=== PATIENT | male | born 1980 | race Caucasian/White ===

== ENCOUNTER → 2021-04-05 06:17 | Outpatient (CLI) | payer OTHER, SELFPAY ==
[2021-04-05 07:43] LABS: Absolute Lymphocyte Count 1.77 X10^3/uL (0.83-4.51); Absolute Neutrophil Count 4.2 X10^3/uL (2.0-7.7); Basophil# 0.03 X10^3/uL; Basophil% 0.4 % (0-1); Eosinophil# 0.13 X10^3/uL; Eosinophils% 1.9 % (0-5); Hemoglobin 14.7 g/dL (13.0-16.5); Lymphocyte # 1.77 X10^3/ul (0.83-4.51); Lymphocyte % 25.8 % (19-41); Mean Corp Hgb Conc 33.4 g/dL (32-36); Mean Corpuscular Hgb 29.6 pg (27.0-32.0); Mean Corpuscular Volume 88.5 fL (80-94); Mean Platelet Vol. 8.8 fl (6.2-12.0); Monocyte# 0.68 X10^3/uL; Monocyte% 9.9 % (0-10); NRBC Flagged by Analyzer 0 % (0-5); Neutrophil # 4.23 X10^3/uL (2.7-7.7); Neutrophil % 61.7 % (47-70); Platelet Count 181 K/mm3 (150-450); RBC Distribution Width CV 12.4 % (11.6-14.6); RBC Distribution Width SD 40.4 fl (35.1-43.9); Red Blood Count 4.97 M/mm3 (4.6-6.2); White Blood Count 6.9 K/mm3 (4.4-11.0)
[2021-04-05 08:20] LABS: Anion Gap 6 (5-15); BUN 15 mg/dL (7-18); BUN/Creat Ratio 14.9 RATIO (10-20); Chloride 102 mmol/L (98-107); Cholesterol 157 mg/dL (200); Creatinine, Serum 1.01 mg/dL (0.70-1.30); EST Glomerular Filtration Rate 86 mL/min (>60); Est Glom Filt Rate - Afr Amer 104 mL/min (>60); Glucose 84 mg/dL (74-106); High Density Lipoprotein 41 mg/dL; Potassium 4.1 mmol/L (3.5-5.1); Sodium Level 139 mmol/L (136-145); Triglycerides 62 mg/dL; Very Low Density Lipoprotein 12 mg/dL (5-40)
== END ==
PROVIDERS: PCP Family Medicine; Referring Provider Family Medicine; Visit Provider Family Medicine
DX: Z00.00 Encounter for general adult medical examination without abnormal findings (principal); L40.9 Psoriasis, unspecified
CPT/HCPCS: 36415; 80048; 80061; 84403; 84443; 85025

== ENCOUNTER → 2022-04-19 | Outpatient (CLI) | payer OTHER, SELFPAY ==
[2022-04-19 08:02] LABS: Anion Gap 4 (5-15); BUN 24 mg/dL (7-18); BUN/Creat Ratio 24.8 RATIO (10-20); Calcium,Total 8.8 mg/dL (8.5-10.1); Chloride 107 mmol/L (98-107); Cholesterol 167 mg/dL (200); Creatinine, Serum 0.97 mg/dL (0.70-1.30); EST Glomerular Filtration Rate 90 mL/min (>60); Est Glom Filt Rate - Afr Amer 109 mL/min (>60); Glucose 82 mg/dL (74-106); High Density Lipoprotein 46 mg/dL; Potassium 4.5 mmol/L (3.5-5.1); Sodium Level 140 mmol/L (136-145); Triglycerides 63 mg/dL; Very Low Density Lipoprotein 13 mg/dL (5-40)
== END | disposition home or self-care (01) ==
PROVIDERS: PCP Family Medicine; Referring Provider Family Medicine; Visit Provider Family Medicine
DX: Z00.00 Encounter for general adult medical examination without abnormal findings (principal)
CPT/HCPCS: 36415; 80048; 80061

== ENCOUNTER → 2022-12-19 | Outpatient (CLI) | payer OTHER, SELFPAY ==
[2022-12-19 17:26] LABS: Absolute Lymphocyte Count 2.27 X10^3/uL (0.83-4.51); Absolute Neutrophil Count 5.4 X10^3/uL (2.0-7.7); Basophil# 0.07 X10^3/uL; Basophil% 0.8 % (0-1); Eosinophil# 0.23 X10^3/uL; Eosinophils% 2.6 % (0-5); Hematocrit 43.9 % (40-54); Hemoglobin 15.1 g/dL (13.0-16.5); Lymphocyte # 2.27 X10^3/ul (0.83-4.51); Lymphocyte % 25.5 % (19-41); Mean Corp Hgb Conc 34.4 g/dL (32-36); Mean Corpuscular Volume 87.1 fL (80-94); Mean Platelet Vol. 8.6 fl (6.2-12.0); Monocyte# 0.87 X10^3/uL; Monocyte% 9.8 % (0-10); NRBC Flagged by Analyzer 0 % (0-5); Neutrophil # 5.41 X10^3/uL (2.7-7.7); Neutrophil % 60.7 % (47-70); Platelet Count 178 K/mm3 (150-450); RBC Distribution Width CV 12.1 % (11.6-14.6); RBC Distribution Width SD 38.5 fl (35.1-43.9); Red Blood Count 5.04 M/mm3 (4.6-6.2); White Blood Count 8.9 K/mm3 (4.4-11.0)
[2022-12-19 17:42] LABS: AST(SGOT) 24 U/L (15-37); Alanine Aminotransfer ALT/SGPT 34 U/L (16-61); Albumin, Serum 4.2 g/dL (3.2-5.0); Alkaline Phosphatase 56 U/L (45-117); Anion Gap 5 (5-15); BUN 25 mg/dL (7-18); BUN/Creat Ratio 27.6 RATIO (10-20); Bilirubin, Direct 0.11 mg/dL (0.00-0.30); Calcium,Total 8.8 mg/dL (8.5-10.1); Chloride 108 mmol/L (98-107); Creatinine, Serum 0.91 mg/dL (0.70-1.30); EST Glomerular Filtration Rate 97 mL/min (>60); Est Glom Filt Rate - Afr Amer 117 mL/min (>60); Globulin 3.5 g/dL (2.2-4.2); Glucose 79 mg/dL (74-106); Potassium 3.9 mmol/L (3.5-5.1); Protein, Total 7.7 g/dL (6.4-8.2); Sodium Level 140 mmol/L (136-145)
[2022-12-19 18:46] LABS: Hepatitis B Surface Antibody Non-Reactive; Hepatitis B Surface Antigen Non-Reactive (Nonreactive); Hepatitis C Antibody Non-Reactive (Nonreactive)
[2022-12-21 15:08] LABS: Hepatitis B Core Ab Total Negative (Negative); QNTFERON TB Mitogen Value > 10.00 IU/mL (.); QNTFERON TB Nil Value 0 IU/mL (.); QNTFERON TB1+ Ag Value 0 IU/mL (.); QNTFERON TB2+ Ag Value 0 IU/mL (.); QNTIFERON TB Positive Criteria Negative (Negative)
== END | disposition home or self-care (01) ==
LOC: MTLAB 16:41
PROVIDERS: PCP Family Medicine; Referring Provider Dermatology; Visit Provider Dermatology
DX: L40.0 Psoriasis vulgaris (principal)
CPT/HCPCS: 36415; 80048; 80076; 85025; 86480; 86704; 86706; 86803; 87340

== ENCOUNTER 2023-01-05 15:56 | Outpatient (RCR) | payer OTHER, SELFPAY ==
--- NOTE | 2023-01-08 12:18 | HP.PTEVAL_ITS ---
Patient's Visit Information Visit Information Visit Information: RAY BOSWELL is a 42 year old M referred to Physical Therapy by Dr. Leti Julian DC with a diagnosis of Lumbopelvic dysfunctional, need for hip and HS mobility. Date of Evaluation: 01/05/23 Physical Therapist: Kendrick Coles DPT Visit Plan Frequency: 1x/Week Duration: 4 Weeks Plan: Pt. to work on the HEP I gave him today for both lumbar, hip mobility as well as hip flexor, HS, hip ER stretching. Pt. is to complete for 4-5 weeks then come back to PT if not progressing. If I do not hear from him in this time frame I will DC back to physician. Subjective Subjective: Pt. is here today for his initial evaluation with diagnosis of Lumbopelvic dysfunction. Pt. reports not having much pain, but is more concerned about his hip and HS mobility. Pt. reports having difficulty with squatting and with lifting movements. He does have some low back stiffness, but not marked pain. Pt. did see his chiropractor and had some success with his mobilizations, but is hopeful to get some more exercises to work on his mobility. Pt. reports no pain currently. Pt. reports having some pain with squatting in his hips and lumbar spine, but mostly his mobility is limiting the full movement. He reports stretching before and working on his mobility, but not seeing progression. He is interested in getting some information on stretching to allow for more self progression at home with his lifting. Objective Objective: POSTURE: Pt. has decent posture in stance. No glaring defects. PALPATION: Pt. has no marked tenderness in BLEs, lumbar spine or hips. NEURO: Normal throughout BLEs. ROM: Pt. has tight B calves, tight HS, tight B hip flexors, and moderate tightness throughout lumbar spine. MMT: 5/5 throughout without issues. GAIT: normal no issues noted. Special Tests L/S Slump test left side: Negative L/S Slump test right side: Negative Lumbar Standing: Flexion - Mechanical Response: No effect Lumbar Standing: Flexion - Symptoms During Testing: No effect Lumbar Standing: Flexion - Symptoms After Testing: No effect Lumbar Standing: Extension - Mechanical Response: No effect Lumbar Standing: Extension - Symptoms During Testing: No effect Lumbar Standing: Extension - Symptoms After Testing: No effect Lumbar Standing: Right Side Glides - Mechanical Response: No effect Lumbar Standing: Right Side [place] - Symptoms During Testing: No effect Lumbar Standing: Right Side [place] - Symptoms After Testing: No effect Lumbar Standing: Left Side [place] - Mechanical Response: No effect Lumbar Standing: Left Side [place] - Symptoms During Testing: No effect Lumbar Standing: Left Side [place] - Symptoms After Testing: No effect R Hip Scour: Negative R Hip Quadrant - Intraarticular Pathology: Negative R Hip LILIAN - Intraarticular Pathology: Negative R Hip FADDIR - Labrum: Negative L Hip Scour: Negative L Hip Quadrant - Intraarticular Pathology: Negative L Hip LILIAN - Intraarticular Pathology: Negative L Hip FADDIR - Labrum: Negative Balance/Special Test Scores Lower Extremity Functional Score: 70 Goals Goal 1:: LTG: Pt. to be I with HEP for LE stretching and lumbar/hip mobility. Goal Time Frame: 4-6 Weeks Goal 2:: LTG: Pt. to be able to squat with proper depth without tightness in lumbar spine or hip limiting his ability to lift. Goal Time Frame: 4-6 Weeks Rehabilitation Potential Physical Therapy Diagnosis: Pt. has signs and symptoms consistent with B hip and HS hypomobility. Pt. would benefit from exercises to promote B hip and lumbar flexibility in order to complete all proper movements with lifting and recreational activities. Rehabilitation Potential: Excellent Anticipated Interventions Patient/Client Instruction: Educate patient on: Condition, Plan of Care, Risk Factors and Benefits of Fitness Program For the Purpose of:: To facilitate caregiver knowledge, To improve self management, To prevent re-injury, To improve ability to perform tasks related to life management and To improve tolerance to ADL's Therapeutic Exercise to Include: Postural training, Flexibilty training, Passive ROM and Active ROM For the Purpose of:: To increase ROM, To improve nutrient delivery to tissue, To increase oxygenation perfusion, To improve health of tissue, To decrease soft tissue restriction and To increase flexibility/ROM Text: Thank you for the opportunity to evaluate your patient. For Medicare and Medicare HMO plans, please review the plan of care and approve it. It will need to be FAXED BACK to us at [phone] for Medicare purposes. For Medicare only, by signing this I certify the plan of care. Please let me know if there are questions or concerns regarding this plan of care. Physician Signature: Date:
== END 2023-01-05 19:00 | disposition home or self-care (01) ==
LOC: PT 15:56
PROVIDERS: PCP Family Medicine; Referring Provider Chiropractor; Visit Provider Chiropractor
DX: M99.03 Segmental and somatic dysfunction of lumbar region (principal); M99.05 Segmental and somatic dysfunction of pelvic region; M54.9 Dorsalgia, unspecified
CPT/HCPCS: 97110; 97161

== ENCOUNTER → 2023-04-13 | Outpatient (CLI) | payer OTHER, SELFPAY ==
--- NOTE | 2023-04-13 17:03 | RAD_ITS ---
INDICATION: left thumb puncture r/o fb EXAMINATION/TECHNIQUE: X-RAY - LEFT HAND XR Fingers 3 VIEWS COMPARISON: FINDINGS: SOFT TISSUES: No soft tissue swelling or gas. No radiopaque foreign body. BONES/JOINTS: No acute fracture or subluxation.. Normal alignment. Preservation of the joint space.. No sclerotic or destructive changes observed. RAD/Finger(s) Min 2 Views IMPRESSION: Negative. Electronically Signed: Frank Johnson DO at 17:31 EDT ,
== END | disposition home or self-care (01) ==
LOC: MTRAD 17:03
PROVIDERS: PCP Family Medicine; Referring Provider Physician Assistant Surgical; Visit Provider Physician Assistant Surgical
DX: S61.032A Puncture wound without foreign body of left thumb without damage to nail, initial encounter (principal)
CPT/HCPCS: 73140

== ENCOUNTER → 2023-05-01 | Outpatient (CLI) | payer OTHER, SELFPAY ==
[2023-05-01 07:22] LABS: Anion Gap 2 (5-15); BUN 21 mg/dL (7-18); BUN/Creat Ratio 20.6 RATIO (10-20); Chloride 103 mmol/L (98-107); Cholesterol 197 mg/dL (200); Creatinine, Serum 1.02 mg/dL (0.70-1.30); EST Glomerular Filtration Rate 84 mL/min (>60); Est Glom Filt Rate - Afr Amer 102 mL/min (>60); Glucose 81 mg/dL (74-106); High Density Lipoprotein 50 mg/dL; Sodium Level 133 mmol/L (136-145); Triglycerides 78 mg/dL; Very Low Density Lipoprotein 16 mg/dL (5-40)
== END | disposition home or self-care (01) ==
PROVIDERS: PCP Family Medicine; Referring Provider Family Medicine; Visit Provider Family Medicine
DX: Z00.00 Encounter for general adult medical examination without abnormal findings (principal)
CPT/HCPCS: 36415; 80048; 80061

== ENCOUNTER 2024-11-29 10:50 | Emergency (ER) | payer OTHER, SELFPAY ==
[2024-11-29 10:51] VITALS: BP 188/107; PULSE 76; RESP 18; TEMP 36.8; O2SAT 100; BMI 37.0
--- NOTE | 2024-11-29 11:14 | CT_ITS ---
PROCEDURE: ABDOMEN/PELVIS W IV CONT ONLY 11/29/2024 REASON FOR EXAM: ABDOMINAL PAIN TECHNIQUE: Abdomen and pelvis CT with intravenous contrast. Coronal and Sagittal reconstruction series were provided. CONTRAST: 100 mL of Isovue 370 One or more dose reduction techniques were used (e.g., Automated exposure control, adjustment of the mA and/or kV according to patient size, use of iterative reconstruction technique. RADIATION DOSE SUMMARY: DLP: 1487 mGycm COMPARISON: None FINDINGS: Limited sections of the lung bases demonstrate no focal pulmonary mass. The liver, spleen, pancreas, both kidneys, and both adrenal glands demonstrate no acute findings. 2.1 cm exophytic cyst within the right kidney. Smaller scattered subcentimeter hypodensities within bilateral kidneys too small to accurately characterize. No hydronephrosis. No obstructive uropathy. Subcentimeter hypodensities throughout the liver too small to accurately characterize. Scattered calcifications throughout the spleen likely sequelae of prior granulomatous disease. The gallbladder is unremarkable. The stomach is unremarkable. The aorta and IVC demonstrate no acute findings. There is no free air, free fluid or intestinal obstruction. The small bowel loops are not dilated. The appendix is normal. No bowel obstruction. Colonic diverticulosis without acute diverticulitis. The pelvic structures are intact. There is no solid pelvic mass. The urinary bladder is distended Visualized osseous structures demonstrate no acute abnormality. CT/Abdomen/Pelvis W IV Cont ONLY IMPRESSION: No acute intra-abdominal process. Normal appendix. No bowel obstruction. Col onic diverticulosis without acute diverticulitis. Reading Location: [id number]
--- NOTE | 2024-11-29 11:16 | EX.ED.DYSGE1 ---
HPI <CHEN Munoz - Last Filed: 11/29/24 12:51> History of Present Illness Chief Complaint: Abd Pain Narrative Narrative: 44 old male with past medical history of psoriasis presents with abdominal pain and rectal bleeding. He has had 4 months of intermittent pain that radiates from the umbilicus to the groin. He noticed there was a healing depression to the right of his umbilicus, but he has no hernia. He also would have occasional rectal bleeding with bowel movements. The abdominal pain and rectal bleeding were very minor so he did not address it. The abdominal pain seems worse over the last 4 days and today when he was on the toilet and passed gas it filled the toilet bowl with bright red blood. No clots. No rectal pain. No fever, chills, nausea or vomiting. No blood thinners. No history of colonoscopy. PFSH <CHEN Munoz - Last Filed: 11/29/24 12:51> ON LICENSE OF [facility] Home Medications ?Medication ?Instructions ?Recorded ?Last Taken ?Type Saccharomyces boulardii 250 mg 250 mg PO DAILY 12/25/22 Unknown History capsule (Digest Probiotic (S.boulardii)) cholecalciferol (vitamin D3) 125 125 mcg PO DAILY 12/25/22 Unknown History mcg (5,000 unit) capsule loratadine 10 mg tablet (Allergy 10 mg PO DAILY 12/25/22 Unknown History Relief (loratadine)) multivitamin 1 tab PO DAILY 12/25/22 Unknown History Adacel(Tdap Adolesn/Adult)(PF) 0.5 ml IM ONCE #0.5 mL 04/13/23 Unknown Clinic 2Lf-(2.5-5-3-5mcg)-5 Lf/0.5 mL IM susp (diph,pertuss(acel),tet vac(PF)) roflumilast 500 mcg tablet 500 mcg PO QDAY 06/09/24 Unknown History Allergy/AdvReac Type Severity Reaction Status Date / Time amoxicillin trihydrate (From Allergy Diarrhea Verified 06/09/24 11:04 Augmentin) potassium clavulanate (From Allergy Diarrhea Verified 06/09/24 11:04 Augmentin) Family History Other Diabetes Heart disease Surgical History History of hand surgery Social History Smoking Status: Never smoker alcohol intake: never ROS <CHEN Munoz - Last Filed: 11/29/24 12:51> ROS ED ROS Narrative Constitutional: Negative for fever, chills, malaise. CVS: Negative for chest pain. Respiratory: Negative for shortness of breath. GI: Positive for abdominal pain. Negative for nausea, vomiting, diarrhea, constipation, melena. : Negative for dysuria. EXAM <CHEN uMnoz - Last Filed: 11/29/24 12:51> Physical Exam Narrative Exam Narrative: CONST: Patient sitting in no acute distress. EYES: Normal inspection. NECK: Normal inspection. RESP: No respiratory distress, CTAB. CVS: Regular rate and rhythm, no murmur, no gallop. ABD: Soft and nontender, no guarding or rebound, nondistended, no palpable hernia. MARY: Small amount of dried bright red blood around the rectum with no visible external hemorrhoids. SKIN: Color normal, no rash, warm, dry, intact. EXTREMITIES: Normal appearance, no pedal edema. NEURO: Alert and answering questions appropriately. PSYCH: Normal affect. Const Vital Signs: 11/29/24 10:51 11/29/24 12:52 Temperature 98.3 F 98.6 F Temperature Source Oral Pulse Rate 76 72 Respiratory Rate 18 16 Blood Pressure 188/107 H 154/94 H Blood Pressure Mean 134 114 Pulse Ox 100 97 Oxygen Delivery Method Room Air <Dr. Jorge Hill DO - Last Filed: 11/29/24 13:06> Physical Exam Const Vital Signs: 11/29/24 10:51 11/29/24 12:52 Temperature 98.3 F 98.6 F Temperature Source Oral Pulse Rate 76 72 Respiratory Rate 18 16 Blood Pressure 188/107 H 154/94 H Blood Pressure Mean 134 114 Pulse Ox 100 97 Oxygen Delivery Method Room Air MDM <CHEN Munoz - Last Filed: 11/29/24 12:51> MDM MDM Narrative Medical decision making narrative: Patient presents with 4 months of intermittent lower abdominal pain and bright red rectal bleeding that worsened over the last few days. He appears well and nontoxic. Vital stable. He has a soft, nontender abdomen. I do not appreciate any hernias. There is dried bright red blood on the external rectum but no visible hemorrhoids. Differential includes diverticulosis, diverticulitis, internal/external hemorrhoids among others. CBC and CMP are normal. Urinalysis negative. CT scan shows diverticulosis without diverticulitis. I discussed with the patient this is likely the source of his bleeding but he needs to follow-up with primary care to have a colonoscopy. Since his abdominal pain increased over the last few days I discussed the possibility of a smoldering diverticulitis infection and offered Augmentin but he would like to hold off and will discuss with his primary care if symptoms require it. He was discharged in stable condition History & Record Review Discussion w/independent historian: Patient Lab Data Attestation: I reviewed the patient's lab results. Labs: Laboratory Results - last 24 hr 11/29/24 11/29/24 11:20 12:18 WBC 9.0 RBC 5.07 Hgb 15.3 Hct 43.6 MCV 86.0 MCH 30.2 MCHC 35.1 RDW Std Deviation 37.4 RDW Coeff of Trupti 12.1 Plt Count 150 MPV 8.1 Immature Gran % (Auto) 0.800 Neut % (Auto) 68.4 Lymph % (Auto) 20.8 [place] % (Auto) 8.2 Eos % (Auto) 1.2 Baso % (Auto) 0.6 Absolute Neuts (auto) 6.1 Absolute Lymphs (auto) 1.87 Nucleated RBC % 0 Sodium 138 Potassium 3.8 Chloride 102 Carbon Dioxide 24.4 Anion Gap 12 BUN 13 Creatinine 0.92 Estim Creat Clear Calc 124.82 Est GFR (MDRD) Non-Af 103 BUN/Creatinine Ratio 13.7 Glucose 82 Calcium 9.5 Total Bilirubin 0.63 AST 31 ALT 42 Alkaline Phosphatase 68 Total Protein 7.6 Albumin 4.8 Globulin 2.8 Albumin/Globulin Ratio 1.7 Urine Color Yellow Urine Clarity Clear Urine pH 7.0 Ur Specific [place] 1.010 Urine Protein Negative Urine Glucose (UA) Normal Urine Ketones Negative Urine Occult Blood Negative Urine Nitrite Negative Urine Bilirubin Negative Urine Urobilinogen Normal Ur Leukocyte Esterase Negative Urine RBC 0 SEEN Urine WBC 0 SEEN Ur Squamous Epith Cells 0 SEEN Urine Bacteria 0 SEEN Urine Mucus 0 SEEN Radiography Diagnostic Testing: Clinical Impression(s) from Imaging Studies Abdomen/Pelvis CT 11/29/24 11:14 IMPRESSION: No acute intra-abdominal process. Normal appendix. No bowel obstruction. Colonic diverticulosis without acute diverticulitis. Reading Location: [id number] <Dr. Jorge Hill DO - Last Filed: 11/29/24 13:06> [facility] Narrative Medical decision making narrative: Patient presents with 4 months of intermittent lower abdominal pain and bright red rectal bleeding that worsened over the last few days. He appears well and nontoxic. Vital stable. He has a soft, nontender abdomen. I do not appreciate any hernias. There is dried bright red blood on the external rectum but no visible hemorrhoids. Differential includes diverticulosis, diverticulitis, internal/external hemorrhoids among others. CBC and CMP are normal. Urinalysis negative. CT scan shows diverticulosis without diverticulitis. I discussed with the patient this is likely the source of his bleeding but he needs to follow-up with primary care to have a colonoscopy. Since his abdominal pain increased over the last few days I discussed the possibility of a smoldering diverticulitis infection and offered Augmentin but he would like to hold off and will discuss with his primary care if symptoms require it. He was discharged in stable condition I have personally performed a face to face assessment of the patient and have reviewed the KOJO Note. I performed a substantive portion of the visit including all aspects of the following. My gutierrez findings include: History is 44-year-old male presenting to the emergency room with abdominal pain from his umbilicus to his suprapubic area. Waxing and waning for about 2 weeks. No mucousy stools no significant constipation or diarrhea. This morning he was on the commode and had bright red blood in the toilet. This is the first that has occurred. He states that sometimes he will see blood on the tissue. He denies any rectal pain. No fevers. No known hernias. No prior colonoscopy though he has discussed this with his doctor. He is due for his yearly evaluation. Exam is mild tenderness to palpation in the suprapubic region and just to the right of midline between his umbilicus and pubic symphysis. There is no palpable hernia at rest or with partial sit up. Normal bowel sounds. Medical Decison Making basic blood work shows a white count at 9 normal differential. Urinalysis is negative. CT of the pelvis demonstrates diverticular disease but no diverticulitis. I do think it would be reasonable with the patient obtain outpatient colonoscopy. We talked about in a trial of antibiotics for possible early diverticulitis. Patient to follow-up with primary care Lab Data Labs: Laboratory Results - last 24 hr 11/29/24 11/29/24 11:20 12:18 WBC 9.0 RBC 5.07 Hgb 15.3 Hct 43.6 MCV 86.0 MCH 30.2 MCHC 35.1 RDW Std Deviation 37.4 RDW Coeff of Trupti 12.1 Plt Count 150 MPV 8.1 Immature Gran % (Auto) 0.800 Neut % (Auto) 68.4 Lymph % (Auto) 20.8 [place] % (Auto) 8.2 Eos % (Auto) 1.2 Baso % (Auto) 0.6 Absolute Neuts (auto) 6.1 Absolute Lymphs (auto) 1.87 Nucleated RBC % 0 Sodium 138 Potassium 3.8 Chloride 102 Carbon Dioxide 24.4 Anion Gap 12 BUN 13 Creatinine 0.92 Estim Creat Clear Calc 124.82 Est GFR (MDRD) Non-Af 103 BUN/Creatinine Ratio 13.7 Glucose 82 Calcium 9.5 Total Bilirubin 0.63 AST 31 ALT 42 Alkaline Phosphatase 68 Total Protein 7.6 Albumin 4.8 Globulin 2.8 Albumin/Globulin Ratio 1.7 Urine Color Yellow Urine Clarity Clear Urine pH 7.0 Ur Specific [place] 1.010 Urine Protein Negative Urine Glucose (UA) Normal Urine Ketones Negative Urine Occult Blood Negative Urine Nitrite Negative Urine Bilirubin Negative Urine Urobilinogen Normal Ur Leukocyte Esterase Negative Urine RBC 0 SEEN Urine WBC 0 SEEN Ur Squamous Epith Cells 0 SEEN Urine Bacteria 0 SEEN Urine Mucus 0 SEEN Radiography Diagnostic Testing: Clinical Impression(s) from Imaging Studies Abdomen/Pelvis CT 11/29/24 11:14 IMPRESSION: No acute intra-abdominal process. Normal appendix. No bowel obstruction. Colonic diverticulosis without acute diverticulitis. Reading Location: [facility] Discharge Plan Triage Chief Complaint: Abd Pain ED Midlevel Provider: Katarzyna Roberts ED Provider: Jorge Hill Dx/Rx/DC Orders Clinical Impression: Diverticulosis, Rectal bleeding, Abdominal pain Instructions: Abdominal Pain, ED Diverticulosis Prescriptions: No Action loratadine [Allergy Relief (loratadine)] 10 mg tablet 10 mg PO DAILY multivitamin Tablet 1 tab PO DAILY cholecalciferol (vitamin D3) 125 mcg (5,000 unit) capsule 125 mcg PO DAILY Saccharomyces boulardii [Digest Probiotic (S.boulardii)] 250 mg capsule 250 mg PO DAILY diph,pertuss(acel),tet vac(PF) [Adacel(Tdap Adolesn/Adult)(PF)] 2 Lf-(2.5-5-3-5 mcg)-5Lf/0.5 mL suspension 0.5 ml IM ONCE Qty: 0.5 0RF roflumilast 500 mcg tablet 500 mcg PO QDAY Primary Care Provider: Angelo Velázquez Referrals: Angelo Velázquez MD [Primary Care Provider] - Activity Restrictions/Additional Instructions: Your blood work is normal. Your CAT scan showed diverticulosis which could be a source of the bright red bleeding. It is important you follow-up with your primary care doctor to schedule a colonoscopy. Since your abdominal pain has been a little worse this could be early stages of diverticulitis. I offered Augmentin but you would like to hold off and follow-up with her primary care doctor which is very reasonable. If symptoms worsen significantly please come back to the ER. Print Language: Hungarian Disposition Disposition: Home, Self Care Discharge Date/Time: 11/29/24 12:58
[2024-11-29 11:29] LABS: Absolute Lymphocyte Count 1.87 X10^3/uL (0.83-4.51); Absolute Neutrophil Count 6.1 X10^3/uL (2.0-7.7); Basophil# 0.05 X10^3/uL; Basophil% 0.6 % (0-1); Eosinophil# 0.11 X10^3/uL; Eosinophils% 1.2 % (0-5); Hematocrit 43.6 % (40-54); Hemoglobin 15.3 g/dL (13.0-16.5); Lymphocyte # 1.87 X10^3/ul (0.83-4.51); Lymphocyte % 20.8 % (19-41); Mean Corp Hgb Conc 35.1 g/dL (32-36); Mean Corpuscular Hgb 30.2 pg (27.0-32.0); Mean Platelet Vol. 8.1 fl (6.2-12.0); Monocyte# 0.74 X10^3/uL; Monocyte% 8.2 % (0-10); NRBC Flagged by Analyzer 0 % (0-5); Neutrophil # 6.14 X10^3/uL (2.7-7.7); Neutrophil % 68.4 % (47-70); Platelet Count 150 K/mm3 (150-450); RBC Distribution Width CV 12.1 % (11.6-14.6); RBC Distribution Width SD 37.4 fl (35.1-43.9); Red Blood Count 5.07 M/mm3 (4.6-6.2)
[2024-11-29 11:57] LABS: ALB/GLOB Ratio 1.7 RATIO (0.9-2.4); AST(SGOT) 31 U/L (<=37); Alanine Aminotransfer ALT/SGPT 42 U/L (<=46); Albumin, Serum 4.8 g/dL (3.5-5.0); Alkaline Phosphatase 68 U/L (40-129); Anion Gap 12 (5-15); BUN 13 mg/dL (4-19); BUN/Creat Ratio 13.7 RATIO (10-20); Calcium,Total 9.5 mg/dL (7.6-11.0); Carbon Dioxide 24.4 mmol/L (21.0-32.0); Chloride 102 mmol/L (98-108); Creatinine, Serum 0.92 mg/dL (0.70-1.20); EST Glomerular Filtration Rate 103 (>60); Estimated Creatinine Clearance 124.82 ml/min (50-250); Globulin 2.8 g/dL (2.2-4.2); Glucose 82 mg/dL (70-99); Potassium 3.8 mmol/L (3.3-5.1); Protein, Total 7.6 g/dL (5.9-8.4); Sodium Level 138 mmol/L (133-145); Total Bilirubin 0.63 mg/dL (0.00-1.30)
[2024-11-29 12:27] LABS: Bacteria 0 SEEN /hpf (None Seen); Mucous, Urine 0 SEEN /hpf (<or=2+); Red Blood Cells-Urine 0 SEEN /hpf (0-5); Squamous Epithelial Cells - UA 0 SEEN /hpf (0-5); White Blood Cells 0 SEEN /hpf (0-5)
[2024-11-29 12:37] LABS: Color, Urine Yellow (Yellow); Glucose, Dipstick Normal (Normal); Ketone-Dipstick Negative (Negative); Leukocyte Esterase-Dipstick Negative /ul (Negative); Nitrite-Dipstick Negative (Negative); Occult Blood-Urine Negative /ul (Negative); Protein-Dipstick Negative (Negative); Urine Bilirubin Dipstick Negative (Negative); Urine Clarity Clear (Clear); Urine Urobilinogen Normal (Normal)
[2024-11-29 12:52] VITALS: BP 154/94; PULSE 72; RESP 16; TEMP 37; O2SAT 97
== END 2024-11-29 12:58 | disposition home or self-care (01) ==
PROVIDERS: Physician Assistant; Emergency Provider Emergency Medicine; PCP Family Medicine; Visit Provider Emergency Medicine
DX: K57.30 Diverticulosis of large intestine without perforation or abscess without bleeding (principal); K62.5 Hemorrhage of anus and rectum
CPT/HCPCS: 74177; 80053; 81001; 85025; 99283; Q9967; A4216

== ENCOUNTER → 2025-01-01 | Outpatient (CLI) | payer OTHER, SELFPAY ==
--- NOTE | 2025-01-01 07:31 | US_ITS ---
PROCEDURE: ABDOMEN LIMITED 01/01/2025 REASON FOR EXAM: RUQ PAIN TECHNIQUE: Right upper quadrant abdominal ultrasound COMPARISON: CT examination of 11/29/2024.. FINDINGS: Liver: The liver measures of the upper range of normal. No focal hepatic abnormality is seen, and normal hepatic echogenicity is noted. Hepatopetal flow of the main portal vein is noted. No intrahepatic biliary ductal dilation is noted. Gallbladder: Measured at 8.6 cm in length. Gallbladder sludge is noted. No stone, wall thickening, or pericholecystic fluid collection is seen. No sonographic Neely's sign was elicited. Common bile duct: Normal measuring 2.6 mm diameter. Pancreas: Limited visualization due to overlying bowel gas, without focal abnormality seen. No pancreatic duct dilation is noted. Right kidney: An exophytic hypoechoic structure at the superior pole of the right kidney is measured at 17 x 16 x 16 mm. Color Doppler evaluation does not demonstrate internal blood flow. The right kidney measures 10.7 x 5.2 x 4.8 cm. No evidence of hydronephrosis. The cortex is measured at 11 mm. Peritoneal Findings: No ascites identified. US/Abdomen Limited IMPRESSION: 1. Hypovascular hypoechoic exophytic structure of the superior pole of the righ t kidney, without internal blood flow noted upon color Doppler evaluation. This most likely represents a hemorrhagic cyst or ot her complicated cyst. 2. Gallbladder sludge. No findings of acute gallbladder disease or biliary obs truction, and no sonographic Neely's sign was elicited. Reading Location: [place] [id number]
--- OUTSIDE RECORDS SUMMARY | 2025-01-01 07:47 | XMS RPT_ITS | CCD ---
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 Angelo Velázquez Primary Care Provider Dr. Angelo Velázquez Referring Provider Eliel, Dr. Landeros Attending Provider CHEN Sanders Attending Provider Eber HER, Dr. Stephens Primary Care Provider Eber HER, Dr. Stephens Referring Provider Abdelrahman Anderson Attending Provider Dr. Jorge Hill DO Emergency Provider Dr. Jorge Hill DO Attending Provider Gissel HER, Dr. Anaya Attending Provider Jorge Hill Attending Unavailable Velázquez, Angelo Primary Care Unavailable Velázquez, Angelo Primary Care Unavailable Héctor Chauhan Attending Unavailable Eber, Angelo Referring Unavailable Velázquez, Angelo Primary Care Unavailable Héctor Chauhan Attending Unavailable Eber, Angelo Primary Care Unavailable Velázquez, Angelo Referring Unavailable Burt Turcios Attending Unavailable Velázquez, Angelo Primary Care Unavailable Velázquez, Angelo Referring Unavailable Abdelrahman Thorne Attending Unavailable Velázquez, Angelo Referring Unavailable Velázquez, Angelo Primary Care Unavailable Héctor Chauhan Attending Unavailable Allergies Allergy Classification Reported Allergen(s) Allergy Type Date of Onset Reaction(s) Facility (7 sources) Amoxicillin; Translations: [amoxicillin trihydrate] Drug Allergy 07-29-2015 Diarrhea [facility] (7 sources) potassium clavulanate; Translations: [potassium clavulanate] Allergy to substance 07-29-2015 [facility] Medications Current Medications Medication Drug Class(es) Dates Sig (Normalized) Sig (Original) cholecalciferol 0.125 mg oral capsule (4 sources) Vitamin D Start: 12-25-2022 take 1 capsule by mouth once daily Cholecalciferol (Vitamin D3) 125 mcg (5,000 unit) capsule Active 125 ug PO DAILY December 25, 2022 12:00am dicyclomine hydrochloride 20 mg oral tablet (1 source) Anticholinergic Start: 12-22-2024 take 1 tablet by mouth twice daily Dicyclomine 20 mg tablet Active 20 mg PO TWICE A DAY December 22, 2024 12:00am loratadine 10 mg oral tablet (4 sources) Start: 12-25-2022 take 1 tablet by mouth once daily Loratadine (Allergy Relief (Loratadine)) 10 mg tablet Active 10 mg PO DAILY December 25, 2022 12:00am Multivitamin preparation (2 sources) Start: 12-25-2022 take 1 tablet by mouth once daily Multivitamin Active 1 TABLET PO DAILY December 24, 2022 11:00pm Start: 12-25-2022 take 1 tablet by morgan once daily Multivitamin Active 1 TABLET PO DAILY December 25, 2022 12:00am Multivitamin tablet (2 sources) Start: 12-25-2022 Multivitamin tablet Active 1 {tbl} PO DAILY December 25, 2022 12:00am Roflumilast (2 sources) Phosphodiesterase 4 Inhibitor Start: 06-09-2024 take 1 tablet by mouth once daily Roflumilast 500 mcg tablet Active 500 ug PO daily June 09, 2024 1:00am saccharomyces boulardii 250 mg oral capsule (4 sources) Start: 12-25-2022 take 1 capsule by mouth once daily Saccharomyces Boulardii (Digest Probiotic (S.Boulardii)) 250 mg capsule Active 250 mg PO DAILY December 25, 2022 12:00am Completed/Discontinued Medications Medication Drug Class(es) Dates Sig (Normalized) Sig (Original) azithromycin 250 mg oral tablet (2 sources) Macrolide Antimicrobial Start: 06-09-2024 End: 09-13-2024 Azithromycin 250 mg tablet Discontinued 250 mg PO .COMPLEX June 09, 2024 1:00am September 13, 2024 11:03am 2 tablets (500 mg) on day 1, then 1 tablet daily on days 2 through 11 cephalexin 500 mg oral capsule (4 sources) Cephalosporin Antibacterial Start: 04-13-2023 End: 04-23-2023 take 1 capsule by mouth every eight hours Cephalexin 500 mg capsule Discontinued 500 mg PO Q8H 30 10 April 13, 2023 12:00am April 22, 2023 12:00am April 23, 2023 12:04am Risankizumab-Rzaa (4 sources) Start: 04-13-2023 End: 06-09-2024 Risankizumab-Rzaa (Skyrizi) 150 mg/mL pen injector Discontinued mg SC April 13, 2023 12:00am June 09, 2024 12:04pm Start: 04-13-2023 Risankizumab-R zaa (Skyrizi) 150 mg/mL pen injector Active MG SC April 12, 2023 11:00pm Start: 04-13-2023 Risankizumab-R zaa (Skyrizi) 150 mg/mL pen injector Active MG SC April 13, 2023 12:00am Problems Problem Classification Problem Date Documented Da te Episodic/Chronic Abdominal pain (7 sources) Abdominal pain; Translations: [Unspecified abdominal pain] Onset: 12-04-2024 11-29-2024 Episodic Diverticulosis and diverticulitis (2 sources) Diverticular disease; Translations: [Diverticulosis of intestine, part unspecified, without perforation or abscess without bleeding] 11-29-2024 Chronic Gastrointestinal hemorrhage (5 sources) Rectal hemorrhage; Translations: [Hemorrhage of anus and rectum] Onset: 12-22-2024 11-29-2024 Episodic Hemorrhoids (1 source) Hemorrhoids; Translations: [Unspecified hemorrhoids] 12-22-2024 Episodic Open wounds of extremities (7 sources) Puncture wound of thumb of left hand; Translations: [Puncture wound without foreign body of left thumb without damage to nail, initial encounter] 04-13-2023 Episodic Other bone disease and musculoskeletal deformities (8 sources) Segmental and somatic dysfunction; Translations: [Segmental and somatic dysfunction of lumbar region] 12-25-2022 Episodic Other bone disease and musculoskeletal deformities (11 sources) Segmental and somatic dysfunction of lumbar region; Translations: [Nonallopathic lesions, lumbar region] 12-25-2022 Episodic Other bone disease and musculoskeletal deformities (11 sources) Segmental and somatic dysfunction of pelvic region; Translations: [Nonallopathic lesions, pelvic region] 12-25-2022 Episodic Other gastrointestinal disorders (1 source) Constipation; Translations: [Constipation, unspecified] 12-22-2024 Episodic Other inflammatory condition of skin (4 sources) Psoriasis; Translations: [Psoriasis, unspecified] 04-13-2023 Chronic Other upper respiratory disease (4 sources) Allergic rhinitis; Translations: [Allergic rhinitis, unspecified] 09-13-2024 Chronic Spondylosis; intervertebral disc disorders; other back problems (15 sources) Backache; Translations: [Dorsalgia, unspecified] 12-28-2022 Episodic Results Test Name Value Interpretation Reference Range Facility Surgery Visit Reporton 12-22 Surgery Visit Report [facility] [place] [address] OFFICE VISIT Date of Service: 12/22/24 MR#: [id number] Acct: [id number] Name: RAY ALARCON Rep #: [id number] : 1980 Provider: Dr. Héctor llamas MD Age/Sex: 44/M Location: [facility] Status: Signed Intake Vital Signs 11/29/24 10:51 12/22/24 15:08 Height 5 ft 9 in 5 ft 9 in Weight: 254 lb 4 oz BMI 37.5 BP 134/90 H Blood Pressure Location Rt brachial Position Sitting Respiration 18 Pulse 73 Pulse Source Monitor Temp 97.2 F L Temp Source Temporal Pulse Oximetry (%) 99 Oxygen Delivery Method room air Intake Visit Reasons: ABD PAIN/ RECTAL BLEED Chief Complaint: abd pain/ rectal bleed Accompanied by: Is patient in pain?: No Allergies amoxicillin trihydrate (From Augmentin) Allergy (Verified 12/22/24 15:09) Diarrhea potassium clavulanate (From Augmentin) Allergy (Verified 12/22/24 15:09) Diarrhea Medications ???Medication ???Instructions ???Recorded ???Confirmed ???Type Saccharomyces boulardii 250 mg 250 mg PO DAILY 12/25/22 12/22/24 History capsule (Digest Probiotic (S.boulardii)) cholecalciferol (vitamin D3) 125 125 mcg PO DAILY 12/25/22 12/22/24 History mcg (5,000 unit) capsule loratadine 10 mg tablet (Allergy 10 mg PO DAILY 12/25/22 12/22/24 H istory Relief (loratadine)) multivitamin 1 tab PO DAILY 12/25/22 12/22/24 H istory roflumilast 500 mcg tablet 500 mcg PO QDAY 06/09/24 12/22/24 History dicyclomine 20 mg tablet 20 mg PO BID 12/22/24 12/22/24 His tory [facility] Medical History (Updated 12/22/24 @ 15:[address] Héctor Chauhan MD) Hemorrhoids Constipation Surgical History History of hand surgery Family History Other Diabetes Heart disease Social History Smoking Status: Never smoker alcohol intake: never HPI HPI HPI: Patient is a 44-year-old male who has 2 issues. He has fullness especially in the right upper quadrant which radiates to the back. He is also having blood in the stool that just darted about a week ago. He says the blood is bright red. There is no pain with defecation. He says the greasy and fatty foods cause the pain that he is having. ROS General General: No weight change, appetite, fatigue, colon cancer, breast cancer or weakness HEENT HEENT: No difficulty swallowing, eye injury, eye surgery, swollen glands or hoarseness Endo Endocrine: No thyroid disease, diabetes mellitus, thyroid cancer, Hair loss, heat intolerance or cold intolerance Skin Skin: No rash or changing moles Musc Musculoskeletal: No back problems, arthritis, rheumatoid arthritis, gout or joint pain Cardio Cardiovascular: No murmur, pacemaker, heart disease, atrial fibrillation, high blood pressure, heart attack, heart stent, palpitations, shortness of breath with exertion or chest pain Psych Psychiatric: No depression, anxiety or hearing voices Resp Respiratory: No shortness of breath, No sleep apnea, No cough, No COPD, No asthma, No emphysema and No wheezing Gastro Gastrointestinal: Yes abdominal pain, No nausea or vomiting, No diarrhea, Yes constipation, Yes blood in stool, No acid reflux, Yes hemorrhoids, No ulcers, No gallbladder problem and No black,tarry stools Kel Hematologic: No blood thinners, No blood disorders, No bleeding, No anemia and No blood clots Neuro Neurologic: No numbness, No tingling and No weakness Exam Const General: cooperative Orientation: alert and oriented x3 HENMT Head: normal to inspection Neck Neck: normal visual inspection and full ROM Chest Chest palpation inspection: normal inspection of the chest Resp Effort Inspection: normal respiratory effort Auscultation: clear to auscultation bilaterally Cardio Rate: regular rate Rhythm: regular rhythm GI Inspection: non-distended Palpation: soft and nontender Skin General: no rashes or lesions noted Neuro General: patient alert and patient oriented x3 Extrem General: full ROM Psych Appearance: grossly normal Mental Status: mental status grossly normal Assessment and Plan Assessment and Plan (1) Right upper quadrant pain: Status: Acute (2) Blood in the stool: Status: Acute Orders: Orders Colonoscopy Today Plan The patient is having right upper quadrant discomfort which radiates to the back. I am ordering an ultrasound of the gallbladder to evaluate for stones. The patient also had bright red blood in the stool so I recommended colonoscopy as he has never had one. I explained endoscopy in detail to the patient. I explained the (more content not included)... Normal [facility] Abdomen/Pelvis W IV Cont ONL Yon 11-29-2024 Abdomen/Pelvis W IV Cont ONLY [facility] [address] [place] [address] Abdomen/Pelvis W IV Cont ONLY MR#: [id number] Acct: [id number] Name: RAY ALARCON Rep #: [id number] : 1980 M 44 From: [facility] PCP: Dr. Angelo Velázquez MD Status: REG ER Study: Abdomen/Pelvis W IV Cont ONLY Date of Exam: Exam# [id number] Ordering Dr: Katarzyna Roberts PROCEDURE: ABDOMEN/PELVIS W IV CONT ONLY 11/29/2024 REASON FOR EXAM: ABDOMINAL PAIN TECHNIQUE: Abdomen and pelvis CT with intravenous contrast. Coronal and Sagittal reconstruction series were provided. CONTRAST: 100 mL of Isovue 370 One or more dose reduction techniques were used (e.g., Automated exposure control, adjustment of the mA and/or kV according to patient size, use of iterative reconstruction technique. RADIATION DOSE SUMMARY: DLP: 1487 mGycm COMPARISON: None FINDINGS: Limited sections of the lung bases demonstrate no focal pulmonary mass. The liver, spleen, pancreas, both kidneys, and both adrenal glands demonstrate no acute findings. 2.1 cm exophytic cyst within the right kidney. Smaller scattered subcentimeter hypodensities within bilateral kidneys too small to accurately characterize. No hydronephrosis. No obstructive uropathy. Subcentimeter hypodensities throughout the liver too small to accurately characterize. Scattered calcifications throughout the spleen likely sequelae of prior granulomatous disease. The gallbladder is unremarkable. The stomach is unremarkable. The aorta and IVC demonstrate no acute findings. There is no free air, free fluid or intestinal obstruction. The small bowel loops are not dilated. The appendix is normal. No bowel obstruction. Colonic diverticulosis without acute diverticulitis. The pelvic structures are intact. There is no solid pelvic mass. The urinary bladder is distended Visualized osseous structures demonstrate no acute abnormality. CT/Abdomen/Pelvis W IV Cont ONLY IMPRESSION: No acute intra-abdominal process. Normal appendix. No bowel obstruction. Colonic diverticulosis without acute diverticulitis. Reading Location: [facility] CC: Dr. Angelo Velázquez MD; CHEN Munoz Information Systems Security Developer: Signed Normal [facility] Absolute lymphocyte countOrd ered By: Katarzyna Roberts on 11-29-2024 Lymphocytes Auto (Unsp spec) [#/Vol] 1.87 10*3/uL 0.83-4.51 [facility] Absolute neutrophil countOrd ered By: Katarzyna Roberts on 11-29-2024 Neutrophils (Bld) [#/Vol] 6.1 10*3/uL 2.0-7.7 [facility] Anion gap in Serum or Plasma Ordered By: Katarzyna Roberts on 11-29-2024 Anion gap [Moles/Vol] 12 mmol/L 5-15 [facility] Automated lymphocyte count a s percentage of total leukocytesOrdered By: Katarzyna Roberts on 11-29-2024 Lymphocytes/100 WBC Auto (Unsp spec) 20.8 % - [facility] BUN/creatinine ratioOrdered By: Katarzyna Roberts on 11-29-2024 Urea nitrogen/Creatinine [Mass ratio] 13.7 mg/mg 10-20 [facility] Basophil percentageOrdered B y: Katarzyna Roberts on 11-29-2024 Basophils/100 WBC (Bld) 0.6 % 0-1 [facility] Bilirubin Test strip Ql (U)O rdered By: Katarzyna Roberts on 11-29-2024 Bilirubin Ql (U) Negative Negative [facility] Bilirubin, totalOrdered By: Katarzyna Roberts on 11-29-2024 Bilirubin [Mass/Vol] 0.63 mg/dL 0.00-1.30 [facility] CBC W/Diff, Automatedon 11-01 Absolute Lymph 1.87 X10 3/uL Normal 0.83-4.51 [facility] Comment on above: Performed By: #### L 100.0100, L500.4050 #### [facility] [address] [place], [address] Absolute Neut 6.1 X10 3/uL Normal 2.0-7.7 [facility] Comment on above: Performed By: #### L 100.0100, L500.4050 #### [facility] [address] [place], [address] Basophils/100 WBC (Bld) 0.6 % Normal 0-1 [facility] Comment on above: Performed By: #### L 100.0100, L500.4050 #### [facility] [address] [place], [address] Eosinophils/100 WBC (Bld) 1.2 % Normal 0-5 [facility] Comment on above: Performed By: #### L 100.0100, L500.4050 #### [facility] [address] [place], [address] Erythrocyte distribution width (RBC) [Ratio] 12.1 % Normal 11.6-14.6 [facility] Comment on above: Performed By: #### L 100.0100, L500.4050 #### [facility] [address] [place], [address] Hematocrit (Bld) [Volume fraction] 43.6 % Normal 40-54 [facility] Comment on above: Performed By: #### L 100.0100, L500.4050 #### [facility] [address] [place], [address] Hemoglobin (Bld) [Mass/Vol] 15.3 g/dL Normal 13.0-16.5 [facility] Comment on above: Performed By: #### L 100.0100, L500.4050 #### [facility] [address] [place], [address] IG% 0.800 Normal 0.0-0.9 [facility] Comment on above: Result Comment: IG% - Immature Granulocytes (promyelocytes, myelocytes and metamyelocytes) > 1% indicates that a LEFT SHIFT is Present. Performed By: #### L 100.0100, L500.4050 #### [facility] [address] [place], [address] Lymphocytes/100 WBC (Bld) 20.8 % Normal 19-41 [facility] Comment on above: Performed By: #### L 100.0100, L500.4050 #### [facility] [address] [place], [address] MCH (RBC) [Entitic mass] 30.2 pg Normal 27.0-32.0 [facility] Comment on above: Performed By: #### L 100.0100, L500.4050 #### [facility] [address] [place], [address] MCHC (RBC) [Mass/Vol] 35.1 g/dL Normal 32-36 [facility] Comment on above: Performed By: #### L 100.0100, L500.4050 #### [facility] [address] [place], [address] MCV (RBC) [Entitic vol] 86.0 fL Normal 80-94 [facility] Comment on above: Performed By: #### L 100.0100, L500.4050 #### [facility] [address] [place], [address] Monocytes/100 WBC (Bld) 8.2 % Normal 0-10 [facility] Comment on above: Performed By: #### L 100.0100, L500.4050 #### [facility] [address] [place], [address] Neutrophils/100 WBC (Bld) 68.4 % Normal 47-70 [facility] Comment on above: Performed By: #### L 100.0100, L500.4050 #### [facility] [address] [place], [address] Nucleated RBC (Bld) [#/Vol] 0 10*3/uL Normal 0-5 [facility] Comment on above: Performed By: #### L 100.0100, L500.4050 #### [facility] [address] [place], [address] Platelet mean volume (Bld) [Entitic vol] 8.1 fL Normal 6.2-12.0 [facility] Comment on above: Performed By: #### L 100.0100, L500.4050 #### [facility] [address] [place], [address] Platelets (Bld) [#/Vol] 150 10*3/uL Normal 150-450 [facility] Comment on above: Performed By: #### L 100.0100, L500.4050 #### [facility] [address] [place], [address] RBC (Bld) [#/Vol] 5.07 10*6/uL Normal 4.6-6.2 [facility] Comment on above: Performed By: #### L 100.0100, L500.4050 #### [facility] [address] [place], [address] RDW SD 37.4 fl Normal 35.1-43.9 [facility] Comment on above: Performed By: #### L 100.0100, L500.4050 #### [facility] [address] [place], [address] WBC (Bld) [#/Vol] 9.0 10*3/uL Normal 4.4-11.0 [facility] Comment on above: Performed By: #### L 100.0100, L500.4050 #### [facility] [address] [place], [address] Carbon dioxide, total [Moles /volume] in Central venous bloodOrdered By: Katarzyna Roberts on 11-29-2024 CO2 [Moles/Vol] 24.4 mmol/L 21.0-32.0 [facility] Chloride assayOrdered By: Kayleen Roberts on 11-29-2024 Chloride [Moles/Vol] 102 mmol/L 98-108 [facility] Comprehensive Metabolic Prof ilon 11-29-2024 Albumin [Mass/Vol] 4.8 g/dL Normal 3.5-5.0 [facility] Comment on above: Performed By: #### L 100.0100, L500.4050 #### [facility] [address] [place], [address] Albumin/Globulin [Mass ratio] 1.7 {ratio} Normal 0.9-2.4 [facility] Comment on above: Performed By: #### L 100.0100, L500.4050 #### [facility] [address] [place], [address] ALK PHOS 68 U/L Normal 40-129 [facility] Comment on above: Performed By: #### L 100.0100, L500.4050 #### [facility] [address] [place], [address] ALT [Catalytic activity/Vol] 42 U/L Normal <=46 [facility] Comment on above: Performed By: #### L 100.0100, L500.4050 #### [facility] [address] [place], [address] AST [Catalytic activity/Vol] 31 U/L Normal <=37 [facility] Comment on above: Performed By: #### L 100.0100, L500.4050 #### [facility] [address] [place], [address] Bilirubin [Mass/Vol] 0.63 mg/dL Normal 0.00-1.30 [facility] Comment on above: Performed By: #### L 100.0100, L500.4050 #### [facility] [address] [place], [address] BUN/CRE 13.7 RATIO Normal 10-20 [facility] Comment on above: Performed By: #### L 100.0100, L500.4050 #### [facility] [address] [place], [address] Calcium [Mass/Vol] 9.5 mg/dL Normal 7.6-11.0 [facility] Comment on above: Performed By: #### L 100.0100, L500.4050 #### [facility] [address] [place], [address] Chloride [Moles/Vol] 102 mmol/L Normal 98-108 [facility] Comment on above: Performed By: #### L 100.0100, L500.4050 #### [facility] [address] [place], [address] CO2 [Moles/Vol] 24.4 mmol/L Normal 21.0-32.0 [facility] Comment on above: Performed By: #### L 100.0100, L500.4050 #### [facility] [address] [place], [address] Creatinine [Mass/Vol] 0.92 mg/dL Normal 0.70-1.20 [facility] Comment on above: Performed By: #### L 100.0100, L500.4050 #### [facility] [address] [place], [address] ECRCL 124.82 ml/min Normal 50-250 [facility] Comment on above: Performed By: #### L 100.0100, L500.4050 #### [facility] [address] [place], [address] GAP 12 Normal 5-15 [facility] Comment on above: Performed By: #### L 100.0100, L500.4050 #### [facility] [address] [place], [address] GFR/1.73 sq M.predicted among non-blacks MDRD (S/P/Bld) [Vol rate/Area] 103 mL/min/{1.73_m2} Normal >60 [facility] Comment on above: Result Comment: mL/m in/1.73m2 CKD-EPI Creatinine Equation (2020) Performed By: #### L 100.0100, L500.4050 #### [facility] [address] [place], [address] Globulin (S) [Mass/Vol] 2.8 g/dL Normal 2.2-4.2 [facility] Comment on above: Performed By: #### L 100.0100, L500.4050 #### [facility] [address] [place], [address] Glucose [Mass/Vol] 82 mg/dL Normal 70-99 [facility] Comment on above: Performed By: #### L 100.0100, L500.4050 #### [facility] [address] [place], [address] Potassium [Moles/Vol] 3.8 mmol/L Normal 3.3-5.1 [facility] Comment on above: Performed By: #### L 100.0100, L500.4050 #### [facility] [address] [place], [address] Sodium [Moles/Vol] 138 mmol/L Normal 133-145 [facility] Comment on above: Performed By: #### L 100.0100, L500.4050 #### [facility] [address] [place], [address] T PROT 7.6 g/dL Normal 5.9-8.4 [facility] Comment on above: Performed By: #### L 100.0100, L500.4050 #### [facility] [address] [place], [address] Urea nitrogen [Mass/Vol] 13 mg/dL Normal 4-19 [facility] Comment on above: Performed By: #### L 100.0100, L500.4050 #### [facility] [address] [place], [address] Emergency Department Summary on 11-29-2024 Emergency Department Summary [facility] Medical Records Department [address] [place] [address] Emergency Department Summary 11/29/24 MR#: [id number] Acct: [id number] Name: RAY ALARCON Rep #: [id number] : 1980 44 From: Jorge Hill DO PCP: Dr. Angelo Velázquez MD Status:DEP ER Location: ED HPI History of Present Illness Chief Complaint: Abd Pain Narrative Narrative: 44 old male with past medical history of psoriasis presents with abdominal pain and rectal bleeding. He has had 4 months of intermittent pain that radiates from the umbilicus to the groin. He noticed there was a healing depression to the right of his umbilicus, but he has no hernia. He also would have occasional rectal bleeding with bowel movements. The abdominal pain and rectal bleeding were very minor so he did not address it. The abdominal pain seems worse over the last 4 days and today when he was on the toilet and passed gas it filled the toilet bowl with bright red blood. No clots. No rectal pain. No fever, chills, nausea or vomiting. No blood thinners. No history of colonoscopy. PFSH PFSH Home Medications ???Medication ???Instructions ???Recorded ???Last Taken ???Type Saccharomyces boulardii 250 mg 250 mg PO DAILY 12/25/22 Unknown H istory capsule (Digest Probiotic (S.boulardii)) cholecalciferol (vitamin D3) 125 125 mcg PO DAILY 12/25/22 Unknown History mcg (5,000 unit) capsule loratadine 10 mg tablet (Allergy 10 mg PO DAILY 12/25/22 Unknown Hi story Relief (loratadine)) multivitamin 1 tab PO DAILY 12/25/22 Unknown Hi story Adacel(Tdap Adolesn/Adult)(PF) 0.5 ml IM ONCE #0.5 mL 04/13/23 Un known Clinic 2Lf-(2.5-5-3-5mcg)-5 Lf/0.5 mL IM susp (diph,pertuss(acel),tet vac(PF)) roflumilast 500 mcg tablet 500 mcg PO QDAY 06/09/24 Unknown H istory Allergy/AdvReac Type Severity Reaction Status Date / Time amoxicillin trihydrate (From Allergy Diarrhea Verified 06/09/24 11:04 Augmentin) potassium clavulanate (From Allergy Diarrhea Verified 06/09/24 11:04 Augmentin) Family History Other Diabetes Heart disease Surgical History History of hand surgery Social History Smoking Status: Never smoker alcohol intake: never ROS ROS ED ROS Narrative Constitutional: Negative for fever, chills, malaise. CVS: Negative for chest pain. Respiratory: Negative for shortness of breath. GI: Positive for abdominal pain. Negative for nausea, vomiting, diarrhea, constipation, melena. : Negative for dysuria. EXAM Physical Exam Narrative Exam Narrative: CONST: Patient sitting in no acute distress. EYES: Normal inspection. NECK: Normal inspection. RESP: No respiratory distress, CTAB. CVS: Regular rate and rhythm, no murmur, no gallop. ABD: Soft and nontender, no guarding or rebound, nondistended, no palpable hernia. MARY: Small amount of dried bright red blood around the rectum with no visible external hemorrhoids. SKIN: Color normal, no rash, warm, dry, intact. EXTREMITIES: Normal appearance, no pedal edema. NEURO: Alert and answering questions appropriately. PSYCH: Normal affect. Const Vital Signs: 11/29/24 10:51 11/29/24 12:52 Temperature 98.3 F 98.6 F Temperature Source Oral Pulse Rate 76 72 Respiratory Rate 18 16 Blood Pressure 188/107 H 154/94 H Blood Pressure Mean 134 114 Pulse Ox 100 97 Oxygen Delivery Method Room Air Physical Exam Const Vital Signs: 11/29/24 10:51 11/29/24 12:52 Temperature 98.3 F 98.6 F Temperature Source Oral Pulse Rate 76 72 Respiratory Rate 18 16 Blood Pressure 188/107 H 154/94 H Blood Pressure Mean 134 114 Pulse Ox 100 97 Oxygen Delivery Method Room Air MDM MDM MDM Narrative Medical decision making narrative: Patient presents with 4 months of intermittent lower abdominal pain and bright red rectal bleeding that worsened over the last few days. He appears well and nontoxic. Vital stable. He has a soft, nontender abdomen. I do not appreciate any hernias. There is dried bright red blood on the external rectum but no visible hemorrhoids. Differential includes diverticulosis, diverticulitis, internal/external hemorrhoids among others. CBC and CMP are normal. Urinalysis negative. CT scan shows diverticulosis without diverticulitis. I discussed with the patient this is likely the source of his bleeding but he needs to follow-up with primary care to have a colonoscopy. Since his abdominal pain increased over the last few days I discussed the possibility of a smoldering diverticulitis infection and offered Augmentin but he would like to hold off and will discuss with his primary care i (more content not included)... Normal [facility] Eosinophil percentageOrdered By: Katarzyna Roberts on 11-29-2024 Eosinophils/100 WBC (Bld) 1.2 % 0-5 [facility] Erythrocyte distribution wid th ratioOrdered By: Katarzyna Roberts on 11-29-2024 Erythrocyte distribution width (RBC) [Ratio] 12.1 % 11.6-14.6 [facility] Erythrocyte distribution wid th standard deviationOrdered By: Katarzyna Roberts on 11-29-2024 Erythrocyte distribution width (RBC) [Ratio] 37.4 fl 35.1-43.9 [facility] Glomerular filtration rate ( GFR) estimation/1.73 sq m using serum, plasma, or whole bOrdered By: Katarzyna Roberts on 11-29-2024 GFR/1.73 sq M.predicted among non-blacks MDRD (S/P/Bld) [Vol rate/Area] 103 mL/min/{1.73_m2} >60 [facility] Comment on above: mL/min/1.73m2 CKD-EP I Creatinine Equation (2020) Hematocrit Auto (Bld) [Volum e fraction]Ordered By: Katarzyna Roberts on 11-29-2024 Hematocrit (Bld) [Volume fraction] 43.6 % 40-54 [facility] Hemoglobin measurementOrdere d By: Katarzyna Roberts on 11-29-2024 Hemoglobin (Bld) [Mass/Vol] 15.3 g/dL 13.0-16.5 [facility] Immature granulocytes/100 WB C Auto (Bld)Ordered By: Katarzyna Roberts on 11-29-2024 Immature granulocytes/100 WBC (Bld) 0.800 % 0.0-0.9 [facility] Comment on above: IG% - Immature Granu locytes (promyelocytes, myelocytes and metamyelocytes) > 1% indicates that a LEFT SHIFT is Present. Ketones Test strip Ql (U)Ord ered By: Katarzyna Roberts on 11-29-2024 Ketones Ql (U) Negative Negative [facility] - Chemistry and C hemistry - challengeOrdered By: Katarzyna Roberts on 11-29-2024 AST [Catalytic activity/Vol] 31 U/L <38 [facility] MCV (mean corpuscular volume ) determinationOrdered By: Katarzyna Roberts on 11-29-2024 MCV (RBC) [Entitic vol] 86.0 fL 80-94 [facility] Mean corpuscular hemoglobin (MCH) determinationOrdered By: Katarzyna Roberts on 11-29-2024 MCH (RBC) [Entitic mass] 30.2 pg 27.0-32.0 [facility] Mean corpuscular hemoglobin concentration (MCHC) determinationOrdered By: Katarzyna Roberts on 11-29-2024 MCHC (RBC) [Mass/Vol] 35.1 g/dL 32-36 [facility] Mean platelet volume determi nationOrdered By: Katarzyna Roberts on 11-29-2024 Platelet mean volume (Bld) [Entitic vol] 8.1 fL 6.2-12.0 [facility] Microscopic analysis of urin e for red blood cells (RBC)Ordered By: Katarzyna Roberts on 11-29-2024 Microscopic analysis of urine for red blood cells (RBC) 0 SEEN /hpf 0-5 [facility] Monocyte percentageOrdered B y: Katarzyna Roberts on 11-29-2024 Monocytes/100 WBC (Bld) 8.2 % 0-10 [facility] Mucus LM Ql (Urine sed)Order ed By: Katarzyna Roberts on 11-29-2024 Mucus Ql (Urine sed) 0 SEEN /hpf [facility] Neutrophil percentageOrdered By: Katarzyna Roberts on 11-29-2024 Neutrophils/100 WBC (Bld) 68.4 % 47-70 [facility] Nitrite Test strip Ql (U)Ord ered By: Katarzyna Roberts on 11-29-2024 Nitrite Ql (U) Negative Negative [facility] Nucleated red blood cell per centageOrdered By: Katarzyna Roberts on 11-29-2024 Nucleated RBC/100 WBC (Bld) [Ratio] 0 % 0-5 [facility] Platelet countOrdered By: Kayleen Roberts on 11-29-2024 Platelets (Bld) [#/Vol] 150 10*3/uL 150-450 [facility] Potassium measurement (mass/ volume)Ordered By: Katarzyna Roberts on 11-29-2024 Potassium (Unsp spec) [Mass/Vol] 3.8 mmol/L 3.3-5.1 [facility] Protein Test strip Ql (U)Ord ered By: Katarzyna Roberts on 11-29-2024 Protein Ql (U) Negative Negative [facility] RBC Auto (Bld) [#/Vol]Ordere d By: Katarzyna Rboerts on 11-29-2024 RBC (Bld) [#/Vol] 5.07 10*6/uL 4.6-6.2 [facility] Serum creatinine measurement (mass/volume)Ordered By: Katarzyna Roberts on 11-29-2024 Creatinine [Mass/Vol] 0.92 mg/dL 0.70-1.20 [facility] Serum globulin measurementOr dered By: Katarzyna Roberts on 11-29-2024 Globulin (S) [Mass/Vol] 2.8 g/dL 2.2-4.2 [facility] Serum glucose measurement (m ass/volume)Ordered By: Katarzyna Roberts on 11-29-2024 Glucose [Mass/Vol] 82 mg/dL 70-99 [facility] Serum or plasma alanine rudolph otransferase (ALT) measurementOrdered By: Katarzyna Roberts on 11-29-2024 ALT [Catalytic activity/Vol] 42 U/L <47 [facility] Serum or plasma albumin issa urement (mass/volume)Ordered By: Katarzyna Roberts on 11-29-2024 Albumin [Mass/Vol] 4.8 g/dL 3.5-5.0 [facility] Serum or plasma albumin/glob ulin mass ratioOrdered By: Katarzyna Roberts on 11-29-2024 Albumin/Globulin [Mass ratio] 1.7 {ratio} 0.9-2.4 [facility] Serum or plasma alkaline loni sphatase measurementOrdered By: Katarzyna Roberts on 11-29-2024 ALP [Catalytic activity/Vol] 68 U/L 40-129 [facility] Serum or plasma calcium issa urement (mass/volume)Ordered By: Katarzyna Roberts on 11-29-2024 Calcium [Mass/Vol] 9.5 mg/dL 7.6-11.0 [facility] Serum or plasma urea nitroge n measurement (mass/volume)Ordered By: Katarzyna Roberts on 11-29-2024 Urea nitrogen [Mass/Vol] 13 mg/dL 4-19 [facility] Sodium levelOrdered By: Katarzyna Roberts on 11-29-2024 Sodium [Moles/Vol] 138 mmol/L 133-145 [facility] Squamous epithelial cells de tection in urine sediment by light microscopyOrdered By: Katarzyna Roberts on 11-29-2024 Epithelial cells.squamous LM Ql (Urine sed) 0 SEEN /hpf 0-5 [facility] Total proteinOrdered By: Estelita Roberts on 11-29-2024 Protein [Mass/Vol] 7.6 g/dL 5.9-8.4 [facility] Urinalysis, Completeon 11-29 BACTERIA 0 SEEN Normal None Seen [facility] Comment on above: Order Comment: ELVIRA CTOR TO SPECIFY Performed By: #### L 400.0001 #### [facility] [address] [place], [address] EPI,SQUAMOUS 0 SEEN Normal 0-5 [facility] Comment on above: Order Comment: ELVIRA CTOR TO SPECIFY Performed By: #### L 400.0001 #### [facility] [address] [place], [address] Mucus Ql (Urine sed) 0 SEEN Normal [facility] Comment on above: Order Comment: ELVIRA CTOR TO SPECIFY Performed By: #### L 400.0001 #### [facility] [address] [place], [address] RBC 0 SEEN Normal 0-5 [facility] Comment on above: Order Comment: ELVIRA CTOR TO SPECIFY Performed By: #### L [id number] #### [facility] [address] [place], [address] WBC 0 SEEN Normal 0-5 [facility] Comment on above: Order Comment: COLLE CTOR TO SPECIFY Performed By: #### L [id number] #### [facility] [address] [facility] [place], [address] Urine clarityOrdered By: Estelita Roberts on 11-29-2024 Clarity (U) Clear Clear [facility] Urine color determinationOrd ered By: Katarzyna Roberts on 11-29-2024 Color (U) Yellow Yellow [facility] Urine glucose detectionOrder ed By: Katarzyna Roberts on 11-29-2024 Glucose Ql (U) Normal mg/dl Normal [facility] Urine leukocyte esterase det ection by dipstickOrdered By: Katarzyna Roberts on 11-29-2024 Leukocyte esterase Test strip Ql (U) Negative Negative [facility] Urine pHOrdered By: Katarzyna lira on 11-29-2024 pH (U) 7.0 [pH] 5.0 - 8.0 [facility] Urine sediment bacteria coun t by microscopy (number/high power field)Ordered By: Katarzyna Roberts on 11-29-2024 Bacteria LM.HPF (Urine sed) [#/Area] 0 /[HPF] None Seen [facility] Urine specific gravity measu rementOrdered By: Katarzyna Roberts on 11-29-2024 Specific gravity (U) [Rel density] 1.010 1.002-1.030 [facility] Urine urobilinogen measureme ntOrdered By: Katarzyna Roberts on 11-29-2024 Urobilinogen Ql (U) Normal mg/dl Normal [facility] White blood cell (WBC) count Ordered By: Katarzyna Roberts on 11-29-2024 WBC (Bld) [#/Vol] 9.0 10*3/uL 4.4-11.0 [facility] White blood cell countOrdere d By: Katarzyna Roberts on 11-29-2024 White blood cell count 0 SEEN /hpf 0-5 [facility] Urgent Care Visit Reporton 0 09-13-2024 Urgent Care Visit Report [facility] [address] , [address] [place], [place] [address] OFFICE VISIT Date of Service: 09/13/24 MR#: [id number] Acct: [id number] Name: RAY ALARCON Rep #: [id number] : 1980 Provider: CHEN Garcia Age/Sex: 43/M Location: [facility] Status: Signed Intake Vital Signs 06/09/24 10:17 09/13/24 11:03 Height 5 ft 9 in BP 122/80 H Position Sitting Pulse 85 Temp 97.6 F L Temp Source Oral Pulse Oximetry (%) 97 Oxygen Delivery Method room air Intake Visit Reasons: SINUS COMPLAINT Chief Complaint: sinus congestion Accompanied by: Self Allergies amoxicillin trihydrate (From Augmentin) Allergy (Verified 06/09/24 11:04) Diarrhea potassium clavulanate (From Augmentin) Allergy (Verified 06/09/24 11:04) Diarrhea Medications ???Medication ???Instructions ???Recorded ???Confirmed ???Type Saccharomyces boulardii 250 mg 250 mg PO DAILY 12/25/22 09/13/24 History capsule (Digest Probiotic (S.boulardii)) cholecalciferol (vitamin D3) 125 125 mcg PO DAILY 12/25/22 09/13/24 History mcg (5,000 unit) capsule loratadine 10 mg tablet (Allergy 10 mg PO DAILY 12/25/22 09/13/24 H istory Relief (loratadine)) multivitamin 1 tab PO DAILY 12/25/22 09/13/24 H istory roflumilast 500 mcg tablet 500 mcg PO QDAY 06/09/24 09/13/24 History Nurse's Note: Patient has sinus drainage and pressure in the AM. Patient had the flu and is getting over it about 10-11 days ago. This symptom has been going on for 2-3 days. [facility] Surgical History History of hand surgery Family History Other Diabetes Heart disease Social History Smoking Status: Never smoker alcohol intake: never HPI HPI Chief Complaint: sinus congestion Details: RAY ALARCON, is a 43 M who presents to the office today for approximately 10 days of rhinitis. Patient states that about 2 weeks ago he had either the flu or a cold, since this has imp rovement he has continued to experience nasal discharge and PND causing a mild cough from throat irritation. Patient states these symptoms have not worsened since onset but continue to persist. He admits to use of Mucinex with little improvement of symptoms and regular daily use of Zyrtec. Patient denies contact with other individuals with similar symptoms. ROS Const Constitutional: No chills or fever(s) ENT ENT: Positive for nasal discharge and post nasal drip; No ear or mastoid pain, ear discharge, nasal congestion, sinus pressure, sinus pain or sore throat Resp Respiratory: Positive for cough; No chest congestion, excessive phlegm production, shortness of breath or wheezing Cardio Cardiology: No chest pain at rest, chest pain with exertion, dyspnea on exertion, irregular heart rhythm or palpitations Aller/Imm Allergy/Immunologic: No seasonal allergy symptoms or wheezing Exam Const General: cooperative and no acute distress HENMT Ears: external ears normal and TM's normal bilaterally Nose: nares normal, nasal mucous membranes and turbinates normal (slight erythema) and no nasal discharge Face and sinus: sinuses nontender Mouth: oral mucosae normal Throat: posterior oropharynx normal Eyes Conjunctivae: conjunctivae normal Sclera: sclerae normal Neck Lymphatic: no lymphadenopathy noted Resp Auscultation: Bilateral: Clear to Auscultation Cardio Rate: regular rate Rhythm: regular rhythm Heart Sounds: S1 normal and S2 normal Coding Level of Care Code Established Pt Off vis,est,level 2 Patient Type Established History Problem Focused Exam Problem Focused Medical Decision Making Low Complexity Diagnoses Allergic rhinitis, unspecified seasonality, unspecified trigger J30.9 Allergic rhinitis trigger: unspecified Allergic rhinitis seasonality: unspecified Assessment and Plan Assessment and Plan (1) Allergic rhinitis: Status: Acute Qualifiers: Allergic rhinitis trigger: unspecified Allergic rhinitis seasonality: unspecified Qualified Code(s): J30.9 - Allergic rhinitis, unspecified Plan: Well appearing on exam without signs of infectious etiology. Encouraged use of OTC antihistamine and intranasal corticosteroid for management at this time. Reviewed importance of adequate oral hydration along with use of vaporizer for symptom management. If minimal improvement over the next 5-7 days then f/u with PCP or back in the [facility] for reevaluation. Patient voiced understanding and agreement with plan. Plan Details Goals Barriers: Goals Improve ROM Decrease pain Decrease spasm 09/13/24 1123 Date Abdelrahman SIDDIQUI (more content not included)... Normal [facility] Urgent Care Visit Reporton 1 08-10-2023 Urgent Care Visit Report [facility] [address] , [address] [place] [address] OFFICE VISIT Date of Service: 06/09/24 MR#: [id number] Acct: [id number] Name: RAY ALARCON Rep #: [id number] : 1980 Provider: CHEN Spencer Age/Sex: 43/M Location: [facility] Status: Signed Intake Vital Signs 12/27/23 09:08 06/09/24 10:17 06/09/24 11:03 Height 5 ft 9 in 5 ft 9 in Weight: 249 lb BMI 36.7 BP 118/70 Blood Pressure Location Lt brachial Position Sitting Respiration 12 Pulse 76 Pulse Source NIBP Temp Source Oral Pulse Oximetry (%) 98 Oxygen Delivery Method room air Intake Visit Reasons: SINUS COMPLAINT/COUGH/FATIGUED Chief Complaint: sinus congestion, cough, 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 Is patient in pain?: No Allergies amoxicillin trihydrate (From Augmentin) Allergy (Verified 06/09/24 11:04) Diarrhea potassium clavulanate (From Augmentin) Allergy (Verified 06/09/24 11:04) Diarrhea Medications ???Medication ???Instructions ???Recorded ???Confirmed ???Type Saccharomyces boulardii 250 mg 250 mg PO DAILY 12/25/22 06/09/24 History capsule (Digest Probiotic (S.boulardii)) cholecalciferol (vitamin D3) 125 125 mcg PO DAILY 12/25/22 06/09/24 History mcg (5,000 unit) capsule loratadine 10 mg tablet (Allergy 10 mg PO DAILY 12/25/22 06/09/24 History Relief (loratadine)) multivitamin 1 tab PO DAILY 12/25/22 06/09/24 History azithromycin 250 mg tablet 250 mg PO .COMPLEX #12 tabs 06/09/24 06/09/24 Rx roflumilast 500 mcg tablet 500 mcg PO QDAY 06/09/24 06/09/24 History Have you fallen in the past year?: No Nurse's Note: patient here for sinus congestion, cough, fatigue x3 days. PFSH Surgical History History of hand surgery Family History Other Diabetes Heart disease Social History Smoking Status: Never smoker alcohol intake: never HPI HPI Chief Complaint: sinus congestion, cough, fatigued Details: RAY ALARCON, is a 43 M who presents to the office today for [facility] evaluation at [facility] for approximately 2-week history of progressively worsening facial pressure/congestion with purulent postnasal drip/cough and bilateral ear pressure. No complaints of fever, chills, myalgias, fatigue, runny nose, or nausea/vomiting/diarrhea. No complaints of chest pain/shortness of breath/dyspnea on exertion. No close contacts with similar complaints. No other associated symptoms and no other alleviating/aggravating factors. ROS Const Constitutional: No other (as above) Exam Const General: cooperative, healthy appearing and no acute distress Nutritional Appearance: average body habitus Orientation: alert, awake and oriented x3 HENMT Head: normal to inspection Ears: hearing grossly normal bilaterally, external ears normal, TM's normal bilaterally and EAC's normal Nose: external nose normal, nares normal, septum normal and no nasal discharge Face and sinus: normal facial exam, sinuses nontender (Though bilateral maxillary fullness to palpation) and face symmetric Mouth: oral mucosae normal, lip normal, tongue normal and oropharynx normal Throat: posterior oropharynx normal, tonsils normal, uvula midline and postnasal drainage (Purulent) Eyes General: appearance normal, both eyes and all related structures Neck Neck: normal visual inspection, full ROM, no meningeal signs, supple and lymphadenopathy (Bilateral anterior cervical lymph node swelling/tender to palpation) Neck mass: No Thyroid: thyroid normal Chest Chest palpation inspection: normal inspection of the chest Resp Effort Inspection: normal respiratory effort and able to speak in complete sentences Auscultation: Bilateral: Clear to Auscultation Cardio Palpation: normal PMI Rate: regular rate Rhythm: regular rhythm Heart Sounds: S1 normal, S2 normal, no gallops, no murmurs and no rubs Pulses: radial pulses present GI Inspection: normal to inspection Skin General: no rashes or lesions noted Neuro General: patient alert, patient awake and patient oriented x3 Cognition: normal cognition Speech: speech normal Psych Appearance: grossly normal Mental Status: mental status grossly normal Mood: congruent mood Affect: normal affect Speech and Movement: speech and movement normal Attitude: cooperative Diagnoses Acute maxillary sinusitis, unspecified J01.00 Assessment and Plan Assessment and Plan (1) Acute maxillary sinusitis, unspecified: Status: Acute Plan: Azithromycin as prescribed today. Supportive measures as instructed today. Follow-up with PCP in 3 to 5 days should symptoms not improve, sooner should symptoms worsen or any oth (more content not included)... Normal [facility] Basophil percentageOrdered B y: Angelo Velázquez on 05-01-2023 Chloride [Moles/Vol] 103 mmol/L 98-107 [facility] Cholesterol [Mass/Vol] 197 mg/dL <200 [facility] Comment on above: <200 mg/dL Desirable 200-240 mg/dL Borderline >240 mg/dL High Risk Glucose [Mass/Vol] 81 mg/dL 74-106 [facility] Potassium [Moles/Vol] 4.0 mmol/L 3.5-5.1 [facility] Sodium [Moles/Vol] 133 mmol/L 136-145 [facility] Triglyceride [Mass/Vol] 78 mg/dL <199 [facility] Comment on above: The drugs N-Acetylcy steine and Metamizole may falsely depress this assay.Serum Triglycerides Reference Interval Normal <150 mg/dL Borderline high 150 - 199 mg/dL High 200 - 499 mg/dL Very High > or = 500 mg/dL Laboratory - Chemistry and C hemistry - challengeOrdered By: Angelo Velázquez on 05-01-2023 CO2 [Moles/Vol] 28.0 mmol/L 21.0-32.0 [facility] Urea nitrogen/Creatinine [Mass ratio] 20.6 mg/mg 10- [facility] No Panel InformationOrdered By: Angelo Velázquez on 05-01-2023 Estimated GFR (MDRD) Amer 102 mL/min >60 [facility] Comment on above: GFR Calc Estimated GFR (MDRD) Non-Af Amer 84 mL/min >60 [facility] Comment on above: Non- GFR Calc Serum or plasma calcium issa urement (mass/volume)Ordered By: Angelo Velázquez on 05-01-2023 Calcium [Mass/Vol] 9.0 mg/dL 8.5-10.1 [facility] Serum or plasma cholesterol in HDL measurement (mass/volume)Ordered By: Angelo Velázquez on 05-01-2023 Cholesterol in HDL [Mass/Vol] 50 mg/dL >40 [facility] Comment on above: The drugs N-Acetylcy steine and Metamizole may falsely depress this assay. Reference Range HDL <40 mg/dL Low HDL Cholesterol HDL >or= 60 mg/dL High HDL Cholesterol Serum or plasma cholesterol in VLDL measurement (mass/volume)Ordered By: Angelo Velázquez on 05-01-2023 Cholesterol in VLDL [Mass/Vol] 16 mg/dL 5-40 [facility] Serum or plasma creatinine m easurement (mass/volume)Ordered By: Angelo Velázquez on 05-01-2023 Creatinine [Mass/Vol] 1.02 mg/dL 0.70-1.30 [facility] Comment on above: The validity of the calculated GFR & GFRAA in patients over 70 years has not been determined. Clinical correlation is essential. Serum or plasma low density lipoprotein (LDL) cholesterol measurement (mass/volume)Ordered By: Angelo Velázquez on 05-01-2023 Cholesterol in LDL [Mass/Vol] 131 mg/dL 0-130 [facility] Serum or plasma urea nitroge n measurement (mass/volume)Ordered By: Angelo Velázquez on 05-01-2023 Urea nitrogen [Mass/Vol] 21 mg/dL 7-18 [facility] Thin prep Papanicolaou smear with manual screeningOrdered By: Angelo Velázquez on 05-01-2023 Thin prep Papanicolaou smear with manual screening 2 5-15 [facility] Absolute lymphocyte countOrd ered By: Dr. Wang on 12-19-2022 Lymphocytes Auto (Unsp spec) [#/Vol] 2.27 10*3/uL 0.83-4.51 [facility] Basophil percentageOrdered B y: Dr. Wang on 12-19-2022 Basophils/100 WBC (Bld) 0.8 % 0-1 [facility] Bilirubin [Mass/Vol] 0.40 mg/dL 0.20-1.00 [facility] Comment on above: For patients on eltr ombopag therapy, use of Dimension [place] TBIL is not recommended. Chloride [Moles/Vol] 108 mmol/L 98-107 [facility] Eosinophils/100 WBC (Bld) 2.6 % 0-5 [facility] Glucose [Mass/Vol] 79 mg/dL 74-106 [facility] Neutrophils (Bld) [#/Vol] 5.4 10*3/uL 2.0-7.7 [facility] Neutrophils/100 WBC (Bld) 60.7 % 47-70 [facility] Potassium [Moles/Vol] 3.9 mmol/L 3.5-5.1 [facility] Protein [Mass/Vol] 7.7 g/dL 6.4-8.2 [facility] Sodium [Moles/Vol] 140 mmol/L 136-145 [facility] WBC (Bld) [#/Vol] 8.9 10*3/uL 4.4-11.0 [facility] Blood erythrocytes count (nu mber/volume)Ordered By: Dr. Wang on 12-19-2022 RBC (Bld) [#/Vol] 5.04 10*6/uL 4.6-6.2 [facility] Blood hemoglobin measurement (mass/volume)Ordered By: Dr. Wang on 12-19-2022 Hemoglobin (Bld) [Mass/Vol] 15.1 g/dL 13.0-16.5 [facility] Blood lymphocytes/100 leukoc ytesOrdered By: Dr. Wang on 12-19-2022 Lymphocytes/100 WBC (Bld) 25.5 % 19-41 [facility] Blood monocytes/100 leukocyt esOrdered By: Dr. Wang on 12-19-2022 Monocytes/100 WBC (Bld) 9.8 % 0-10 [facility] Blood platelet mean volumeOr dered By: Dr. Wang on 12-19-2022 Platelet mean volume (Bld) [Entitic vol] 8.6 fL 6.2-12.0 [facility] Determination of erythrocyte mean corpuscular volume (MCV)Ordered By: Dr. Wang on 12-19-2022 MCV (RBC) [Entitic vol] 87.1 fL 80-94 [facility] Direct bilirubinOrdered By: Dr. Wang on 12-19-2022 Bilirubin.direct [Mass/Vol] 0.11 mg/dL 0.00-0.30 [facility] Hematocrit Auto (Bld) [Volum e fraction]Ordered By: Dr. Wang on 12-19-2022 Hematocrit (Bld) [Volume fraction] 43.9 % 40-54 [facility] - Chemistry and C hemistry - challengeOrdered By: Dr. Wang on 12-19-2022 ALP [Catalytic activity/Vol] 56 U/L 45-117 [facility] ALT [Catalytic activity/Vol] 34 U/L 16-61 [facility] CO2 [Moles/Vol] 27.0 mmol/L 21.0-32.0 [facility] Globulin (S) [Mass/Vol] 3.5 g/dL 2.2-4.2 [facility] Urea nitrogen/Creatinine [Mass ratio] 27.6 mg/mg 10-20 [facility] - Hematology and Cell countsOrdered By: Dr. Wang on 12-19-2022 Erythrocyte distribution width (RBC) [Entitic vol] 38.5 fL 35.1-43.9 [facility] Erythrocyte distribution width (RBC) [Ratio] 12.1 % 11.6-14.6 [facility] Immature granulocytes/100 WBC (Bld) 0.600 % 0.0-0.9 [facility] Comment on above: IG% - Immature Granu locytes (promyelocytes, myelocytes and metamyelocytes) > 1% indicates that a LEFT SHIFT is Present. MCH (RBC) [Entitic mass] 30.0 pg 27.0-32.0 [facility] Nucleated RBC/100 WBC (Bld) [Ratio] 0 % 0-5 [facility] MCHC Auto (RBC) [Mass/Vol]Or dered By: Dr. Wang on 12-19-2022 MCHC (RBC) [Mass/Vol] 34.4 g/dL 32-36 [facility] No Panel InformationOrdered By: Dr. Wang on 06-20-2023 Estimated GFR (MDRD) Amer 117 mL/min >60 [facility] Comment on above: GFR Calc Estimated GFR (MDRD) Non-Af Amer 97 mL/min >60 [facility] Comment on above: Non- GFR Calc Hepatitis B Surface Antigen Non-Reactive Nonreactive [facility] Hepatitis C Antibody Non-Reactive Nonreactive [facility] Comment on above: Non Reactive: < 0.8 Equivocal: >/= 0.8 to < 1.0 Reactive: >/= 1.0The CDC recommends that a reactive/equivocal HCV antibody result be followed up by the HCV Nucleic Acid Amplificationtest (106353) Platelets bldOrdered By: Dr. Wang on 12-19-2022 Platelets (Bld) [#/Vol] 178 10*3/uL 150-450 [facility] Qualitative QuantiFERON-TB g old in tube testOrdered By: Dr. Wang on 12-19-2022 M. tuberculosis tuberculin stim IFN-g Ql (Bld) 0 IU/mL . [facility] Serum hepatitis B virus core antibody detectionOrdered By: Dr. Wang on 12-19-2022 HBV core Ab Ql (S) Negative Negative [facility] Comment on above: Performed at: [facility] [place] [id number] Director: Josef Reynolds PhD, Phone: [phone] Serum hepatitis B virus surf eric antibody IgG detectionOrdered By: Dr. Wang on 12-19-2022 HBV surface IgG Ql (S) Non-Reactive [facility] Comment on above: Non Reactive: Incons istent with immunity less than <10 mIU/mL Reactive: Consistent with immunity greater than or equal to 10 mIU/mL Serum or plasma albumin issa urement (mass/volume)Ordered By: Dr. Wang on 12-19-2022 Albumin [Mass/Vol] 4.2 g/dL 3.2-5.0 [facility] Serum or plasma calcium issa urement (mass/volume)Ordered By: Dr. Wang on 12-19-2022 Calcium [Mass/Vol] 8.8 mg/dL 8.5-10.1 [facility] Serum or plasma creatinine m easurement (mass/volume)Ordered By: Dr. Wang on 12-19-2022 Creatinine [Mass/Vol] 0.91 mg/dL 0.70-1.30 [facility] Comment on above: The validity of the calculated GFR & GFRAA in patients over 70 years has not been determined. Clinical correlation is essential. Serum or plasma urea nitroge n measurement (mass/volume)Ordered By: Dr. Wang on 12-19-2022 Urea nitrogen [Mass/Vol] 25 mg/dL 7-18 [facility] Thin prep Papanicolaou smear with manual screeningOrdered By: Dr. Wang on 12-19-2022 Thin prep Papanicolaou smear with manual screening 24 U/L 15-37 [facility] Thin prep Papanicolaou smear with manual screening 5 5-15 [facility] Thin prep Papanicolaou smear with manual screening Comment . [facility] Comment on above: QuantiFERON-TB Gold Plus is a qualitative indirect test forM tuberculosis infection (including disease) and isintended for use in conjunction with risk assessment,radiography, and other medical and diagnostic evaluations.The QuantiFERON-TB Gold Plus result is determined bysubtracting the Nil value from either TB antigen (Ag)value. The Mitogen tube serves as a control for the test. Thin prep Papanicolaou smear with manual screening 0 IU/mL . [facility] Thin prep Papanicolaou smear with manual screening > 10.00 IU/mL . [facility] Thin prep Papanicolaou smear with manual screening Negative Negative [facility] Comment on above: No response to M tub erculosis antigens detected.Infection with M tuberculosis is unlikely, but high riskindividuals should be considered for additional testing(ATS/IDSA/CDC Clinical Practice Guidelines, 2017). Thereference range is an Antigen minus Nil result of <0.35IU/mL.The specimen received for QuantiFERON testing was incubatedby the ordering institution. Specific procedures outlinedin our Directory of Services and in the package insert forthe QuantiFERON Gold (In Tube) test must be followed toenable for proper stimulation of cells for the productionof interferon gamma. Chemiluminescence immunoassaymethodology Basophil percentageon 2021 Chloride [Moles/Vol] 107 mmol/L 98-107 [facility] Work Phone: Cholesterol [Mass/Vol] 167 mg/dL <200 [facility] Work Phone: Comment on above: <200 mg/dL Desirable 200-240 mg/dL Borderline >240 mg/dL High Risk Glucose [Mass/Vol] 82 mg/dL 74-106 [facility] Work Phone: Potassium [Moles/Vol] 4.5 mmol/L 3.5-5.1 [facility] Work Phone: Sodium [Moles/Vol] 140 mmol/L 136-145 [facility] Work Phone: Triglyceride [Mass/Vol] 63 mg/dL <199 [facility] Work Phone: Comment on above: The drugs N-Acetylcy steine and Metamizole may falsely depress this assay.Serum Triglycerides Reference Interval Normal <150 mg/dL Borderline high 150 - 199 mg/dL High 200 - 499 mg/dL Very High > or = 500 mg/dL Laboratory - Chemistry and C hemistry - challengeon 04-19-2022 CO2 [Moles/Vol] 29.0 mmol/L 21.0-32.0 [facility] Work Phone: Urea nitrogen/Creatinine [Mass ratio] 24.8 mg/mg 10- [facility] Work Phone: No Panel Informationon 04-19 Estimated GFR (MDRD) Amer 109 mL/min >60 [facility] Work Phone: Comment on above: GFR Calc Estimated GFR (MDRD) Non-Af Amer 90 mL/min >60 [facility] Work Phone: Comment on above: Non- GFR Calc Serum or plasma calcium issa urement (mass/volume)on 04-19-2022 Calcium [Mass/Vol] 8.8 mg/dL 8.5-10.1 [facility] Work Phone: Serum or plasma cholesterol in HDL measurement (mass/volume)on 04-19-2022 Cholesterol in HDL [Mass/Vol] 46 mg/dL >40 [facility] Work Phone: Comment on above: The drugs N-Acetylcy steine and Metamizole may falsely depress this assay. Reference Range HDL <40 mg/dL Low HDL Cholesterol HDL >or= 60 mg/dL High HDL Cholesterol Serum or plasma cholesterol in VLDL measurement (mass/volume)on 04-19-2022 Cholesterol in VLDL [Mass/Vol] 13 mg/dL 5-40 [facility] Work Phone: Serum or plasma creatinine m easurement (mass/volume)on 04-19-2022 Creatinine [Mass/Vol] 0.97 mg/dL 0.70-1.30 [facility] Work Phone: Comment on above: The validity of the calculated GFR & GFRAA in patients over 70 years has not been determined. Clinical correlation is essential. Serum or plasma low density lipoprotein (LDL) cholesterol measurement (mass/volume)on 04-19-2022 Cholesterol in LDL [Mass/Vol] 108 mg/dL 0-130 [facility] Work Phone: Serum or plasma urea nitroge n measurement (mass/volume)on 04-19-2022 Urea nitrogen [Mass/Vol] 24 mg/dL 7-18 [facility] Work Phone: Thin prep Papanicolaou smear with manual screeningon 04-19-2022 Thin prep Papanicolaou smear with manual screening 4 5-15 [facility] Work Phone: SULEMANOVjesus 11-18-2017 CNOV Office Visit ([facility]) RAY ALARCON ([id number]) 1980 MDate Time Provider Department11/18/17 9:30 AM SOFI BELL (END USER SUPPORT SPECIALIST) [facility] During your visit today, we recorded the following information about you: Temperature Pulse Respiration Blood pressure 98.7 degrees 65/minute 16/minute 100/70 Weight 113.4 kgSofi BellELIANA.END USER SUPPORT SPECIALIST 11/18/2017 9:44 AM AddendumSubjectiveHPIHPI Ray Alarcon is a 37 year old male who presents today for CC of sinuspressure and congestion. This started 3 weeks ago, and is not going away. Heis also having post nasal drainage, and cough from drainage. Symptoms areworsened by lying down, and first thing in the morning. He has tried cold andcough medications over the counter. Risk factors family mmbers were ill. PMHsinusitis, seasonal allergies.BP 100/70 Pulse 65 Temp 37.1 ?C (98.7 ?F) (Left Tympanic) Resp 16 Wt 113.4 kg (250 lb) SpO2 99%ALLERGIESAllergen Reactions- Augmentin [Amoxicil* GI UpsetThere is no problem list on file for this patient.No family history on file.Social History Marital status: Single Spouse name: Years of education: Number of children:Social History Main Topics Smoking status: Never Smoker Smokeless tobacco: Never UsedReview of SystemsConstitutional: Negative. Negative for chills, fever and malaise/fatigue.HENT: Positive for congestion, sinus pain and sore throat (mild). Negative forear pain. Post nasal drainageRespiratory: Positive for cough. Negative for sputum production, shortness ofbreath and wheezing.Cardiovascular: Negative for chest pain.Musculoskeletal: Negative for myalgias.Skin: Negative for rash.Neurological: Positive for headaches (sinus).ObjectivePhysical ExamConstitutional: He is well-developed, well-nourished, and in no distress.HENT:Head: Normocephalic and atraumatic.Right Ear: Tympanic membrane, external ear and ear canal normal. Tympanicmembrane is not injected, not erythematous, not retracted and not bulging. Nomiddle ear effusion.Left Ear: Tympanic membrane, external ear and ear canal normal. Tympanicmembrane is not injected, not erythematous, not retracted and not bulging. Nomiddle ear effusion.Nose: Mucosal edema and rhinorrhea present. Right sinus exhibits maxillarysinus tenderness. Right sinus exhibits no frontal sinus tenderness. Left sinusexhibits maxillary sinus tenderness. Left sinus exhibits no frontal sinustenderness.Mouth/Thro at: Uvula is midline, oropharynx is clear and moist and mucousmembranes are normal. No oropharyngeal exudate, posterior oropharyngeal edema,posterior oropharyngeal erythema or tonsillar abscesses.Eyes: Conjunctivae and EOM are normal. Pupils are equal, round, and reactive tolight.Neck: Normal range of motion.Cardiovascular: Normal rate, regular rhythm and normal heart sounds.Pulmonary/Chest: Effort normal and breath sounds normal. No respiratorydistress. He has no decreased breath sounds. He has no wheezes. He has norhonchi. He has no rales.Lymphadenopathy: Head (right side): No submental, no submandibular, no tonsillar, nopreauricular and no posterior auricular adenopathy present. Head (left side): No submental, no submandibular, no tonsillar, nopreauricular and no posterior auricular adenopathy present. He has no cervical adenopathy. Right cervical: No posterior cervical adenopathy present. Left cervical: No posterior cervical adenopathy present. Right: No supraclavicular adenopathy present. Left: No supraclavicular adenopathy present.Skin: Skin is warm and dry.Psychiatric: Affect normal.Nursing note and vitals reviewed. ASSESSMENT/PLAN:1. Acute pansinusitis, recurrence not specified - ICD9: 461.8, ICD10: J01.40- Will begin treatment with Augmentin 875 mg PO BID for 10 days- The patient should also be given warm salt water gargles, throat lozengesand/or OTC throat spray as needed for the first 5-7 days of treatment.- Supportive care with plenty of fluids, rest, and analgesia prn.- Follow up in one week if symptoms persist or worsen.- -Increase fluid intake. Try to drink at least 8 glasses of non caffeinatedfluids daily.--Rest as much as possible.-Do the nasal saline irrigation at least 2 x day to relieve nasal mucous andcongestion: brands include Alban Med, Simply saline, [place] nasal spray, or eventhe generic store brand one is ok.Take the entire course of antibiotics as prescribed. DO NOT stop taking itearly, even if you are feeling better.-Practice good hygiene, wash hands frequently.-Monitor for signs of worsening infection: increased temperature, pain in face,ear pain or headaches or increase in nasal congestion/mucous that is notimproving.-Educated patient on side effects of medication.* Seek medical care immediately, call 911, go to ER if you have chest pain,difficulty breathing, shortness of breath, inability to swallow.Tylenol (generic acetaminophen) 500 mg-2 tabs every 8 hrs. as needed for feverand achesIbuprofen 600 mg (3-200mg tablets) every 6 hours-Sudafed (generic is fine), behind the counter, 2x30 mg tabs twice daily asneeded for congestionZyrtec 10 mg By mouth daily at bedtimeFlonase 1 spray each nostril two times a day.- DOXYCYCLINE MONOHYDRATE 100 MG CAPSULEDiagnosis and treatment plan were discussed and questions were answered to thepatient's satisfaction. Pt acknowledged understanding of concepts and follow upplan.Specific signs and symptoms that would indicate the need for higher level ofcare were discussed in detail warranting prompt ER evaluation.Sofi Bell APRN.Edson Bell APRN.ANANDA 11/18/2017 9:43 AM AddendumASSESSMENT/PLAN:1. Acute pansinusitis, recurrence not specified - ICD9: 461.8, ICD10: J01.40- Will begin treatment with Augmentin 875 mg PO BID for 10 days- The patient should also be given warm salt water gargles, throat lozengesand/or OTC throat spray as needed for the first 5-7 days of treatment.- Supportive care with plenty of fluids, rest, and analgesia prn.- Follow up in one week if symptoms persist or worsen.- -Increase fluid intake. Try to drink at least 8 glasses of non caffeinatedfluids daily.--Rest as much as possible.-Do the nasal saline irrigation at least 2 x day to relieve nasal mucous andcongestion: brands include Alban Med, Simply saline, [place] nasal spray, or eventhe generic store brand one is ok.Take the entire course of antibiotics as prescribed. DO NOT stop taking itearly, even if you are feeling better.-Practice good hygiene, wash hands frequently.-Monitor for signs of worsening infection: increased temperature, pain in face,ear pain or headaches or increase in nasal congestion/mucous that is notimproving.-Educated patient on side effects of medication.* Seek medical care immediately, call 911, go to ER if you have chest pain,difficulty breathing, shortness of breath, inability to swallow.Tylenol (generic acetaminophen) 500 mg-2 tabs every 8 hrs. as needed for feverand achesIbuprofen 600 mg (3-200mg tablets) every 6 hours-Sudafed (generic is fine), behind the counter, 2x30 mg tabs twice daily asneeded for congestionZyrtec 10 mg By mouth daily at bedtimeFlonase 1 spray each nostril two times a day.- DOXYCYCLINE MONOHYDRATE 100 MG CAPSULEReferring Provider: SELF [200]Allergies As of Date: 11/18/2017 Noted Allergy ReactionAUGMENTIN (AMOXICILLIN-POT CLAVUL*11/18/2017 8 - GI UpsetDate Reviewed: 11/18/2017Reviewed by: Sofi ([facility]) Ray - Fully AssessedReason for Visit: Cough [28]Primary Visit Diagnosis:Acute pansinusitis, recurrence not specified [J01.40]Order(s):doxycycli ne monohydrate (MONODOX) 100 mg capsuleTake 1 capsule by mouth twice daily for 10 days.Disp: 20 capsuleRfl: 0Prescriptions as of 11/18/2017 Sig: DOXYCYCLINE MONOHYDRATE 100 M* Take 1 capsule by mouth twice*Problem List As Of Date: 11/18/2017(None) Other instructions from your clinician: ASSESSMENT/PLAN: 1. Acute pansinusitis, recurrence not specified - ICD9: 461.8, ICD10: J01.40 - Will begin treatment with Augmentin 875 mg PO BID for 10 days - The patient should also be given warm salt water gargles, throat lozenges and/or OTC throat spray as needed for the first 5-7 days of treatment. - Supportive care with plenty of fluids, rest, and analgesia prn. - Follow up in one week if symptoms persist or worsen. - -Increase fluid intake. Try to drink at least 8 glasses of non caffeinated fluids daily. --Rest as much as possible. -Do the nasal saline irrigation at least 2 x day to relieve nasal mucous and congestion: brands include Alban Med, Simply saline, [place] nasal spray, or even the generic store brand one is ok. Take the entire course of antibiotics as prescribed. DO NOT stop taking it early, even if you are feeling better. -Practice good hygiene, wash hands frequently. -Monitor for signs of worsening infection: increased temperature, pain in face, ear pain or headaches or increase in nasal congestion/mucous that is not improving. -Educated patient on side effects of medication. * Seek medical care immediately, call 911, go to ER if you have chest pain, difficulty breathing, shortness of breath, inability to swallow. Tylenol (generic acetaminophen) 500 mg-2 tabs every 8 hrs. as needed for fever and aches Ibuprofen 600 mg (3-200mg tablets) every 6 hours -Sudafed (generic is fine), behind the counter, 2x30 mg tabs twice daily as needed for congestion Zyrtec 10 mg By mouth daily at bedtime Flonase 1 spray each nostril two times a day. - DOXYCYCLINE MONOHYDRATE 100 MG CAPSULEPrescriptions ordered this encounter Disp Refills Start End DOXYCYCLINE MONOHYDRATE 100 MG CAPSU* 20 c* 0 11/18/2017 11/28/2017 Route: ORAL Sig: Take 1 capsule by mouth twice daily for 10 days. Status:Closed by SOFI BELL CNP on 11/18/17 [facility] PROGRESSon 11-18-2017 PROGRESS HNO ID: [id number] thor: Sofi (Ananda) Melitonervice: (none)Author Type: Nurse PractitionerType: Progress NotesFiled: 11/18/2017 9:44 AMNote Text:SubjectiveHPIHPI Ray Alarcon is a 37 year old male who presents today for CC ofsinus pressure and congestion. This started 3 weeks ago, and is not goingaway. He is also having post nasal drainage, and cough from drainage.Symptoms are worsened by lying down, and first thing in the morning. Hehas tried cold and cough medications over the counter. Risk factorsfamily mmbers were ill. PMH sinusitis, seasonal allergies.BP 100/70 Pulse 65 Temp 37.1 ?C (98.7 ?F) (Left Tympanic) Resp 16 Wt 113.4 kg (250 lb) SpO2 99%ALLERGIESAllergen Reactions- Augmentin [Amoxicil* GI UpsetThere is no problem list on file for this patient.No family history on file.Social History Marital status: Single Spouse name: Years of education: Number of children:Social History Main Topics Smoking status: Never Smoker Smokeless tobacco: Never UsedReview of SystemsConstitutional: Negative. Negative for chills, fever and malaise/fatigue.HENT: Positive for congestion, sinus pain and sore throat (mild). Negativefor ear pain. Post nasal drainageRespiratory: Positive for cough. Negative for sputum production, shortnessof breath and wheezing.Cardiovascular: Negative for chest pain.Musculoskeletal: Negative for myalgias.Skin: Negative for rash.Neurological: Positive for headaches (sinus).ObjectivePhysical ExamConstitutional: He is well-developed, well-nourished, and in no distress.HENT:Head: Normocephalic and atraumatic.Right Ear: Tympanic membrane, external ear and ear canal normal. Tympanicmembrane is not injected, not erythematous, not retracted and not bulging.No middle ear effusion.Left Ear: Tympanic membrane, external ear and ear canal normal. Tympanicmembrane is not injected, not erythematous, not retracted and not bulging. No middle ear effusion.Nose: Mucosal edema and rhinorrhea present. Right sinus exhibits maxillarysinus tenderness. Right sinus exhibits no frontal sinus tenderness. Leftsinus exhibits maxillary sinus tenderness. Left sinus exhibits no frontalsinus tenderness.Mouth/Throat: Uvula is midline, oropharynx is clear and moist and mucousmembranes are normal. No oropharyngeal exudate, posterior oropharyngealedema, posterior oropharyngeal erythema or tonsillar abscesses.Eyes: Conjunctivae and EOM are normal. Pupils are equal, round, andreactive to light.Neck: Normal range of motion.Cardiovascular: Normal rate, regular rhythm and normal heart sounds.Pulmonary/Chest: Effort normal and breath sounds normal. No respiratorydistress. He has no decreased breath sounds. He has no wheezes. He has norhonchi. He has no rales.Lymphadenopathy: Head (right side): No submental, no submandibular, no tonsillar, nopreauricular and no posterior auricular adenopathy present. Head (left side): No submental, no submandibular, no tonsillar, nopreauricular and no posterior auricular adenopathy present. He has no cervical adenopathy. Right cervical: No posterior cervical adenopathy present. Left cervical: No posterior cervical adenopathy present. Right: No supraclavicular adenopathy present. Left: No supraclavicular adenopathy present.Skin: Skin is warm and dry.Psychiatric: Affect normal.Nursing note and vitals reviewed. ASSESSMENT/PLAN:1. Acute pansinusitis, recurrence not specified - ICD9: 461.8, ICD10:J01.40- Will begin treatment with Augmentin 875 mg PO BID for 10 days- The patient should also be given warm salt water gargles, throatlozenges and/or OTC throat spray as needed for the first 5-7 days oftreatment.- Supportive care with plenty of fluids, rest, and analgesia prn.- Follow up in one week if symptoms persist or worsen.- -Increase fluid intake. Try to drink at least 8 glasses of noncaffeinated fluids daily.--Rest as much as possible.-Do the nasal saline irrigation at least 2 x day to relieve nasal mucousand congestion: brands include Alban Med, Simply saline, [place] nasal spray,or even the generic store brand one is ok.Take the entire course of antibiotics as prescribed. DO NOT stop taking itearly, even if you are feeling better.-Practice good hygiene, wash hands frequently.-Monitor for signs of worsening infection: increased temperature, pain inface, ear pain or headaches or increase in nasal congestion/mucous that isnot improving.-Educated patient on side effects of medication.* Seek medical care immediately, call 911, go to ER if you have chestpain, difficulty breathing, shortness of breath, inability to swallow.Tylenol (generic acetaminophen) 500 mg-2 tabs every 8 hrs. as needed forfever and achesIbuprofen 600 mg (3-200mg tablets) every 6 hours-Sudafed (generic is fine), behind the counter, 2x30 mg tabs twice dailyas needed for congestionZyrtec 10 mg By mouth daily at bedtimeFlonase 1 spray each nostril two times a day.- DOXYCYCLINE MONOHYDRATE 100 MG CAPSULEDiagnosis and treatment plan were discussed and questions were answered tothe patient's satisfaction. Pt acknowledged understanding of concepts andfollow up plan.Specific signs and symptoms that would indicate the need for higher levelof care were discussed in detail warranting prompt ER evaluation.Sofi Bell APRN.END USER SUPPORT SPECIALIST Normal [facility] Vital Signs Date Time Vital Sign Value Performing Clinician Apoorva dias 12-22-2024 15:08-0400 Body height 175.[address] Angelo Velázquez MD Work Phone: [facility] 12-22-2024 15:08-0400 Body mass index (BMI) [Ratio] 37.5 kg/m2 Dr. Angelo Velázquez MD Work Phone: [facility] 12-22-2024 15:08-0400 Body temperature 97.2 [degF] Dr. Angelo Velázquez MD Work Phone: [facility] 12-22-2024 15:08-0400 Body weight 115.[address] Angelo Velázquez MD Work Phone: [facility] 12-22-2024 15:08-0400 Diastolic blood pressure 90 mm[Hg] Dr. Angelo Velázquez MD Work Phone: [facility] 12-22-2024 15:08-0400 Heart rate 73 /min Dr. Angelo Velázquez MD Work Phone: [facility] 12-22-2024 15:08-0400 Respiratory rate 18 /min Dr. Angelo Velázquez MD Work Phone: [facility] 12-22-2024 15:08-0400 SaO2% (BldA) [Mass fraction] 99 % Dr. Angelo Velázquez MD Work Phone: [facility] 12-22-2024 15:08-0400 Systolic blood pressure 134 mm[Hg] Dr. Angelo Velázquez MD Work Phone: [facility] 11-29-2024 12:52-0400 Body temperature 98.6 [degF] Dr. Angelo Velázquez MD Work Phone: [facility] 11-29-2024 12:52-0400 Diastolic blood pressure 94 mm[Hg] Dr. Angelo Velázquez MD Work Phone: [facility] 11-29-2024 12:52-0400 Heart rate 72 /min Dr. Angelo Velázquez MD Work Phone: [phone] [place] [place] [address] 11-29-2024 12:52-0400 Respiratory rate 16 /min Dr. Angelo Velázquez MD Work Phone: 5(842)545-516128 [place] [address] 11-29-2024 12:52-0400 SaO2% (BldA) [Mass fraction] 97 % Dr. Angelo Velázquez MD Work Phone: 6(945)988-114585 [place] [address] 11-29-2024 12:52-0400 Systolic blood pressure 154 mm[Hg] Dr. Angelo Velázquez MD Work Phone: 1(652)283-217385 [place] [address] 11-29-2024 10:51-0400 Body height 175.[address] Angelo Velázquez MD Work Phone: 4(270)609-918785 [place] [address] 11-29-2024 10:51-0400 Body mass index (BMI) [Ratio] 37 kg/m2 Dr. Angelo Velázquez MD Work Phone: 0(954)481-273885 [place] [address] 11-29-2024 10:51-0400 Body weight 113.[address] Angelo Velázquez MD Work Phone: 1(394)639-773985 [place] [address] 09-13-2024 11:03-0400 Body temperature 97.6 [degF] Dr. Angelo Velázquez MD Work Phone: 3(218)306-127485 [place] [address] 09-13-2024 11:03-0400 Diastolic blood pressure 80 mm[Hg] Dr. Angelo Velázquez MD Work Phone: 9(801)763-880785 [place] [address] 09-13-2024 11:03-0400 Heart rate 85 /min Dr. Angelo Velázquez MD Work Phone: 4(769)134-528985 [place] [address] 09-13-2024 11:03-0400 SaO2% (BldA) [Mass fraction] 97 % Dr. Angelo Velázquez MD Work Phone: 2(360)024-582185 [place] [address] 09-13-2024 11:03-0400 Systolic blood pressure 122 mm[Hg] Dr. Angelo Velázquez MD Work Phone: 2(332)471-923385 [place] [address] 04-20-2023 17:11-0400 Body height 175.[address] Angelo Velázquez Work Phone: 2(013)808-094885 [place] [address] 04-20-2023 17:11-0400 Body temperature 98.4 [degF] Dr. Angelo Velázquez Work Phone: [facility] 04-20-2023 17:11-0400 Diastolic blood pressure 86 mm[Hg] Dr. Angelo Velázquez Work Phone: 4(582)568-612928 [place] [address] 04-20-2023 17:11-0400 Heart rate 82 /min Dr. Angelo Velázquez Work Phone: 2(758)057-681985 [place] [address] 04-20-2023 17:11-0400 Respiratory rate 16 /min Dr. Angelo Velázquez Work Phone: 5(886)344-177185 [place] [address] 04-20-2023 17:11-0400 SaO2% (BldA) [Mass fraction] 98 % Dr. Angelo Velázquez Work Phone: 9(053)331-219485 [place] [address] 04-20-2023 17:11-0400 Systolic blood pressure 132 mm[Hg] Dr. Angelo Velázquez Work Phone: 2(639)349-128928 [place] [address] 04-13-2023 17:50-0400 Body height 175.[address] Angelo Velázquez Work Phone: 5(019)646-152885 [place] [address] 04-13-2023 17:50-0400 Body mass index (BMI) [Ratio] 34.9 kg/m2 Dr. Angelo Velázquez Work Phone: 8(412)942-174385 [place] [address] 04-13-2023 17:50-0400 Body temperature 98.3 [degF] Dr. Angelo Velázquez Work Phone: 3(883)322-945728 [place] [address] 04-13-2023 17:50-0400 Body weight 107.[address] Angelo Velázquez Work Phone: 1(687)251-730085 [place] [address] 04-13-2023 17:50-0400 Diastolic blood pressure 83 mm[Hg] Dr. Angelo Velázquez Work Phone: 7(672)156-138328 [place] [address] 04-13-2023 17:50-0400 Heart rate 74 /min Dr. Angelo Velázquez Work Phone: 4(574)051-896328 [place] [address] 04-13-2023 17:50-0400 Respiratory rate 17 /min Dr. Angelo Velázquez Work Phone: [facility] 04-13-2023 17:50-0400 SaO2% (BldA) [Mass fraction] 96 % Dr. Angelo Velázquez Work Phone: [facility] 04-13-2023 17:50-0400 Systolic blood pressure 150 mm[Hg] Dr. Angelo Velázquez Work Phone: [facility] Encounters Encounter Date Encounter Type Care Provider Facility Start: 01-09-2025 ambulatory Angelo Velázquez Facility:[facility] Start: 01-01-2025 ambulatory Angelo Velázquez Facility:[facility] Start: 12-22-2024 End: 12-22-[address] Héctor Chauhan MD -[facility] Work Phone: Start: 12-22-2024 End: 12-22-[address] Angelo Velázquez MD Work Phone: [facility] Work Phone: Start: 11-29-2024 End: 11-29-2024 Emergency department patient visit Dr. Angelo Velázquez MD Work Phone: -Emergency Department Work Phone: Start: 09-13-2024 End: 09-13-2024 Patient encounter procedure Abdelrahman Thorne [place] -[facility] Work Phone: Start: 09-13-2024 End: 09-13-2024 ambulatory Angelo Velázquez Facility:[facility] Start: 06-09-2024 End: 06-09-2024 ambulatory Angelo Velázquez Facility:[facility] Start: 05-01-2023 End: 05-01-[address] Angelo Velázquez Work Phone: [facility] Work Phone: Start: 05-01-2023 End: 05-01-[address] Angelo Velázquez Work Phone: [facility] Work Phone: Start: 04-20-2023 End: 04-20-[address] Angelo Velázquez Work Phone: [facility] Work Phone: Start: 04-13-2023 End: 04-13-[address] Angelo Velázquez Work Phone: [facility] Work Phone: Start: 04-13-2023 End: 04-13-[address] Angelo Velázquez Work Phone: [facility] Work Phone: Start: 02-12-2023 End: 02-12-[address] Angel[facility] Velázquez [facility] Work Phone: Start: 02-01-2023 End: 02-01-[address] [facility] Work Phone: Start: 01-23-2023 End: 01-23-[address] [facility] Veláz[facility] Work Phone: Start: 01-18-2023 End: 01-18-[address] Angelo Velázquez [facility] Work Phone: Start: 01-09-2023 End: 01-09-[address] Angelo Velázquez Work Phone: [facility] Work Phone: Start: 01-05-[address] Angelo Velázquez Work Phone: [facility] Work Phone: Start: 12-25-2022 End: 12-25-[address] Angelo Velázquez Work Phone: [facility] Work Phone: Start: 12-19-2022 End: 12-19-2022 ambulatory [facility] Work Phone: Start: 12-19-2022 End: 12-19-2022 Patient encounter procedure [facility] [place] Start: 04-19-2022 End: 04-19-2022 ambulatory [facility] Work Phone: Start: 04-19-2022 End: 04-19-2022 Patient encounter procedure [facility] Start: 11-18-2017 End: 11-20-[address] [facility] Procedures Date Procedure Procedure Detail Performing Clinician Start: 11-29-2024 Urnls dip stick/tabl et reagent auto microscopy Dr. Angelo Velázquez MD Work Phone: Start: 11-29-[address] Angelo Velázquez MD Work Phone: Start: 11-29-2024 Computed tomography of abdomen and pelvis with intravenous contrast Dr. Angelo Velázquez MD Work Phone: Start: 04-13-2023 Diagnostic radiograp hy of finger Dr. Angelo Velázquez Work Phone: Plan of Treatment Date Care Activity Detail Author Start: 11-29-2024 [facility] Start: 12-25-2022 Patient referral [facility] Work Phone: Colonoscopy [facility] Patient Education Abdominal Pain ED Diverticulosis [facility] Work Phone: Patient referral [facility] Work Phone: [place] Gallbladder [facility] Payers Date Payer Category Payer Private Health Insurance [id number] 2024 Self-pay [id number] 2024 Unknown [id number] Unknown DO NOT USE NG S [employer] [id number] Unknown [facility] O [id number] Unknown AMY [id number] Unknown [id number] Unknown [id number] Unknown [id number] Unknown [id number] Unknown [id number] Unknown [id number] Social History Date Type Detail Facility Start: 07-29-2015 End: 04-20-2023 Tobacco smoking status NHIS Unknown if ever smoked [facility] Start: 1980 Sex Assigned At Male [facility] Start: 11-29-2024 Tobacco smoking stat us NHIS Never smoked tobacco (finding) [facility] Goals Date Patient Goal Desired Activity /State Progress note 12-22-2024 Note Date & Type Note Facility 12-22-2024 Progress note [facility] Progress note 12-22-2024 Note Date & Type Note Facility 12-22-2024 Progress note Note Date/Time December 22, 2024 3:18pm [facility] [address] [place] [address] OFFICE VISIT Date of Service: 12/22/24 MR#: [id number] Acct: [id number] Name: RAY ALARCON Rep #: [id number] : 1980 Provider: Dr. Juan F Chauhan MD Age/Sex: 44/M Location: [facility] Status: Signed Intake Vital Signs 11/29/24 10:51 12/22/24 15:08 Height 5 ft 9 in 5 ft 9 in Weight: 254 lb 4 oz BMI 37.5 BP 134/90 H Blood Pressure Location Rt brachial Position Sitting Respiration 18 Pulse 73 Pulse Source Monitor Temp 97.2 F L Temp Source Temporal Pulse Oximetry (%) 99 Oxygen Delivery Method room air Intake Visit Reasons: ABD PAIN/ RECTAL BLEED Chief Complaint: abd pain/ rectal bleed Accompanied by: Is patient in pain?: No Allergies amoxicillin trihydrate (From Augmentin) Allergy (Verified 12/22/24 15:09) Diarrhea potassium clavulanate (From Augmentin) Allergy (Verified 12/22/24 15:09) Diarrhea Medications ?Medication ?Instructions ?Recorded ?Confirmed ?Type Saccharomyces boulardii 250 mg 250 mg PO DAILY 3 12/22/24 History capsule (Digest Probiotic (S.boulardii)) cholecalciferol (vitamin D3) 125 125 mcg PO DAILY 12/0112/22/24 History mcg (5,000 unit) capsule loratadine 10 mg tablet (Allergy 10 mg PO DAILY 12/22/24 History Relief (loratadine)) multivitamin 1 tab PO DAILY 12/25/2212/01 History roflumilast 500 mcg tablet 500 mcg PO QDAY 06/09/24 History dicyclomine 20 mg tablet 20 mg PO BID 12/22/24 History PFSH Medical History (Updated 12/22/24 @ 15:[address] Héctor Chauhan MD) Hemorrhoids Constipation Surgical History History of hand surgery Family History Other Diabetes Heart disease Social History Smoking Status: Never smoker alcohol intake: never HPI HPI HPI: Patient is a 44-year-old male who has 2 issues. He has fullness especially in the right upper quadrant which radiates to the back. He is also having blood inthe stool that just darted about a week ago. He says the blood is bright red. There is no pain with defecation. He says the greasy and fatty foods cause the pain that he is having. ROS General General: No weight change, appetite, fatigue, colon cancer, breast cancer or weakness HEENT HEENT: No difficulty swallowing, eye injury, eye surgery, swollen glands or hoarseness Endo Endocrine: No thyroid disease, diabetes mellitus, thyroid cancer, Hair loss, heat intolerance or cold intolerance Skin Skin: No rash or changing moles Musc Musculoskeletal: No back problems, arthritis, rheumatoid arthritis, gout or joint pain Cardio Cardiovascular: No murmur, pacemaker, heart disease, atrial fibrillation, high blood pressure, heart attack, heart stent, palpitations, shortness of breath with exertion or chest pain Psych Psychiatric: No depression, anxiety or hearing voices Resp Respiratory: No shortness of breath, No sleep apnea, No cough, No COPD, No asthma, No emphysema and No wheezing Gastro Gastrointestinal: Yes abdominal pain, No nausea or vomiting, No diarrhea, Yes constipation, Yes blood in stool, No acid reflux, Yes hemorrhoids, No ulcers, Nogallbladder problem and No black,tarry stools Kel Hematologic: No blood thinners, No blood disorders, No bleeding, No anemia and No blood clots Neuro Neurologic: No numbness, No tingling and No weakness Exam Const General: cooperative Orientation: alert and oriented x3 HENMN Head: normal to inspection Neck Neck: normal visual inspection and full ROM Chest Chest palpation & inspection: normal inspection of the chest Resp Effort & Inspection: normal respiratory effort Auscultation: clear to auscultation bilaterally Cardio Rate: regular rate Rhythm: regular rhythm GI Inspection: non-distended Palpation: soft and nontender Skin General: no rashes or lesions noted Neuro General: patient alert and patient oriented x3 Extrem General: full ROM Psych Appearance: grossly normal Mental Status: mental status grossly normal Assessment and Plan Assessment and Plan (1) Right upper quadrant pain: Status: Acute (2) Blood in the stool: Status: Acute Orders: Orders Colonoscopy Today Plan The patient is having right upper quadrant discomfort which radiates to the back. I am ordering an ultrasound of the gallbladder to evaluate for stones. The patient also had bright red blood in the stool so I recommended colonoscopy as he has never had one. I explained endoscopy in detail to the patient. I explained the risks includingbut not limited to stroke or heart attack with anesthesia, perforation of the GItract, bleeding, infection. I explained that any of these could necessitate further emergency surgery. The patient understands and all questions were answered sufficiently. The patient wishes to proceed with procedure. Héctor Chauhan MD Pager: [facility] [address] [place] [address], [address] [place] [address] Office: Plan Details Goals & Barriers: Goals Improve ROM Decrease pain Decrease spasm Coding Level of Care Code Off vis,new,level 3 Diagnoses Right upper quadrant pain R10.11 Blood in the stool K92.1 12/22/24 1517 <Electronically signed by Héctor ribeiro MD> Date _ Héctor Chauhan MD Cosigner Signature: Date (if applicable) CC: ~ [facility] Work Phone: Radiology Diagnostic study note 11-29-2024 Note Date & Type Note Facility 11-29-2024 Radiology Diagnostic study note [facility] [address] [place] [id number] Abdomen/Pelvis W IV Cont ONLY MR#: [id number] Acct: [id number] Name: RAY ALARCON Rep #: [id number] : 1980 M 44 From: Evonne Thomas MD PCP: Dr. Angelo Velázquez MD Status: REG E R Study:Abdomen/Pelvis W IV Cont ONLY Date of E xam: 11/29/24 Exam# [id number] Ordering Dr: Katarzyna Elias PROCEDURE: ABDOMEN/PELVIS W IV CONT ONLY 11/29/2024 REASON FOR EXAM: ABDOMINAL PAIN TECHNIQUE: Abdomen and pelvis CT with intravenous contrast. Coronal and Sagittal reconstruction series were provided. CONTRAST: 100 mL of Isovue 370 One or more dose reduction techniques were used (e.g., Automated exposure control, adjustment of the mA and/or kV according to patient size, use of iterative reconstruction technique. RADIATION DOSE SUMMARY: DLP: 1487 mGycm COMPARISON: None FINDINGS: Limited sections of the lung bases demonstrate no focal pulmonary mass. The liver, spleen, pancreas, both kidneys, and both adrenal glands demonstrate no acute findings. 2.1 cm exophytic cyst within the right kidney. Smaller scattered subcentimeter hypodensities within bilateral kidneys too small to accurately characterize. No hydronephrosis. No obstructive uropathy. Subcentimeter hypodensities throughout the liver too small to accurately characterize. Scattered calcifications throughout the spleen likely sequelae ofprior granulomatous disease. The gallbladder is unremarkable. The stomach is unremarkable. The aorta and IVC demonstrate no acute findings. There is no free air, free fluid or intestinal obstruction. The small bowel loops are not dilated. The appendix is normal. No bowel obstruction. Colonic diverticulosis without acute diverticulitis. The pelvic structures are intact. There is no solid pelvic mass. The urinary bladder is distended Visualized osseous structures demonstrate no acute abnormality. CT/Abdomen/Pelvis W IV Cont ONLY IMPRESSION: No acute intra-abdominal process. Normal appendix. No bowel obstruction. Colonic diverticulosis without acute diverticulitis. Reading Location: [id number] CC: Dr. Angelo Velázquez MD; CHEN Munoz ~ Information Systems Security Developer: Signed [facility] Evaluation note 09-13-2024 Note Date & Type Note Facility 09-13-2024 Evaluation note Diagnosis Onset Date Resolution Allergic rhinitis acute August 302024 11:01am [facility] Work Phone: Evaluation note 09-13-2024 Note Date & Type Note Facility 09-13-2024 Evaluation note Diagnosis Onset Date Resolution Allergic rhinitis acute August 302024 11:01am Blood in the stool acute December 012024 2:52pm Right upper quadrant pain acute December 22, 2024 2:52pm [facility] Work Phone: Evaluation note Note Date & Type Note Facility Evaluation note No assessment information availa [facility] Work Phone: Evaluation note Note Date & Type Note Facility Evaluation note Diagnosis Onset Date Back pain acute Segmental and somatic dysfun ction of lumbar region acute Segmental and somatic dysfun ction of pelvic region acute Back pain acute Segmental and somatic dysfun ction of lumbar region acute Segmental and somatic dysfun ction of pelvic region acute Back pain acute Segmental and somatic dysfun ction of lumbar region acute Segmental and somatic dysfun ction of pelvic region acute Back pain acute Segmental and somatic dysfun ction of lumbar region acute Segmental and somatic dysfun ction of pelvic region acute Back pain acute Segmental and somatic dysfun ction of lumbar region acute Segmental and somatic dysfun ction of pelvic region acute Back pain acute Segmental and somatic dysfun ction of lumbar region acute Segmental and somatic dysfun ction of pelvic region acute Puncture wound of left thumb [facility] Work Phone: Evaluation note Note Date & Type Note Facility Evaluation note Diagnosis Onset Date Back pain acute Segmental and somatic dysfun ction of lumbar region acute Segmental and somatic dysfun ction of pelvic region acute Back pain acute Segmental and somatic dysfun ction of lumbar region acute Segmental and somatic dysfun ction of pelvic region acute Back pain acute Segmental and somatic dysfun ction of lumbar region acute Segmental and somatic dysfun ction of pelvic region acute Back pain acute Segmental and somatic dysfun ction of lumbar region acute Segmental and somatic dysfun ction of pelvic region acute Back pain acute Segmental and somatic dysfun ction of lumbar region acute Segmental and somatic dysfun ction of pelvic region acute Puncture wound of left thumb acute Puncture wound of left thumb [facility] Work Phone: Hospital Discharge instructions Note Date & Type Note Facility Hospital Discharge instructions Additional Instructions Your blood work is normal. Your CAT scan showed diverticulosis which could be a source of the bright red bleeding. It is important you follow-up with your primary care doctor to schedule a colonoscopy. Since your abdominal pain has been a little worse this could be early stages of diverticulitis. I offered Augmentin but you would like to hold off and follow-up with her primary care doctor which is very reasonable. If symptoms worsen significantly please come back to the ER. [facility] Work Phone: Reason for referral (narrative) Note Date & Type Note Facility Reason for referral (narrative) No reason for referral information available [facility] Work Phone: Summary Purpose Family History No Family History Records Found Relationship Condition Age at Onset Recorded Date/T baldemar Not Specified Diabetes mellitus Unknown Cardiac disease Unknown Advance Directives No Advanced Directives Records Found Advance Directive Response Recorded Date/ Time Living Will No July 29 3:17pm Power of Ortho Tech No July 29, 2015 3:17pm Advance Directive Response Recorded Date/ Time Living Will No July 29 2:17pm Power of Ortho Tech No July 29, 2015 2:17pm Advance Directive Response Recorded Date/ Time Do you have a Healthcare Power of Ortho Tech? No November 29, 2024 11:27am Chief Complaint and Reason for Visit Chief Complaint SKIN Chief Complaint SKIN EST CARE BACK PAIN. RX HERE Back pain Back pain Back pain Back pain Back pain LEFT THUMB INJURY/ WG DAIRY left thumb puncture r/o fb Reason for Visit Back pain Segmental and somatic dysfunction of lumbar region Segmental and somatic dysfunction of pelvic region Back pain Segmental and somatic dysfunction of lumbar region Segmental and somatic dysfunction of pelvic region Back pain Segmental and somatic dysfunction of lumbar region Segmental and somatic dysfunction of pelvic region Back pain Segmental and somatic dysfunction of lumbar region Segmental and somatic dysfunction of pelvic region Back pain Segmental and somatic dysfunction of lumbar region Segmental and somatic dysfunction of pelvic region Back pain Segmental and somatic dysfunction of lumbar region Segmental and somatic dysfunction of pelvic region Puncture wound of left thumb Chief Complaint Back pain Back pain Back pain Back pain Back pain LEFT THUMB INJURY/ WG DAIRY left thumb puncture r/o fb FU BWC/ WG DAIRY Reason for Visit Back pain Segmental and somatic dysfunction of lumbar region Segmental and somatic dysfunction of pelvic region Back pain Segmental and somatic dysfunction of lumbar region Segmental and somatic dysfunction of pelvic region Back pain Segmental and somatic dysfunction of lumbar region Segmental and somatic dysfunction of pelvic region Back pain Segmental and somatic dysfunction of lumbar region Segmental and somatic dysfunction of pelvic region Back pain Segmental and somatic dysfunction of lumbar region Segmental and somatic dysfunction of pelvic region Puncture wound of left thumb Puncture wound of left thumb Chief Complaint Admit Date SINUS COMPLAINT September 13, 2024 11: 01am ABD PAIN November 29, 2024 10:50 am Reason for Visit Admit Date Allergic rhinitis September 13, 2024 11: 01am Chief Complaint Admit Date SINUS COMPLAINT September 13, 2024 11: 01am ABD PAIN November 29, 2024 10:50 am ABD PAIN/ RECTAL BLEED December 22, 2024 2 :52pm Reason for Visit Admit Date Allergic rhinitis September 13, 2024 11: 01am Blood in the stool December 22, 2024 2:52 pm Right upper quadrant pain December 22 2:52pm Additional Source Comments (unrecognized sect ion and content) No Status Records FoundNo Status Records Found INFORMATION SOURCE (unrecogn ized section and content) DATE CREATED AUTHOR 12/19/2017 [facility] DATE CREATED AUTHOR AUTHOR'S ORGANIZ ATION 12/31/2024 [facility] Goals (unrecognized section and content) Goals may be documented in a n alternate sectionGoals may be documented in an alternate section Care Teams (unrecognized sec tion and content) Team Status: Active Member Role Status Dates Dr. Angelo Velázquez MD Family Provider Active Dr. Angelo Velázquez MD Primary Care Provider Active Team Status: Inactive Member Role Status Dates Dr. Angelo Velázquez MD Primary Care Provider Active Dr. Klaus Wang MD Attending Provider, Referring P rovider Active Team Status: Inactive Member Role Status Dates Dr. Angelo Velázquez MD Primary Care Provider, Referring Provider Active Dr. Leti Julian DC Attending Provider Active Team Status: Inactive Member Role Status Dates Dr. Angelo Velázquez MD Primary Care Provider, Referring Provider Active CHEN Weldon Attending Provider Active Team Status: Active Member Role Status Dates Dr. Angelo Velázquez MD Primary Care Provider Active Dr. Leti Julian DC Attending Provider, Referring Pro vider Active Team Status: Inactive Member Role Status Dates Dr. Angelo Velázquez MD Primary Care Provider Active CHEN Weldon Attending Provider, Referring Provi yomaira Active Team Status: Inactive Member Role Status Dates Dr. Angelo Velázquez MD Primary Care Provi yomaira, Attending Provider, Referring Provider Active Team Status: Active Member Role Status Dates Dr. Angelo Velázquez MD Primary Care Provider Active Team Status: Inactive Member Role Status Dates Dr. Angelo Velázquez MD Primary Care Provider Active Start: September 13, 2024 End: September 13, 2024 Dr. Angeol Velázquez MD Referring Provider Active Start: September 13, 2024 End: September 13, 2024 CHEN Garcia Attending Provider Active Start: September 13, 2024 End: September 13, 2024 Team Status: Inactive Member Role Status Dates Dr. Angelo Velázquez MD Primary Care Provider Active Start: November 29, 2024 End: November 29, 2024 Dr. Jorge Hill DO Emergency Provider Active Start: November 29, 2024 End: November 29, 2024 Team Status: Inactive Member Role Status Dates Dr. Angelo Velázquez MD Primary Care Provider Active Start: November 29, 2024 End: November 29, 2024 Dr. Jorge Hill DO Attending Provider Active Start: November 29, 2024 End: November 29, 2024 Dr. Jorge Hill DO Emergency Provider Active Start: November 29, 2024 End: November 29, 2024 Team Status: Inactive Member Role Status Dates Dr. Angelo Velázquez MD Primary Care Provider Active Start: December 22, 2024 End: December 22, 2024 Dr. Angelo Velázquez MD Referring Provider Active Start: December 22, 2024 End: December 22, 2024 Dr. Héctor Chauhan MD Attending Provider Active Start: December 22, 2024 End: December 22, 2024 FOR RECORDS PERTAINING TO PATIENTS WHO ARE OR HAVE BEEN ENROLLED IN A CHEMICAL DEPENDENCY/SUBSTANCEABUSE PROGRAM, SOME INFORMATION MAY BE OMITTED. This clinical summary was aggregated from multiple sources. Caution should be exercised in using it in the provision of clinical care. This summary normalizes information from multiple sources, and as a consequence, information in this document may materially change the coding, format and clinical context of patient data. In addition, data may be omitted in some cases. CLINICAL DECISIONS SHOULD BE BASED ON THE PRIMARY CLINICAL RECORDS. [email or web address] provides no warranty or guarantee of the accuracy or completeness of information in this document.
--- OUTSIDE RECORDS SUMMARY | 2025-01-01 07:47 | XMS RPT_ITS | CCD ---
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 Angelo Velázquez Primary [...] Translations: [amoxicillin trihydrate] Drug Allergy 07-29-2015 Diarrhea [facility] (7 sources) potassium clavulanate; Translations: [potassium clavulanate] Allergy to substance 07-29-2015 [facility] Medications Current Medications Medication Drug Class(es) Dates [...] Surgery Visit Reporton 12-22 Surgery Visit Report [facility] [address] [place] [address] OFFICE VISIT Date of Service: 12/22/24 MR#: [id number] Acct: [id number] Name: RAY ALARCON Rep #: [id number] : 1980 Provider: Dr. Héctor llamas MD Age/Sex: 44/M Location: [facility] Status: Signed Intake Vital Signs 11/29/24 [...] mg PO BID 12/22/24 12/22/24 His tory [facility] Medical History (Updated 12/22/24 @ 15:17 by [...] explained the (more content not included)... Normal [facility] Abdomen/Pelvis W IV Cont ONL Yon 11-29-2024 Abdomen/Pelvis W IV Cont ONLY [facility] [address] [place] [address] Abdomen/Pelvis W IV Cont ONLY MR#: [id number] Acct: [id number] Name: RAY ALARCON Rep #: [id number] : 1980 M 44 From: [place] PCP: Dr. Angelo Velázquez MD Status: REG ER Study: Abdomen/Pelvis W IV Cont ONLY Date of Exam: Exam# [id number] Ordering Dr: Katarzyna Roberts PROCEDURE: ABDOMEN/PELVIS W [...] Colonic diverticulosis without acute diverticulitis. Reading Location: [facility] CC: Dr. Angelo Velázquez MD; CHEN Munoz Dry Wall Installations Mechanic: Signed Normal [facility] Absolute lymphocyte countOrd ered By: Katarzyna Roberts on 11-29-2024 Lymphocytes Auto (Unsp spec) [#/Vol] 1.87 10*3/uL 0.83-4.51 [facility] Absolute neutrophil countOrd ered By: Katarzyna Roberts on 11-29-2024 Neutrophils (Bld) [#/Vol] 6.1 10*3/uL 2.0-7.7 [facility] Anion gap in Serum or Plasma Ordered By: Katarzyna Roberts on 11-29-2024 Anion gap [Moles/Vol] 12 mmol/L 5-15 [facility] Automated lymphocyte count a s percentage of total leukocytesOrdered By: Katarzyna Roberts on 11-29-2024 Lymphocytes/100 WBC Auto (Unsp spec) 20.8 % - [facility] BUN/creatinine ratioOrdered By: Katarzyna Roberts on 11-29-2024 Urea nitrogen/Creatinine [Mass ratio] 13.7 mg/mg 10-20 [facility] Basophil percentageOrdered B y: Katarzyna Roberts on 11-29-2024 Basophils/100 WBC (Bld) 0.6 % 0-1 [facility] Bilirubin Test strip Ql (U)O rdered By: Katarzyna Roberts on 11-29-2024 Bilirubin Ql (U) Negative Negative [facility] Bilirubin, totalOrdered By: Katarzyna Roberts on 11-29-2024 Bilirubin [Mass/Vol] 0.63 mg/dL 0.00-1.30 [facility] CBC W/Diff, Automatedon 11-01 Absolute Lymph 1.87 X10 3/uL Normal 0.83-4.51 [facility] Comment on above: Performed By: #### L 100.0100, L500.4050 #### [facility] [address] [place], [address] Absolute Neut 6.1 X10 3/uL Normal 2.0-7.7 [facility] Comment on above: Performed By: #### L 100.0100, L500.4050 #### [facility] [address] [place], [address] Basophils/100 WBC (Bld) 0.6 % Normal 0-1 [facility] Comment on above: Performed By: #### L 100.0100, L500.4050 #### [facility] [address] [place], [address] Eosinophils/100 WBC (Bld) 1.2 % Normal 0-5 [facility] Comment on above: Performed By: #### L 100.0100, L500.4050 #### [facility] [address] [place], [address] Erythrocyte distribution width (RBC) [Ratio] 12.1 % Normal 11.6-14.6 [facility] Comment on above: Performed By: #### L 100.0100, L500.4050 #### [facility] [address] [place], [address] Hematocrit (Bld) [Volume fraction] 43.6 % Normal 40-54 [facility] Comment on above: Performed By: #### L 100.0100, L500.4050 #### [facility] [address] [place], [address] Hemoglobin (Bld) [Mass/Vol] 15.3 g/dL Normal 13.0-16.5 [facility] Comment on above: Performed By: #### L 100.0100, L500.4050 #### [facility] [address] [place], [address] IG% 0.800 Normal 0.0-0.9 [facility] Comment on above: Result Comment: IG% - Immature Granulocytes (promyelocytes, myelocytes and metamyelocytes) > 1% indicates that a LEFT SHIFT is Present. Performed By: #### L 100.0100, L500.4050 #### [facility] [address] [place] [place], [address] Lymphocytes/100 WBC (Bld) 20.8 % Normal 19-41 [facility] Comment on above: Performed By: #### L 100.0100, L500.4050 #### [facility] [address] [place], [address] MCH (RBC) [Entitic mass] 30.2 pg Normal 27.0-32.0 [facility] Comment on above: Performed By: #### L 100.0100, L500.4050 #### [facility] [address] [place], [address] MCHC (RBC) [Mass/Vol] 35.1 g/dL Normal 32-36 [facility] Comment on above: Performed By: #### L 100.0100, L500.4050 #### [facility] [address] [place], [address] MCV (RBC) [Entitic vol] 86.0 fL Normal 80-94 [facility] Comment on above: Performed By: #### L 100.0100, L500.4050 #### [facility] [address] [place], [address] Monocytes/100 WBC (Bld) 8.2 % Normal 0-10 [facility] Comment on above: Performed By: #### L 100.0100, L500.4050 #### [facility] [address] [place], [address] Neutrophils/100 WBC (Bld) 68.4 % Normal 47-70 [facility] Comment on above: Performed By: #### L 100.0100, L500.4050 #### [facility] [address] [place], [address] Nucleated RBC (Bld) [#/Vol] 0 10*3/uL Normal 0-5 [facility] Comment on above: Performed By: #### L 100.0100, L500.4050 #### [facility] [address] [place], [address] Platelet mean volume (Bld) [Entitic vol] 8.1 fL Normal 6.2-12.0 [facility] Comment on above: Performed By: #### L 100.0100, L500.4050 #### [facility] [address] [place], [address] Platelets (Bld) [#/Vol] 150 10*3/uL Normal 150-450 [facility] Comment on above: Performed By: #### L 100.0100, L500.4050 #### [facility] [address] [place], [address] RBC (Bld) [#/Vol] 5.07 10*6/uL Normal 4.6-6.2 [facility] Comment on above: Performed By: #### L 100.0100, L500.4050 #### [facility] [address] [place], [address] RDW SD 37.4 fl Normal 35.1-43.9 [facility] Comment on above: Performed By: #### L 100.0100, L500.4050 #### [facility] [address] [place], [address] WBC (Bld) [#/Vol] 9.0 10*3/uL Normal 4.4-11.0 [facility] Comment on above: Performed By: #### L 100.0100, L500.4050 #### [facility] [address] [place], [address] Carbon dioxide, total [Moles /volume] in Central venous bloodOrdered By: Katarzyna Roberts on 11-29-2024 CO2 [Moles/Vol] 24.4 mmol/L 21.0-32.0 [facility] Chloride assayOrdered By: Kayleen Roberts on 11-29-2024 Chloride [Moles/Vol] 102 mmol/L 98-108 [facility] Comprehensive Metabolic Prof ilon 11-29-2024 Albumin [Mass/Vol] 4.8 g/dL Normal 3.5-5.0 [facility] Comment on above: Performed By: #### L 100.0100, L500.4050 #### [facility] [address] [place], [address] Albumin/Globulin [Mass ratio] 1.7 {ratio} Normal 0.9-2.4 [facility] Comment on above: Performed By: #### L 100.0100, L500.4050 #### [facility] [address] [place], [address] ALK PHOS 68 U/L Normal 40-129 [facility] Comment on above: Performed By: #### L 100.0100, L500.4050 #### [facility] [address] [place], [address] ALT [Catalytic activity/Vol] 42 U/L Normal <=46 [facility] Comment on above: Performed By: #### L 100.0100, L500.4050 #### [facility] [address] [place], [address] AST [Catalytic activity/Vol] 31 U/L Normal <=37 [facility] Comment on above: Performed By: #### L 100.0100, L500.4050 #### [facility] [address] [place], [address] Bilirubin [Mass/Vol] 0.63 mg/dL Normal 0.00-1.30 [facility] Comment on above: Performed By: #### L 100.0100, L500.4050 #### [facility] [address] [place], [address] BUN/CRE 13.7 RATIO Normal 10-20 [facility] Comment on above: Performed By: #### L 100.0100, L500.4050 #### [facility] [address] [place], [address] Calcium [Mass/Vol] 9.5 mg/dL Normal 7.6-11.0 [facility] Comment on above: Performed By: #### L 100.0100, L500.4050 #### [facility] [address] [place], [address] Chloride [Moles/Vol] 102 mmol/L Normal 98-108 [facility] Comment on above: Performed By: #### L 100.0100, L500.4050 #### [facility] [address] [place], [address] CO2 [Moles/Vol] 24.4 mmol/L Normal 21.0-32.0 [facility] Comment on above: Performed By: #### L 100.0100, L500.4050 #### [facility] [address] [place], [address] Creatinine [Mass/Vol] 0.92 mg/dL Normal 0.70-1.20 [facility] Comment on above: Performed By: #### L 100.0100, L500.4050 #### [facility] [address] [place], [address] ECRCL 124.82 ml/min Normal 50-250 [facility] Comment on above: Performed By: #### L 100.0100, L500.4050 #### [facility] [address] [place], [address] GAP 12 Normal 5-15 [facility] Comment on above: Performed By: #### L 100.0100, L500.4050 #### [facility] [address] [place], [address] GFR/1.73 sq M.predicted among non-blacks MDRD (S/P/Bld) [Vol rate/Area] 103 mL/min/{1.73_m2} Normal >60 [facility] Comment on above: Result Comment: mL/m in/1.73m2 CKD-EPI Creatinine Equation (2020) Performed By: #### L 100.0100, L500.4050 #### [facility] [address] [place], [address] Globulin (S) [Mass/Vol] 2.8 g/dL Normal 2.2-4.2 [facility] Comment on above: Performed By: #### L 100.0100, L500.4050 #### [facility] [address] [place], [address] Glucose [Mass/Vol] 82 mg/dL Normal 70-99 [facility] Comment on above: Performed By: #### L 100.0100, L500.4050 #### [facility] [address] [place], [address] Potassium [Moles/Vol] 3.8 mmol/L Normal 3.3-5.1 [facility] Comment on above: Performed By: #### L 100.0100, L500.4050 #### [facility] [address] [place], [address] Sodium [Moles/Vol] 138 mmol/L Normal 133-145 [facility] Comment on above: Performed By: #### L 100.0100, L500.4050 #### [facility] [address] [place], [address] T PROT 7.6 g/dL Normal 5.9-8.4 [facility] Comment on above: Performed By: #### L 100.0100, L500.4050 #### [facility] [address] [place], [address] Urea nitrogen [Mass/Vol] 13 mg/dL Normal 4-19 [facility] Comment on above: Performed By: #### L 100.0100, L500.4050 #### [facility] [address] [place], [address] Emergency Department Summary on 11-29-2024 Emergency Department Summary [facility] Medical Records Department [address] [place] [address] Emergency Department Summary 11/29/24 MR#: [id number] Acct: [id number] Name: RAY ALARCON Rep #: [id number] : 1980 44 From: Jorge Hill DO [...] care i (more content not included)... Normal [facility] Eosinophil percentageOrdered By: Katarzyna Roberts on 11-29-2024 Eosinophils/100 WBC (Bld) 1.2 % 0-5 [facility] Erythrocyte distribution wid th ratioOrdered By: Katarzyna Roberts on 11-29-2024 Erythrocyte distribution width (RBC) [Ratio] 12.1 % 11.6-14.6 [facility] Erythrocyte distribution wid th standard deviationOrdered By: Katarzyna Roberts on 11-29-2024 Erythrocyte distribution width (RBC) [Ratio] 37.4 fl 35.1-43.9 [facility] Glomerular filtration rate ( GFR) estimation/1.73 sq m using serum, plasma, or whole bOrdered By: Katarzyna Roberts on 11-29-2024 GFR/1.73 sq M.predicted among non-blacks MDRD (S/P/Bld) [Vol rate/Area] 103 mL/min/{1.73_m2} >60 [facility] Comment on above: mL/min/1.73m2 CKD-EP I Creatinine Equation (2020) Hematocrit Auto (Bld) [Volum e fraction]Ordered By: Katarzyna Roberts on 11-29-2024 Hematocrit (Bld) [Volume fraction] 43.6 % 40-54 [facility] Hemoglobin measurementOrdere d By: Katarzyna Roberts on 11-29-2024 Hemoglobin (Bld) [Mass/Vol] 15.3 g/dL 13.0-16.5 [facility] Immature granulocytes/100 WB C Auto (Bld)Ordered By: Katarzyna Roberts on 11-29-2024 Immature granulocytes/100 WBC (Bld) 0.800 % 0.0-0.9 [facility] Comment on above: IG% - Immature Granu locytes (promyelocytes, myelocytes and metamyelocytes) > 1% indicates that a LEFT SHIFT is Present. Ketones Test strip Ql (U)Ord ered By: Katarzyna Roberts on 11-29-2024 Ketones Ql (U) Negative Negative [facility] Laboratory - Chemistry and C hemistry - challengeOrdered By: Katarzyna Roberts on 11-29-2024 AST [Catalytic activity/Vol] 31 U/L <38 [facility] MCV (mean corpuscular volume ) determinationOrdered By: Katarzyna Roberts on 11-29-2024 MCV (RBC) [Entitic vol] 86.0 fL 80-94 [facility] Mean corpuscular hemoglobin (MCH) determinationOrdered By: Katarzyna Roberts on 11-29-2024 MCH (RBC) [Entitic mass] 30.2 pg 27.0-32.0 [facility] Mean corpuscular hemoglobin concentration (MCHC) determinationOrdered By: Katarzyna Roberts on 11-29-2024 MCHC (RBC) [Mass/Vol] 35.1 g/dL 32-36 [facility] Mean platelet volume determi nationOrdered By: Katarzyna Roberts on 11-29-2024 Platelet mean volume (Bld) [Entitic vol] 8.1 fL 6.2-12.0 [facility] Microscopic analysis of urin e for red blood cells (RBC)Ordered By: Katarzyna Roberts on 11-29-2024 Microscopic analysis of urine for red blood cells (RBC) 0 SEEN /hpf 0-5 [facility] Monocyte percentageOrdered B y: Katarzyna Roberts on 11-29-2024 Monocytes/100 WBC (Bld) 8.2 % 0-10 [facility] Mucus LM Ql (Urine sed)Order ed By: Katarzyna Roberts on 11-29-2024 Mucus Ql (Urine sed) 0 SEEN /hpf [facility] Neutrophil percentageOrdered By: Katarzyna Roberts on 11-29-2024 Neutrophils/100 WBC (Bld) 68.4 % 47-70 [facility] Nitrite Test strip Ql (U)Ord ered By: Katarzyna Roberts on 11-29-2024 Nitrite Ql (U) Negative Negative [facility] Nucleated red blood cell per centageOrdered By: Katarzyna Roberts on 11-29-2024 Nucleated RBC/100 WBC (Bld) [Ratio] 0 % 0-5 [facility] Platelet countOrdered By: Kayleen Roberts on 11-29-2024 Platelets (Bld) [#/Vol] 150 10*3/uL 150-450 [facility] Potassium measurement (mass/ volume)Ordered By: Katarzyna Roberts on 11-29-2024 Potassium (Unsp spec) [Mass/Vol] 3.8 mmol/L 3.3-5.1 [facility] Protein Test strip Ql (U)Ord ered By: Katarzyna Roberts on 11-29-2024 Protein Ql (U) Negative Negative [facility] RBC Auto (Bld) [#/Vol]Ordere d By: Katarzyna Roberts on 11-29-2024 RBC (Bld) [#/Vol] 5.07 10*6/uL 4.6-6.2 [facility] Serum creatinine measurement (mass/volume)Ordered By: Katarzyna Roberts on 11-29-2024 Creatinine [Mass/Vol] 0.92 mg/dL 0.70-1.20 [facility] Serum globulin measurementOr dered By: Katarzyna Roberts on 11-29-2024 Globulin (S) [Mass/Vol] 2.8 g/dL 2.2-4.2 [facility] Serum glucose measurement (m ass/volume)Ordered By: Katarzyna Roberts on 11-29-2024 Glucose [Mass/Vol] 82 mg/dL 70-99 [facility] Serum or plasma alanine rudolph otransferase (ALT) measurementOrdered By: Katarzyna Roberts on 11-29-2024 ALT [Catalytic activity/Vol] 42 U/L <47 [facility] Serum or plasma albumin issa urement (mass/volume)Ordered By: Katarzyna Roberts on 11-29-2024 Albumin [Mass/Vol] 4.8 g/dL 3.5-5.0 [facility] Serum or plasma albumin/glob ulin mass ratioOrdered By: Katarzyna Roberts on 11-29-2024 Albumin/Globulin [Mass ratio] 1.7 {ratio} 0.9-2.4 [facility] Serum or plasma alkaline loni sphatase measurementOrdered By: Katarzyna Roberts on 11-29-2024 ALP [Catalytic activity/Vol] 68 U/L 40-129 [facility] Serum or plasma calcium issa urement (mass/volume)Ordered By: Katarzyna oRberts on 11-29-2024 Calcium [Mass/Vol] 9.5 mg/dL 7.6-11.0 [facility] Serum or plasma urea nitroge n measurement (mass/volume)Ordered By: Katarzyna Roberts on 11-29-2024 Urea nitrogen [Mass/Vol] 13 mg/dL 4-19 [facility] Sodium levelOrdered By: Katarzyna Roberts on 11-29-2024 Sodium [Moles/Vol] 138 mmol/L 133-145 [facility] Squamous epithelial cells de tection in urine sediment by light microscopyOrdered By: Katarzyna Roberts on 11-29-2024 Epithelial cells.squamous LM Ql (Urine sed) 0 SEEN /hpf 0-5 [facility] Total proteinOrdered By: Estelita Roberts on 11-29-2024 Protein [Mass/Vol] 7.6 g/dL 5.9-8.4 [facility] Urinalysis, Completeon 11-29 BACTERIA 0 SEEN Normal None Seen [facility] Comment on above: Order Comment: ELVIRA CTOR TO SPECIFY Performed By: #### L 400.0001 #### [facility] [address] [place], [address] EPI,SQUAMOUS 0 SEEN Normal 0-5 [facility] Comment on above: Order Comment: ELVIRA CTOR TO SPECIFY Performed By: #### L 400.0001 #### [facility] [address] [place], [address] Mucus Ql (Urine sed) 0 SEEN Normal [facility] Comment on above: Order Comment: ELVIRA CTOR TO SPECIFY Performed By: #### L 400.0001 #### [facility] [address] [place], [address] RBC 0 SEEN Normal 0-5 [facility] Comment on above: Order Comment: ELVIRA CTOR TO SPECIFY Performed By: #### L 400.0001 #### [facility] [address] [place], [address] WBC 0 SEEN Normal 0-5 [facility] Comment on above: Order Comment: COLLE CTOR TO SPECIFY Performed By: #### L 400.0001 #### [facility] [address] [facility] [place], [address] Urine clarityOrdered By: Estelita Roberts on 11-29-2024 Clarity (U) Clear Clear [facility] Urine color determinationOrd ered By: Katarzyna Roberts on 11-29-2024 Color (U) Yellow Yellow [facility] Urine glucose detectionOrder ed By: Katarzyna Roberts on 11-29-2024 Glucose Ql (U) Normal mg/dl Normal [facility] Urine leukocyte esterase det ection by dipstickOrdered By: Katarzyna Roberts on 11-29-2024 Leukocyte esterase Test strip Ql (U) Negative Negative [facility] Urine pHOrdered By: Katarzyna lira on 11-29-2024 pH (U) 7.0 [pH] 5.0 - 8.0 [facility] Urine sediment bacteria coun t by microscopy (number/high power field)Ordered By: Katarzyna Roberts on 11-29-2024 Bacteria LM.HPF (Urine sed) [#/Area] 0 /[HPF] None Seen [facility] Urine specific gravity measu rementOrdered By: Katarzyna Roberts on 11-29-2024 Specific gravity (U) [Rel density] 1.010 1.002-1.030 [facility] Urine urobilinogen measureme ntOrdered By: Katarzyna Roberts on 11-29-2024 Urobilinogen Ql (U) Normal mg/dl Normal [facility] White blood cell (WBC) count Ordered By: Katarzyna Roberts on 11-29-2024 WBC (Bld) [#/Vol] 9.0 10*3/uL 4.4-11.0 [facility] White blood cell countOrdere d By: Katarzyna Roberts on 11-29-2024 White blood cell count 0 SEEN /hpf 0-5 [facility] Urgent Care Visit Reporton 0 09-13-2024 Urgent Care Visit Report [facility] [address] , [address] [place], [place] [address] OFFICE VISIT Date of Service: 09/13/24 MR#: [id number] Acct: [id number] Name: RAY ALARCON Rep #: [id number] : 1980 Provider: CHEN Garcia Age/Sex: 43/M Location[place] [facility] Status: Signed Intake Vital Signs 06/09/24 10:17 [...] has been going on for 2-3 days. [facility] Surgical History History of hand surgery Family [...] Abdelrahman SIDDIQUI (more content not included)... Normal [facility] Urgent Care Visit Reporton 1 08-10-2023 Urgent Care Visit Report [facility] [address] , [address] [place] [address] OFFICE VISIT Date of Service: 06/09/24 MR#: [id number] Acct: [id number] Name: RAY ALARCON Rep #: [id number] : 1980 Provider: CHEN Spencer Age/Sex: 43/M Location[place] [facility] Status: Signed Intake Vital Signs 12/27/23 09:08 [...] COMPLAINT/COUGH/FATIGUED Chief Complaint: sinus congestion, cough, fatigued Compounding Scaler Required: No Is patient in pain?: No [...] any oth (more content not included)... Normal [facility] Basophil percentageOrdered B y: Angelo Velázquez on 05-01-2023 Chloride [Moles/Vol] 103 mmol/L 98-107 [facility] Cholesterol [Mass/Vol] 197 mg/dL <200 [facility] Comment on above: <200 mg/dL Desirable 200-240 mg/dL Borderline >240 mg/dL High Risk Glucose [Mass/Vol] 81 mg/dL 74-106 [facility] Potassium [Moles/Vol] 4.0 mmol/L 3.5-5.1 [facility] Sodium [Moles/Vol] 133 mmol/L 136-145 [facility] Triglyceride [Mass/Vol] 78 mg/dL <199 [facility] Comment on above: The drugs N-Acetylcy steine and Metamizole may falsely depress this assay.Serum Triglycerides Reference Interval Normal <150 mg/dL Borderline high 150 - 199 mg/dL High 200 - 499 mg/dL Very High > or = 500 mg/dL Laboratory - Chemistry and C hemistry - challengeOrdered By: Angelo Velázquez on 05-01-2023 CO2 [Moles/Vol] 28.0 mmol/L 21.0-32.0 [facility] Urea nitrogen/Creatinine [Mass ratio] 20.6 mg/mg 10- [facility] No Panel InformationOrdered By: Angelo Velázquez on 05-01-2023 Estimated GFR (MDRD) Amer 102 mL/min >60 [facility] Comment on above: GFR Calc Estimated GFR (MDRD) Non-Af Amer 84 mL/min >60 [facility] Comment on above: Non- GFR Calc Serum or plasma calcium issa urement (mass/volume)Ordered By: Angelo Velázquez on 05-01-2023 Calcium [Mass/Vol] 9.0 mg/dL 8.5-10.1 [facility] Serum or plasma cholesterol in HDL measurement (mass/volume)Ordered By: Angelo Velázquez on 05-01-2023 Cholesterol in HDL [Mass/Vol] 50 mg/dL >40 [facility] Comment on above: The drugs N-Acetylcy steine and Metamizole may falsely depress this assay. Reference Range HDL <40 mg/dL Low HDL Cholesterol HDL >or= 60 mg/dL High HDL Cholesterol Serum or plasma cholesterol in VLDL measurement (mass/volume)Ordered By: Angelo Velázquez on 05-01-2023 Cholesterol in VLDL [Mass/Vol] 16 mg/dL 5-40 [facility] Serum or plasma creatinine m easurement (mass/volume)Ordered By: Angelo Velázquez on 05-01-2023 Creatinine [Mass/Vol] 1.02 mg/dL 0.70-1.30 [facility] Comment on above: The validity of the calculated GFR & GFRAA in patients over 70 years has not been determined. Clinical correlation is essential. Serum or plasma low density lipoprotein (LDL) cholesterol measurement (mass/volume)Ordered By: Angelo Velázquez on 05-01-2023 Cholesterol in LDL [Mass/Vol] 131 mg/dL 0-130 [facility] Serum or plasma urea nitroge n measurement (mass/volume)Ordered By: Angelo Velázquez on 05-01-2023 Urea nitrogen [Mass/Vol] 21 mg/dL 7-18 [facility] Thin prep Papanicolaou smear with manual screeningOrdered By: Angelo Velázquez on 05-01-2023 Thin prep Papanicolaou smear with manual screening 2 5-15 [facility] Absolute lymphocyte countOrd ered By: Dr. Wang on 12-19-2022 Lymphocytes Auto (Unsp spec) [#/Vol] 2.27 10*3/uL 0.83-4.51 [facility] Basophil percentageOrdered B y: Dr. Wang on 12-19-2022 Basophils/100 WBC (Bld) 0.8 % 0-1 [facility] Bilirubin [Mass/Vol] 0.40 mg/dL 0.20-1.00 [facility] Comment on above: For patients on eltr ombopag therapy, use of Dimension Whipple TBIL is not recommended. Chloride [Moles/Vol] 108 mmol/L 98-107 [facility] Eosinophils/100 WBC (Bld) 2.6 % 0-5 [facility] Glucose [Mass/Vol] 79 mg/dL 74-106 [facility] Neutrophils (Bld) [#/Vol] 5.4 10*3/uL 2.0-7.7 [facility] Neutrophils/100 WBC (Bld) 60.7 % 47-70 [facility] Potassium [Moles/Vol] 3.9 mmol/L 3.5-5.1 [facility] Protein [Mass/Vol] 7.7 g/dL 6.4-8.2 [facility] Sodium [Moles/Vol] 140 mmol/L 136-145 [facility] WBC (Bld) [#/Vol] 8.9 10*3/uL 4.4-11.0 [facility] Blood erythrocytes count (nu mber/volume)Ordered By: Dr. Wang on 12-19-2022 RBC (Bld) [#/Vol] 5.04 10*6/uL 4.6-6.2 [facility] Blood hemoglobin measurement (mass/volume)Ordered By: Dr. Wang on 12-19-2022 Hemoglobin (Bld) [Mass/Vol] 15.1 g/dL 13.0-16.5 [facility] Blood lymphocytes/100 leukoc ytesOrdered By: Dr. Wang on 12-19-2022 Lymphocytes/100 WBC (Bld) 25.5 % 19-41 [facility] Blood monocytes/100 leukocyt esOrdered By: Dr. Wang on 12-19-2022 Monocytes/100 WBC (Bld) 9.8 % 0-10 [facility] Blood platelet mean volumeOr dered By: Dr. Wang on 12-19-2022 Platelet mean volume (Bld) [Entitic vol] 8.6 fL 6.2-12.0 [facility] Determination of erythrocyte mean corpuscular volume (MCV)Ordered By: Dr. Wang on 12-19-2022 MCV (RBC) [Entitic vol] 87.1 fL 80-94 [facility] Direct bilirubinOrdered By: Dr. Wang on 12-19-2022 Bilirubin.direct [Mass/Vol] 0.11 mg/dL 0.00-0.30 [facility] Hematocrit Auto (Bld) [Volum e fraction]Ordered By: Dr. Wang on 12-19-2022 Hematocrit (Bld) [Volume fraction] 43.9 % 40-54 [facility] Laboratory - Chemistry and C hemistry - challengeOrdered By: Dr. Wang on 12-19-2022 ALP [Catalytic activity/Vol] 56 U/L 45-117 [facility] ALT [Catalytic activity/Vol] 34 U/L 16-61 [facility] CO2 [Moles/Vol] 27.0 mmol/L 21.0-32.0 [facility] Globulin (S) [Mass/Vol] 3.5 g/dL 2.2-4.2 [facility] Urea nitrogen/Creatinine [Mass ratio] 27.6 mg/mg 10-20 [facility] Laboratory - Hematology and Cell countsOrdered By: Dr. Wang on 12-19-2022 Erythrocyte distribution width (RBC) [Entitic vol] 38.5 fL 35.1-43.9 [facility] Erythrocyte distribution width (RBC) [Ratio] 12.1 % 11.6-14.6 [facility] Immature granulocytes/100 WBC (Bld) 0.600 % 0.0-0.9 [facility] Comment on above: IG% - Immature Granu locytes (promyelocytes, myelocytes and metamyelocytes) > 1% indicates that a LEFT SHIFT is Present. MCH (RBC) [Entitic mass] 30.0 pg 27.0-32.0 [facility] Nucleated RBC/100 WBC (Bld) [Ratio] 0 % 0-5 [facility] MCHC Auto (RBC) [Mass/Vol]Or dered By: Dr. Wang on 12-19-2022 MCHC (RBC) [Mass/Vol] 34.4 g/dL 32-36 [facility] No Panel InformationOrdered By: Dr. Wang on 06-20-2023 Estimated GFR (MDRD) Amer 117 mL/min >60 [facility] Comment on above: GFR Calc Estimated GFR (MDRD) Non-Af Amer 97 mL/min >60 [facility] Comment on above: Non- GFR Calc Hepatitis B Surface Antigen Non-Reactive Nonreactive [facility] Hepatitis C Antibody Non-Reactive Nonreactive [facility] Comment on above: Non Reactive: < 0.8 Equivocal: >/= 0.8 to < 1.0 Reactive: >/= 1.0The CDC recommends that a reactive/equivocal HCV antibody result be followed up by the HCV Nucleic Acid Amplificationtest (515891) Platelets bldOrdered By: Dr. Wang on 12-19-2022 Platelets (Bld) [#/Vol] 178 10*3/uL 150-450 [facility] Qualitative QuantiFERON-TB g old in tube testOrdered By: Dr. Wang on 12-19-2022 M. tuberculosis tuberculin stim IFN-g Ql (Bld) 0 IU/mL . [facility] Serum hepatitis B virus core antibody detectionOrdered By: Dr. Wang on 12-19-2022 HBV core Ab Ql (S) Negative Negative [facility] Comment on above: Performed at: [facility] [employer] [place] [id number] Director: Josef Reynolds PhD, Phone: [phone] Serum hepatitis B virus surf eric antibody IgG detectionOrdered By: Dr. Wang on 12-19-2022 HBV surface IgG Ql (S) Non-Reactive [facility] Comment on above: Non Reactive: Incons istent with immunity less than <10 mIU/mL Reactive: Consistent with immunity greater than or equal to 10 mIU/mL Serum or plasma albumin issa urement (mass/volume)Ordered By: Dr. Wang on 12-19-2022 Albumin [Mass/Vol] 4.2 g/dL 3.2-5.0 [facility] Serum or plasma calcium issa urement (mass/volume)Ordered By: Dr. Wang on 12-19-2022 Calcium [Mass/Vol] 8.8 mg/dL 8.5-10.1 [facility] Serum or plasma creatinine m easurement (mass/volume)Ordered By: Dr. Wang on 12-19-2022 Creatinine [Mass/Vol] 0.91 mg/dL 0.70-1.30 [facility] Comment on above: The validity of the calculated GFR & GFRAA in patients over 70 years has not been determined. Clinical correlation is essential. Serum or plasma urea nitroge n measurement (mass/volume)Ordered By: Dr. Wang on 12-19-2022 Urea nitrogen [Mass/Vol] 25 mg/dL 7-18 [facility] Thin prep Papanicolaou smear with manual screeningOrdered By: Dr. Wang on 12-19-2022 Thin prep Papanicolaou smear with manual screening 24 U/L 15-37 [facility] Thin prep Papanicolaou smear with manual screening 5 5-15 [facility] Thin prep Papanicolaou smear with manual screening Comment . [facility] Comment on above: QuantiFERON-TB Gold Plus [...] smear with manual screening 0 IU/mL . [facility] Thin prep Papanicolaou smear with manual screening > 10.00 IU/mL . [facility] Thin prep Papanicolaou smear with manual screening Negative Negative [facility] Comment on above: No response to [...] percentageon 2021 Chloride [Moles/Vol] 107 mmol/L 98-107 [facility] Work Phone: Cholesterol [Mass/Vol] 167 mg/dL <200 [facility] Work Phone: Comment on above: <200 mg/dL Desirable 200-240 mg/dL Borderline >240 mg/dL High Risk Glucose [Mass/Vol] 82 mg/dL 74-106 [facility] Work Phone: Potassium [Moles/Vol] 4.5 mmol/L 3.5-5.1 [facility] Work Phone: Sodium [Moles/Vol] 140 mmol/L 136-145 [facility] Work Phone: Triglyceride [Mass/Vol] 63 mg/dL <199 [facility] Work Phone: Comment on above: The drugs N-Acetylcy steine and Metamizole may falsely depress this assay.Serum Triglycerides Reference Interval Normal <150 mg/dL Borderline high 150 - 199 mg/dL High 200 - 499 mg/dL Very High > or = 500 mg/dL Laboratory - Chemistry and C hemistry - challengeon 04-19-2022 CO2 [Moles/Vol] 29.0 mmol/L 21.0-32.0 [facility] Work Phone: Urea nitrogen/Creatinine [Mass ratio] 24.8 mg/mg 10- [facility] Work Phone: No Panel Informationon 04-19 Estimated GFR (MDRD) Amer 109 mL/min >60 [facility] Work Phone: Comment on above: GFR Calc Estimated GFR (MDRD) Non-Af Amer 90 mL/min >60 [facility] Work Phone: Comment on above: Non- GFR Calc Serum or plasma calcium issa urement (mass/volume)on 04-19-2022 Calcium [Mass/Vol] 8.8 mg/dL 8.5-10.1 [facility] Work Phone: Serum or plasma cholesterol in HDL measurement (mass/volume)on 04-19-2022 Cholesterol in HDL [Mass/Vol] 46 mg/dL >40 [facility] Work Phone: Comment on above: The drugs N-Acetylcy steine and Metamizole may falsely depress this assay. Reference Range HDL <40 mg/dL Low HDL Cholesterol HDL >or= 60 mg/dL High HDL Cholesterol Serum or plasma cholesterol in VLDL measurement (mass/volume)on 04-19-2022 Cholesterol in VLDL [Mass/Vol] 13 mg/dL 5-40 [facility] Work Phone: Serum or plasma creatinine m easurement (mass/volume)on 04-19-2022 Creatinine [Mass/Vol] 0.97 mg/dL 0.70-1.30 [facility] Work Phone: Comment on above: The validity of the calculated GFR & GFRAA in patients over 70 years has not been determined. Clinical correlation is essential. Serum or plasma low density lipoprotein (LDL) cholesterol measurement (mass/volume)on 04-19-2022 Cholesterol in LDL [Mass/Vol] 108 mg/dL 0-130 [facility] Work Phone: Serum or plasma urea nitroge n measurement (mass/volume)on 04-19-2022 Urea nitrogen [Mass/Vol] 24 mg/dL 7-18 [facility] Work Phone: Thin prep Papanicolaou smear with manual screeningon 04-19-2022 Thin prep Papanicolaou smear with manual screening 4 5-15 [facility] Work Phone: SULEMANOVjesus 11-18-2017 CNOV Office Visit ([facility]) RAY ALARCON ([id number]) 1980 MDate Time Provider Department11/18/17 9:30 AM SOFI BELL (OPERATIONS ACCOUNTANT) [facility] During your visit today, we recorded the following information about you: Temperature Pulse Respiration Blood pressure 98.7 degrees 65/minute 16/minute 100/70 Weight 113.4 kgSofi BellELIANA.OPERATIONS ACCOUNTANT 11/18/2017 9:44 AM AddendumSubjectiveHPIHPI Ray Alarcon is [...] andcongestion: brands include Alban Med, Simply saline, Camuy nasal spray, or eventhe generic store brand [...] andcongestion: brands include Alban Med, Simply saline, [place]uy nasal spray, or eventhe generic store brand [...] - GI UpsetDate Reviewed: 11/18/2017Reviewed by: Sofi ([facility]) Ray - Fully AssessedReason for Visit: [...] congestion: brands include Alban Med, Simply saline, Camuy nasal spray, or even the generic store [...] Status:Closed by SOFI BELL CNP on 11/18/17 [facility] PROGRESSon 11-18-2017 PROGRESS HNO ID: [id number] thor: Sofi (Ananda) Melitonervice: (none)Author Type: Nurse [...] congestion: brands include Alban Med, Simply saline, Camuy nasal spray,or even the generic store brand [...] in detail warranting prompt ER evaluation.Sofi Bell APRN.OPERATIONS ACCOUNTANT Normal [facility] Vital Signs Date Time Vital Sign Value Performing Clinician Apoorva dias 12-22-2024 15:08-0400 Body height 175.[address] Angelo Velázquez MD Work Phone: [facility] 12-22-2024 15:08-0400 Body mass index (BMI) [Ratio] 37.5 kg/m2 Dr. Angelo Velázquez MD Work Phone: [facility] 12-22-2024 15:08-0400 Body temperature 97.2 [degF] Dr. Angelo Velázquez MD Work Phone: [facility] 12-22-2024 15:08-0400 Body weight 115.[address] Angelo Velázquez MD Work Phone: [facility] 12-22-2024 15:08-0400 Diastolic blood pressure 90 mm[Hg] Dr. Angelo Velázquez MD Work Phone: [facility] 12-22-2024 15:08-0400 Heart rate 73 /min Dr. Angelo Velázquez MD Work Phone: [facility] 12-22-2024 15:08-0400 Respiratory rate 18 /min Dr. Angelo Velázquez MD Work Phone: [facility] 12-22-2024 15:08-0400 SaO2% (BldA) [Mass fraction] 99 % Dr. Angelo Velázquez MD Work Phone: [facility] 12-22-2024 15:08-0400 Systolic blood pressure 134 mm[Hg] Dr. Angelo Velázquez MD Work Phone: [facility] 11-29-2024 12:52-0400 Body temperature 98.6 [degF] Dr. Angelo Velázquez MD Work Phone: [facility] 11-29-2024 12:52-0400 Diastolic blood pressure 94 mm[Hg] Dr. Angelo Velázquez MD Work Phone: [facility] 11-29-2024 12:52-0400 Heart rate 72 /min Dr. Angelo Velázquez MD Work Phone: 0(951)000-551540 [place] [address] 11-29-2024 12:52-0400 Respiratory rate 16 /min Dr. Angelo Velázquez MD Work Phone: 9(681)842-622840 [place] [address] 11-29-2024 12:52-0400 SaO2% (BldA) [Mass fraction] 97 % Dr. Angelo Velázquez MD Work Phone: 7(394)387-754325 [place] [address] 11-29-2024 12:52-0400 Systolic blood pressure 154 mm[Hg] Dr. Angelo Velázquez MD Work Phone: 2(135)501-596625 [place] [address] 11-29-2024 10:51-0400 Body height 175.[address] Angelo Velázquez MD Work Phone: 9(748)451-597125 [place] [address] 11-29-2024 10:51-0400 Body mass index (BMI) [Ratio] 37 kg/m2 Dr. Angelo Velázquez MD Work Phone: 3(402)153-824425 [place] [address] 11-29-2024 10:51-0400 Body weight 113.[address] Angelo Velázquez MD Work Phone: 0(678)919-127725 [place] [address] 09-13-2024 11:03-0400 Body temperature 97.6 [degF] Dr. Angelo Velázquez MD Work Phone: 5(212)957-981125 [place] [address] 09-13-2024 11:03-0400 Diastolic blood pressure 80 mm[Hg] Dr. Angelo Velázquez MD Work Phone: 6(594)314-326925 [place] [address] 09-13-2024 11:03-0400 Heart rate 85 /min Dr. Angelo Velázquze MD Work Phone: 3(001)296-463725 [place] [address] 09-13-2024 11:03-0400 SaO2% (BldA) [Mass fraction] 97 % Dr. Angelo Velázquez MD Work Phone: 0(748)602-940325 [place] [address] 09-13-2024 11:03-0400 Systolic blood pressure 122 mm[Hg] Dr. Angelo Velázquez MD Work Phone: 2(250)261-796125 [place] [address] 04-20-2023 17:11-0400 Body height 175.[address] Angelo Velázquez Work Phone: 2(536)797-349825 [place] [address] 04-20-2023 17:11-0400 Body temperature 98.4 [degF] Dr. Angelo Velázquez Work Phone: [facility] 04-20-2023 17:11-0400 Diastolic blood pressure 86 mm[Hg] Dr. Angelo Velázquez Work Phone: 6(845)943-828740 [place] [address] 04-20-2023 17:11-0400 Heart rate 82 /min Dr. Angelo Velázquez Work Phone: 8(988)747-230125 [place] [address] 04-20-2023 17:11-0400 Respiratory rate 16 /min Dr. Angelo Velázquez Work Phone: 4(188)960-653625 [place] [address] 04-20-2023 17:11-0400 SaO2% (BldA) [Mass fraction] 98 % Dr. Angelo Velázquez Work Phone: 6(043)183-143625 [place] [address] 04-20-2023 17:11-0400 Systolic blood pressure 132 mm[Hg] Dr. Angelo Velázquez Work Phone: 0(077)012-144540 [place] [address] 04-13-2023 17:50-0400 Body height 175.[address] Angelo Velázquez Work Phone: 1(952)778-924825 [place] [address] 04-13-2023 17:50-0400 Body mass index (BMI) [Ratio] 34.9 kg/m2 Dr. Angelo Velázquez Work Phone: 0(135)659-803525 [place] [address] 04-13-2023 17:50-0400 Body temperature 98.3 [degF] Dr. Angelo Velázquez Work Phone: 5(690)190-200940 [place] [address] 04-13-2023 17:50-0400 Body weight 107.[address] Angelo Velázquez Work Phone: 3(652)461-815425 [place] [address] 04-13-2023 17:50-0400 Diastolic blood pressure 83 mm[Hg] Dr. Angelo Velázquez Work Phone: 8(967)013-976140 [place] [address] 04-13-2023 17:50-0400 Heart rate 74 /min Dr. Angelo Velázquez Work Phone: 2(378)628-066940 [place] [address] 04-13-2023 17:50-0400 Respiratory rate 17 /min Dr. Angelo Velázquez Work Phone: [facility] 04-13-2023 17:50-0400 SaO2% (BldA) [Mass fraction] 96 % Dr. Angelo Velázquez Work Phone: [facility] 04-13-2023 17:50-0400 Systolic blood pressure 150 mm[Hg] Dr. Angelo Velázquez Work Phone: [facility] Encounters Encounter Date Encounter Type Care Provider Facility Start: 01-09-2025 ambulatory Angelo Velázquez Facility:[facility] Start: 01-01-2025 ambulatory Angelo Velázquez Facility:[facility] Start: 12-22-2024 End: 12-22-[address] Héctor Chauhan MD -[facility] Work Phone: Start: 12-22-2024 End: 12-22-[address] Angelo Velázquez MD Work Phone: [facility] Work Phone: Start: 11-29-2024 End: 11-29-2024 Emergency department patient visit Dr. Angelo Velázquez MD Work Phone: -Emergency Department Work Phone: Start: 09-13-2024 End: 09-13-2024 Patient encounter procedure Abdelrahman Thorne [place] [facility] Work Phone: Start: 09-13-2024 End: 09-13-2024 ambulatory Angelo Velázquez Facility:[facility] Start: 06-09-2024 End: 06-09-2024 ambulatory Angelo Velázquez Facility:[facility] Start: 05-01-2023 End: 05-01-[address] Angelo Velázquez Work Phone: [facility] Work Phone: Start: 05-01-2023 End: 05-01-[address] Angelo Velázquez Work Phone: [facility] Work Phone: Start: 04-20-2023 End: 04-20-[address] Angelo Velázquez Work Phone: [facility] Work Phone: Start: 04-13-2023 End: 04-13-[address] Angelo Velázquez Work Phone: [facility] Work Phone: Start: 04-13-2023 End: 04-13-[address] Angelo Velázquez Work Phone: [facility] Work Phone: Start: 02-12-2023 End: 02-12-[address] Angel[facility] Velázquez [facility] Work Phone: Start: 02-01-2023 End: 02-01-[address] [facility]áz[facility] Work Phone: Start: 01-23-2023 End: 01-23-[address] [facility]ázquez [facility] Work Phone: Start: 01-18-2023 End: 01-18-[address] Angel[facility] Velázquez [facility] Work Phone: Start: 01-09-2023 End: 01-09-[address] Angelo Velázquez Work Phone: [facility] Work Phone: Start: 01-05-[address] Angelo Velázquez Work Phone: [facility] Work Phone: Start: 12-25-2022 End: 12-25-[address] Angelo Velázquez Work Phone: [facility] Work Phone: Start: 12-19-2022 End: 12-19-2022 ambulatory [facility] Work Phone: Start: 12-19-2022 End: 12-19-2022 Patient encounter procedure [facility] [place] Start: 04-19-2022 End: 04-19-2022 ambulatory [facility] Work Phone: Start: 04-19-2022 End: 04-19-2022 Patient encounter procedure [facility] Start: 11-18-2017 End: 11-20-2017 Ambulatory [facility] Procedures Date Procedure Procedure Detail Performing [...] Date Care Activity Detail Author Start: 11-29-2024 [facility] Start: 12-25-2022 Patient referral [facility] Work Phone: Colonoscopy [facility] Patient Education Abdominal Pain ED Diverticulosis [facility] Work Phone: Patient referral [facility] Work Phone: [place] Gallbladder [facility] Payers Date Payer Category Payer Private Health Insurance [id number] 2024 Self-pay [id number] 2024 Unknown [id number] Unknown DO NOT USE NG S [employer] [id number] Unknown [facility] O [id number] Unknown AMY [id number] Unknown [id number] Unknown [id number] Unknown [id number] Unknown [id number] Unknown [id number] Unknown [id number] Social History Date Type Detail Facility Start: 07-29-2015 End: 04-20-2023 Tobacco smoking status NHIS Unknown if ever smoked [facility] Start: 1980 Sex Assigned At Male [facility] Start: 11-29-2024 Tobacco smoking stat us NHIS Never smoked tobacco (finding) [facility] Goals Date Patient Goal Desired Activity /State Progress note 12-22-2024 Note Date & Type Note Facility 12-22-2024 Progress note [facility] Progress note 12-22-2024 Note Date & Type Note Facility 12-22-2024 Progress note Note Date/Time December 22, 2024 3:18pm [facility] [address] [place] [address] OFFICE VISIT Date of Service: 12/22/24 MR#: [id number] Acct: [id number] Name: RAY ALARCON Rep #: [id number] : 1980 Provider: Dr. Juan F Chauhan MD Age/Sex: 44/M Location: [facility] Status: Signed Intake Vital Signs 11/29/24 [...] General: cooperative Orientation: alert and oriented x3 HENOH Head: normal to inspection Neck Neck: normal [...] proceed with procedure. Héctor Chauhan MD Pager: [facility] [address] [place] [address], [address] [place] [address] Office: Plan Details Goals & Barriers: Goals Improve ROM Decrease pain Decrease spasm Coding Level of Care Code Off vis,new,level 3 Diagnoses Right upper quadrant pain R10.11 Blood in the stool K92.1 12/22/24 1515 <Electronically signed by Héctor ribeiro MD> Date _ Héctor Chauhan MD Cosigner Signature: Date (if applicable) CC: ~ [email or web address] Work Phone: Radiology Diagnostic study note 11-29-2024 Note Date & Type Note Facility 11-29-2024 Radiology Diagnostic study note [facility] [address] [place] [id number] Abdomen/Pelvis W IV Cont ONLY MR#: [id number] Acct: [id number] Name: RAY ALARCON Rep #: [id number] : 1980 M 44 From: Evonne Thomas MD PCP: Dr. Angelo Velázquez MD Status: REG E R Study:Abdomen/Pelvis W IV Cont ONLY Date of E xam: 11/29/24 Exam# [id number] Ordering Dr: Katarzyna Elias PROCEDURE: ABDOMEN/PELVIS W [...] Colonic diverticulosis without acute diverticulitis. Reading Location: [id number] CC: Dr. Angelo Velázquez MD; CHEN Munoz ~ [employer]ic: Signed [facility] Evaluation note 09-13-2024 Note Date & Type Note Facility 09-13-2024 Evaluation note Diagnosis Onset Date Resolution Allergic rhinitis acute August 302024 11:01am [facility] Work Phone: Evaluation note 09-13-2024 Note Date & Type Note Facility 09-13-2024 Evaluation note Diagnosis Onset Date Resolution Allergic rhinitis acute August 302024 11:01am Blood in the stool acute December 012024 2:52pm Right upper quadrant pain acute December 22, 2024 2:52pm [facility] Work Phone: Evaluation note Note Date & Type Note Facility Evaluation note No assessment information availa [facility] Work Phone: Evaluation note Note Date & [...] region acute Puncture wound of left thumb [facility] Work Phone: Evaluation note Note Date & [...] thumb acute Puncture wound of left thumb [facility] Work Phone: Hospital Discharge instructions Note Date [...] significantly please come back to the ER. [facility] Work Phone: Reason for referral (narrative) Note Date & Type Note Facility Reason for referral (narrative) No reason for referral information available [facility] Work Phone: Summary Purpose Family History No Family History Records Found Relationship Condition Age at Onset Recorded Date/T baldemar Not Specified Diabetes mellitus Unknown Cardiac disease Unknown Advance Directives No Advanced Directives Records Found Advance Directive Response Recorded Date/ Time Living Will No July 29 3:17pm Power of Head Pumper No July 29, 2015 3:17pm Advance Directive Response Recorded Date/ Time Living Will No July 29 2:17pm Power of Head Pumper No July 29, 2015 2:17pm Advance Directive Response Recorded Date/ Time Do you have a Healthcare Power of Head Pumper? No November 29, 2024 11:27am Chief Complaint [...] section and content) DATE CREATED AUTHOR 12/19/2017 [facility] DATE CREATED AUTHOR AUTHOR'S ORGANIZ ATION 12/31/2024 [facility] (unrecognized section and content) Goals may [...] 13, 2024 End: September 13, 2024 Dr. Angelo Velázquez MD Referring Provider Active Start: September [...] Status: Inactive Member Role Status Dates Dr. Agnelo Velázquez MD Primary Care Provider Active Start: [...] BE BASED ON THE PRIMARY CLINICAL RECORDS. [employer] provides no warranty or guarantee of the accuracy or completeness of information in this document.
== END | disposition home or self-care (01) ==
PROVIDERS: PCP Family Medicine; Referring Provider Family Medicine; Visit Provider Surgery
DX: R10.11 Right upper quadrant pain (principal)
CPT/HCPCS: 76705

== ENCOUNTER 2025-01-09 07:49 | Day surgery (SDC) | payer OTHER, SELFPAY ==
[2025-01-09] VITALS (10 sets, daily range): BP systolic 110–139; BP diastolic 71–91; PULSE 63–78; RESP 16; TEMP 36.2–36.7; O2SAT 97–100; BMI 35.4
--- OUTSIDE RECORDS SUMMARY | 2025-01-09 08:12 | XMS RPT_ITS | CCD ---
Author Organization [facility] Care Team Providers Care Soil Fertility Extension Specialist Name Role Phone Dr. Angelo Velázquez Primary Care Provider Dr. Angelo Velázquez Referring Provider Dr. Leti Julian Attending Provider CHEN Sanders Attending Provider Dr. Angelo Velázquez MD Primary Care Provider [phone] Eber HER, Dr. Stephens Referring Provider Abdelrahman Anderson Attending Provider Dr. Jorge Hill DO Emergency Provider Dr. Jogre Hill DO Attending Provider Gissel HER, Dr. Anaya Attending Provider Jorge Hill Attending Unavailable Angelo Velázquez Primary Care Unavailable Eber, Angelo Primary Care Unavailable Héctor Chauhan Attending Unavailable Angelo Velázquez Referring Unavailable Angelo Velázquez Primary Care Unavailable Héctor Chauhan Attending Unavailable Eber, Angelo Primary Care Unavailable Angelo Velázquez Referring Unavailable Burt Turcios Attending Unavailable Angelo Velázquez Primary Care Unavailable VelázquezAngelo thakur Referring Unavailable Abdelrahman Thorne Attending Unavailable Eber, Angelo Referring Unavailable Eber, Angelo Primary Care Unavailable Héctor Chauhan Attending Unavailable Allergies Allergy Classification Reported Allergen(s) Allergy Type Date of Onset Reaction(s) Facility (8 sources) Amoxicillin; Translations: [amoxicillin trihydrate] Drug Allergy 07-29-2015 Diarrhea [facility] (8 sources) potassium clavulanate; Translations: [potassium clavulanate] Allergy to substance 01-28-2016 [facility] Medications Current Medications Medication Drug Class(es) Dates Sig (Normalized) Sig (Original) cholecalciferol 0.125 mg oral capsule (5 sources) Vitamin D Start: 12-25-2022 take 1 capsule by mouth once daily Cholecalciferol (Vitamin D3) 125 mcg (5,000 unit) capsule Active 125 ug PO DAILY December 25, 2022 12:00am dicyclomine hydrochloride 20 mg oral tablet (2 sources) Anticholinergic Start: 12-22-2024 take 1 tablet by mouth twice daily Dicyclomine 20 mg tablet Active 20 mg PO TWICE A DAY December 22, 2024 12:00am loratadine 10 mg oral tablet (5 sources) Start: 12-25-2022 take 1 tablet by mouth once daily Loratadine (Allergy Relief (Loratadine)) 10 mg tablet Active 10 mg PO DAILY December 25, 2022 12:00am Multivitamin preparation (2 sources) Start: 12-25-2022 take 1 tablet by mouth once daily Multivitamin Active 1 TABLET PO DAILY December 24, 2022 11:00pm Start: 12-25-2022 take 1 tablet by morgan th once daily Multivitamin Active 1 TABLET PO DAILY December 25, 2022 12:00am Multivitamin tablet (3 sources) Start: 12-25-2022 Multivitamin tablet Active 1 {tbl} PO DAILY December 25, 2022 12:00am Roflumilast (3 sources) Phosphodiesterase 4 Inhibitor Start: 06-09-2024 take 1 tablet by mouth once daily Roflumilast 500 mcg tablet Active 500 ug PO daily June 09, 2024 1:00am saccharomyces boulardii 250 mg oral capsule (5 sources) Start: 12-25-2022 take 1 capsule by mouth once daily Saccharomyces Boulardii (Digest Probiotic (S.Boulardii)) 250 mg capsule Active 250 mg PO DAILY December 25, 2022 12:00am Completed/Discontinued Medications Medication Drug Class(es) Dates Sig (Normalized) Sig (Original) azithromycin 250 mg oral tablet (3 sources) Macrolide Antimicrobial Start: 06-09-2024 End: 09-13-2024 Azithromycin 250 mg tablet Discontinued 250 mg PO .COMPLEX 12 0 June 09, 2024 1:00am September 13, 2024 11:03am 2 tablets (500 mg) on day 1, then 1 tablet daily on days 2 through 11 cephalexin 500 mg oral capsule (5 sources) Cephalosporin Antibacterial Start: 04-13-2023 End: 04-23-2023 take 1 capsule by mouth every eight hours Cephalexin 500 mg capsule Discontinued 500 mg PO Q8H 30 10 0 April 13, 2023 12:00am April 22, 2023 12:00am April 23, 2023 12:04am Risankizumab-Rzaa (5 sources) Start: 04-13-2023 End: 06-09-2024 Risankizumab-Rzaa (Skyrizi) [...] Date Documented Da te Episodic/Chronic Abdominal pain (10 sources) Abdominal pain; Translations: [Unspecified abdominal pain] Onset: 12-04-2024 11-29-2024 Episodic Diverticulosis and diverticulitis (3 sources) Diverticular disease; Translations: [Diverticulosis of intestine, part unspecified, without perforation or abscess without bleeding] 11-29-2024 Chronic Gastrointestinal hemorrhage (8 sources) Rectal hemorrhage; Translations: [Hemorrhage of anus and rectum] Onset: 12-22-2024 11-29-2024 Episodic Hemorrhoids (2 sources) Hemorrhoids; Translations: [Unspecified hemorrhoids] 12-22-2024 Episodic Open wounds of extremities (8 sources) Puncture wound of thumb of left hand; Translations: [Puncture wound without foreign body of left thumb without damage to nail, initial encounter] 04-13-2023 Episodic Other bone disease and musculoskeletal deformities (10 sources) Segmental and somatic dysfunction; Translations: [Segmental and somatic dysfunction of lumbar region] 12-25-2022 Episodic Other bone disease and musculoskeletal deformities (11 sources) Segmental and somatic dysfunction of lumbar region; Translations: [Nonallopathic lesions, lumbar region] 12-25-2022 Episodic Other bone disease and musculoskeletal deformities (11 sources) Segmental and somatic dysfunction of pelvic region; Translations: [Nonallopathic lesions, pelvic region] 12-25-2022 Episodic Other gastrointestinal disorders (2 sources) Constipation; Translations: [Constipation, unspecified] 12-22-2024 Episodic Other inflammatory condition of skin (5 sources) Psoriasis; Translations: [Psoriasis, unspecified] 04-13-2023 Chronic Other upper respiratory disease (6 sources) Allergic rhinitis; Translations: [Allergic rhinitis, unspecified] 09-13-2024 Chronic Spondylosis; intervertebral disc disorders; other back problems (16 sources) Backache; Translations: [Dorsalgia, unspecified] 12-28-2022 Episodic Results Test Name Value Interpretation Reference Range Facility Abdomen Limitedon 01-01-2025 Abdomen Limited [facility] [address] [place] [address] Abdomen Limited MR#: [id number] Acct: [id number] Name: RAY ALARCON Rep #: [id number] : 1980 M 44 From: Min Lock PCP: Dr. Angelo Velázquez MD Status: REG CLI Study: Abdomen Limited Date of Exam: 01/01/25 Exam# [id number] Ordering Dr: Héctor Chauhan PROCEDURE: ABDOMEN LIMITED 01/01/2025 REASON FOR EXAM: RUQ PAIN TECHNIQUE: Right upper quadrant abdominal ultrasound COMPARISON: CT examination of 11/29/2024.. FINDINGS: Liver: The liver measures of the upper range of normal. No focal hepatic abnormality is seen, and normal hepatic echogenicity is noted. Hepatopetal flow of the main portal vein is noted. No intrahepatic biliary ductal dilation is noted. Gallbladder: Measured at 8.6 cm in length. Gallbladder sludge is noted. No stone, wall thickening, or pericholecystic fluid collection is seen. No sonographic Neely's sign was elicited. Common bile duct: Normal measuring 2.6 mm diameter. Pancreas: Limited visualization due to overlying bowel gas, without focal abnormality seen. No pancreatic duct dilation is noted. Right kidney: An exophytic hypoechoic structure at the superior pole of the right kidney is measured at 17 x 16 x 16 mm. Color Doppler evaluation does not demonstrate internal blood flow. The right kidney measures 10.7 x 5.2 x 4.8 cm. No evidence of hydronephrosis. The cortex is measured at 11 mm. Peritoneal Findings: No ascites identified. US/Abdomen Limited IMPRESSION: 1. Hypovascular hypoechoic exophytic structure of the superior pole of the right kidney, without internal blood flow noted upon color Doppler evaluation. This most likely represents a hemorrhagic cyst or other complicated cyst. 2. Gallbladder sludge. No findings of acute gallbladder disease or biliary obstruction, and no sonographic Neely's sign was elicited. Reading Location: [place] [address] CC: Dr. Héctor Chauhan MD; Dr. Angelo Velázquez MD Microfilmer: Signed Normal [facility] Surgery Visit Reporton 12-22 Surgery Visit Report [facility] [address] [place] [address]. [address] [place] [address] OFFICE VISIT Date of Service: 12/22/24 MR#: [id number] Acct: [id number] Name: RAY ALARCON Rep #: [id number] : 1980 Provider: Dr. Héctor llamas MD Age/Sex: 44/M Location: [facility] Status: Signed Intake Vital Signs 11/29/24 [...] mg PO BID 12/22/24 12/22/24 His tory [facility] Medical History (Updated 12/22/24 @ 15:17 by [...] General: cooperative Orientation: alert and oriented x3 HENCA Head: normal to inspection Neck Neck: normal [...] explained the (more content not included)... Normal [facility] Abdomen/Pelvis W IV Cont ONL Yon 11-29-2024 Abdomen/Pelvis W IV Cont ONLY [facility] Imaging Services [address] [place] [address] Abdomen/Pelvis W IV Cont ONLY MR#: [id number] Acct: [id number] Name: RAY ALARCON Rep #: [id number] : 1980 M 44 From: [place]am [place] PCP: Dr. Angelo Velázquez MD Status: [facility] ER Study: Abdomen/Pelvis W IV Cont ONLY Date of Exam: Exam# [id number] Ordering Dr: Katarzyna Roberts PROCEDURE: ABDOMEN/PELVIS W [...] Colonic diverticulosis without acute diverticulitis. Reading Location: [facility] CC: Dr. Angelo Velázquez MD; CHEN Munoz Microfilmer: Signed Normal [facility] Absolute lymphocyte countOrd ered By: Katarzyna Roberts on 11-29-2024 Lymphocytes Auto (Unsp spec) [#/Vol] 1.87 10*3/uL 0.83-4.51 [facility] Absolute neutrophil countOrd ered By: Katarzyna Roberts on 11-29-2024 Neutrophils (Bld) [#/Vol] 6.1 10*3/uL 2.0-7.7 [facility] Anion gap in Serum or Plasma Ordered By: Katarzyna Roberts on 11-29-2024 Anion gap [Moles/Vol] 12 mmol/L 5-15 [facility] Automated lymphocyte count a s percentage of total leukocytesOrdered By: Katarzyna Kleinifeomayesi on 11-29-2024 Lymphocytes/100 WBC Auto (Unsp spec) 20.8 % 19- [facility] BUN/creatinine ratioOrdered By: Katarzyna Roberts on 11-29-2024 Urea nitrogen/Creatinine [Mass ratio] 13.7 mg/mg 10-20 [facility] Basophil percentageOrdered B y: Katarzyna Roberts on 11-29-2024 Basophils/100 WBC (Bld) 0.6 % 0-1 [facility] Bilirubin Test strip Ql (U)O rdered By: Katarzyna Kleinifeomayesi on 11-29-2024 Bilirubin Ql (U) Negative Negative [facility] Bilirubin, totalOrdered By: Katarzyna Kleinsoraya on 11-29-2024 Bilirubin [Mass/Vol] 0.63 mg/dL 0.00-1.30 [facility] CBC W/Diff, Automatedon - Absolute Lymph 1.87 X10 3/uL Normal 0.83-4.51 [facility] Comment on above: Performed By: #### L 100.0100, L500.4050 #### [facility] [address] [place], [address] Absolute Neut 6.1 X10 3/uL Normal 2.0-7.7 [facility] Comment on above: Performed By: #### L 100.0100, L500.4050 #### [facility] [address] [place], [address] Basophils/100 WBC (Bld) 0.6 % Normal 0-1 [facility] Comment on above: Performed By: #### L 100.0100, L500.4050 #### [facility] [address] [place], [address] Eosinophils/100 WBC (Bld) 1.2 % Normal 0-5 [facility] Comment on above: Performed By: #### L 100.0100, L500.4050 #### [facility] [address] [place], [address] Erythrocyte distribution width (RBC) [Ratio] 12.1 % Normal 11.6-14.6 [facility] Comment on above: Performed By: #### L 100.0100, L500.4050 #### [facility] [address] [place], [address] Hematocrit (Bld) [Volume fraction] 43.6 % Normal 40-54 [facility] Comment on above: Performed By: #### L 100.0100, L500.4050 #### [facility] [address] [place], [address] Hemoglobin (Bld) [Mass/Vol] 15.3 g/dL Normal 13.0-16.5 [facility] Comment on above: Performed By: #### L 100.0100, L500.4050 #### [facility] [address] [place], [address] IG% 0.800 Normal 0.0-0.9 [facility] Comment on above: Result Comment: IG% - Immature Granulocytes (promyelocytes, myelocytes and metamyelocytes) > 1% indicates that a LEFT SHIFT is Present. Performed By: #### L 100.0100, L500.4050 #### [facility] [address] [place], [address] Lymphocytes/100 WBC (Bld) 20.8 % Normal 19-41 [facility] Comment on above: Performed By: #### L 100.0100, L500.4050 #### [facility] [address] [place], [address] MCH (RBC) [Entitic mass] 30.2 pg Normal 27.0-32.0 [facility] Comment on above: Performed By: #### L 100.0100, L500.4050 #### [facility] [address] [place], [address] MCHC (RBC) [Mass/Vol] 35.1 g/dL Normal 32-36 [facility] Comment on above: Performed By: #### L 100.0100, L500.4050 #### [facility] [address] [place], [address] MCV (RBC) [Entitic vol] 86.0 fL Normal 80-94 [facility] Comment on above: Performed By: #### L 100.0100, L500.4050 #### [facility] [address] [place], [address] Monocytes/100 WBC (Bld) 8.2 % Normal 0-10 [facility] Comment on above: Performed By: #### L 100.0100, L500.4050 #### [facility] [address] [place], [address] Neutrophils/100 WBC (Bld) 68.4 % Normal 47-70 [facility] Comment on above: Performed By: #### L 100.0100, L500.4050 #### [facility] [address] [place], [address] Nucleated RBC (Bld) [#/Vol] 0 10*3/uL Normal 0-5 [facility] Comment on above: Performed By: #### L 100.0100, L500.4050 #### [facility] [address] [place], [address] Platelet mean volume (Bld) [Entitic vol] 8.1 fL Normal 6.2-12.0 [facility] Comment on above: Performed By: #### L 100.0100, L500.4050 #### [facility] [address] [place], [address] Platelets (Bld) [#/Vol] 150 10*3/uL Normal 150-450 [facility] Comment on above: Performed By: #### L 100.0100, L500.4050 #### [facility] [address] [place], [address] RBC (Bld) [#/Vol] 5.07 10*6/uL Normal 4.6-6.2 [facility] Comment on above: Performed By: #### L 100.0100, L500.4050 #### [facility] [address] [place], [address] RDW SD 37.4 fl Normal 35.1-43.9 [facility] Comment on above: Performed By: #### L 100.0100, L500.4050 #### [facility] [address] [place], [address] WBC (Bld) [#/Vol] 9.0 10*3/uL Normal 4.4-11.0 [facility] Comment on above: Performed By: #### L 100.0100, L500.4050 #### [facility] [address] [place], [address] Carbon dioxide, total [Moles /volume] in Central venous bloodOrdered By: Katarzyna Roberts on 11-29-2024 CO2 [Moles/Vol] 24.4 mmol/L 21.0-32.0 [facility] Chloride assayOrdered By: Kayleen Roberts on 11-29-2024 Chloride [Moles/Vol] 102 mmol/L 98-108 [facility] Comprehensive Metabolic Prof ilon 11-29-2024 Albumin [Mass/Vol] 4.8 g/dL Normal 3.5-5.0 [facility] Comment on above: Performed By: #### L 100.0100, L500.4050 #### [facility] [address] [place], [address] Albumin/Globulin [Mass ratio] 1.7 {ratio} Normal 0.9-2.4 [facility] Comment on above: Performed By: #### L 100.0100, L500.4050 #### [facility] [address] [place], [address] ALK PHOS 68 U/L Normal 40-129 [facility] Comment on above: Performed By: #### L 100.0100, L500.4050 #### [facility] [address] [place], [address] ALT [Catalytic activity/Vol] 42 U/L Normal <=46 [facility] Comment on above: Performed By: #### L 100.0100, L500.4050 #### [facility] [address] [place], [address] AST [Catalytic activity/Vol] 31 U/L Normal <=37 [facility] Comment on above: Performed By: #### L 100.0100, L500.4050 #### [facility] [address] [place], [address] Bilirubin [Mass/Vol] 0.63 mg/dL Normal 0.00-1.30 [facility] Comment on above: Performed By: #### L 100.0100, L500.4050 #### [facility] [address] [place], [address] BUN/CRE 13.7 RATIO Normal 10-20 [facility] Comment on above: Performed By: #### L 100.0100, L500.4050 #### [facility] [address] [place], [address] Calcium [Mass/Vol] 9.5 mg/dL Normal 7.6-11.0 [facility] Comment on above: Performed By: #### L 100.0100, L500.4050 #### [facility] [address] [place], [address] Chloride [Moles/Vol] 102 mmol/L Normal 98-108 [facility] Comment on above: Performed By: #### L 100.0100, L500.4050 #### [facility] [address] [place], [address] CO2 [Moles/Vol] 24.4 mmol/L Normal 21.0-32.0 [facility] Comment on above: Performed By: #### L 100.0100, L500.4050 #### [facility] [address] [place], [address] Creatinine [Mass/Vol] 0.92 mg/dL Normal 0.70-1.20 [facility] Comment on above: Performed By: #### L 100.0100, L500.4050 #### [facility] [address] [place], [address] ECRCL 124.82 ml/min Normal 50-250 [facility] Comment on above: Performed By: #### L 100.0100, L500.4050 #### [facility] [address] [place], [address] GAP 12 Normal 5-15 [facility] Comment on above: Performed By: #### L 100.0100, L500.4050 #### [facility] [address] [place], [address] GFR/1.73 sq M.predicted among non-blacks MDRD (S/P/Bld) [Vol rate/Area] 103 mL/min/{1.73_m2} Normal >60 [facility] Comment on above: Result Comment: mL/m in/1.73m2 CKD-EPI Creatinine Equation (2020) Performed By: #### L 100.0100, L500.4050 #### [facility] [address] [place], [address] Globulin (S) [Mass/Vol] 2.8 g/dL Normal 2.2-4.2 [facility] Comment on above: Performed By: #### L 100.0100, L500.4050 #### [facility] [address] [place], [address] Glucose [Mass/Vol] 82 mg/dL Normal 70-99 [facility] Comment on above: Performed By: #### L 100.0100, L500.4050 #### [facility] [address] [place], [address] Potassium [Moles/Vol] 3.8 mmol/L Normal 3.3-5.1 [facility] Comment on above: Performed By: #### L 100.0100, L500.4050 #### [facility] [address] [place], [address] Sodium [Moles/Vol] 138 mmol/L Normal 133-145 [facility] Comment on above: Performed By: #### L 100.0100, L500.4050 #### [facility] [address] [place], [address] T PROT 7.6 g/dL Normal 5.9-8.4 [facility] Comment on above: Performed By: #### L 100.0100, L500.4050 #### [facility] [address] [place], [address] Urea nitrogen [Mass/Vol] 13 mg/dL Normal 4-19 [facility] Comment on above: Performed By: #### L 100.0100, L500.4050 #### [facility] [address] [place], [address] Emergency Department Summary on 11-29-2024 Emergency Department Summary [facility] Medical Records Department [address] [place] [address] Emergency Department Summary 11/29/24 MR#: [id number] Acct: [id number] Name: RAY ALARCON Rep #: [id number] : 1980 44 From: Jorge Hill DO [...] care i (more content not included)... Normal [facility] Eosinophil percentageOrdered By: Katarzyna Roberts on 11-29-2024 Eosinophils/100 WBC (Bld) 1.2 % 0-5 [facility] Erythrocyte distribution wid th ratioOrdered By: Katarzyna Roberts on 11-29-2024 Erythrocyte distribution width (RBC) [Ratio] 12.1 % 11.6-14.6 [facility] Erythrocyte distribution wid th standard deviationOrdered By: Katarzyna Roberts on 11-29-2024 Erythrocyte distribution width (RBC) [Ratio] 37.4 fl 35.1-43.9 [facility] Glomerular filtration rate ( GFR) estimation/1.73 sq m using serum, plasma, or whole bOrdered By: Katarzyna Roberts on 11-29-2024 GFR/1.73 sq M.predicted among non-blacks MDRD (S/P/Bld) [Vol rate/Area] 103 mL/min/{1.73_m2} >60 [facility] Comment on above: mL/min/1.73m2 CKD-EP I Creatinine Equation (2020) Hematocrit Auto (Bld) [Volum e fraction]Ordered By: Katarzyna Roberts on 11-29-2024 Hematocrit (Bld) [Volume fraction] 43.6 % 40-54 [facility] Hemoglobin measurementOrdere d By: Katarzyna Roberts on 11-29-2024 Hemoglobin (Bld) [Mass/Vol] 15.3 g/dL 13.0-16.5 [facility] Immature granulocytes/100 WB C Auto (Bld)Ordered By: Katarzyna Roberts on 11-29-2024 Immature granulocytes/100 WBC (Bld) 0.800 % 0.0-0.9 [facility] Comment on above: IG% - Immature Granu locytes (promyelocytes, myelocytes and metamyelocytes) > 1% indicates that a LEFT SHIFT is Present. Ketones Test strip Ql (U)Ord ered By: Katarzyna Roberts on 11-29-2024 Ketones Ql (U) Negative Negative [facility] Laboratory - Chemistry and C hemistry - challengeOrdered By: Katarzyna Roberts on 11-29-2024 AST [Catalytic activity/Vol] 31 U/L <38 [facility] MCV (mean corpuscular volume ) determinationOrdered By: Katarzyna Roberts on 11-29-2024 MCV (RBC) [Entitic vol] 86.0 fL 80-94 [facility] Mean corpuscular hemoglobin (MCH) determinationOrdered By: Katarzyna Roberts on 11-29-2024 MCH (RBC) [Entitic mass] 30.2 pg 27.0-32.0 [facility] Mean corpuscular hemoglobin concentration (MCHC) determinationOrdered By: Katarzyna Roberts on 11-29-2024 MCHC (RBC) [Mass/Vol] 35.1 g/dL 32-36 [facility] Mean platelet volume determi nationOrdered By: Katarzyna Roberts on 11-29-2024 Platelet mean volume (Bld) [Entitic vol] 8.1 fL 6.2-12.0 [facility] Microscopic analysis of urin e for red blood cells (RBC)Ordered By: Katarzyna Roberts on 11-29-2024 Microscopic analysis of urine for red blood cells (RBC) 0 SEEN /hpf 0-5 [facility] Monocyte percentageOrdered B y: Katarzyna Roberts on 11-29-2024 Monocytes/100 WBC (Bld) 8.2 % 0-10 [facility] Mucus LM Ql (Urine sed)Order ed By: Katarzyna Roberts on 11-29-2024 Mucus Ql (Urine sed) 0 SEEN /hpf [facility] Neutrophil percentageOrdered By: Katarzyna Roberts on 11-29-2024 Neutrophils/100 WBC (Bld) 68.4 % 47-70 [facility] Nitrite Test strip Ql (U)Ord ered By: Katarzyna Roberts on 11-29-2024 Nitrite Ql (U) Negative Negative [facility] Nucleated red blood cell per centageOrdered By: Katarzyna Roberts on 11-29-2024 Nucleated RBC/100 WBC (Bld) [Ratio] 0 % 0-5 [facility] Platelet countOrdered By: Kayleen Roberts on 05-31-2025 Platelets (Bld) [#/Vol] 150 10*3/uL 150-450 [facility] Potassium measurement (mass/ volume)Ordered By: Katarzyna Roberts on 11-29-2024 Potassium (Unsp spec) [Mass/Vol] 3.8 mmol/L 3.3-5.1 [facility] Protein Test strip Ql (U)Ord ered By: Katarzyna Roberts on 11-29-2024 Protein Ql (U) Negative Negative [facility] RBC Auto (Bld) [#/Vol]Ordere d By: Katarzyna Roberts on 11-29-2024 RBC (Bld) [#/Vol] 5.07 10*6/uL 4.6-6.2 [facility] Serum creatinine measurement (mass/volume)Ordered By: Katarzyna Roberts on 11-29-2024 Creatinine [Mass/Vol] 0.92 mg/dL 0.70-1.20 [facility] Serum globulin measurementOr dered By: Katarzyna Roberts on 11-29-2024 Globulin (S) [Mass/Vol] 2.8 g/dL 2.2-4.2 [facility] Serum glucose measurement (m ass/volume)Ordered By: Katarzyna Roberts on 11-29-2024 Glucose [Mass/Vol] 82 mg/dL 70-99 [facility] Serum or plasma alanine rudolph otransferase (ALT) measurementOrdered By: Katarzyna Roberts on 11-29-2024 ALT [Catalytic activity/Vol] 42 U/L <47 [facility] Serum or plasma albumin issa urement (mass/volume)Ordered By: Katarzyna Roberts on 11-29-2024 Albumin [Mass/Vol] 4.8 g/dL 3.5-5.0 [facility] Serum or plasma albumin/glob ulin mass ratioOrdered By: Katarzyna Roberts on 11-29-2024 Albumin/Globulin [Mass ratio] 1.7 {ratio} 0.9-2.4 [facility] Serum or plasma alkaline loni sphatase measurementOrdered By: Katarzyna Roberts on 11-29-2024 ALP [Catalytic activity/Vol] 68 U/L 40-129 [facility] Serum or plasma calcium issa urement (mass/volume)Ordered By: Katarzyna Roberts on 11-29-2024 Calcium [Mass/Vol] 9.5 mg/dL 7.6-11.0 [facility] Serum or plasma urea nitroge n measurement (mass/volume)Ordered By: Katarzyna Roberts on 11-29-2024 Urea nitrogen [Mass/Vol] 13 mg/dL 4-19 [facility] Sodium levelOrdered By: Katarzyna Roberts on 11-29-2024 Sodium [Moles/Vol] 138 mmol/L 133-145 [facility] Squamous epithelial cells de tection in urine sediment by light microscopyOrdered By: Katarzyna Roberts on 11-29-2024 Epithelial cells.squamous LM Ql (Urine sed) 0 SEEN /hpf 0-5 [facility] Total proteinOrdered By: Estelita Roberts on 11-29-2024 Protein [Mass/Vol] 7.6 g/dL 5.9-8.4 [facility] Urinalysis, Completeon 11-29 BACTERIA 0 SEEN Normal None Seen [facility] Comment on above: Order Comment: ELVIRA CTOR TO SPECIFY Performed By: #### L 400.0001 #### [facility] [address] [place], [place], [address] EPI,SQUAMOUS 0 SEEN Normal [address] [place] [address] Comment on above: Order Comment: ELVIRA CTOR TO SPECIFY Performed By: #### L 400.0001 #### [facility] [address] [place], [address] Mucus Ql (Urine sed) 0 SEEN Normal [facility] Comment on above: Order Comment: ELVIRA CTOR TO SPECIFY Performed By: #### L [id number] #### [facility] [address] [place], [address] RBC 0 SEEN Normal [address] [place] [address] Comment on above: Order Comment: ELVIRA CTOR TO SPECIFY Performed By: #### L [id number] #### [facility] [address] [place], [address] WBC 0 SEEN Normal [address] [place] [address] Comment on above: Order Comment: COLLE CTOR TO SPECIFY Performed By: #### L 400.0001 #### [facility] [address] [place], [place], [id number] Urine clarityOrdered By: Estelita Roberts on 11-29-2024 Clarity (U) Clear Clear [facility] Urine color determinationOrd ered By: Katarzyna Roberts on 11-29-2024 Color (U) Yellow Yellow [facility] Urine glucose detectionOrder ed By: Katarzyna Roberts on 11-29-2024 Glucose Ql (U) Normal mg/dl Normal [facility] Urine leukocyte esterase det ection by dipstickOrdered By: Katarzyna Roberts on 11-29-2024 Leukocyte esterase Test strip Ql (U) Negative Negative [facility] Urine pHOrdered By: Katarzyna lira on 11-29-2024 pH (U) 7.0 [pH] 5.0 - 8.0 [facility] Urine sediment bacteria coun t by microscopy (number/high power field)Ordered By: Katarzyna Roberts on 11-29-2024 Bacteria LM.HPF (Urine sed) [#/Area] 0 /[HPF] None Seen [facility] Urine specific gravity measu rementOrdered By: Katarzyna Roberts on 11-29-2024 Specific gravity (U) [Rel density] 1.010 1.002-1.030 [facility] Urine urobilinogen measureme ntOrdered By: Katarzyna Rboerts on 11-29-2024 Urobilinogen Ql (U) Normal mg/dl Normal [facility] White blood cell (WBC) count Ordered By: Katarzyna Roberts on 11-29-2024 WBC (Bld) [#/Vol] 9.0 10*3/uL 4.4-11.0 [facility] White blood cell countOrdere d By: Katarzyna Roberts on 11-29-2024 White blood cell count 0 SEEN /hpf 0-[address] [facility] Urgent Care Visit Reporton 0 09-13-2024 Urgent Care Visit Report [facility] [address], [address] [place], [place] [id number] OFFICE VISIT Date of Service: 09/13/24 MR#: [id number] Acct: [id number] Name: RAY ALARCON Rep #: [id number] : 1980 Provider: CHEN Garcia Age/Sex: 43/M Location: [facility] Status: Signed Intake Vital Signs 06/09/24 10:17 [...] has been going on for 2-3 days. PFSH Surgical History History of hand [...] Abdelrahman SIDDIQUI (more content not included)... Normal [facility] Urgent Care Visit Reporton 1 08-10-2023 Urgent Care Visit Report [facility] [address], [address] [place] [address] OFFICE VISIT Date of Service: 06/09/24 MR#: [id number] Acct: [id number] Name: RAY ALARCON Rep #: [id number] : 1980 Provider: CHEN Spencer Age/Sex: 43/M Location: [facility] Status: Signed Intake Vital Signs 12/27/23 09:08 [...] COMPLAINT/COUGH/FATIGUED Chief Complaint: sinus congestion, cough, fatigued Pediatric Dentist Required: No Is patient in pain?: No [...] any oth (more content not included)... Normal [facility] Basophil percentageOrdered B y: Angelo Velázquez on 05-01-2023 Chloride [Moles/Vol] 103 mmol/L 98-107 [facility] Cholesterol [Mass/Vol] 197 mg/dL <200 [facility] Comment on above: <200 mg/dL Desirable 200-240 mg/dL Borderline >240 mg/dL High Risk Glucose [Mass/Vol] 81 mg/dL 74-106 [facility] Potassium [Moles/Vol] 4.0 mmol/L 3.5-5.1 [facility] Sodium [Moles/Vol] 133 mmol/L 136-145 [facility] Triglyceride [Mass/Vol] 78 mg/dL <199 [facility] Comment on above: The drugs N-Acetylcy steine and Metamizole may falsely depress this assay.Serum Triglycerides Reference Interval Normal <150 mg/dL Borderline high 150 - 199 mg/dL High 200 - 499 mg/dL Very High > or = 500 mg/dL Laboratory - Chemistry and C hemistry - challengeOrdered By: Angelo Velázquez on 05-01-2023 CO2 [Moles/Vol] 28.0 mmol/L 21.0-32.0 [facility] Urea nitrogen/Creatinine [Mass ratio] 20.6 mg/mg 10- [facility] No Panel InformationOrdered By: Angelo Velázquez on 05-01-2023 Estimated GFR (MDRD) Amer 102 mL/min >60 [facility] Comment on above: GFR Calc Estimated GFR (MDRD) Non-Af Amer 84 mL/min >60 [facility] Comment on above: Non- GFR Calc Serum or plasma calcium issa urement (mass/volume)Ordered By: Angelo Velázquez on 05-01-2023 Calcium [Mass/Vol] 9.0 mg/dL 8.5-10.1 [facility] Serum or plasma cholesterol in HDL measurement (mass/volume)Ordered By: Angelo Velázquez on 05-01-2023 Cholesterol in HDL [Mass/Vol] 50 mg/dL >40 [facility] Comment on above: The drugs N-Acetylcy steine and Metamizole may falsely depress this assay. Reference Range HDL <40 mg/dL Low HDL Cholesterol HDL >or= 60 mg/dL High HDL Cholesterol Serum or plasma cholesterol in VLDL measurement (mass/volume)Ordered By: Angelo Velázquez on 05-01-2023 Cholesterol in VLDL [Mass/Vol] 16 mg/dL 5-40 [facility] Serum or plasma creatinine m easurement (mass/volume)Ordered By: Angelo Velázquez on 05-01-2023 Creatinine [Mass/Vol] 1.02 mg/dL 0.70-1.30 [facility] Comment on above: The validity of the calculated GFR & GFRAA in patients over 70 years has not been determined. Clinical correlation is essential. Serum or plasma low density lipoprotein (LDL) cholesterol measurement (mass/volume)Ordered By: Angelo Velázquez on 05-01-2023 Cholesterol in LDL [Mass/Vol] 131 mg/dL 0-130 [facility] Serum or plasma urea nitroge n measurement (mass/volume)Ordered By: Angelo Velázquez on 05-01-2023 Urea nitrogen [Mass/Vol] 21 mg/dL 7-18 [facility] Thin prep Papanicolaou smear with manual screeningOrdered By: Angelo Velázquez on 05-01-2023 Thin prep Papanicolaou smear with manual screening 2 5-15 [facility] Absolute lymphocyte countOrd ered By: Dr. Wang on 12-19-2022 Lymphocytes Auto (Unsp spec) [#/Vol] 2.27 10*3/uL 0.83-4.51 [facility] Basophil percentageOrdered B y: Dr. Wang on 12-19-2022 Basophils/100 WBC (Bld) 0.8 % 0-1 [facility] Bilirubin [Mass/Vol] 0.40 mg/dL 0.20-1.00 [facility] Comment on above: For patients on eltr ombopag therapy, use of Dimension [place] TBIL is not recommended. Chloride [Moles/Vol] 108 mmol/L 98-107 [facility] Eosinophils/100 WBC (Bld) 2.6 % 0-5 [facility] Glucose [Mass/Vol] 79 mg/dL 74-106 [facility] Neutrophils (Bld) [#/Vol] 5.4 10*3/uL 2.0-7.7 [facility] Neutrophils/100 WBC (Bld) 60.7 % 47-70 [facility] Potassium [Moles/Vol] 3.9 mmol/L 3.5-5.1 [facility] Protein [Mass/Vol] 7.7 g/dL 6.4-8.2 [facility] Sodium [Moles/Vol] 140 mmol/L 136-145 [facility] WBC (Bld) [#/Vol] 8.9 10*3/uL 4.4-11.0 [facility] Blood erythrocytes count (nu mber/volume)Ordered By: Dr. Wang on 12-19-2022 RBC (Bld) [#/Vol] 5.04 10*6/uL 4.6-6.2 [facility] Blood hemoglobin measurement (mass/volume)Ordered By: Dr. Wang on 12-19-2022 Hemoglobin (Bld) [Mass/Vol] 15.1 g/dL 13.0-16.5 [facility] Blood lymphocytes/100 leukoc ytesOrdered By: Dr. Wang on 12-19-2022 Lymphocytes/100 WBC (Bld) 25.5 % 19-41 [facility] Blood monocytes/100 leukocyt esOrdered By: Dr. Wang on 12-19-2022 Monocytes/100 WBC (Bld) 9.8 % 0-10 [facility] Blood platelet mean volumeOr dered By: Dr. Wang on 12-19-2022 Platelet mean volume (Bld) [Entitic vol] 8.6 fL 6.2-12.0 [facility] Determination of erythrocyte mean corpuscular volume (MCV)Ordered By: Dr. Wang on 12-19-2022 MCV (RBC) [Entitic vol] 87.1 fL 80-94 [facility] Direct bilirubinOrdered By: Dr. Wang on 12-19-2022 Bilirubin.direct [Mass/Vol] 0.11 mg/dL 0.00-0.30 [facility] Hematocrit Auto (Bld) [Volum e fraction]Ordered By: Dr. Wang on 12-19-2022 Hematocrit (Bld) [Volume fraction] 43.9 % 40-54 [facility] Laboratory - Chemistry and C hemistry - challengeOrdered By: Dr. Wang on 12-19-2022 ALP [Catalytic activity/Vol] 56 U/L 45-117 [facility] ALT [Catalytic activity/Vol] 34 U/L 16-61 [facility] CO2 [Moles/Vol] 27.0 mmol/L 21.0-32.0 [facility] Globulin (S) [Mass/Vol] 3.5 g/dL 2.2-4.2 [facility] Urea nitrogen/Creatinine [Mass ratio] 27.6 mg/mg 10-20 [facility] Laboratory - Hematology and Cell countsOrdered By: Dr. Wang on 12-19-2022 Erythrocyte distribution width (RBC) [Entitic vol] 38.5 fL 35.1-43.9 [facility] Erythrocyte distribution width (RBC) [Ratio] 12.1 % 11.6-14.6 [facility] Immature granulocytes/100 WBC (Bld) 0.600 % 0.0-0.9 [facility] Comment on above: IG% - Immature Granu locytes (promyelocytes, myelocytes and metamyelocytes) > 1% indicates that a LEFT SHIFT is Present. MCH (RBC) [Entitic mass] 30.0 pg 27.0-32.0 [facility] Nucleated RBC/100 WBC (Bld) [Ratio] 0 % 0-5 [facility] MCHC Auto (RBC) [Mass/Vol]Or dered By: Dr. Wang on 12-19-2022 MCHC (RBC) [Mass/Vol] 34.4 g/dL 32-36 [facility] No Panel InformationOrdered By: Dr. Wang on 12-19-2022 Estimated GFR (MDRD) Amer 117 mL/min >60 [facility] Comment on above: GFR Calc Estimated GFR (MDRD) Non-Af Amer 97 mL/min >60 [facility] Comment on above: Non- GFR Calc Hepatitis B Surface Antigen Non-Reactive Nonreactive [facility] Hepatitis C Antibody Non-Reactive Nonreactive [facility] Comment on above: Non Reactive: < 0.8 Equivocal: >/= 0.8 to < 1.0 Reactive: >/= 1.0The CDC recommends that a reactive/equivocal HCV antibody result be followed up by the HCV Nucleic Acid Amplificationtest (177638) Platelets bldOrdered By: Dr. Wang on 12-19-2022 Platelets (Bld) [#/Vol] 178 10*3/uL 150-450 [facility] Qualitative QuantiFERON-TB g old in tube testOrdered By: Dr. Wang on 12-19-2022 M. tuberculosis tuberculin stim IFN-g Ql (Bld) 0 IU/mL . [facility] Serum hepatitis B virus core antibody detectionOrdered By: Dr. Wang on 12-19-2022 HBV core Ab Ql (S) Negative Negative [facility] Comment on above: Performed at: [place] [id number] Director: Josef Reynolds PhD, Phone: [phone] Serum hepatitis B virus surf eric antibody IgG detectionOrdered By: Dr. Wang on 12-19-2022 HBV surface IgG Ql (S) Non-Reactive [facility] Comment on above: Non Reactive: Incons istent with immunity less than <10 mIU/mL Reactive: Consistent with immunity greater than or equal to 10 mIU/mL Serum or plasma albumin issa urement (mass/volume)Ordered By: Dr. Wang on 12-19-2022 Albumin [Mass/Vol] 4.2 g/dL 3.2-5.0 [facility] Serum or plasma calcium issa urement (mass/volume)Ordered By: Dr. Wang on 12-19-2022 Calcium [Mass/Vol] 8.8 mg/dL 8.5-10.1 [facility] Serum or plasma creatinine m easurement (mass/volume)Ordered By: Dr. Wang on 12-19-2022 Creatinine [Mass/Vol] 0.91 mg/dL 0.70-1.30 [facility] Comment on above: The validity of the calculated GFR & GFRAA in patients over 70 years has not been determined. Clinical correlation is essential. Serum or plasma urea nitroge n measurement (mass/volume)Ordered By: Dr. Wang on 12-19-2022 Urea nitrogen [Mass/Vol] 25 mg/dL 7-18 [facility] Thin prep Papanicolaou smear with manual screeningOrdered By: Dr. Wang on 12-19-2022 Thin prep Papanicolaou smear with manual screening 24 U/L 15-37 [facility] Thin prep Papanicolaou smear with manual screening 5 5-15 [facility] Thin prep Papanicolaou smear with manual screening Comment . [facility] Comment on above: QuantiFERON-TB Gold Plus [...] smear with manual screening 0 IU/mL . [facility] Thin prep Papanicolaou smear with manual screening > 10.00 IU/mL . [facility] Thin prep Papanicolaou smear with manual screening Negative Negative [facility] Comment on above: No response to [...] percentageon 2021 Chloride [Moles/Vol] 107 mmol/L 98-[address] [facility] Work Phone: Cholesterol [Mass/Vol] 167 mg/dL <200 anastasiia [facility] Work Phone: Comment on above: <200 mg/dL Desirable 200-240 mg/dL Borderline >240 mg/dL High Risk Glucose [Mass/Vol] 82 mg/dL 74-106 [facility] Work Phone: Potassium [Moles/Vol] 4.5 mmol/L 3.5-5.1 [address] [facility] Work Phone: Sodium [Moles/Vol] 140 mmol/L 136-145 [facility] Work Phone: Triglyceride [Mass/Vol] 63 mg/dL <199 [facility] Work Phone: Comment on above: The drugs N-Acetylcy steine and Metamizole may falsely depress this assay.Serum Triglycerides Reference Interval Normal <150 mg/dL Borderline high 150 - 199 mg/dL High 200 - 499 mg/dL Very High > or = 500 mg/dL Laboratory - Chemistry and C hemistry - challengeon 04-19-2022 CO2 [Moles/Vol] 29.0 mmol/L 21.0-32.0 [facility] Work Phone: Urea nitrogen/Creatinine [Mass ratio] 24.8 mg/mg 04-20 [facility] Work Phone: No Panel Informationon 04-19 Estimated GFR (MDRD) Amer 109 mL/min >60 [facility] Work Phone: Comment on above: GFR Calc Estimated GFR (MDRD) Non-Af Amer 90 mL/min >60 [facility] Work Phone: Comment on above: Non- GFR Calc Serum or plasma calcium issa urement (mass/volume)on 04-19-2022 Calcium [Mass/Vol] 8.8 mg/dL 8.5-10.1 [facility] Work Phone: Serum or plasma cholesterol in HDL measurement (mass/volume)on 04-19-2022 Cholesterol in HDL [Mass/Vol] 46 mg/dL >40 [facility] Work Phone: Comment on above: The drugs N-Acetylcy steine and Metamizole may falsely depress this assay. Reference Range HDL <40 mg/dL Low HDL Cholesterol HDL >or= 60 mg/dL High HDL Cholesterol Serum or plasma cholesterol in VLDL measurement (mass/volume)on 04-19-2022 Cholesterol in VLDL [Mass/Vol] 13 mg/dL 5-40 [facility] Work Phone: Serum or plasma creatinine m easurement (mass/volume)on 04-19-2022 Creatinine [Mass/Vol] 0.97 mg/dL 0.70-1.30 [facility] Work Phone: Comment on above: The validity of the calculated GFR & GFRAA in patients over 70 years has not been determined. Clinical correlation is essential. Serum or plasma low density lipoprotein (LDL) cholesterol measurement (mass/volume)on 04-19-2022 Cholesterol in LDL [Mass/Vol] 108 mg/dL 0-130 [facility] Work Phone: Serum or plasma urea nitroge n measurement (mass/volume)on 04-19-2022 Urea nitrogen [Mass/Vol] 24 mg/dL 7-18 [facility] Work Phone: Thin prep Papanicolaou smear with manual screeningon 04-19-2022 Thin prep Papanicolaou smear with manual screening 4 5-15 [facility] Work Phone: Arina 11-18-2017 CNOV Office Visit ([facility]) RAY ALARCON ([id number]) 1980 MDate Time Provider Department11/18/17 9:30 [facility] During your visit today, we recorded the following information about you: Temperature Pulse Respiration Blood pressure 98.7 degrees 65/minute 16/minute 100/70 Weight 113.4 kgSofi Bell APRN.CNP 11/18/2017 9:44 AM AddendumSubjectiveHPIHPI Ray Alarcon is [...] andcongestion: brands include Alban Med, Simply saline, Scott nasal spray, or eventBFKW store brand one is ok.Take the entire [...] andcongestion: brands include Alban Med, Simply saline, Scott nasal spray, or eventhe generic store brand [...] - GI UpsetDate Reviewed: 11/18/2017Reviewed by: Sofi [facility]) Ray - Fully AssessedReason for Visit: [...] congestion: brands include Alban Med, Simply saline, Scott nasal spray, or even the generic store [...] Status:Closed by SOFI BELL CNP on 11/18/17 [facility] PROGRESSon 11-18-2017 PROGRESS HNO ID: [id number] thor: Sofi (Ananda) FabiolakService: (none)Author Type: Nurse PractitionerType: Progress NotesFiled: 11/18/2017 [...] congestion: brands include Alban Med, Simply saline, Scott nasal spray,or even the generic store brand [...] in detail warranting prompt ER evaluation.Sofi Bell APRN.PRACTICE SUPPORT SPECIALIST Normal [facility] Vital Signs Date Time Vital Sign Value Performing Clinician Apoorva dias 12-22-2024 15:08-0400 Body height 175.[address] Angelo Velázquez MD Work Phone: [facility] 12-22-2024 15:08-0400 Body mass index (BMI) [Ratio] 37.5 kg/m2 Dr. Angelo Velázquez MD Work Phone: [facility] 12-22-2024 15:08-0400 Body temperature 97.2 [degF] Dr. Angelo Velázquez MD Work Phone: 7(715)321-296468 [address] 12-22-2024 15:08-0400 Body weight 115.[address] Angleo Velázquez MD Work Phone: 3(310)114-755700 [place] [address] 12-22-2024 15:08-0400 Diastolic blood pressure 90 mm[Hg] Dr. Angelo Velázquez MD Work Phone: [facility] 12-22-2024 15:08-0400 Heart rate 73 /min Dr. Angelo Velázquez MD Work Phone: [facility] 12-22-2024 15:08-0400 Respiratory rate 18 /min Dr. Angelo Velázquez MD Work Phone: [facility] 12-22-2024 15:08-0400 SaO2% (BldA) [Mass fraction] 99 % Dr. Angelo Velázquez MD Work Phone: [facility] 12-22-2024 15:08-0400 Systolic blood pressure 134 mm[Hg] Dr. Angelo Velázquez MD Work Phone: [facility] 11-29-2024 12:52-0400 Body temperature 98.6 [degF] Dr. Angelo Velázquez MD Work Phone: [facility] 11-29-2024 12:52-0400 Diastolic blood pressure 94 mm[Hg] Dr. Angelo Velázquez MD Work Phone: 2(656)755-862931 [place] [address] 11-29-2024 12:52-0400 Heart rate 72 /min Dr. Angelo Velázquez MD Work Phone: 4(678)692-862931 [place] [address] 11-29-2024 12:52-0400 Respiratory rate 16 /min Dr. Angelo Velázquez MD Work Phone: 1(453)798-662631 [place] [address] 11-29-2024 12:52-0400 SaO2% (BldA) [Mass fraction] 97 % Dr. Angelo Velázquez MD Work Phone: 2(108)664-853631 [place] [address] 11-29-2024 12:52-0400 Systolic blood pressure 154 mm[Hg] Dr. Angelo Velázquez MD Work Phone: 9(482)842-279931 [place] [address] 11-29-2024 10:51-0400 Body height 175.[address] Angelo Velázquez MD Work Phone: 6(844)461-360131 [place] [address] 11-29-2024 10:51-0400 Body mass index (BMI) [Ratio] 37 kg/m2 Dr. Angelo Velázquez MD Work Phone: 8(838)856-623631 [place] [address] 11-29-2024 10:51-0400 Body weight 113.[address] Angelo Velázquez MD Work Phone: 4(842)027-679231 [place] [address] 09-13-2024 11:03-0400 Body temperature 97.6 [degF] Dr. Angelo Velázquez MD Work Phone: 0(367)462-562131 [place] [address] 09-13-2024 11:03-0400 Diastolic blood pressure 80 mm[Hg] Dr. Angelo Velázquez MD Work Phone: 9(031)990-881131 [place] [address] 09-13-2024 11:03-0400 Heart rate 85 /min Dr. Angelo Velázquez MD Work Phone: 8(248)435-850931 [place] [address] 09-13-2024 11:03-0400 SaO2% (BldA) [Mass fraction] 97 % Dr. Angelo Velázquez MD Work Phone: 8(106)579-533231 [place] [address] 09-13-2024 11:03-0400 Systolic blood pressure 122 mm[Hg] Dr. Angelo Velázquez MD Work Phone: 3(020)163-191131 [place] [address] 04-20-2023 17:11-0400 Body height 175.[address] Angelo Velázquez Work Phone: [facility] 04-20-2023 17:11-0400 Body temperature 98.4 [degF] Dr. Angelo Velázquez Work Phone: [facility] 04-20-2023 17:11-0400 Diastolic blood pressure 86 mm[Hg] Dr. Angelo Velázquez Work Phone: [facility] 04-20-2023 17:11-0400 Heart rate 82 /min Dr. Angelo Velázqeuz Work Phone: [facility] 04-20-2023 17:11-0400 Respiratory rate 16 /min Dr. Angelo Velázquez Work Phone: [facility] 04-20-2023 17:11-0400 SaO2% (BldA) [Mass fraction] 98 % Dr. Angelo Velázquez Work Phone: [facility] 04-20-2023 17:11-0400 Systolic blood pressure 132 mm[Hg] Dr. Angelo Velázquez Work Phone: [facility] 04-13-2023 17:50-0400 Body height 175.[address] Angelo Velázquez Work Phone: [facility] 04-13-2023 17:50-0400 Body mass index (BMI) [Ratio] 34.9 kg/m2 Dr. Angelo Velázquez Work Phone: [facility] 04-13-2023 17:50-0400 Body temperature 98.3 [degF] Dr. Angelo Velázquez Work Phone: [facility] 04-13-2023 17:50-0400 Body weight 107.[address] Angelo Velázquez Work Phone: [facility] 04-13-2023 17:50-0400 Diastolic blood pressure 83 mm[Hg] Dr. Angelo Velázquez Work Phone: [facility] 04-13-2023 17:50-0400 Heart rate 74 /min Dr. Angelo Velázquez Work Phone: [facility] 04-13-2023 17:50-0400 Respiratory rate 17 /min Dr. Angelo Velázquez Work Phone: [facility] 04-13-2023 17:50-0400 SaO2% (BldA) [Mass fraction] 96 % Dr. Angelo Velázquez Work Phone: [facility] 04-13-2023 17:50-0400 Systolic blood pressure 150 mm[Hg] Dr. Angelo Velázquez Work Phone: [facility] Encounters Encounter Date Encounter Type Care Provider Facility Start: 01-09-2025 ambulatory Angelo Velázquez Facility:[facility] Start: 01-01-2025 End: 01-01-[address] Héctor Chauhan MD -Ultrasound [facility] Work Phone: Start: 01-01-2025 End: 01-01-2025 ambulatory Angelo Velázquez Facility:[facility] Start: 12-22-2024 End: 12-22-[address] Héctor Chauhan MD -[facility] Work Phone: Start: 12-22-2024 End: 12-22-[address] Angelo Velázquez MD Work Phone: [facility] Work Phone: Start: 11-29-2024 End: 11-29-2024 Emergency department patient visit Dr. Angelo Velázquez MD Work Phone: -Emergency Department Work Phone: Start: 09-13-2024 End: 09-13-2024 Patient encounter procedure [place]delrahman [place] -[facility] Work Phone: Start: 09-13-2024 End: 09-13-2024 ambulatory Angelo Velázquez Facility:[facility] Start: 06-09-2024 End: 06-09-2024 ambulatory Angelo Velázquez Facility:[facility] Start: 05-01-2023 End: 05-01-[address] Angelo Velázquez Work Phone: [facility] Work Phone: Start: 05-01-2023 End: 05-01-[address] Angelo Velázquez Work Phone: [facility] Work Phone: Start: 04-20-2023 End: 04-20-[address] Angelo Velázquez Work Phone: [facility] Work Phone: Start: 04-13-2023 End: 04-13-[address] Angelo Velázquez Work Phone: [facility] Work Phone: Start: 04-13-2023 End: 04-13-[address] Angelo Velázquez Work Phone: [facility] Work Phone: Start: 02-12-2023 End: 02-12-[address] [facility] Vel[facility] Work Phone: Start: 02-01-2023 End: 02-01-[address] Angelo Velázquez [facility]: [facility] Work Phone: Start: 01-23-2023 End: 01-23-[address] Angelo Velázquez Work Phone: [facility] Work Phone: Start: 01-18-2023 End: 01-18-[address] Angelo Velázquez Work [facility]: [facility] Work Phone: Start: 01-09-2023 End: 01-09-[address] Angelo Velázquez Work Phone: [facility] Work Phone: Start: 01-05-[address] Angelo Velázquez Work Phone: [facility] Work Phone: Start: 12-25-2022 End: 12-25-[address] Angelo Velázquez Work Phone: [facility] Work Phone: Start: 12-19-2022 End: 12-19-2022 ambulatory [facility] Work Phone: Start: 12-19-2022 End: 12-19-2022 Patient encounter procedure [facility], [place] Start: 04-19-2022 End: 04-19-2022 ambulatory [facility] Work Phone: Start: 04-19-2022 End: 04-19-2022 Patient encounter procedure [facility] Start: 11-18-2017 End: 11-20-2017 Ambulatory Kelly Procedures Date Procedure Procedure Detail Performing Clinician Start: 01-01-[address] Angelo Velázquez MD Work Phone: Start: 11-29-2024 Urnls dip stick/tabl et reagent [...] Date Care Activity Detail Author Start: 11-29-2024 [facility] Start: 12-25-2022 Patient referral [facility] Work Phone: Colonoscopy [facility] Patient Education Abdominal Pain ED Diverticulosis [facility] Work Phone: Patient referral [facility] Work Phone: US Gallbladder [facility] Payers Date Payer Category Payer Private Health Insurance [id number] 2024 Self-pay [id number] 2024 Unknown [id number] Unknown DO NOT USE NG S [employer] [id number] Unknown [facility] [id number] Unknown [id number] Unknown [id number] Unknown [id number] Unknown [id number] Unknown [id number] Unknown [id number] Unknown [id number] Social History Date Type Detail Facility Start: 07-29-2015 End: 04-20-2023 Tobacco smoking status NHIS Unknown if ever smoked [facility] Start: 1980 Sex Assigned At Male [facility] Start: 11-29-2024 Tobacco smoking stat us NHIS Never smoked tobacco (finding) [facility] Goals Date Patient Goal Desired Activity /State Clinical Notes 09-13-2024 to 01-01-2025 Note Date & Type Note Facility 07-03-2025 Radiology Diagnostic study note [facility] [address] [place], [place] [id number] Abdomen Limited MR#: [id number] Acct: [id number] Name: RAY ALARCON Rep #: [id number] : 1980 M 44 From: Vishal Aranda MD PCP: Dr. Angelo Velázquez MD Status: REG C LI Study:Abdomen Limited Date of Exam: 09/23 Exam# [id number] Ordering Dr: Héctor Brewer MD PROCEDURE: ABDOMEN LIMITED 01/01/2025 REASON FOR EXAM: RUQ PAIN TECHNIQUE: Right upper quadrant abdominal ultrasound COMPARISON: CT examination of 11/29/2024.. FINDINGS: Liver: The liver measures of the upper range of normal. No focal hepatic abnormality is seen, and normal hepatic echogenicity is noted. Hepatopetal flow of the main portal vein is noted. No intrahepatic biliary ductal dilation is noted. Gallbladder: Measured at 8.6 cm in length. Gallbladder sludge is noted. No stone, wall thickening, or pericholecystic fluid collection is seen. No sonographic Neely's sign was elicited. Common bile duct: Normal measuring 2.6 mm diameter. Pancreas: Limited visualization due to overlying bowel gas, without focal abnormality seen. No pancreatic duct dilation is noted. Right kidney: An exophytic hypoechoic structure at the superior pole of the right kidney is measured at 17 x 16 x 16 mm. Color Doppler evaluation does not demonstrate internal blood flow. The right kidney measures 10.7 x 5.2 x 4.8 cm. No evidence of hydronephrosis. The cortex is measured at 11 mm. Peritoneal Findings: No ascites identified. US/Abdomen Limited IMPRESSION: 1. Hypovascular hypoechoic exophytic structure of the superior pole of the rightkidney, without internal blood flow noted upon color Doppler evaluation. This most likely represents a hemorrhagic cyst or other complicated cyst. 2. Gallbladder sludge. No findings of acute gallbladder disease or biliary obstruction, and no sonographic Neely's sign was elicited. Reading Location: [place] [address] CC: Dr. Héctor Chauhan MD; Dr. Angelo Velázquez MD ~ Microfilmer: Signed [facility] 12-22-2024 Progress note [facility] 12-22-2024 Progress note Note Date/Time December 22, 2024 3:18pm [facility] H ealt System [facility] [address] [place] [address] OFFICE VISIT Date of Service: 12/22/24 MR#: [id number] Acct: [id number] Name: RAY ALARCON Rep #: [id number] : 1980 Provider: Dr. Juan F Chauhan MD Age/Sex: 44/M Location: [facility] Status: Signed Intake Vital Signs 11/29/24 [...] boulardii 250 mg 250 mg PO DAILY 12/22/24 History capsule (Digest Probiotic (S.boulardii)) cholecalciferol [...] proceed with procedure. Héctor Chauhan MD Pager: [facility] [address] [place] [address] [address] [place] [address] Office: Plan Details Goals & Barriers: Goals Improve ROM Decrease pain Decrease spasm Coding Level of Care Code Off vis,new,level 3 Diagnoses Right upper quadrant pain R10.11 Blood in the stool K92.1 12/22/24 1518 <Electronically signed by Héctor ribeiro MD> Date _ Héctor Chauhan MD Cosigner Signature: Date (if applicable) CC: ~ [facility] Work Phone: 1(350) 868-574605-31-2025 Radiology Diagnostic study note [facility] Services [address] [place] [address] Abdomen/Pelvis W IV Cont ONLY MR#: [id number] Acct: [id number] Name: RAY ALARCON Rep #: [id number] : 1980 M 44 From: Evonne Thomas MD PCP: Dr. Angelo Velázquez MD Status: REG E R Study:Abdomen/Pelvis W IV Cont ONLY Date of E xam: 11/29/24 Exam# [id number] Ordering Dr: Katarzyna Elias PROCEDURE: ABDOMEN/PELVIS W [...] Colonic diverticulosis without acute diverticulitis. Reading Location: [facility] CC: Dr. Angelo Velázquez MD; CHEN Munoz ~ Microfilmer: Signed [facility]03-15-2025 Evaluation note* Diagnosis Onset Date Resolution Status Admit Date Allergic rhinitis acute August 302024 11:01am [facility] Work Phone: 1(622) 239-731103-15-2025 Evaluation note* Diagnosis Onset Date Resolution Status Admit Date Allergic rhinitis acute August 302024 11:01am Blood in the stool acute December 012024 2:52pm Right upper quadrant pain acute December 22, 2024 2:52pm [facility] Work Phone: Evaluation noteNo assessment information available [facility] Work Phone: Evaluation note* Diagnosis Onset Date Resolution Status Back pain acute Segmental and somatic dysfunction of lumbar region acute Segmental and somatic dysfunction of pelvic region acute Back pain acute Segmental and somatic dysfunction of lumbar region acute Segmental and somatic dysfunction of pelvic region acute Back pain acute Segmental and somatic dysfunction of lumbar region acute Segmental and somatic dysfunction of pelvic region acute Back pain acute Segmental and somatic dysfunction of lumbar region acute Segmental and somatic dysfunction of pelvic region acute Back pain acute Segmental and somatic dysfunction of lumbar region acute Segmental and somatic dysfunction of pelvic region acute Back pain acute Segmental and somatic dysfunction of lumbar region acute Segmental and somatic dysfunction of pelvic region acute Puncture wound of left thumb acute [facility] Work Phone: Evaluation note* Diagnosis Onset Date Resolution Status Back pain acute Segmental and somatic dysfunction of lumbar region acute Segmental and somatic dysfunction of pelvic region acute Back pain acute Segmental and somatic dysfunction of lumbar region acute Segmental and somatic dysfunction of pelvic region acute Back pain acute Segmental and somatic dysfunction of lumbar region acute Segmental and somatic dysfunction of pelvic region acute Back pain acute Segmental and somatic dysfunction of lumbar region acute Segmental and somatic dysfunction of pelvic region acute Back pain acute Segmental and somatic dysfunction of lumbar region acute Segmental and somatic dysfunction of pelvic region acute Puncture wound of left thumb acute Puncture wound of left thumb acute [facility] Work Phone: Hospital Discharge instructions Additional Instructions Your blood [...] significantly please come back to the ER. [facility] Work Phone: Reason for referral (narrative)[facility] Work Phone: Summary Purpose Family History Relationship Condition Age at Onset Recorded Date/T baldemar Not Specified Diabetes mellitus Unknown Cardiac disease Unknown Advance Directives Advance Directive Response Recorded Date/ Time Living Will No July 29 3:17pm Power of Paver Installer No July 29, 2015 3:17pm Advance Directive Response Recorded Date/ Time Living Will No July 29 2:17pm Power of Paver Installer No July 29, 2015 2:17pm Advance Directive Response Recorded Date/ Time Do you have a Healthcare Power of Paver Installer? No November 29, 2024 11:27am Chief Complaint [...] Right upper quadrant pain December 22 2:52pm Chief Complaint Admit Date SINUS COMPLAINT September 13, 2024 11: 01am ABD PAIN November 29, 2024 10:50 am ABD PAIN/ RECTAL BLEED December 22, 2024 2 :52pm RUQ PAIN January 01, 2025 7:26a m Additional Source Comments (unrecognized sect ion and content) No Status Records FoundNo Status Records Found INFORMATION SOURCE (unrecogn ized section and content) DATE CREATED AUTHOR 12/19/2017 [facility] DATE CREATED AUTHOR AUTHOR'S ORGANIZ ATION 01/03/2025 [facility] Goals (unrecognized section and content) Goals may [...] Angelo Velázquez MD Primary Care Provider Active Aquilino SIDDIQUI PA Attending Provider, Referring Provi [email or web address] Active Team [...] December 22, 2024 End: December 22, 2024 Team Status: Active Member Role/Relationship Status Dates Dr. Angelo Velázquez MD Primary Care Provider Active Team Status: Inactive Member Role/Relationship Status Dates Dr. nAgelo Velázquez MD Primary Care Provider Active Start: September 13, 2024 End: September 13, 2024 Dr. Angelo Velázquez MD Referring Provider Active Start: September 13, 2024 End: September 13, 2024 CHEN Garcia Attending Provider Active Start: September 13, 2024 End: September 13, 2024 Team Status: Inactive Member Role/Relationship Status Dates Dr. Angelo Velázquez MD Primary Care Provider Active Start: November 29, 2024 End: November 29, 2024 Dr. Jorge Hill DO Attending Provider Active Start: November 29, 2024 End: November 29, 2024 Dr. Jorge Hill DO Emergency Provider Active Start: November 29, 2024 End: November 29, 2024 Team Status: Inactive Member Role/Relationship Status Dates Dr. Angelo Velázquez MD Primary Care Provider Active Start: December 22, 2024 End: December 22, 2024 Dr. Angelo Velázquez MD Referring Provider Active Start: December 22, 2024 End: December 22, 2024 Dr. Héctor Chauhan MD Attending Provider Active Start: December 22, 2024 End: December 22, 2024 Team Status: Inactive Member Role/Relationship Status Dates Dr. Angelo Velázquez MD Primary Care Provider Active Start: January 01, 2025 End: January 01, 2025 Dr. Angelo Velázquez MD Referring Provider Active Start: January 01, 2025 End: January 01, 2025 Dr. Héctor Chauhan MD Attending Provider Active Start: January 01, 2025 End: January 01, 2025 FOR RECORDS PERTAINING TO PATIENTS WHO ARE [...] BE BASED ON THE PRIMARY CLINICAL RECORDS. [facility]. provides no warranty or guarantee of the accuracy or completeness of information in this document.
[2025-01-09] MEDS: Lactated Ringers 1,000 ML 15 ML IV (08:15)
--- NOTE | 2025-01-09 08:30 | PRE.ANES_ITS ---
ASA Classification* ASA Classification ASA Classification: 2 Assessment & Plan Anesthesia* Anesthesia Assessment Anesthesia Assessment: Discussed sedation and/or anesthesia options, risks, benefits, and alternatives with patient/parents/legal guardian/POA. Questions invited. The patient/parents/legal guardian/POA seems to understand and agrees to proceed with anesthesia plan. Reviewed the physical assessment, medical history, allergy history and patient home medications list prior to surgery/procedure/anesthetic and documented any changes. Performed airway and anesthesia risk assessments. Anesthesia Type Anesthesia Type: MAC Anesthesia Focused Assessment* Temperature: 98.1 F Pulse Rate: 78 Blood Pressure: 139/91 Respiratory Rate: 16 Pulse Ox: 100 Airway Assessment Mouth opens: >3 cm Mallampati Score: II Labs Anesthesia Preop lab: CBC WBC 9.0 K/mm3 (4.4-11.0) 11/29/24 11:20 11/29/24 RBC 5.07 M/mm3 (4.6-6.2) 11/29/24 11:20 11/29/24 Hgb 15.3 g/dL (13.0-16.5) 11/29/24 11:20 11/29/24 Hct 43.6 % (40-54) 11/29/24 11:20 11/29/24 Plt Count 150 K/mm3 (150-450) 11/29/24 11:20 11/29/24 CHEMISTRY Potassium 3.8 mmol/L (3.3-5.1) 11/29/24 11:20 11/29/24 Sodium 138 mmol/L (133-145) 11/29/24 11:20 11/29/24 BUN 13 mg/dL (4-19) 11/29/24 11:20 11/29/24 Creatinine 0.92 mg/dL (0.70-1.20) 11/29/24 11:20 11/29/24 Glucose 82 mg/dL (70-99) 11/29/24 11:20 11/29/24 TSH 2.50 uIU/mL (0.358-3.74) 04/05/21 06:23 COAG Pre-Assessment Diagnosis/Proposed Procedure Planned Operative Procedure(s): COLONOSCOPY Anesthesia History Anesthesia History - cemetery counselor: Anesthesia History - cemetery counselor Hx Hospitalization No 01/07/25 16:14 Any Problems With Anesthesia No 01/07/25 16:14 Cholinesterase deficiency No 01/07/25 16:14 You/Your Family Experience No 01/07/25 16:14 fever (hyperthermia) with Relationship Recent Exposure to Contagious No 01/09/25 08:10 Disease Does patient have nerve No 01/07/25 16:14 stimulator Patient instructed to have device shut off --Does patient have Pacemaker No 01/09/25 08:10 or ICD? When Was Last Pacemaker Check QUESTION #4 FULL TEXT: You/Your Family Experience fever (hyperthermia) with Anesthesia Last Oral Intake Last Oral intake: Last Oral Intake NPO since 04:00 01/09/25 08:10 Meds taken in AM with sips of No 01/09/25 08:10 water? Meds patient instructed to take am of surgery PONV PONV - cemetery counselor: PONV - cemetery counselor Female No 01/07/25 16:14 HX of Motion Sickness No 01/07/25 16:14 HX of N/V After Surgery No 01/07/25 16:14 Non-Smoker Yes 01/07/25 16:14 Duration of Surgery greater No 01/07/25 16:14 than 60 minutes Number of Risk Factors 1 01/07/25 16:14 PONV Score Low Risk 01/07/25 16:14 Height & Weight Height & Weight: Anesthesia: Height & Weight Height 5 ft 10 in 01/09/25 08:10 Weight: 112.037 kg 01/09/25 08:10 Body Mass Index (BMI) 35.4 01/09/25 08:10 Respiratory Assessment Respiratory Assessment - cemetery counselor: Respiratory Tract Infection Hx - cemetery counselor Hx Respiratory Tract Infection No 01/07/25 16:14 STOP Sleep Apnea STOP Sleep Apnea - cemetery counselor: STOP Sleep Apnea - cemetery counselor Hx Hypertension No 01/07/25 16:14 Hx Sleep Apnea No 01/07/25 16:14 CPAP BIPAP Do you snore loudly (louder No 01/07/25 16:14 than talking or can be heard Do you often feel tired/ No 01/07/25 16:14 fatigued/ sleepy during daytime? Has anyone observed you stop No 01/07/25 16:14 breathing during sleep? STOP Results Negative 01/07/25 16:14 QUESTION #5 FULL TEXT : Do you snore loudly (louder than talking or can be heard through closed doors)? Tobacco Use History Tobacco Use History - cemetery counselor: Tobacco Use History - cemetery counselor Tobacco Use Smoking Status Former smoker 01/07/25 16:14 Hx Tobacco Use No 01/07/25 16:14 Years Smoking Packs Smoked per Day Smoking Cessation Date was No - quit smoking greater 01/07/25 16:14 within the last 15 years than 15 years ago Hx Smoking Cessation Date Hx Smoking Cessation Counseling Hematologic Medial History Hematologic Hx - cemetery counselor: Hematologic Medical Hx - tour bus driver/guide Hx of Blood Transfusion No 01/07/25 16:14 Hx of Transfusion in last 3 No 01/07/25 16:14 Months Date of Last Transfusion (if within last 3 months) Ever experience any problems No 01/07/25 16:14 with transfusion(s)? Specify any problems Hx of Preganancy in last 3 N/A 01/07/25 16:14 Months Nurse Filling Out Transfusion MGRIFFITH 01/07/25 16:14 & Questions: Date: 01/07/25 01/07/25 16:14 Time: 16:16 01/07/25 16:14 Patient unable to answer at this time (ie. confused, unrespo /Reproduction History /Reproductive History - cemetery counselor: /Reproductive Hx- cemetery counselor Hx Now Gestational Age (in weeks): EDC: Hx Hx Para Hx Section SAB Active Medications Active Medications: Current Medications Generic Name Dose Route Start Last Admin Trade Name Freq PRN Reason Stop Dose Admin Lactated Ringer's 1,000 mls @ 15 mls/hr 01/09/25 08:00 01/09/25 08:15 IV 15 mls/hr .Q48H JOSÉ Administration PFSH Medical History Wears contact lenses History of GI bleed History of diverticulosis Former smoker Hemorrhoids Constipation Home Medications ?Medication ?Instructions ?Recorded ?Last Taken ?Type cholecalciferol (vitamin D3) 125 125 mcg PO DAILY 12/01 12/22 Unknown History mcg (5,000 unit) capsule loratadine 10 mg tablet (Allergy 10 mg PO DAILY Unknown History Relief (loratadine)) multivitamin 1 tab PO DAILY 12/25/22 Unkn own History roflumilast 500 mcg tablet 500 mcg PO QDAY 06/09/24 Un known History dicyclomine 20 mg tablet 20 mg PO 4X/DAY 12/22/24 Unk nown History Allergy/AdvReac Type Severity Reaction Status Date / Time amoxicillin trihydrate (From Allergy Diarrhea Verified 01/09/25 08:06 Augmentin) potassium clavulanate (From Allergy Diarrhea Verified 01/09/25 08:06 Augmentin) Family History Other Diabetes Heart disease Surgical History History of hand surgery Social History Smoking Status: Never smoker alcohol intake: never Review of Systems (Anesthesia) ROS Narrative System reviewed and no additional complaints, except as documented.
--- NOTE | 2025-01-09 08:47 | PCM.HP.BLA ---
History and Physical Date of Admission: 01/09/25 Intake Vital Signs 11/29/2509:51 12/22/2514:08 Height 5 ft 9 in 5 ft 9 in Weight: 254 lb 4 oz BMI 37.5 BP 134/90 H Blood Pressure Location Rt brachial Position Sitting Respiration 18 Pulse 73 Pulse Source Monitor Temp 97.2 F L Temp Source Temporal Pulse Oximetry (%) 99 Oxygen Delivery Method room air Intake Visit Reasons: ABD PAIN/ RECTAL BLEED Chief Complaint: abd pain/ rectal bleed Accompanied by: Is patient in pain?: No Allergies amoxicillin trihydrate (From Augmentin) Allergy (Verified 12/22/24 15:09) Diarrheapotassium clavulanate (From Augmentin) Allergy (Verified 12/22/24 15:09) Diarrhea Medications ?Medication ?Instructions ?Recorded ?Confirmed ?Type Saccharomyces boulardii 250 mg 250 mg PO DAILY 12/25/22 12/22/24 History capsule (Digest Probiotic (S.boulardii)) cholecalciferol (vitamin D3) 125 125 mcg PO DAILY 12/25/22 12/22/24 History mcg (5,000 unit) capsule loratadine 10 mg tablet (Allergy 10 mg PO DAILY 12/25/22 12/22/24 History Relief (loratadine)) multivitamin 1 tab PO DAILY 12/25/22 12/22/24 History roflumilast 500 mcg tablet 500 mcg PO QDAY 06/09/24 12/22/24 History dicyclomine 20 mg tablet 20 mg PO BID 12/22/24 12/22/24 History PFSH Medical History (Updated 12/22/24 @ 15:[address] Héctor Chauhan MD) Hemorrhoids Constipation Surgical History History of hand surgery Family History Other Diabetes Heart disease Social History Smoking Status: Never smoker alcohol intake: never HPI HPI HPI: Patient is a 44-year-old male who has 2 issues. He has fullness especially in the right upper quadrant which radiates to the back. He is also having blood in the stool that just darted about a week ago. He says the blood is bright red. There is no pain with defecation. He says the greasy and fatty foods cause the pain that he is having. ROS General General: No weight change, appetite, fatigue, colon cancer, breast cancer or weakness HEENT HEENT: No difficulty swallowing, eye injury, eye surgery, swollen glands or hoarseness Endo Endocrine: No thyroid disease, diabetes mellitus, thyroid cancer, Hair loss, heat intolerance or cold intolerance Skin Skin: No rash or changing moles Musc Musculoskeletal: No back problems, arthritis, rheumatoid arthritis, gout or joint pain Cardio Cardiovascular: No murmur, pacemaker, heart disease, atrial fibrillation, high blood pressure, heart attack, heart stent, palpitations, shortness of breath with exertion or chest pain Psych Psychiatric: No depression, anxiety or hearing voices Resp Respiratory: No shortness of breath, No sleep apnea, No cough, No COPD, No asthma, No emphysema and No wheezing Gastro Gastrointestinal: Yes abdominal pain, No nausea or vomiting, No diarrhea, Yes constipation, Yes blood in stool, No acid reflux, Yes hemorrhoids, No ulcers, No gallbladder problem and No black,tarry stools Kel Hematologic: No blood thinners, No blood disorders, No bleeding, No anemia and No blood clots Neuro Neurologic: No numbness, No tingling and No weakness Exam Const General: cooperative Orientation: alert and oriented x3 [facility] Head: normal to inspection Neck Neck: normal visual inspection and full ROM Chest Chest palpation & inspection: normal inspection of the chest Resp Effort & Inspection: normal respiratory effort Auscultation: clear to auscultation bilaterally Cardio Rate: regular rate Rhythm: regular rhythm GI Inspection: non-distended Palpation: soft and nontender Skin General: no rashes or lesions noted Neuro General: patient alert and patient oriented x3 Extrem General: full ROM Psych Appearance: grossly normal Mental Status: mental status grossly normal Assessment and Plan Assessment and Plan (1) Right upper quadrant pain: Status: Acute (2) Blood in the stool: Status: Acute Orders: Orders Colonoscopy Today Plan The patient is having right upper quadrant discomfort which radiates to the back. I am ordering an ultrasound of the gallbladder to evaluate for stones. The patient also had bright red blood in the stool so I recommended colonoscopy as he has never had one. I explained endoscopy in detail to the patient. I explained the risks including but not limited to stroke or heart attack with anesthesia, perforation of the GI tract, bleeding, infection. I explained that any of these could necessitate further emergency surgery. The patient understands and all questions were answered sufficiently. The patient wishes to proceed with procedure. Héctor Chauhan MD Pager: [facility] [address] [place] [address], [address] [place] [address] Office: I have examined the patient and the H&P has been reviewed. There are no clinical changes since date of exam.
--- NOTE | 2025-01-09 09:17 | OP.CCLET_ITS ---
01/09/2025 Angelo Velázquez MD [address] [phone] Re : Colonoscopy procedure for Emile Alarcon Dear Dr. Velázquez This procedure was performed on Thursday, January 09, 2025. My impressions and recommendations are as follows: Impressions : - The entire examined colon is normal on direct and retroflexion views. - No specimens collected. Recommendations : - Discharge patient to home. - Resume previous diet. - Continue present medications. - Repeat colonoscopy in 10 years for screening purposes. My findings are described in the full procedure note, which is enclosed. If I can be of further assistance, please feel free to contact me at Doctor phone number(s): , Work: . Sincerely, Héctor Chauhan MD 01/09/2025 9:16:44 AM This report has been signed electronically.
--- NOTE | 2025-01-09 09:17 | OP.COLON_ITS ---
Patient Name: Emile Alarcon Procedure Date: 01/09/2025 8:51 AM Date of : 1980 Age: 44 Procedure: Colonoscopy Indications: Rectal bleeding Providers: Héctor Chauhan MD Referring MD: Angelo Velázquez MD Medicines: Propofol per Anesthesia Patient Profile: This is a 44 year old male. Refer to note in patient chart for documentation of history and physical. Last Colonoscopy: none. The patient's first colonoscopy is today. Complications: No immediate complications. Procedure: Pre-Anesthesia Assessment: - Prior to the procedure, a History and Physical was performed, and patient medications and allergies were reviewed. The patient's tolerance of previous anesthesia was also reviewed. The risks and benefits of the procedure and the sedation options and risks were discussed with the patient. All questions were answered, and informed consent was obtained. Prior Anticoagulants: The patient has taken no anticoagulant or antiplatelet agents. After reviewing the risks and benefits, the patient was deemed in satisfactory condition to undergo the procedure. After I obtained informed consent, the scope was passed under direct vision. Throughout the procedure, the patient's blood pressure, pulse, and oxygen saturations were monitored continuously. The Colonoscope was introduced through the anus and advanced to the cecum, identified by appendiceal orifice and ileocecal valve. The colonoscopy was performed without difficulty. The patient tolerated the procedure well. The quality of the bowel preparation was good. The ileocecal valve, appendiceal orifice, and rectum were photographed. Scope In: 9:03:08 AM Scope Withdrawal Time 0 hours 6 minutes 24 seconds Scope Out: 9:13:58 AM Total Procedure Duration Time 0 hours 10 minutes 50 seconds Findings: The entire examined colon appeared normal on direct and retroflexion views. Impression: - The entire examined colon is normal on direct and retroflexion views. - No specimens collected. Recommendation: - Discharge patient to home. - Resume previous diet. - Continue present medications. - Repeat colonoscopy in 10 years for screening purposes. Procedure Code(s): --- Professional --- 03547, Colonoscopy, flexible; diagnostic, including collection of specimen(s) by brushing or washing, when performed (separate procedure) Diagnosis Code(s): --- Professional --- K62.5, Hemorrhage of anus and rectum CPT copyright 2021 [employer]. All rights reserved. The codes documented in this report are preliminary and upon picker tender helper review may be revised to meet current compliance requirements. Héctor Chauhan MD 01/09/2025 9:16:44 AM This report has been signed electronically. Number of Addenda: 0 Note Initiated On: 01/09/2025 8:51 AM
--- NOTE | 2025-01-09 09:25 | PCM.POST.ANE ---
Anesthesia: Postop Eval I Current Vital Signs Temperature: 97.4 F Pulse Rate: 75 Blood Pressure: 121/80 Respiratory Rate: 16 Pulse Ox: 97 Oxygen Delivery Method: Room Air Assessment Airway patent: Yes Spontaneous unlabored respirations: Yes Mental status: Asleep nausea: No Vomiting: No Anesthesia Complication: No Fluid Hydration Crystalloid volume administer (ml): 500 Total IV fluid infused: 500 Progress Note Anesthesia document: Postop Eval 1 completed: Yes
--- NOTE | 2025-01-09 11:45 | PCM.POSTANE2 ---
Anesthesia Postop Eval I Sum Postop Eval Completion status Anesthesia document: Postop Eval 1 completed: Yes Anesthesia Postop Eval I Summary Anesthesia Postop Eval I Summary: Anesthesia Postop Eval I: Assessment Summary Airway patent Yes 01/09/25 09:26 [email or web address] Spontaneous unlabored Yes 01/09/25 09:26 [email or web address] respirations Mental status Asleep 01/09/25 09:26 [email or web address] nausea No 01/09/25 09:26 [email or web address] Vomiting No 01/09/25 09:26 [email or web address] Anesthesia Postop Eval I: Fluid Summary Crystalloid volume administer 500 01/09/25 09:26 [email or web address] (ml) Colloids volume administered ( ml) Blood Product volume administered (ml) Total IV fluid infused 500 01/09/25 09:26 [email or web address] Anesthesia Postop Eval I: Summary Notes Anesthesia Complication No 01/09/25 09:26 [email or web address] Anesthesia Complication Comment: Post-operative progress note Anesthesia: Postop Eval II Evaluation Mental status: Awake Pain Level: 0 nausea: No Vomiting: No
== END 2025-01-09 10:17 | disposition home or self-care (01) ==
LOC: EN 07:56 → AC 07:57
PROVIDERS: PCP Family Medicine; Referring Provider Family Medicine; Visit Provider Surgery
PROC: 0DJD8ZZ Inspection of Lower Intestinal Tract, Via Natural or Artificial Opening Endoscopic (ICD-10-PCS; CPT 45378; principal; 2025-01-09 08:55)
DX: K62.5 Hemorrhage of anus and rectum (principal); R10.11 Right upper quadrant pain
CPT/HCPCS: 45378; J2405

== ENCOUNTER 2025-04-27 07:49 | Day surgery (SDC) | payer OTHER, SELFPAY ==
[2025-04-27] VITALS (14 sets, daily range): BP systolic 118–180; BP diastolic 64–110; PULSE 68–104; RESP 16–18; TEMP 36.1–36.9; O2SAT 93–100; BMI 37.7
--- NOTE | 2025-04-27 07:59 | EKG12_ITS ---
Test Reason : PREOP
[2025-04-27] MEDS: Lactated Ringers 1,000 ML 15 ML IV (08:27)
[2025-04-27] MEDS: INDOCYANINE GREEN 3.75 MG in Syringe 1.5 ML 999 MG IV (08:27)
--- NOTE | 2025-04-27 09:03 | HP.PCM_ITS ---
History and Physical
--- NOTE | 2025-04-27 09:03 | PCM.HP.BLA ---
History and Physical Date of Admission: 04/27/25 Intake Vital Signs 01/10/2508:10 01/30/2513:17 Height 5 ft 10 in 5 ft 10 in BP 124/84 H Blood Pressure Location Rt brachial Position Sitting Respiration 17 Pulse 70 Pulse Source Monitor Pulse Oximetry (%) 97 Oxygen Delivery Method room air Intake Visit Reasons: DISCUSS LAP BRENDA Chief Complaint: discuss lap brenda Is patient in pain?: Yes (achiness right side) Allergies amoxicillin trihydrate (From Augmentin) Allergy (Verified 01/30/25 13:18) Diarrhea potassium clavulanate (From Augmentin) Allergy (Verified 01/30/25 13:18) Diarrhea Medications ?Medication ?Instructions ?Recorded ?Confirmed ?Type cholecalciferol (vitamin D3) 125 125 mcg PO DAILY 12/25/22 01/30/25 History mcg (5,000 unit) capsule loratadine 10 mg tablet (Allergy 10 mg PO DAILY 12/25/22 01/30/25 History Relief (loratadine)) multivitamin 1 tab PO DAILY 12/25/22 01/30/25 History roflumilast 500 mcg tablet 500 mcg PO QDAY 06/09/24 01/30/25 History PFSH Medical History Wears contact lenses History of GI bleed History of diverticulosis Former smoker Hemorrhoids Constipation Surgical History History of hand surgery Family History Other Diabetes Heart disease Social History Smoking Status: Never smoker alcohol intake: never HPI HPI HPI: Patient is a 44-year-old male here with right upper quadrant pain. He was seen by me last month and we performed a colonoscopy for the blood in his stool which was normal. He reports that he is not having any more blood in his stool. He reports he is still having right upper quadrant pain after greasy or fatty meals. He says that sometimes he feels cramping and fullness in that area. ROS General General: No weight change, appetite, fatigue, colon cancer, breast cancer or weakness HEENT HEENT: No difficulty swallowing, eye injury, eye surgery, swollen glands or hoarseness Endo Endocrine: No thyroid disease, diabetes mellitus, thyroid cancer, Hair loss, heat intolerance or cold intolerance Skin Skin: No rash or changing moles Musc Musculoskeletal: No back problems, arthritis, rheumatoid arthritis, gout or joint pain Cardio Cardiovascular: No murmur, pacemaker, heart disease, atrial fibrillation, high blood pressure, heart attack, heart stent, palpitations, shortness of breath with exertion or chest pain Psych Psychiatric: No depression, anxiety or hearing voices Resp Respiratory: No shortness of breath, No sleep apnea, No cough, No COPD, No asthma, No emphysema and No wheezing Gastro Gastrointestinal: Yes abdominal pain, No nausea or vomiting, No diarrhea, No constipation, No blood in stool, No acid reflux, Yes hemorrhoids, No ulcers, No gallbladder problem and No black,tarry stools Kel Hematologic: No blood thinners, No blood disorders, No bleeding, No anemia and No blood clots Neuro Neurologic: No numbness, No tingling and No weakness Exam Const General: cooperative Orientation: alert and oriented x3 HENMT Head: normal to inspection Neck Neck: normal visual inspection and full ROM Chest Chest palpation & inspection: normal inspection of the chest Resp Effort & Inspection: normal respiratory effort Auscultation: clear to auscultation bilaterally Cardio Rate: regular rate Rhythm: regular rhythm GI Inspection: non-distended Palpation: soft and nontender Skin General: no rashes or lesions noted Neuro General: patient alert and patient oriented x3 Extrem General: full ROM Psych Appearance: grossly normal Mental Status: mental status grossly normal Assessment and Plan Assessment and Plan (1) Right upper quadrant pain: Status: Acute Plan: The patient has been having right upper quadrant pain. I ordered an ultrasound when I last saw him and the ultrasound revealed sludge in the gallbladder. The patient appears symptomatic from this and reports pain after eating fatty meals. I discussed laparoscopic cholecystectomy. I specifically discussed robotic assisted laparoscopic cholecystectomy. I discussed the procedure in detail with the patient. I discussed the risks, benefits, and alternatives of the procedure. I discussed the risks including but not limited to bleeding, infection, injury to surrounding organs such as the liver, bile duct, bowels. I did discuss the possibility of having to convert to an open procedure as well as the possibility that if any injuries occurred this may necessitate further surgery at a tertiary care center. Héctor Chauhan MD Pager: [facility] [address] [place] [address], [address] [place] [address] Office: I have examined the patient and the H&P has been reviewed. There are no clinical changes since date of exam.
--- NOTE | 2025-04-27 09:15 | GALL_PTH ---
PATIENT: RAY BOSWELL LOC: [facility] U#:[id number] AGE/SX: 44/M ROOM: RE04/27/[address]: Dr. Héctor Chauhan MD : 1980 BED: DIS: 04/27/2025 SPEC #: [id number] RECD: 04/27/25 13:55 STATUS: CASTRO RECj #: [id number] RASHID: 04/27/25 09:[address]: Héctor Chauhan DEPT: SURGICAL PATHOLOGY RECD BY: Miguel Ángel Ortiz ENTERED: 04/27/25 15:02 SP TYPE: GISELE GILL DR: Dr. Angelo Velázquez MD Tissues: A - Gallbladder, NOS Procedures: Surgery Specimen Level III HEADER OPERATION: Robotic cholecystectomy PRE-OP DIAGNOSIS: Right upper quadrant pain TISSUE SUBMITTED: A- Gallbladder MICROSCOPIC DIAGNOSIS A. Gallbladder, robotic cholecystectomy: - Chronic cholecystitis, cholesterolosis. MICROSCOPIC DESCRIPTION Slides are reviewed. GROSS DESCRIPTION A. Received in formalin labeled with the patient's name and date of . Designated as gallbladder is a 6.3 x 2.3 x 0.8 cm focally disrupted, mobley-pink bile-stained gallbladder with attached cystic duct (inked black, shaved). A lymph node is not present. Opening reveals yellow tenacious bile devoid of choleliths. The mucosa is yellow-green to red and granular with a maximum wall thickness of 0.3 cm. There is a 0.2 cm detached, apparent cholesterol polyp. Cholesterolosis is present. Tractor Trailer Technician sections are submitted in 2 cassettes as follows: A1: Margin, cross-section with detached apparent cholesterol polyp (may not survive processing)A2: Cross-sections ID 04/27/2025PT:[id number]
--- NOTE | 2025-04-27 09:19 | PCM.PRE.AN2 ---
ASA Classification* ASA Classification ASA Classification: 2 Assessment & Plan Anesthesia* Anesthesia Assessment Anesthesia Assessment: Discussed sedation and/or anesthesia options, risks, benefits, and alternatives with patient/parents/legal guardian/POA. Questions invited. The patient/parents/legal guardian/POA seems to understand and agrees to proceed with anesthesia plan. Reviewed the physical assessment, medical history, allergy history and patient home medications list prior to surgery/procedure/anesthetic and documented any changes. Performed airway and anesthesia risk assessments. Anesthesia Type Anesthesia Type: General History Source History Obtained from:: Patient and Chart Anesthesia Focused Assessment* Temperature: 98.4 F Pulse Rate: 76 Blood Pressure: 137/95 Respiratory Rate: 16 Pulse Ox: 100 Oxygen Delivery Method: Room Air Airway Assessment Mouth opens: >3 cm Mallampati Score: III Teeth Condition: Intact Neck Range of motion (ROM): Limited ROM (Somewhat Decreased) Labs Anesthesia Preop lab: CBC WBC, (4.4-11.0) 9.0 K/mm3 11/29/24, 11:20 RBC, (4.6-6.2) 5.07 M/mm3 11/29/24, 11:20 Hgb, (13.0-16.5) 15.3 g/dL 11/29/24, 11:20 Hct, (40-54) 43.6 % 11/29/24, 11:20 Plt Count, (150-450) 150 K/mm3 11/29/24, 11:20 CHEMISTRY Potassium, (3.3-5.1) 3.8 mmol/L 11/29/24, 11:20 Sodium, (133-145) 138 mmol/L 11/29/24, 11:20 BUN, (4-19) 13 mg/dL 11/29/24, 11:20 Creatinine, (0.70-1.20) 0.92 mg/dL 11/29/24, 11:20 Glucose, (70-99) 82 mg/dL 11/29/24, 11:20 TSH, (0.358-3.74) 2.50 uIU/mL 04/05/21, 06:23 COAG Pre-Assessment Diagnosis/Proposed Procedure Planned Operative Procedure(s): Robotic Cholecystectomy Anesthesia History Anesthesia History - roll coverer: Anesthesia History - roll coverer Hx Hospitalization No 04/13/25 09:12 Any Problems With Anesthesia No 04/13/25 09:12 Cholinesterase deficiency No 04/13/25 09:12 You/Your Family Experience No 04/13/25 09:12 fever (hyperthermia) with Relationship Recent Exposure to Contagious No 04/27/25 08:19 Disease Does patient have nerve No 04/13/25 09:12 stimulator Patient instructed to have device shut off --Does patient have Pacemaker No 04/27/25 08:19 or ICD? When Was Last Pacemaker Check QUESTION #4 FULL TEXT: You/Your Family Experience fever (hyperthermia) with Anesthesia Last Oral Intake Last Oral intake: Last Oral Intake NPO since 23:00 04/27/25 08:19 Meds taken in AM with sips of No 04/27/25 08:19 water? Meds patient instructed to take am of surgery PONV PONV - roll coverer: PONV - roll coverer Female No 04/13/25 09:12 HX of Motion Sickness No 04/13/25 09:12 HX of N/V After Surgery No 04/13/25 09:12 Non-Smoker Yes 04/13/25 09:12 Duration of Surgery greater Yes 04/13/25 09:12 than 60 minutes Number of Risk Factors 2 04/13/25 09:12 PONV Score Moderate Risk 04/13/25 09:12 Height & Weight Height & Weight: Anesthesia: Height & Weight Height 5 ft 9 in 04/27/25 08:19 Weight: 115.8 kg 04/27/25 08:19 Body Mass Index (BMI) 37.7 04/27/25 08:19 Respiratory Assessment Respiratory Assessment - roll coverer: Respiratory Tract Infection Hx - roll coverer Hx Respiratory Tract Infection No 04/13/25 09:12 STOP Sleep Apnea STOP Sleep Apnea - roll coverer: STOP Sleep Apnea - roll coverer Hx Hypertension No 04/13/25 09:12 Hx Sleep Apnea No 04/13/25 09:12 CPAP BIPAP Do you snore loudly (louder No 04/13/25 09:12 than talking or can be heard Do you often feel tired/ No 04/13/25 09:12 fatigued/ sleepy during daytime? Has anyone observed you stop No 04/13/25 09:12 breathing during sleep? STOP Results Negative 04/13/25 09:12 QUESTION #5 FULL TEXT : Do you snore loudly (louder than talking or can be heard through closed doors)? Tobacco Use History Tobacco Use History - roll coverer: Tobacco Use History - roll coverer Tobacco Use Smoking Status Former smoker 04/13/25 09:12 Hx Tobacco Use No 04/13/25 09:12 Years Smoking Packs Smoked per Day Smoking Cessation Date was No - quit smoking greater 04/13/25 09:12 within the last 15 years than 15 years ago Hx Smoking Cessation Date Hx Smoking Cessation Counseling Hematologic Medial History Hematologic Hx - roll coverer: Hematologic Medical Hx - willow worker Hx of Blood Transfusion No 04/13/25 09:12 Hx of Transfusion in last 3 No 04/13/25 09:12 Months Date of Last Transfusion (if within last 3 months) Ever experience any problems No 04/13/25 09:12 with transfusion(s)? Specify any problems Hx of Preganancy in last 3 N/A 04/13/25 09:12 Months Nurse Filling Out Transfusion MGRIFFITH 04/13/25 09:12 & Questions: Date: 04/13/25 04/13/25 09:12 Time: 09:14 04/13/25 09:12 Patient unable to answer at this time (ie. confused, unrespo /Reproduction History /Reproductive History - roll coverer: /Reproductive Hx- roll coverer Hx Now Gestational Age (in weeks): EDC: Hx Hx Para Hx Section SAB Active Medications Active Medications: Current Medications Generic Name Dose Route Start Last Admin Trade Name Freq PRN Reason Stop Dose Admin Clindamycin Phosphate 900 mg in 50 mls @ 75 mls/hr 04/27/25 09:15 Cleocin IV 04/27/25 09:54 INTRAOP ONE Lactated Ringer's 1,000 mls @ 15 mls/hr 04/27/25 08:00 04/27/25 08:27 IV 15 mls/hr .Q48H JOSÉ Administration PFSH Medical History Wears contact lenses History of GI bleed History of diverticulosis Former smoker Hemorrhoids Constipation Home Medications ?Medication ?Instructions ?Recorded ?Last Taken ?Type cholecalciferol (vitamin D3) 125 125 mcg PO DAILY 12/25/22 04/26/25 History mcg (5,000 unit) capsule loratadine 10 mg tablet (Allergy 10 mg PO DAILY 12/25/22 04/26/25 History Relief (loratadine)) multivitamin 1 tab PO DAILY 12/25/22 04/26/25 History roflumilast 500 mcg tablet 500 mcg PO QDAY 06/09/24 04/26/25 History Allergy/AdvReac Type Severity Reaction Status Date / Time amoxicillin trihydrate (From Allergy Diarrhea Verified 04/16/25 14:38 Augmentin) potassium clavulanate (From Allergy Diarrhea Verified 04/16/25 14:38 Augmentin) Family History Other Diabetes Heart disease Surgical History History of colonoscopy History of hand surgery Social History Smoking Status: Former smoker alcohol intake: never Review of Systems (Anesthesia) ROS Narrative System reviewed and no additional complaints, except as documented.
[2025-04-27] MEDS: Midazolam 2 MG/2 ML Syringe IV (09:56)
[2025-04-27] MEDS: Lidocaine 1% (5 ml sdv) 5 ML Vial IV (09:59)
[2025-04-27] MEDS: fentaNYL 100 MCG/2 ML Ampul 200 MCG IV (10:48)
--- NOTE | 2025-04-27 11:18 | OP.PCM_ITS ---
Operative Report (Standard)
--- NOTE | 2025-04-27 11:18 | PCM.OPRPT ---
Operative Report (Standard) Operative Information Date of Procedure: 04/27/25 Pre-Operative Diagnosis: Biliary colic and gallbladder sludge Post-Operative Diagnosis: Same Surgery/Procedure Performed: Robotic assisted laparoscopic cholecystectomy efficiency analyst: Yes Building Dismantler: Saud Zheng Tasks completed by social and human services assistant: Opening & closing and Retracting Type of Anesthesia: General/Regional RN Documented Start/Stop Times: Operation Date: 04/27/25 09:15 Case Time Into Pre-Op 04/27/25 07:53 Anesthesia Start 04/27/25 09:51 Into Room 04/27/25 09:51 Out of Pre-Op 04/27/25 09:51 Procedure Start 04/27/25 10:16 Procedure End 04/27/25 11:08 Anesthesia End 04/27/25 11:18 Out of Room 04/27/25 11:18 Procedure Start Time: 10:16 Procedure Stop Time: 11:08 Select all DRAINS/GRAFTS/IMPLANTS that apply: None Estimated Blood Loss: 10 Specimen collected: Yes Description of specimen(s) removed: Gallbladder Description of surgery: Patient was brought back to the operating room and general anesthesia was induced. The abdomen was prepped and draped in usual sterile fashion. An midline incision was made superior to the umbilicus and the fascia was grasped and elevated. A Veress needle was placed into the abdomen and drop test was performed. The abdomen is insufflated 15 mmHg and the Veress needle was removed. Port was placed into the abdomen and a camera was placed into the abdomen to inspect for injuries and there were none. Patient was placed in reverse Trendelenburg position and under direct visualization and a right upper quadrant port was placed as well as 2 left upper quadrant ports. The robot was then docked. The gallbladder was grasped and retracted cephalad. There were fatty adhesions to the gallbladder that were taken down with electrocautery. The infundibulum was located and retracted laterally. Dissection was carried out in the area of the cystic duct and it was identified using ICG. The cystic artery was identified as well. The cystic artery was clipped in triplicate and divided and then the cystic duct was clipped in triplicate and divided. Next the gallbladder was taken off of the gallbladder fossa using electrocautery hook. There was some bile spillage during the dissection off of the gallbladder fossa. This was suctioned. The gallbladder was then placed into a bag and removed. The gallbladder fossa was then irrigated and suctioned dry once more. There was good hemostasis with no bleeding. Next the instruments were removed and the robot was undocked. Using a Con Gomez needle the midline fascia was closed with a 0 Vicryl suture. Next the skin incisions were injected with local anesthetic and closed using interrupted 4-0 Monocryl sutures. Steri-Strips and bandages were applied. Patient was awoken and taken to PACU in stable condition tolerated the procedure well. Surgical Findings: None Complications Complications: No Admit VTE Documentation VTE Mechan Device Prophylaxis: SCD's
--- NOTE | 2025-04-27 11:27 | DCINST_ITS ---
Discharge Instructions
--- NOTE | 2025-04-27 11:27 | EX.PCM.DISCH ---
Discharge Instructions Procedure Gallbladder Diet Discharge Diet: Light diet - advance as tolerated Activity Discharge Activity: May Not Drive (for 2-3 days or while taking narcotic pain medications.) and - (Do not drive, work heavy equipment or sign legal documents for 24 hours.) May shower in (days): 1 Lifting Restrictions: 20 lbs for 2 weeks Additional Activity Instructions:: Pain medication may cause nausea. You should typically eat light foods as you take your pain medications. Pain medication may also cause constipation. If this is a problem for you, please discuss with your doctor. Alternate ibuprofen and Tylenol for pain control, oxycodone for breakthrough pain Dressing / Incision Call your doctor if your incision/area has: Continuous Slow Oozing, Sudden Increased Bleeding, Increased Pain/ Swelling, Increased Redness and Foul Smelling Discharge Call your doctor if you observe: Fever of 101 or Higher Suture Line Care: Avoid Pulling/Pushing and Avoid Pinching/Bending Remove Dressing in: 2 days Additional Dressing/Incision Instructions:: Leave operative bandaids on for 2 days. When you remove dressing, leave Steri-Strips on until your follow-up appointment, or until the Steri-Strips fall off on their own. Follow Up Care Please Follow Up With: Héctor Chauhan MD When: Please call to schedule 2 week follow up appointment. [phone] Test Results: Test results from this visit will be discussed in further detail at your follow-up appointment, if applicable. Discharge Plan Admission Attending Provider: Héctor Chauhan Primary Care Provider: Angelo Velázquez Instructions Print Language: Italian Discharge Orders/Prescriptions Prescriptions: New oxycodone 5 mg Tablet 5 - 10 mg PO Q4H PRN PRN (Reason: Pain Score 4-10) 5 Days Qty: 14 0RF No Action loratadine [Allergy Relief (loratadine)] 10 mg tablet 10 mg PO DAILY multivitamin Tablet 1 tab PO DAILY cholecalciferol (vitamin D3) 125 mcg (5,000 unit) capsule 125 mcg PO DAILY roflumilast 500 mcg tablet 500 mcg PO QDAY Referrals / Follow Up: Angelo Velázquez MD [Primary Care Provider, Family Practice] Disposition Disposition (needs filled in before D/C Order can be placed): Home, Self Care
--- NOTE | 2025-04-27 11:29 | POSTOP.ANE_ITS ---
Anesthesia: Postop Eval I
--- NOTE | 2025-04-27 11:29 | PCM.POST.ANE ---
Anesthesia: Postop Eval I Current Vital Signs Temperature: 97.4 F Pulse Rate: 71 Blood Pressure: 152/110 Respiratory Rate: 16 Pulse Ox: 97 Oxygen Delivery Method: Room Air Assessment Airway patent: Yes Spontaneous unlabored respirations: Yes Mental status: Awake nausea: No Vomiting: No Anesthesia Complication: No Fluid Hydration Crystalloid volume administer (ml): 1,600 Total IV fluid infused: 1,600 Progress Note Anesthesia document: Postop Eval 1 completed: Yes
--- NOTE | 2025-04-27 17:51 | POSTOPAN2_ITS ---
Anesthesia Postop Eval I Sum
--- NOTE | 2025-04-27 17:51 | PCM.POSTANE2 ---
Anesthesia Postop Eval I Sum Postop Eval Completion status Anesthesia document: Postop Eval 1 completed: Yes Anesthesia Postop Eval I Summary Anesthesia Postop Eval I Summary: Anesthesia Postop Eval I: Assessment Summary Airway patent Yes 04/27/25 11:30 MEDICAL OFFICE TECHNOLOGY INSTRUCTOR.JDEF Spontaneous unlabored Yes 04/27/25 11:30 MEDICAL OFFICE TECHNOLOGY INSTRUCTOR.JDEF respirations Mental status Awake 04/27/25 11:30 MEDICAL OFFICE TECHNOLOGY INSTRUCTOR.JDEF nausea No 04/27/25 11:30 MEDICAL OFFICE TECHNOLOGY INSTRUCTOR.JDEF Vomiting No 04/27/25 11:30 MEDICAL OFFICE TECHNOLOGY INSTRUCTOR.JDEF Anesthesia Postop Eval I: Fluid Summary Crystalloid volume administer 1,600 04/27/25 11:30 MEDICAL OFFICE TECHNOLOGY INSTRUCTOR.JDEF (ml) Colloids volume administered ( ml) Blood Product volume administered (ml) Total IV fluid infused 1,600 04/27/25 11:30 MEDICAL OFFICE TECHNOLOGY INSTRUCTOR.JDEF Anesthesia Postop Eval I: Summary Notes Anesthesia Complication No 04/27/25 11:30 MEDICAL OFFICE TECHNOLOGY INSTRUCTOR.JDEF Anesthesia Complication Comment: Post-operative progress note Anesthesia: Postop Eval II Evaluation Mental status: Awake and Calm Pain Level: 3 nausea: No Vomiting: No Progress Note Post-operative progress note: Patient had significant abdominal pain upon first awakening in PACU. Patient achieved event pain control with a combination of Dilaudid, Ativan and Toradol. Complications Anesthesia Complication: No
== END 2025-04-27 16:40 | disposition home or self-care (01) ==
LOC: SDC 07:50 → AC 07:50
PROVIDERS: PCP Family Medicine; Referring Provider Surgery; Visit Provider Surgery
PROC: 0FT44ZZ Resection of Gallbladder, Percutaneous Endoscopic Approach (ICD-10-PCS; CPT 47562; principal; 2025-04-27 08:55)
DX: K81.1 Chronic cholecystitis (principal); K83.8 Other specified diseases of biliary tract; Z87.891 Personal history of nicotine dependence
CPT/HCPCS: 47562; S2900; 00790; 88304; 93005; J2405

== ENCOUNTER → 2025-05-19 | Outpatient (CLI) | payer OTHER, SELFPAY ==
--- OUTSIDE RECORDS SUMMARY | 2025-05-19 06:13 | XMS RPT_ITS | CCD ---
Author Organization [facility] Care Team Providers Care Magnetic Observer Name Role Phone Dr. Angelo Velázquez Primary Care Provider Dr. Angelo Velázquez Referring Provider Dr. Leti Julian Attending Provider CHEN Sanders Attending Provider Eber HER, Dr. Stephens Primary Care Provider Eber HER, Dr. Stephens Referring Provider Abdelrahman Anderson Attending Provider Dr. Jorge Hill DO Emergency Provider Dr. Jorge Hill DO Attending Provider Gissel HER, Dr. Anaya Attending Provider [phone] Gissel HER, Dr. Anaya Other Provider Eber HER, Dr. Stephens Primary Care Provider Eber HER, Dr. Stephens Referring Provider Eber HER, Dr. Stephens Primary Care Physician Dr. Héctor Chauhan MD Attending Physician Dr. Héctor Chauhan MD Nurse Practitioner Dr. Leti Julian DC Attending Physician Eber HER, Dr. Stephens Primary Care Physician Dr. Angelo Velázquez MD Referring Provider Gissel HER, Dr. Anaya Attending Physician Gissel HER, Dr. Anaya Referring Provider Gissel, Héctor Attending Unavailable Velázquez, Angelo Primary Care Unavailable Velázquez, Angelo Referring Unavailable Calabretta, Héctor Attending Unavailable Calabretta, Héctor Referring Unavailable Velázquez, Angelo Primary Care Unavailable Velázquez, Angelo Referring Unavailable Calabretta, Héctor Attending Unavailable Velázquez, Angelo Primary Care Unavailable Jorge Hill Attending Unavailable Velázquez, Angelo Primary Care Unavailable Velázquez, Angelo Referring Unavailable Calabretta, Héctro Consulting Unavailable Calabretta, Héctor Attending Unavailable Velázquez, Angelo Primary Care Unavailable Dossi, Leti Attending Unavailable Velázquez, Angelo Primary Care Unavailable Velázquez, Angelo Referring Unavailable Gaetano Thibodeaux Attending Unavailable Velázquez, Angelo Referring Unavailable Velázquez, Angelo Primary Care Unavailable Burt Turcios Attending Unavailable Velázquez, Angelo Primary Care Unavailable Velázquez, Angelo Referring Unavailable Abdelrahman Thorne Attending Unavailable Velázquez, Angelo Primary Care Unavailable Velázquez, Angelo Referring Unavailable Calabretta, Héctor Attending Unavailable Velázquez, Angelo Primary Care Unavailable Velázquez, Angelo Referring Unavailable Velázquez, Angelo Referring Unavailable Calabretta, Héctor Attending Unavailable Velázquez, Angelo Primary Care Unavailable Dossi, Leti Attending Unavailable Velázquez, nAgelo Primary Care Unavailable Velázquez, Angelo Referring Unavailable Dossi, Leti Attending Unavailable Velázquez, Angelo Primary Care Unavailable Velázquez, Angelo Referring Unavailable Dossi, Leti Attending Unavailable Velázquez, Angelo Primary Care Unavailable Velázquez, Angelo Referring Unavailable Calabretta, Héctor Attending Unavailable Calabretta, Héctor Consulting Unavailable Calabretta, Héctor Referring Unavailable Velázquez, Angelo Primary Care Unavailable Allergies Allergy Classification Reported Allergen(s) Allergy Type Date of Onset Reaction(s) Facility (13 sources) Amoxicillin; Translations: [amoxicillin trihydrate] Drug Allergy 07-29-2015 [facility] (13 sources) potassium clavulanate; Translations: [potassium clavulanate] Allergy to substance 07-29-2015 [facility] Medications Current Medications Medication Drug Class(es) Dates Sig (Normalized) Sig (Original) cholecalciferol 0.125 mg oral capsule (10 sources) Vitamin D Start: 12-25-2022 take 1 capsule by mouth once daily loratadine 10 mg oral tablet (10 sources) Start: 12-25-2022 take 1 tablet by mouth once daily Multivitamin preparation (2 sources) Start: 12-25-2022 take 1 tablet by mouth once daily Multivitamin Active 1 TABLET PO DAILY December 24, 2022 11:00pm Start: 12-25-2022 take 1 tablet by morgan th once daily Multivitamin Active 1 TABLET PO DAILY December 25, 2022 12:00am Multivitamin tablet (8 sources) Start: 12-25-2022 Start: 12-25-2022 Multivitamin t ablet Active 1 {tbl} PO DAILY December 25, 2022 12:00am Complies with drug therapy Start: 12-25-2022 Multivitamin t ablet Active 1 {tbl} PO DAILY December 25, 2022 12:00am oxyCODONE hydrochloride 5 mg oral tablet (1 source) Opioid Agonist Start: 04-27-2025 take 5-10 mg by mout h every four hours as needed for pain Start: 04-27-2025 take 5-10 mg by mouth every fo ur hours as needed for pain roflumilast 0.5 mg oral tablet (8 sources) Phosphodiesterase 4 Inhibitor Start: 06-09-2024 take 1 tablet by mouth once daily Start: 06-09-2024 take 1 tablet by morgan th once daily Roflumilast 500 mcg tablet Active [...] Sig (Original) azithromycin 250 mg oral tablet (8 sources) Macrolide Antimicrobial Start: 06-09-2024 End: 09-13-2024 Azithromycin 250 mg tablet Discontinued 250 mg PO .COMPLEX 12 June 09, 2024 1:00am September 13, 2024 11:03am 2 tablets (500 mg) on day 1, then 1 tablet daily on days 2 through 11 cephalexin 500 mg oral capsule (10 sources) Cephalosporin Antibacterial Start: 04-13-2023 End: 04-23-2023 take 1 capsule by mouth every eight hours Cephalexin 500 mg capsule Discontinued 500 mg PO Q8H 30 10 April 13, 2023 12:00am April 22, 2023 12:00am April 23, 2023 12:04am dicyclomine hydrochloride 20 mg oral tablet (7 sources) Anticholinergic Start: 12-22-2024 End: 01-30-2025 take 1 tablet by mouth four times daily Dicyclomine 20 mg tablet Discontinued 20 mg PO 4 TIMES DAILY December 22, 2024 12:00am January 30, 2025 1:18pm Start: 12-22-2024 take 1 tablet by morgan th twice daily Dicyclomine 20 mg tablet Active 20 mg PO TWICE A DAY December 22, 2024 12:00am Risankizumab-Rzaa (10 sources) Start: 04-13-2023 End: 06-09-2024 Risankizumab-Rzaa (Skyrizi) 150 mg/mL pen injector Discontinued mg SC April 13, 2023 12:00am June 09, 2024 12:04pm Start: 04-13-2023 Risankizumab-R zaa (Skyrizi) 150 mg/mL pen injector Active MG SC April 12, 2023 11:00pm Start: 04-13-2023 Risankizumab-R zaa (Skyrizi) 150 mg/mL pen injector Active MG SC April 13, 2023 12:00am Problems Active Problems Problem Classification Problem Date Documented Da te Episodic/Chronic Abdominal pain (20 sources) Abdominal pain; Translations: [Unspecified abdominal pain] Onset: 12-04-2024 11-29-2024 Episodic Biliary tract disease (1 source) Biliary sludge; Translations: [Other specified diseases of gallbladder] 04-27-2025 Episodic Diverticulosis and diverticulitis (8 sources) Diverticular disease; Translations: [Diverticulosis of intestine, part unspecified, without perforation or abscess without bleeding] 11-29-2024 Chronic Headache; including migraine (11 sources) Cervicogenic headache; Translations: [Cervicogenic headache] Onset: 05-11-2025 03-24-2025 Episodic Hemorrhoids (7 sources) Hemorrhoids; Translations: [Unspecified hemorrhoids] 12-22-2024 Episodic Open wounds of extremities (13 sources) Puncture wound of thumb of left hand; Translations: [Puncture wound without foreign body of left thumb without damage to nail, initial encounter] 04-13-2023 Episodic Other bone disease and musculoskeletal deformities (20 sources) Segmental and somatic dysfunction; Translations: [Segmental and somatic dysfunction of lumbar region] 12-25-2022 Episodic Other bone disease and musculoskeletal deformities (12 sources) Segmental and somatic dysfunction of lumbar region; Translations: [Nonallopathic lesions, lumbar region] Onset: 04-16-2025 12-25-2022 Episodic Other bone disease and musculoskeletal deformities (12 sources) Segmental and somatic dysfunction of pelvic region; Translations: [Nonallopathic lesions, pelvic region] Onset: 04-16-2025 12-25-2022 Episodic Other bone disease and musculoskeletal deformities (1 source) Segmental and somatic dysfunction of thoracic region; Translations: [Segmental and somatic dysfunction of thoracic region] Onset: 05-11-2025 Episodic Other bone disease and musculoskeletal deformities (1 source) Segmental and somatic dysfunction of cervical region; Translations: [Segmental and somatic dysfunction of cervical region] Onset: 05-11-2025 Episodic Other gastrointestinal disorders (7 sources) Constipation; Translations: [Constipation, unspecified] 12-22-2024 Episodic Other inflammatory condition of skin (10 sources) Psoriasis; Translations: [Psoriasis, unspecified] 04-13-2023 Chronic Other upper respiratory disease (12 sources) Allergic rhinitis; Translations: [Allergic rhinitis, unspecified] 09-13-2024 Chronic Residual codes; unclassified (1 source) Acquired absence of other specified parts of digestive tract; Translations: [Acquired absence of other specified parts of digestive tract] Onset: 05-11-2025 Episodic Spondylosis; intervertebral disc disorders; other back problems (20 sources) Backache; Translations: [Dorsalgia, unspecified] 12-28-2022 Episodic Past or Other Problems Problem Classification Problem Date Documented Da te Episodic/Chronic Gastrointestinal hemorrhage (20 sources) Rectal hemorrhage; Translations: [Hemorrhage of anus and rectum] Onset: 12-22-2024 11-29-2024 Episodic Results Test Name Value Interpretation Reference Range Facility Chiropractic Reporton 2024 Chiropractic Report [facility] [address] [place] [address] [id number] OFFICE VISIT Date of Service: 05/11/25 MR#: [id number] Acct: [id number] Name: RAY ALARCON Rep #: [id number] : 1980 Provider: PAULO Welch Age/Sex: 44/M Location[facility] Status: Signed Intake Vital Signs 03/23/25 14:44 04/27/25 08:19 Height 5 ft 10 in 5 ft 9 in Intake Visit Reasons: BACK PAIN Hog Operator Required: No Accompanied by: Self Is patient in pain?: No Allergies amoxicillin trihydrate (From Augmentin) Allergy (Verified 05/11/25 16:39) Diarrhea potassium clavulanate (From Augmentin) Allergy (Verified 05/11/25 16:39) Diarrhea Medications ???Medication ???Instructions ???Recorded ???Confirmed ???Type cholecalciferol (vitamin D3) 125 125 mcg PO DAILY 12/25/22 05/11/25 History mcg (5,000 unit) capsule loratadine 10 mg tablet (Allergy 10 mg PO DAILY 12/25/22 05/11/25 H istory Relief (loratadine)) multivitamin 1 tab PO DAILY 12/25/22 05/11/25 H istory roflumilast 500 mcg tablet 500 mcg PO QDAY 06/09/24 05/11/25 History PFSH Medical History Wears contact lenses History of GI bleed History of diverticulosis Former smoker Hemorrhoids Constipation Surgical History S/P laparoscopic cholecystectomy History of colonoscopy History of hand surgery Family History Other Diabetes Heart disease Social History Smoking Status: Former smoker alcohol intake: never HPI BACK PAIN Chief Complaint: neck and mid back pain Visit Number: 4 Details: Ray is a 44 y/o male here to follow up on neck pain and persistent HAs. He stated that he has not had a KRAMER for about a month. He gets occasional tightness and pain in the neck and upper back, but gets relief with adjustments. He denies injury, numbness, tingling or radiculopathy to his BUE. He treats pain with Excedrin migraine, hot showers, and stretching. Chiropractic treatments are helpful but pain eventually returns. Location: neck/upper back Duration: intermittent Aggravating or associated factors: ROM,morning Relieving factors: meds,hot shower,chiro Pain Quality: aching, dull and radiating Exam Musc General: Yes normal gait, joint tenderness and decreased range of motion; No normal posture or muscle weakness Cervical Spine: Yes loss of normal cervical lordosis, Yes cervical muscular tenderness (improving) bilateral lower , Yes cervical spasm bilateral diffuse trapezius and paracervical muscles and Yes misalignment misalignment: C2, C3, C6 and C7 Thoracic/Lumber: Yes thoracic and lumbar spine normal to inspection, Yes paraspinal tenderness (improving) bilaterally in the upper thoracic and in the mid thoracic, Yes thoraco-lumbar spasm bilaterally (trap, levator) in the upper thoracic and in the mid thoracic and Yes misalignment T2, T3 and T4 Office Procedures Procedures - Chiropractic Procedures Manipulation: Cervical C6 and Thoracic T3 Manipulation: 1-2 regions Electronic Stimulation: Yes Electrical Stimulation: Thoracic 15 mins (22) mA Therapy Performed by:: Dr. Leti Julian DC (Veronique Devries) Patient Response: positive Assessment and Plan Assessment and Plan (1) Segmental and somatic dysfunction of cervical region: Status: Acute (2) Segmental and somatic dysfunction of thoracic region: Status: Acute (3) Cervicogenic headache: Status: Acute Orders: Orders Chiropractic Treatments 05/11/25 G44.86 - Cervicogenic headache, M99.01 - Segmental and somatic dysfunction of cervical region, M99.02 - Segmental and somatic dysfunction of thoracic region Plan Patient is showing positive improvement and his HAs have improved. He has had much symptom stabilization and will be released from acute tx plan. Follow up on PRN basis. Plan Details Goals Barriers: Goals Improve ROM Decrease pain Decrease spasm Decrease HAs Follow Up: PRN Coding Level of Care Code No Charge Diagnoses Segmental and somatic dysfunction of cervical region M99.01 Segmental and somatic dysfunction of thoracic region M99.02 Cervicogenic headache G44.86 CPT Codes Procedures - Manipulation: 1-2 regions (47529) Procedures - Electronic Stimulation: Yes ([id number]) 05/12/25 0839 Date Leti Rowe Signature: Date (if applicable) CC: Normal [facility] Surgery Visit Reporton 05-11 Surgery Visit Report [facility] [address] [place] [address] OFFICE VISIT Date of Service: 05/11/25 MR#: [id number] Acct: [id number] Name: RAY ALARCON Rep #: [id number] : 1980 Provider: MAIKOL bey Age/Sex: 44/M Location: [facility] Status: Signed Intake Vital Signs 04/27/25 08:19 Height 5 ft 9 in Intake Visit Reasons: GALLBLADDER 04-27 Chief Complaint: gallbladder Hog Operator Required: No Is patient in pain?: No Allergies amoxicillin trihydrate (From Augmentin) Allergy (Verified 05/11/25 08:05) Diarrhea potassium clavulanate (From Augmentin) Allergy (Verified 05/11/25 08:05) Diarrhea Medications ???Medication ???Instructions ???Recorded ???Confirmed ???Type cholecalciferol (vitamin D3) 125 125 mcg PO DAILY 12/25/22 04/27/25 History mcg (5,000 unit) capsule loratadine 10 mg tablet (Allergy 10 mg PO DAILY 12/25/22 04/27/25 H istory Relief (loratadine)) multivitamin 1 tab PO DAILY 12/25/22 04/27/25 H istory roflumilast 500 mcg tablet 500 mcg PO QDAY 06/09/24 04/27/25 History Have you fallen in the past year?: No Subjective Details: Patient is a 44 y/o M I am following s/p robotic assisted laparoscopic cholecystectomy with Dr. Chauhan on 04/27/25. Patient tolerated the procedure well. Patient denies any nausea and fever. He notes single episode of vomiting after surgery on POD #1. He notes intermittent incisional discomfort. He notes appetite has returned to normal. He notes bowel habits have returned to normal. Pathology reviewed with patient and demonstrated MICROSCOPIC DIAGNOSIS A. Gallbladder, robotic cholecystectomy: - Chronic cholecystitis, cholesterolosis Objective Details: Abdomen- soft, nontender. Incisions c/d/i. No erythema or infection noted. All steri-strips were removed. Coding Level of Care Code Global Post Op Diagnoses S/P cholecystectomy Z90.49 [facility] Medical History (Updated 04/27/25 @ 11:[address] Héctor Chauhan MD) Wears contact lenses History of GI bleed History of diverticulosis Former smoker Hemorrhoids Constipation Surgical History (Updated 05/11/25 @ 15:29 by Gaetano SIDDIQUI PA-C) S/P laparoscopic cholecystectomy History of colonoscopy History of hand surgery Family History Other Diabetes Heart disease Social History Smoking Status: Former smoker alcohol intake: never Assessment and Plan (No Qualifiers) Assessment and Plan (1) S/P cholecystectomy: Status: Acute Plan: Recommend easing back into lifting at work over the next 2 weeks Discussed signs of infection and when to contact our office No RTW letter needed Follow-up as needed Plan Details Goals Barriers: Goals Improve ROM Decrease pain Decrease spasm Decrease HAs 05/11/25 1530 Date Gaetano SIDDIQUI PA-C Cosigner Signature: Date (if applicable) CC: Dr. Angelo Velázquez MD [facility] 12 Lead EKGoneto 04-27-2025 12 Lead EKG [facility] Cardiovascular Services [address] [place] [address] 12 Lead EKG 04/27/25 0800 MR#: [id number] Acct: [id number] Name: RAY ALARCON Rep #: [id number] : 1980 44 From: Ángel Min MD Attending Dr: Dr. Héctor Chauhan MD Status: [facility] Ordering Dr: Evangelista Davenport MD Date: 04/27/25 [place] [facility] [place] Sex: M C Admitted: Test Reason : PREOP Blood Pressure : */* mmHG Vent. Rate : 74 BPM Atrial Rate : 74 BPM P-R Int : 166 ms QRS Dur : 84 ms QT Int : 350 ms P-R-T Axes : 39 15 28 degrees QTcB Int : 388 ms Normal sinus rhythm Normal ECG Confirmed by Ángel Min ([id number]), associate editor GAETANO SCHMITT ([id number]) on 05/05/2025 7:54:30 AM Referred By: Héctor Chauhan Confirmed By: Ángel Min 05/05/25 0754 Date Ágnel Min MD CC: Dr. Evangelista Davenport MD; Dr. Héctor Chauhan MD; Dr. Angelo Velázquez MD Signed Normal [facility] Discharge Instructionon 04-02 Discharge Instruction [facility] Medical Records Department [address] [place] [address] Instructions for Home/Discharge Instructions 04/27/25 1127 MR#: [id number] Acct: [id number] Name: RAY ALARCON Rep #: [id number] : 1980 44 From: Héctor Chauhan MD PCP: Dr. Angelo Velázquez MD Status:REG [facility] Discharge Instructions Procedure Gallbladder Diet Discharge Diet: Light diet - advance as tolerated Activity Discharge Activity: May Not Drive (for 2-3 days or while taking narcotic pain medications.) and - (Do not drive, work heavy equipment or sign legal documents for 24 hours.) May shower in (days): 1 Lifting Restrictions: 20 lbs for 2 weeks Additional Activity Instructions:: Pain medication may cause nausea. You should typically eat light foods as you take your pain medications. Pain medication may also cause constipation. If this is a problem for you, please discuss with your doctor. Alternate ibuprofen and Tylenol for pain control, oxycodone for breakthrough pain Dressing / Incision Call your doctor if your incision/area has: Continuous Slow Oozing, Sudden Increased Bleeding, Increased Pain/ Swelling, Increased Redness and Foul Smelling Discharge Call your doctor if you observe: Fever of 101 or Higher Suture Line Care: Avoid Pulling/Pushing and Avoid Pinching/Bending Remove Dressing in: 2 days Additional Dressing/Incision Instructions:: Leave operative bandaids on for 2 days. When you remove dressing, leave Steri-Strips on until your follow-up appointment, or until the Steri-Strips fall off on their own. Follow Up Care Please Follow Up With: Héctor Chauhan MD When: Please call to schedule 2 week follow up appointment. [phone] Test Results: Test results from this visit will be discussed in further detail at your follow-up appointment, if applicable. Discharge Plan Admission Attending Provider: Héctor Chauhan Primary Care Provider: Angelo Velázquez Instructions Print Language: Yakut Discharge Orders/Prescriptions Prescriptions: New oxycodone 5 mg Tablet 5 - 10 mg PO Q4H PRN PRN (Reason: Pain Score 4-10) 5 Days Qty: 14 0RF No Action loratadine [Allergy Relief (loratadine)] 10 mg tablet 10 mg PO DAILY multivitamin Tablet 1 tab PO DAILY cholecalciferol (vitamin D3) 125 mcg (5,000 unit) capsule 125 mcg PO DAILY roflumilast 500 mcg tablet 500 mcg PO QDAY Referrals / Follow Up: Angelo Velázquez MD [Primary Care Provider, Family Practice] Disposition Disposition (needs filled in before D/C Order can be placed): Home, Self Care 04/27/25 1128 Héctor Chauhan MD CC: Dr. Angelo Velázquez MD Signed [facility] Medical Records Department [address] [place] [address] Anesthesia Postop Eval I 04/27/25 1129 MR#: [id number] Acct: [id number] Name: RAY ALARCON Rep #: [id number] : 1980 44 From: Ligia Nayak [employer] PCP: Dr. Angelo Velázquez MD Status:REG [facility] Y Race: C Location: [place] [address] Anesthesia: Postop Eval I Current Vital Signs Temperature: 97.4 F Pulse Rate: 71 Blood Pressure: 152/110 Respiratory Rate: 16 Pulse Ox: 97 Oxygen Delivery Method: Room Air Assessment Airway patent: Yes Spontaneous unlabored respirations: Yes Mental status: Awake nausea: No Vomiting: No Anesthesia Complication: No Fluid Hydration Crystalloid volume administer (ml): 1,600 Total IV fluid infused: 1,600 Progress Note Anesthesia document: Postop Eval 1 completed: Yes 04/27/25 1130 Date Ligia Nayak [employer] Cosigner Signature: Date CC: Signed Normal [facility] MR/[id number] 04-27-2025 [facility] Medical Records Department [address] [place] [address] Anesthesia Postop Eval II 04/27/25 1751 MR#: [id number] Acct: [id number] Name: RAY ALARCON Rep #: [id number] : 1980 44 From: Evangelista Davenport MD PCP: Dr. Angelo Velázquez MD Status:DEP [facility] Y Race: C Location: [facility] Anesthesia Postop Eval I Sum Postop Eval Completion status Anesthesia document: Postop Eval 1 completed: Yes Anesthesia Postop Eval I Summary Anesthesia Postop Eval I Summary: Anesthesia Postop Eval I: Assessment Summary Airway patent Yes 04/27/25 11:30 [email or web address].JDEF Spontaneous unlabored Yes 04/27/25 11:30 [employer].JDEF respirations Mental status Awake 04/27/25 11:30 [employer].JDEF nausea No 04/27/25 11:30 [employer].JDEF Vomiting No 04/27/25 11:30 [employer]JDEF Anesthesia Postop Eval I: Fluid Summary Crystalloid volume administer 1,600 04/27/25 11:30 [employer].JDEF (ml) Colloids volume administered ( ml) Blood Product volume administered (ml) Total IV fluid infused 1,600 04/27/25 11:30 [employer].JDEF Anesthesia Postop Eval I: Summary Notes Anesthesia Complication No 04/27/25 11:30 [employer]JDEF Anesthesia Complication Comment: Post-operative progress note Anesthesia: Postop Eval II Evaluation Mental status: Awake and Calm Pain Level: 3 nausea: No Vomiting: No Progress Note Post-operative progress note: Patient had significant abdominal pain upon first awakening in PACU. Patient achieved event pain control with a combination of Dilaudid, Ativan and Toradol. Complications Anesthesia Complication: No 04/27/25 1753 Date Evangelista Davenport MD Cosigner Signature: Date CC: Signed Normal [facility] Operative Reporton 5 Operative Report [facility] Medical Records Department [address] [place] [address] Operative Report 04/27/25 1118 MR#: [id number] Acct: [id number] Name: RAY ALARCON Rep #: [id number] : 1980 44 From: Héctor Chauhan MD PCP: Dr. Angelo Velázquez MD Status:[facility] Location: [place] [address] Operative Report (Standard) Operative Information Date of Procedure: 04/27/25 Pre-Operative Diagnosis: Biliary colic and gallbladder sludge Post-Operative Diagnosis: Same Surgery/Procedure Performed: Robotic assisted laparoscopic cholecystectomy associate store director: Yes Mdm Sr: Saud Zheng Tasks completed by miller first: Opening closing and Retracting Type of Anesthesia: General/Regional RN Documented Start/Stop Times: Operation Date: 04/27/25 09:15 Case Time Into Pre-Op 04/27/25 07:53 Anesthesia Start 04/27/25 09:51 Into Room 04/27/25 09:51 Out of Pre-Op 04/27/25 09:51 Procedure Start 04/27/25 10:16 Procedure End 04/27/25 11:08 Anesthesia End 04/27/25 11:18 Out of Room 04/27/25 11:18 Procedure Start Time: 10:16 Procedure Stop Time: 11:08 Select all DRAINS/GRAFTS/IMPLANTS that apply: None Estimated Blood Loss: 10 Specimen collected: Yes Description of specimen(s) removed: Gallbladder Description of surgery: Patient was brought back to the operating room and general anesthesia was induced. The abdomen was prepped and draped in usual sterile fashion. An midline incision was made superior to the umbilicus and the fascia was grasped and elevated. A Veress needle was placed into the abdomen and drop test was performed. The abdomen is insufflated 15 mmHg and the Veress needle was removed. Port was placed into the abdomen and a camera was placed into the abdomen to inspect for injuries and there were none. Patient was placed in reverse Trendelenburg position and under direct visualization and a right upper quadrant port was placed as well as 2 left upper quadrant ports. The robot was then docked. The gallbladder was grasped and retracted cephalad. There were fatty adhesions to the gallbladder that were taken down with electrocautery. The infundibulum was located and retracted laterally. Dissection was carried out in the area of the cystic duct and it was identified using ICG. The cystic artery was identified as well. The cystic artery was clipped in triplicate and divided and then the cystic duct was clipped in triplicate and divided. Next the gallbladder was taken off of the gallbladder fossa using electrocautery hook. There was some bile spillage during the dissection off of the gallbladder fossa. This was suctioned. The gallbladder was then placed into a bag and removed. The gallbladder fossa was then irrigated and suctioned dry once more. There was good hemostasis with no bleeding. Next the instruments were removed and the robot was undocked. Using a Con Gomez needle the midline fascia was closed with a 0 Vicryl suture. Next the skin incisions were injected with local anesthetic and closed using interrupted 4-0 Monocryl sutures. Steri-Strips and bandages were applied. Patient was awoken and taken to PACU in stable condition tolerated the procedure well. Surgical Findings: None Complications Complications: No Admit VTE Documentation VTE Mechan Device Prophylaxis: SCD's 04/27/25 1126 Cosigner Signature (if applicable): CC: Dr. Héctor Chauhan MD; Dr. Angelo Velázquez MD Signed [facility] Surgery Specimen Level IIIon 04-27-2025 Surgery Specimen Level III Patient Age/Sex Location Account Attending Physician RAY ALARCON 44/M [facility] [id number] Dr. Héctor Chauhan MD Specimen: [id number] Received: 04/27/258488 Status: CASTRO Delbert Num: [id number] Spec Type: GISELE Mann Dr: Dr. Héctor Chauhan MD HEADER OPERATION: Robotic cholecystectomy PRE-OP DIAGNOSIS: Right upper quadrant pain TISSUE SUBMITTED: A- Gallbladder MICROSCOPIC DIAGNOSIS A. Gallbladder, robotic cholecystectomy: - Chronic cholecystitis, cholesterolosis. MICROSCOPIC DESCRIPTION Slides are reviewed. GROSS DESCRIPTION A. Received in formalin labeled with the patient's name and date of . Designated as gallbladder is a 6.3 x 2.3 x 0.8 cm focally disrupted, mobley-pink bile-stained gallbladder with attached cystic duct (inked black, shaved). A lymph node is not present. Opening reveals yellow tenacious bile devoid of choleliths. The mucosa is yellow-green to red and granular with a maximum wall thickness of 0.3 cm. There is a 0.2 cm detached, apparent cholesterol polyp. Cholesterolosis is present. Patented Hogshead Assembler sections are submitted in 2 cassettes as follows: A1: Margin, cross-section with detached apparent cholesterol polyp (may not survive processing)A2: Cross-sections [place] [id number] Patient Age/Sex Location Account Attending Physician RAY ALARCON 44/M [facility] [id number] Dr. Héctor Chauhan MD Signed (signature on file) Dr. Marilyn Osorio MD 05/08/25 1520 [facility] Comment on above: Performed By: #### P SUIII ####[facility] [id number] [place], [place], [id number] Chiropractic Reporton 2024 Chiropractic Report [facility] Chiropractic [address] [place] [id number] OFFICE VISIT Date of Service: 04/16/25 MR#: [id number] Acct: [id number] Name: RAY ALARCON Rep #: [id number] : 1980 Provider: PAULO Welch Age/Sex: 44/M [place] [facility]: Signed Intake Vital Signs 03/23/25 14:44 Height 5 ft 10 in Weight: 256 lb BMI 36.7 BP 136/82 H Intake Visit Reasons: BACK PAIN Chief Complaint: neck, upper and mid back Allergies amoxicillin trihydrate (From Augmentin) Allergy (Verified 04/16/25 14:38) Diarrhea potassium clavulanate (From Augmentin) Allergy (Verified 04/16/25 14:38) Diarrhea Medications ???Medication ???Instructions ???Recorded ???Confirmed ???Type cholecalciferol (vitamin D3) 125 125 mcg PO DAILY 12/25/22 04/16/25 History mcg (5,000 unit) capsule loratadine 10 mg tablet (Allergy 10 mg PO DAILY 12/25/22 04/16/25 H istory Relief (loratadine)) multivitamin 1 tab PO DAILY 12/25/22 04/16/25 H istory roflumilast 500 mcg tablet 500 mcg PO QDAY 06/09/24 04/16/25 History PFSH Medical History Wears contact lenses History of GI bleed History of diverticulosis Former smoker Hemorrhoids Constipation Surgical History History of colonoscopy History of hand surgery Family History Other Diabetes Heart disease Social History Smoking Status: Former smoker alcohol intake: never HPI BACK PAIN Chief Complaint: neck and mid back pain Visit Number: 3 Details: Ray is a 44 y/o male here to follow up on neck pain and persistent HAs. Pt. denies recent KRAMER's. He continues to experience neck stiffness and upper back stiffness that extends across his shoulder blades and traps. He states he has not had any HAs since his last visit. He denies injury, numbness, tingling or radiculopathy to his BUE. He treats pain with Excedrin migraine, hot showers, and stretching. Location: neck/upper back Duration: intermittent Aggravating or associated factors: ROM,morning Relieving factors: meds,hot shower,chiro Pain Quality: aching, dull and radiating Exam Musc General: Yes normal gait, joint tenderness and decreased range of motion; No normal posture or muscle weakness Cervical Spine: Yes loss of normal cervical lordosis, Yes cervical muscular tenderness (mild) bilateral diffuse , Yes cervical spasm bilateral diffuse trapezius and paracervical muscles and Yes misalignment misalignment: C2, C3, C6 and C7 Thoracic/Lumber: Yes thoracic and lumbar spine normal to inspection, Yes paraspinal tenderness bilaterally in the upper thoracic and in the mid thoracic, Yes thoraco-lumbar spasm bilaterally (trap, levator) in the upper thoracic and in the mid thoracic and Yes misalignment T2, T3 and T4 Office Procedures Procedures - Chiropractic Procedures Manipulation: Cervical C6 and Thoracic T3 Manipulation: 1-2 regions Electronic Stimulation: Yes Electrical Stimulation: Cervical 15 mins (4) mA Therapy Performed by:: Atiya Steel Patient Response: positive Assessment and Plan Assessment and Plan (1) Segmental and somatic dysfunction of cervical region: Status: Acute (2) Segmental and somatic dysfunction of thoracic region: Status: Acute (3) Cervicogenic headache: Status: Acute Orders: Orders Chiropractic Treatments Today G44.86 - Cervicogenic headache, M99.01 - Segmental and somatic dysfunction of cervical region, M99.02 - Segmental and somatic dysfunction of thoracic region, M99.03 - Segmental and somatic dysfunction of lumbar region, M99.05 - Segmental and somatic dysfunction of pelvic region Plan Patient is showing positive improvement and his HAs have improved. He continues to get neck stiffness at times. He will follow up in 1 month and monitor patient for symptom stabilization. Plan Details Goals Barriers: Goals Improve ROM Decrease pain Decrease spasm Decrease HAs Follow Up: 1 Month Coding Level of Care Code No Charge Diagnoses Segmental and somatic dysfunction of cervical region M99.01 Segmental and somatic dysfunction of thoracic region M99.02 Cervicogenic headache G44.86 CPT Codes Procedures - Manipulation: 1-2 regions (06021) Procedures - Electronic Stimulation: Yes (86511) 04/16/25 1546 Date Leti Rowe Signature: Date (if applicable) CC: [facility] Chiropractic Reporton 2024 Chiropractic Report [facility] Chiropractic [address] [place] [address] [id number] OFFICE VISIT Date of Service: 03/31/25 MR#: [id number] Acct: [id number] Name: RAY ALARCON Rep #: [id number] : 1980 Provider: PAULO Welch Age/Sex: 44/M [place] [facility] Status: Signed Intake Vital Signs 03/23/25 14:44 Height 5 ft 10 in Weight: 256 lb BMI 36.7 BP 136/82 H Intake Visit Reasons: BACK PAIN Chief Complaint: neck, upper and mid back Allergies amoxicillin trihydrate (From Augmentin) Allergy (Verified 03/31/25 15:34) Diarrhea potassium clavulanate (From Augmentin) Allergy (Verified 03/31/25 15:34) Diarrhea Medications ???Medication ???Instructions ???Recorded ???Confirmed ???Type cholecalciferol (vitamin D3) 125 125 mcg PO DAILY 12/25/22 03/31/25 History mcg (5,000 unit) capsule loratadine 10 mg tablet (Allergy 10 mg PO DAILY 12/25/22 03/31/25 H istory Relief (loratadine)) multivitamin 1 tab PO DAILY 12/25/22 03/31/25 H istory roflumilast 500 mcg tablet 500 mcg PO QDAY 06/09/24 03/31/25 History PFSH Medical History Wears contact lenses History of GI bleed History of diverticulosis Former smoker Hemorrhoids Constipation Surgical History History of hand surgery Family History Other Diabetes Heart disease Social History Smoking Status: Former smoker alcohol intake: never HPI BACK PAIN Chief Complaint: neck and mid back pain Visit Number: 2 Details: Ray is a 44 y/o male here to follow up on neck pain and persistent HAs. Pt. reports having 1 KRAMER last week, short duration which is improved from previous visit. He continues to experience neck stiffness especially on the left side of his neck and upper back. He states his neck tension extends into his bilateral traps. He states the KRAMER's are right in the back of his neck and go up his head when they come on. He also c/o mid back stiffness. He believes the mid back discomfort is d/t shoveling this past weekend. He denies injury, numbness, tingling or radiculopathy to his BUE. He treats pain with Excedrin migraine, hot showers, and stretching. Location: neck/upper back Duration: intermittent Aggravating or associated factors: ROM,morning Relieving factors: meds hot shower Pain Quality: aching, dull and radiating Exam Musc General: Yes normal gait, joint tenderness and decreased range of motion; No normal posture or muscle weakness Cervical Spine: Yes loss of normal cervical lordosis, Yes cervical muscular tenderness bilateral diffuse , Yes cervical spasm bilateral diffuse trapezius and paracervical muscles and Yes mis alignment misalignment: C2, C3, C6 and C7 Thoracic/Lumber: Yes thoracic and lumbar spine normal to inspection, No pain with thoraco-lumbar ROM, Yes paraspinal tenderness bilaterally in the upper thoracic and in the mid thoracic, Yes thoraco-lumbar spasm bilaterally (trap, levator) in the upper thoracic and in the mid thoracic and Yes misalignment T2, T3 and T4 Office Procedures Procedures - Chiropractic Procedures Manipulation: Cervical C6 and Thoracic T3 Manipulation: 1-2 regions Electronic Stimulation: Yes Electrical Stimulation: Cervical 15 mins (13) mA Therapy Performed by:: Atiya Steel Patient Response: positive Assessment and Plan Assessment and Plan (1) Segmental and somatic dysfunction of cervical region: Status: Acute (2) Segmental and somatic dysfunction of thoracic region: Status: Acute (3) Cervicogenic headache: Status: Acute Orders: Orders Chiropractic Treatments 03/31/25 G44.86 - Cervicogenic headache, M99.01 - Segmental and somatic dysfunction of cervical region, M99.02 - Segmental and somatic dysfunction of thoracic region, M99.03 - Segmental and somatic dysfunction of lumbar region, M99.05 - Segmental and somatic dysfunction of pelvic region Plan Patient was treated without incident. He is showing slight improvement. Continue care at 1x/wk. Plan Details Goals Barriers: Goals Improve ROM Decrease pain Decrease spasm Decrease HAs Follow Up: 1 Week (2 of 6) Coding Level of Care Code No Charge Diagnoses Segmental and somatic dysfunction of cervical region M99.01 Segmental and somatic dysfunction of thoracic region M99.02 Cervicogenic headache G44.86 CPT Codes Procedures - Manipulation: 1-2 regions (39882) Procedures - Electronic Stimulation: Yes (12724) 04/02/25 0947 Date Leti Rowe Signature: Date (if applicable) CC (more content not included)... [facility] Chiropractic Reporton 2024 Chiropractic Report [facility] Chiropractic [facility] [place] [address] OFFICE VISIT Date of Service: 03/23/25 MR#: [id number] Acct: [id number] Name: RAY ALARCON Rep #: [id number] : 1980 Provider: PAULO Welch Age/Sex: 44/M [place] [facility] Status: Signed Intake Vital Signs 01/30/25 13:17 03/09/25 09:39 03/23/25 14:44 Height 5 ft 10 in 5 ft 10 in 5 ft 10 in Weight: 256 lb BMI 36.7 BP 124/84 H 136/82 H Blood Pressure Location Rt brachial Position Sitting Respiration 17 Pulse 70 Pulse Source Monitor Pulse Oximetry (%) 97 Oxygen Delivery Method room air Intake Visit Reasons: REEVAL Chief Complaint: discuss lap brenda Allergies amoxicillin trihydrate (From Augmentin) Allergy (Verified 01/30/25 13:18) Diarrhea potassium clavulanate (From Augmentin) Allergy (Verified 01/30/25 13:18) Diarrhea PFSH Medical History Wears contact lenses History of GI bleed History of diverticulosis Former smoker Hemorrhoids Constipation Surgical History History of hand surgery Family History Other Diabetes Heart disease Social History Smoking Status: Former smoker alcohol intake: never HPI REEVAL Chief Complaint: neck stiffness, KRAMER's Visit Number: 1 Details: Ray is a 44 y/o male here for a re-evaluation for neck pain. Pt. reports he has been experiencing neck stiffness and more frequent KRAMER's. He states he feels like he has lost some of his ROM. He states his neck tension extends into his bilateral traps. He states the KRAMER's are right in the back of his neck and go up his head when they come on. He denies injury, numbness, tingling or radiculopathy to his BUE. He treats pain with Excedrin migraine, hot showers, and stretching. They are worse in the mornings and decrease as he gets loosened up.No previous injury to neck/head. No nausea/vomiting. Location: neck Duration: intermittent Aggravating or associated factors: ROM, morning Relieving factors: meds, hot shower Pain Quality: aching, dull and radiating Exam Musc General: Yes normal gait, joint tenderness and decreased range of motion; No normal posture or muscle weakness Cervical Spine: Yes loss of normal cervical lordosis, Yes cervical muscular tenderness bilateral diffuse , Yes pain with cervical ROM with lateral flexion to right, with lateral flexion to left, with rotation to left and with extension, Yes cervical spasm bilateral diffuse trapezius and paracervical muscles and Yes misalignment misalignment: C2, C3, C6 and C7 Thoracic/Lumber: Yes thoracic and lumbar spine normal to inspection, No pain with thoraco-lumbar ROM, Yes paraspinal tenderness bilaterally in the upper thoracic and in the mid thoracic, Yes thoraco-lumbar spasm bilaterally (trap, levator) in the upper thoracic and in the mid thoracic and Yes misalignment T2, T3 and T4 Neuro General: patient alert, patient awake, patient oriented x3, normal light touch, pain and propioception and no focal motor deficits Cranial Nerves: CN's II-XI intact bilaterally Cognition: normal cognition Speech: speech normal Gait: normal gait Motor: muscle tone normal throughout Sensory Exam: no sensory deficits noted Ortho Test CERVICAL Compression pain: Negative Distraction pain: relief Curtis's pain: Negative Valsalvas: Negative Shoulder depression pain: Right (+bilaterally) Cervical Series: -VBI test THORACIC Kemps: Negative Abraham: Negative LUMBAR Office Procedures Procedures - Chiropractic Procedures Manipulation: Cervical C6 and Thoracic T3 Manipulation: 1-2 regions Electronic Stimulation: Yes Electrical Stimulation: Cervical 15 mins (9) mA Therapy Performed by:: Atiya Steel Patient Response: positive Assessment and Plan Assessment and Plan (1) Segmental and somatic dysfunction of cervical region: Status: Acute (2) Segmental and somatic dysfunction of thoracic region: Status: Acute (3) Cervicogenic headache: Status: Acute Orders: Orders Chiropractic Treatments 03/23/25 M99.03 - Segmental and somatic dysfunction of lumbar region, M99.05 - Segmental and somatic dysfunction of pelvic region Plan Patient was re-evaluated for complaints of recent HAs/neck pain. He was treated with gentle prone adjustment and well tolerated. Follow up in 1 week, monitor patient response and consider acute care plan. Plan Details Goals Barriers: Goals Improve ROM Decrease pain Decrease spasm Decrease HAs Follow Up: 1 Week Coding Level of Care Code Off vis,est,level 2 Diagnoses Segmental and somatic dysfunction of cervical region M99. (more content not included)... [facility] Surgery Visit Reporton 01-30 Surgery Visit Report [facility] [address] [place] [address] OFFICE VISIT Date of Service: 01/30/25 MR#: [id number] Acct: [id number] Name: RAY ALARCON Rep #: [id number] : 1980 Provider: Dr. Héctor llamas MD Age/Sex: 44/M Location: [facility] Status: Signed Intake Vital Signs 01/09/25 08:10 01/30/25 13:17 Height 5 ft 10 in 5 ft 10 in BP 124/84 H Blood Pressure Location Rt brachial Position Sitting Respiration 17 Pulse 70 Pulse Source Monitor Pulse Oximetry (%) 97 Oxygen Delivery Method room air Intake Visit Reasons: DISCUSS LAP BRENDA Chief Complaint: discuss lap brenda Is patient in pain?: Yes (achiness right side) Allergies amoxicillin trihydrate (From Augmentin) Allergy (Verified 01/30/25 13:18) Diarrhea potassium clavulanate (From Augmentin) Allergy (Verified 01/30/25 13:18) Diarrhea Medications ???Medication ???Instructions ???Recorded ???Confirmed ???Type cholecalciferol (vitamin D3) 125 125 mcg PO DAILY 12/25/22 01/30/25 History mcg (5,000 unit) capsule loratadine 10 mg tablet (Allergy 10 mg PO DAILY 12/25/22 01/30/25 H istory Relief (loratadine)) multivitamin 1 tab PO DAILY 12/25/22 01/30/25 H istory roflumilast 500 mcg tablet 500 mcg PO QDAY 06/09/24 01/30/25 History PFSH Medical History Wears contact lenses History of GI bleed History of diverticulosis Former smoker Hemorrhoids Constipation Surgical History History of hand surgery Family History Other Diabetes Heart disease Social History Smoking Status: Never smoker alcohol intake: never HPI HPI HPI: Patient is a 44-year-old male here with right upper quadrant pain. He was seen by me last month and we performed a colonoscopy for the blood in his stool which was normal. He reports that he is not having any more blood in his stool. He reports he is still having right upper quadrant pain after greasy or fatty meals. He says that sometimes he feels cramping and fullness in that area. ROS General General: No weight change, appetite, [...] pain, No nausea or vomiting, No diarrhea, No constipation, No blood in stool, No acid reflux, Yes [...] (1) Right upper quadrant pain: Status: Acute Plan: The patient has been having right upper quadrant pain. I ordered an ultrasound when I last saw him and the ultrasound revealed sludge in the gallbladder. The patient appears symptomatic from this and reports pain after eating fatty meals. I discussed laparoscopic cholecystectomy. I specifically discussed robotic assisted laparoscopic cholecystectomy. I discussed the procedure in detail with the patient. I discussed the risks, benefits, and alternatives of the procedure. I discussed the risks including but not limited to bleeding, infection, injury to surrounding organs such as the l (more content not included)... [facility] Colonoscopy Reporton 025 Colonoscopy Report [facility] Medical Records Department [address] [place] [address] Colonoscopy Report MR#: [id number] Acct: [id number] Name: RAY ALARCON Rep #: [id number] : 1980 44 From: Héctor Chauhan MD PCP: Dr. Angelo Velázquez MD Status:REG [facility] Patient Name: Ray Alarcon Procedure Date: 01/09/2025 8:51 AM Date of : 1980 Age: 44 Procedure: Colonoscopy Indications: Rectal bleeding Providers: Héctor Chauhan MD Referring MD: Angelo Velázquez MD Medicines: Propofol per Anesthesia Patient Profile: This is a 44 year old male. Refer to note in patient chart for documentation of history and physical. Last Colonoscopy: none. The patient's first colonoscopy is today. Complications: No immediate complications. Procedure: Pre-Anesthesia Assessment: - Prior to the procedure, a History and Physical was performed, and patient medications and allergies were reviewed. The patient's tolerance of previous anesthesia was also reviewed. The risks and benefits of the procedure and the sedation options and risks were discussed with the patient. All questions were answered, and informed consent was obtained. Prior Anticoagulants: The patient has taken no anticoagulant or antiplatelet agents. After reviewing the risks and benefits, the patient was deemed in satisfactory condition to undergo the procedure. After I obtained informed consent, the scope was passed under direct vision. Throughout the procedure, the patient's blood pressure, pulse, and oxygen saturations were monitored continuously. The Colonoscope was introduced through the anus and advanced to the cecum, identified by appendiceal orifice and ileocecal valve. The colonoscopy was performed without difficulty. The patient tolerated the procedure well. The quality of the bowel preparation was good. The ileocecal valve, appendiceal orifice, and rectum were photographed. Scope In: 9:03:08 AM Scope Withdrawal Time 0 hours 6 minutes 24 seconds Scope Out: 9:13:58 AM Total Procedure Duration Time 0 hours 10 minutes 50 seconds Findings: The entire examined colon appeared normal on direct and retroflexion views. Impression: - The entire examined colon is normal on direct and retroflexion views. - No specimens collected. Recommendation: - Discharge patient to home. - Resume previous diet. - Continue present medications. - Repeat colonoscopy in 10 years for screening purposes. Procedure Code(s): --- Professional --- 14632, Colonoscopy, flexible; diagnostic, including collection of specimen(s) by brushing or washing, when performed (separate procedure) Diagnosis Code(s): --- Professional --- K62.5, Hemorrhage of anus and rectum CPT copyright 2021 [employer] [employer]. All rights reserved. The codes documented in this report are preliminary and upon breast trimmer review may be revised to meet current compliance requirements. Héctor Chauhan MD 01/09/2025 9:16:44 AM This report has been signed electronically. Number of Addenda: 0 Note Initiated On: 01/09/2025 8:51 AM 01/09/25 0916 Date Héctor Rowe Signature: Date (if indicated) CC: Dr. Héctor Chauhan MD; Dr. Angelo Velázquez MD Date Dictated: 01/09/25850 Date Transcribed: Patent Chemist: Signed [facility] MR/POSTOP.ANEon 01-09-2025 MR/POSTOP.[facility] Medical Records Department [address] [place] [address] Anesthesia Postop Eval I 01/09/25924 MR#: [id number] Acct: [id number] Name: RAY ALARCON Rep #: [id number] : 1980 44 From: Erasmo Mcdowell PCP: Dr. Angelo Velázquez MD Status:REG [facility] Y Race: C Location: [facility] Anesthesia: Postop Eval I Current Vital Signs Temperature: 97.4 F Pulse Rate: 75 Blood Pressure: 121/80 Respiratory Rate: 16 Pulse Ox: 97 Oxygen Delivery Method: Room Air Assessment Airway patent: Yes Spontaneous unlabored respirations: Yes Mental status: Asleep nausea: No Vomiting: No Anesthesia Complication: No Fluid Hydration Crystalloid volume administer (ml): 500 Total IV fluid infused: 500 Progress Note Anesthesia document: Postop Eval 1 completed: Yes 01/09/25925 Erasmo Rowe Signature: Date CC: Signed [facility] [id number] 01-09-2025 MR/POSTOPAN2 [facility] Medical Records Department [address] [place] [address] Anesthesia Postop Eval II 01/09/25 1145 MR#: [id number] Acct: [id number] Name: RAY ALARCON Rep #: [id number] : 1980 44 From: Juan Pablo Purdy MD PCP: Dr. Angelo Velázquez MD Status:[facility] [facility] Race: C Location: EN Anesthesia Postop Eval I Sum Postop Eval Completion status Anesthesia document: Postop Eval 1 completed: Yes Anesthesia Postop Eval I Summary Anesthesia Postop Eval I Summary: Anesthesia Postop Eval I: Assessment Summary Airway patent Yes 01/09/25 09:26 [email or web address] Spontaneous unlabored Yes 01/09/25 09:26 [email or web address] respirations Mental status Asleep 01/09/25 09:26 [email or web address] nausea No 01/09/25 09:26 [email or web address] Vomiting No 01/09/25 09:26 [email or web address] Anesthesia Postop Eval I: Fluid Summary Crystalloid volume administer 500 01/09/25 09:26 [email or web address] (ml) Colloids volume administered ( ml) Blood Product volume administered (ml) Total IV fluid infused 500 01/09/25 09:26 [email or web address] Anesthesia Postop Eval I: Summary Notes Anesthesia Complication No 01/09/25 09:26 [email or web address] Anesthesia Complication Comment: Post-operative progress note Anesthesia: Postop Eval II Evaluation Mental status: Awake Pain Level: 0 nausea: No Vomiting: No 01/09/25 1145 Date Juan Pablo Purdy MD Cosigner Signature: Date CC: Signed Normal [facility] Abdomen Limitedon 01-01-[address] [facility] [address] [place] [address] [id number] Abdomen Limited MR#: [id number] Acct: [id number] Name: RAY ALARCON Rep #: [id number] : 1980 M 44 From: Min Lock PCP: Dr. Agnelo Velázquez MD Status: REG CLI Study: Abdomen Limited Date of Exam: 01/01/25 Exam# [id number] Ordering Dr: Héctor Chauhan PROCEDURE: ABDOMEN LIMITED [...] sonographic Neely's sign was elicited. Reading Location: [place] [address] CC: Dr. Héctor Chauhan MD; Dr. Angelo Velázquez MD Patent Chemist: Signed Normal [facility] Surgery Visit Reporton 12-22 Surgery Visit Report [facility] [address] [place] [address]. [address] [place] [address] OFFICE VISIT Date of Service: 12/22/24 MR#: [id number] Acct: [id number] Name: RAY ALARCON Rep #: [id number] : 1980 Provider: Dr. Héctor llamas MD Age/Sex: 44/M Location: [facility] Status: Signed Intake Vital Signs 11/29/24 [...] mg PO BID 12/22/24 12/22/24 His tory [facility] Medical History (Updated 12/22/24 @ 15:17 [...] General: cooperative Orientation: alert and oriented x3 [facility] Head: normal to inspection Neck Neck: normal [...] explained the (more content not included)... Normal [facility] Abdomen/Pelvis W IV Cont ONL Yon 11-29-2024 Abdomen/Pelvis W IV Cont ONLY [facility] Imaging Services [address] [place], [place] [address] Abdomen/Pelvis W IV Cont ONLY MR#: [id number] Acct: [id number] Name: RAY ALARCON Rep #: [id number] : 1980 M 44 From: Hiram Lock PCP: Dr. Angelo Velázquez MD Status: REG ER Study: Abdomen/Pelvis W IV Cont ONLY Date of Exam: Exam# [id number] Ordering Dr: Katarzyna Roberts PROCEDURE: ABDOMEN/PELVIS W [...] Colonic diverticulosis without acute diverticulitis. Reading Location: [facility] CC: Dr. Angelo Velázquez MD; CHEN Munoz Patent Chemist: Signed Normal [facility] Absolute lymphocyte countOrd ered By: Katarzyna Roberts on 11-29-2024 Lymphocytes Auto (Unsp spec) [#/Vol] 1.87 10*3/uL 0.83-4.51 [facility] Absolute neutrophil countOrd ered By: Katarzyna Roberts on 11-29-2024 Neutrophils (Bld) [#/Vol] 6.1 10*3/uL 2.0-7.7 [facility] Anion gap in Serum or Plasma Ordered By: Katarzyna Roberts on 11-29-2024 Anion gap [Moles/Vol] 12 mmol/L 5-15 [facility] Automated lymphocyte count a s percentage of total leukocytesOrdered By: Katarzyna Roberts on 11-29-2024 Lymphocytes/100 WBC Auto (Unsp spec) 20.8 % 19-41 [facility] BUN/creatinine ratioOrdered By: Katarzyna Roberts on 11-29-2024 Urea nitrogen/Creatinine [Mass ratio] 13.7 mg/mg 10-20 [facility] Basophil percentageOrdered B y: Katarzyna Roberts on 11-29-2024 Basophils/100 WBC (Bld) 0.6 % 0-1 [facility] Bilirubin Test strip Ql (U)O rdered By: Katarzyna Roberts on 11-29-2024 Bilirubin Ql (U) Negative Negative [facility] Bilirubin, totalOrdered By: Katarzyna Roberts on 11-29-2024 Bilirubin [Mass/Vol] 0.63 mg/dL 0.00-1.30 [facility] CBC W/Diff, Automatedon 11-01 Absolute Lymph 1.87 X10 3/uL Normal 0.83-4.51 [facility] Comment on above: Performed By: #### L 100.0100, L500.4050 ####[facility] [address] [place], [address] Absolute Neut 6.1 X10 3/uL Normal 2.0-7.7 [facility] Comment on above: Performed By: #### L 100.0100, L500.4050 ####[facility] [address] [place], [address] Basophils/100 WBC (Bld) 0.6 % Normal 0-1 [facility] Comment on above: Performed By: #### L 100.0100, L500.4050 ####[facility] [address] [place], [address] Eosinophils/100 WBC (Bld) 1.2 % Normal 0-5 [facility] Comment on above: Performed By: #### L 100.0100, L500.4050 ####[facility] [address] [place], [address] Erythrocyte distribution width (RBC) [Ratio] 12.1 % Normal 11.6-14.6 [facility] Comment on above: Performed By: #### L 100.0100, L500.4050 ####[facility] [address] [place], [address] Hematocrit (Bld) [Volume fraction] 43.6 % Normal 40-54 [facility] Comment on above: Performed By: #### L 100.0100, L500.4050 ####[facility] [address] [place], [address] Hemoglobin (Bld) [Mass/Vol] 15.3 g/dL Normal 13.0-16.5 [facility] Comment on above: Performed By: #### L 100.0100, L500.4050 ####[facility] [address] [place], [address] IG% 0.800 Normal 0.0-0.9 [facility] Comment on above: Result Comment: IG% - Immature Granulocytes (promyelocytes, myelocytes and metamyelocytes) > 1% indicates that a LEFT SHIFT is Present. Performed By: #### L 100.0100, L500.4050 ####[facility] [address] [place], [address] Lymphocytes/100 WBC (Bld) 20.8 % Normal 19-41 [facility] Comment on above: Performed By: #### L 100.0100, L500.4050 ####[facility] [address] [place], [address] MCH (RBC) [Entitic mass] 30.2 pg Normal 27.0-32.0 [facility] Comment on above: Performed By: #### L 100.0100, L500.4050 ####[facility] [address] [place], [address] MCHC (RBC) [Mass/Vol] 35.1 g/dL Normal 32-36 [facility] Comment on above: Performed By: #### L 100.0100, L500.4050 ####[facility] [address] [place], [address] MCV (RBC) [Entitic vol] 86.0 fL Normal 80-94 [facility] Comment on above: Performed By: #### L 100.0100, L500.4050 ####[facility] [address] [place], [address] Monocytes/100 WBC (Bld) 8.2 % Normal 0-10 [facility] Comment on above: Performed By: #### L 100.0100, L500.4050 ####[facility] [address] [place], [address] Neutrophils/100 WBC (Bld) 68.4 % Normal 47-70 [facility] Comment on above: Performed By: #### L 100.0100, L500.4050 ####[facility] [address] [place], [address] Nucleated RBC (Bld) [#/Vol] 0 10*3/uL Normal 0-5 [facility] Comment on above: Performed By: #### L 100.0100, L500.4050 ####[facility] [address] [place], [address] Platelet mean volume (Bld) [Entitic vol] 8.1 fL Normal 6.2-12.0 [facility] Comment on above: Performed By: #### L 100.0100, L500.4050 ####[facility] [address] [place], [address] Platelets (Bld) [#/Vol] 150 10*3/uL Normal 150-450 [facility] Comment on above: Performed By: #### L 100.0100, L500.4050 ####[facility] [address] [place], [address] RBC (Bld) [#/Vol] 5.07 10*6/uL Normal 4.6-6.2 [facility] Comment on above: Performed By: #### L 100.0100, L500.4050 ####[facility] [address] [place], [address] RDW SD 37.4 fl Normal 35.1-43.9 [facility] Comment on above: Performed By: #### L 100.0100, L500.4050 ####[facility] [address] [place], [address] WBC (Bld) [#/Vol] 9.0 10*3/uL Normal 4.4-11.0 [facility] Comment on above: Performed By: #### L 100.0100, L500.4050 ####[facility] [address] [place], [address] Carbon dioxide, total [Moles /volume] in Central venous bloodOrdered By: Katarzyna Roberts on 11-29-2024 CO2 [Moles/Vol] 24.4 mmol/L 21.0-32.0 [facility] Chloride assayOrdered By: Kayleen Roberts on 11-29-2024 Chloride [Moles/Vol] 102 mmol/L 98-108 [facility] Comprehensive Metabolic Prof ilon 11-29-2024 Albumin [Mass/Vol] 4.8 g/dL Normal 3.5-5.0 [facility] Comment on above: Performed By: #### L 100.0100, L500.4050 ####[facility] [address] [place], [address] Albumin/Globulin [Mass ratio] 1.7 {ratio} Normal 0.9-2.4 [facility] Comment on above: Performed By: #### L 100.0100, L500.4050 ####[facility] [address] [place], [address] ALK PHOS 68 U/L Normal 40-129 [facility] Comment on above: Performed By: #### L 100.0100, L500.4050 ####[facility] [address] [place], [address] ALT [Catalytic activity/Vol] 42 U/L Normal <=46 [facility] Comment on above: Performed By: #### L 100.0100, L500.4050 ####[facility] [address] [place], [address] AST [Catalytic activity/Vol] 31 U/L Normal <=37 [facility] Comment on above: Performed By: #### L 100.0100, L500.4050 ####[facility] [address] [place], [address] Bilirubin [Mass/Vol] 0.63 mg/dL Normal 0.00-1.30 [facility] Comment on above: Performed By: #### L 100.0100, L500.4050 ####[facility] [address] [place], [address] BUN/CRE 13.7 RATIO Normal 10-20 [facility] Comment on above: Performed By: #### L 100.0100, L500.4050 ####[facility] [address] [place], [address] Calcium [Mass/Vol] 9.5 mg/dL Normal 7.6-11.0 [facility] Comment on above: Performed By: #### L 100.0100, L500.4050 ####[facility] [address] [place], [address] Chloride [Moles/Vol] 102 mmol/L Normal 98-108 [facility] Comment on above: Performed By: #### L 100.0100, L500.4050 ####[facility] [address] [place], [address] CO2 [Moles/Vol] 24.4 mmol/L Normal 21.0-32.0 [facility] Comment on above: Performed By: #### L 100.0100, L500.4050 ####[facility] [address] [place], [address] Creatinine [Mass/Vol] 0.92 mg/dL Normal 0.70-1.20 [facility] Comment on above: Performed By: #### L 100.0100, L500.4050 ####[facility] [address] [place], [address] ECRCL 124.82 ml/min Normal 50-250 [facility] Comment on above: Performed By: #### L 100.0100, L500.4050 ####[facility] [address] [place], [address] GAP 12 Normal 5-15 [facility] Comment on above: Performed By: #### L 100.0100, L500.4050 ####[facility] [address] [place], [address] GFR/1.73 sq M.predicted among non-blacks MDRD (S/P/Bld) [Vol rate/Area] 103 mL/min/{1.73_m2} Normal >60 [facility] Comment on above: Result Comment: mL/m in/1.73m2 CKD-EPI Creatinine Equation (2020) Performed By: #### L 100.0100, L500.4050 ####[facility] [address] [place], [address] Globulin (S) [Mass/Vol] 2.8 g/dL Normal 2.2-4.2 [facility] Comment on above: Performed By: #### L 100.0100, L500.4050 ####[facility] [address] [place], [address] Glucose [Mass/Vol] 82 mg/dL Normal 70-99 [facility] Comment on above: Performed By: #### L 100.0100, L500.4050 ####[facility] [address] [place], [address] Potassium [Moles/Vol] 3.8 mmol/L Normal 3.3-5.1 [facility] Comment on above: Performed By: #### L 100.0100, L500.4050 ####[facility] [address] [place], [address] Sodium [Moles/Vol] 138 mmol/L Normal 133-145 [facility] Comment on above: Performed By: #### L 100.0100, L500.4050 ####[facility] [address] [place], [address] T PROT 7.6 g/dL Normal 5.9-8.4 [facility] Comment on above: Performed By: #### L 100.0100, L500.4050 ####[facility] [address] [place], [address] Urea nitrogen [Mass/Vol] 13 mg/dL Normal 4-19 [facility] Comment on above: Performed By: #### L 100.0100, L500.4050 ####[facility] [address] [place], [address] Emergency Department Summary on 11-29-2024 Emergency Department Summary [facility] Medical Records Department [address] [place] [address] Emergency Department Summary 11/29/24 MR#: [id number] Acct: [id number] Name: RAY ALARCON Rep #: [id number] : 1980 44 From: Jorge [place] DO PCP: Dr. Angelo Velázquez MD Status:DEP ER Location: ED [facility] History of Present Illness Chief Complaint: Abd [...] boulardii 250 mg 250 mg PO DAILY 06/26/23 Unknown H istory capsule (Digest Probiotic (S.boulardii)) [...] care i (more content not included)... Normal [facility] Eosinophil percentageOrdered By: Katarzyna Roberts on 11-29-2024 Eosinophils/100 WBC (Bld) 1.2 % 0-5 [facility] Erythrocyte distribution wid th ratioOrdered By: Katarzyna Roberts on 11-29-2024 Erythrocyte distribution width (RBC) [Ratio] 12.1 % 11.6-14.6 [facility] Erythrocyte distribution wid th standard deviationOrdered By: Katarzyna Roberts on 11-29-2024 Erythrocyte distribution width (RBC) [Ratio] 37.4 fl 35.1-43.9 [facility] Glomerular filtration rate ( GFR) estimation/1.73 sq m using serum, plasma, or whole bOrdered By: Katarzyna Roberts on 11-29-2024 GFR/1.73 sq M.predicted among non-blacks MDRD (S/P/Bld) [Vol rate/Area] 103 mL/min/{1.73_m2} >60 [facility] Comment on above: mL/min/1.73m2 CKD-EP I Creatinine Equation (2020) Hematocrit Auto (Bld) [Volum e fraction]Ordered By: Katarzyna Roberts on 11-29-2024 Hematocrit (Bld) [Volume fraction] 43.6 % 40-54 [facility] Hemoglobin measurementOrdere d By: Katarzyna Roberts on 11-29-2024 Hemoglobin (Bld) [Mass/Vol] 15.3 g/dL 13.0-16.5 [facility] Immature granulocytes/100 WB C Auto (Bld)Ordered By: Katarzyna Roberts on 11-29-2024 Immature granulocytes/100 WBC (Bld) 0.800 % 0.0-0.9 [facility] Comment on above: IG% - Immature Granu locytes (promyelocytes, myelocytes and metamyelocytes) > 1% indicates that a LEFT SHIFT is Present. Ketones Test strip Ql (U)Ord ered By: Katarzyna Roberts on 11-29-2024 Ketones Ql (U) Negative Negative [facility] Laboratory - Chemistry and C hemistry - challengeOrdered By: Katarzyna Roberts on 11-29-2024 AST [Catalytic activity/Vol] 31 U/L <38 [facility] MCV (mean corpuscular volume ) determinationOrdered By: Katarznya Roberts on 11-29-2024 MCV (RBC) [Entitic vol] 86.0 fL 80-94 [facility] Mean corpuscular hemoglobin (MCH) determinationOrdered By: Katarzyna Roberts on 11-29-2024 MCH (RBC) [Entitic mass] 30.2 pg 27.0-32.0 [facility] Mean corpuscular hemoglobin concentration (MCHC) determinationOrdered By: Katarzyna Roberts on 11-29-2024 MCHC (RBC) [Mass/Vol] 35.1 g/dL 32-36 [facility] Mean platelet volume determi nationOrdered By: Katarzyna Roberts on 11-29-2024 Platelet mean volume (Bld) [Entitic vol] 8.1 fL 6.2-12.0 [facility] Microscopic analysis of urin e for red blood cells (RBC)Ordered By: Katarzyna Roberts on 11-29-2024 Microscopic analysis of urine for red blood cells (RBC) 0 SEEN /hpf 0-5 [facility] Monocyte percentageOrdered B y: Katarzyna Roberts on 11-29-2024 Monocytes/100 WBC (Bld) 8.2 % 0-10 [facility] Mucus LM Ql (Urine sed)Order ed By: Katarzyna Roberts on 11-29-2024 Mucus Ql (Urine sed) 0 SEEN /hpf [facility] Neutrophil percentageOrdered By: Katarzyna Roberts on 11-29-2024 Neutrophils/100 WBC (Bld) 68.4 % 47-70 [facility] Nitrite Test strip Ql (U)Ord ered By: Katarzyna Roberts on 11-29-2024 Nitrite Ql (U) Negative Negative [facility] Nucleated red blood cell per centageOrdered By: Katarzyna Roberts on 11-29-2024 Nucleated RBC/100 WBC (Bld) [Ratio] 0 % 0-5 [facility] Platelet countOrdered By: Kayleen Roberts on 11-29-2024 Platelets (Bld) [#/Vol] 150 10*3/uL 150-450 [facility] Potassium measurement (mass/ volume)Ordered By: Katarzyna Roberts on 11-29-2024 Potassium (Unsp spec) [Mass/Vol] 3.8 mmol/L 3.3-5.1 [facility] Protein Test strip Ql (U)Ord ered By: Katarzyna Roberts on 11-29-2024 Protein Ql (U) Negative Negative [facility] RBC Auto (Bld) [#/Vol]Ordere d By: Katarzyna Roberts on 11-29-2024 RBC (Bld) [#/Vol] 5.07 10*6/uL 4.6-6.2 [facility] Serum creatinine measurement (mass/volume)Ordered By: Katarzyna Roberts on 11-29-2024 Creatinine [Mass/Vol] 0.92 mg/dL 0.70-1.20 [facility] Serum globulin measurementOr dered By: Katarzyna Roberts on 11-29-2024 Globulin (S) [Mass/Vol] 2.8 g/dL 2.2-4.2 [facility] Serum glucose measurement (m ass/volume)Ordered By: Katarzyna Roberts on 11-29-2024 Glucose [Mass/Vol] 82 mg/dL 70-99 [facility] Serum or plasma alanine rudolph otransferase (ALT) measurementOrdered By: Katarzyna Roberts on 11-29-2024 ALT [Catalytic activity/Vol] 42 U/L <47 [facility] Serum or plasma albumin issa urement (mass/volume)Ordered By: Katarzyna Roberts on 11-29-2024 Albumin [Mass/Vol] 4.8 g/dL 3.5-5.0 [facility] Serum or plasma albumin/glob ulin mass ratioOrdered By: Katarzyna Roberts on 11-29-2024 Albumin/Globulin [Mass ratio] 1.7 {ratio} 0.9-2.4 [facility] Serum or plasma alkaline loni sphatase measurementOrdered By: Katarzyna Roberts on 11-29-2024 ALP [Catalytic activity/Vol] 68 U/L 40-129 [facility] Serum or plasma calcium issa urement (mass/volume)Ordered By: Katarzyna Roberts on 11-29-2024 Calcium [Mass/Vol] 9.5 mg/dL 7.6-11.0 [facility] Serum or plasma urea nitroge n measurement (mass/volume)Ordered By: Katarzyna Roberts on 11-29-2024 Urea nitrogen [Mass/Vol] 13 mg/dL 4-19 [facility] Sodium levelOrdered By: Katarzyna Roberts on 11-29-2024 Sodium [Moles/Vol] 138 mmol/L 133-145 [facility] Squamous epithelial cells de tection in urine sediment by light microscopyOrdered By: Katarzyna Roberts on 11-29-2024 Epithelial cells.squamous LM Ql (Urine sed) 0 SEEN /hpf 0-5 [facility] Total proteinOrdered By: Estelita Roberts on 11-29-2024 Protein [Mass/Vol] 7.6 g/dL 5.9-8.4 [facility] Urinalysis, Completeon 11-29 BACTERIA 0 SEEN Normal None Seen [facility] Comment on above: Order Comment: ELVIRA CTOR TO SPECIFY Performed By: #### L 400.0001 #### [facility] [address] [place], [address] EPI,SQUAMOUS 0 SEEN Normal 0-5 [facility] Comment on above: Order Comment: ELVIRA CTOR TO SPECIFY Performed By: #### L 400.0001 #### [facility] [address] [place], [address] Mucus Ql (Urine sed) 0 SEEN Normal [facility] Comment on above: Order Comment: ELVIRA CTOR TO SPECIFY Performed By: #### L 400.0001 #### [facility] [address] [place], [address] RBC 0 SEEN Normal 0-5 [facility] Comment on above: Order Comment: ELVIRA CTOR TO SPECIFY Performed By: #### L 400.0001 #### [facility] [address] [place], [address] WBC 0 SEEN Normal 0-5 [facility] Comment on above: Order Comment: ELVIRA CTOR TO SPECIFY Performed By: #### L 400.0001 #### [facility] [address] [place], [address] Urine clarityOrdered By: Estelita Roberts on 11-29-2024 Clarity (U) Clear Clear [facility] Urine color determinationOrd ered By: Katarzyna Roberts on 11-29-2024 Color (U) Yellow Yellow [facility] Urine glucose detectionOrder ed By: Katarzyna Roberts on 11-29-2024 Glucose Ql (U) Normal mg/dl Normal [facility] Urine leukocyte esterase det ection by dipstickOrdered By: Katarzyna Roberts on 11-29-2024 Leukocyte esterase Test strip Ql (U) Negative Negative [facility] Urine pHOrdered By: Katarzyna lira on 11-29-2024 pH (U) 7.0 [pH] 5.0 - 8.0 [facility] Urine sediment bacteria coun t by microscopy (number/high power field)Ordered By: Katarzyna Roberts on 11-29-2024 Bacteria LM.HPF (Urine sed) [#/Area] 0 /[HPF] None Seen [facility] Urine specific gravity measu rementOrdered By: Katarzyna Roberts on 11-29-2024 Specific gravity (U) [Rel density] 1.010 1.002-1.030 [facility] Urine urobilinogen measureme ntOrdered By: Katarzyna Roberts on 11-29-2024 Urobilinogen Ql (U) Normal mg/dl Normal [facility] White blood cell (WBC) count Ordered By: Katarzyna Roberts on 11-29-2024 WBC (Bld) [#/Vol] 9.0 10*3/uL 4.4-11.0 [facility] White blood cell countOrdere d By: Katarzyan Roberts on 11-29-2024 White blood cell count 0 SEEN /hpf 0-5 [facility] Urgent Care Visit Reporton 0 09-13-2024 Urgent Care Visit Report [facility] [address], [address] [place] [address] OFFICE VISIT Date of Service: 09/13/24 MR#: [id number] Acct: [id number] Name: RAY ALARCON Rep #: [id number] : 1980 Provider: CHEN Garcia Age/Sex: 43/M Location: [facility] Status: Signed Intake Vital Signs 06/09/24 10:17 [...] has been going on for 2-3 days. [facility] Surgical History History of hand surgery [...] Abdelrahman SIDDIQUI (more content not included)... Normal [facility] Urgent Care Visit Reporton 1 08-10-2023 Urgent Care Visit Report [facility] [address], [address] [place] [address] OFFICE VISIT Date of Service: 06/09/24 MR#: [id number] Acct: [id number] Name: RAY ALARCON Rep #: [id number] : 1980 Provider: CHEN Spencer Age/Sex: 43/M Location: [facility] Status: Signed Intake Vital Signs 12/27/23 09:08 [...] COMPLAINT/COUGH/FATIGUED Chief Complaint: sinus congestion, cough, fatigued Hog Operator Required: No Is patient in pain?: [...] any oth (more content not included)... Normal [facility] Basophil percentageOrdered B y: Angelo Velázquez on 05-01-2023 Chloride [Moles/Vol] 103 mmol/L 98-107 [facility] Cholesterol [Mass/Vol] 197 mg/dL <200 [facility] Comment on above: <200 mg/dL Desirable 200-240 mg/dL Borderline >240 mg/dL High Risk Glucose [Mass/Vol] 81 mg/dL 74-106 [facility] Potassium [Moles/Vol] 4.0 mmol/L 3.5-5.1 [facility] Sodium [Moles/Vol] 133 mmol/L 136-145 [facility] Triglyceride [Mass/Vol] 78 mg/dL <199 [facility] Comment on above: The drugs N-Acetylcy steine and Metamizole may falsely depress this assay.Serum Triglycerides Reference Interval Normal <150 mg/dL Borderline high 150 - 199 mg/dL High 200 - 499 mg/dL Very High > or = 500 mg/dL Laboratory - Chemistry and C hemistry - challengeOrdered By: Angelo Velázquez on 05-01-2023 CO2 [Moles/Vol] 28.0 mmol/L 21.0-32.0 [facility] Urea nitrogen/Creatinine [Mass ratio] 20.6 mg/mg 10-20 [facility] No Panel InformationOrdered By: Angelo Velázquez on 05-01-2023 Estimated GFR (MDRD) Amer 102 mL/min >60 [facility] Comment on above: GFR Calc Estimated GFR (MDRD) Non-Af Amer 84 mL/min >60 [facility] Comment on above: Non- GFR Calc Serum or plasma calcium issa urement (mass/volume)Ordered By: Angelo Velázquez on 05-01-2023 Calcium [Mass/Vol] 9.0 mg/dL 8.5-10.1 [facility] Serum or plasma cholesterol in HDL measurement (mass/volume)Ordered By: Angelo Velázquez on 05-01-2023 Cholesterol in HDL [Mass/Vol] 50 mg/dL >40 [facility] Comment on above: The drugs N-Acetylcy steine and Metamizole may falsely depress this assay. Reference Range HDL <40 mg/dL Low HDL Cholesterol HDL >or= 60 mg/dL High HDL Cholesterol Serum or plasma cholesterol in VLDL measurement (mass/volume)Ordered By: Angelo Velázquez on 05-01-2023 Cholesterol in VLDL [Mass/Vol] 16 mg/dL 5-40 [facility] Serum or plasma creatinine m easurement (mass/volume)Ordered By: Angelo Velázquez on 05-01-2023 Creatinine [Mass/Vol] 1.02 mg/dL 0.70-1.30 [facility] Comment on above: The validity of the calculated GFR & GFRAA in patients over 70 years has not been determined. Clinical correlation is essential. Serum or plasma low density lipoprotein (LDL) cholesterol measurement (mass/volume)Ordered By: Angelo Velázquez on 05-01-2023 Cholesterol in LDL [Mass/Vol] 131 mg/dL 0-130 [facility] Serum or plasma urea nitroge n measurement (mass/volume)Ordered By: Angelo Velázquez on 05-01-2023 Urea nitrogen [Mass/Vol] 21 mg/dL 7-18 [facility] Thin prep Papanicolaou smear with manual screeningOrdered By: Angelo Velázquez on 05-01-2023 Thin prep Papanicolaou smear with manual screening 2 5-15 [facility] Absolute lymphocyte countOrd ered By: Dr. Wang on 12-19-2022 Lymphocytes Auto (Unsp spec) [#/Vol] 2.27 10*3/uL 0.83-4.51 [facility] Basophil percentageOrdered B y: Dr. Wang on 12-19-2022 Basophils/100 WBC (Bld) 0.8 % 0-1 [facility] Bilirubin [Mass/Vol] 0.40 mg/dL 0.20-1.00 [facility] Comment on above: For patients on eltr ombopag therapy, use of Dimension [place] TBIL is not recommended. Chloride [Moles/Vol] 108 mmol/L 98-107 [facility] Eosinophils/100 WBC (Bld) 2.6 % 0-5 [facility] Glucose [Mass/Vol] 79 mg/dL 74-106 [facility] Neutrophils (Bld) [#/Vol] 5.4 10*3/uL 2.0-7.7 [facility] Neutrophils/100 WBC (Bld) 60.7 % 47-70 [facility] Potassium [Moles/Vol] 3.9 mmol/L 3.5-5.1 [facility] Protein [Mass/Vol] 7.7 g/dL 6.4-8.2 [facility] Sodium [Moles/Vol] 140 mmol/L 136-145 [facility] WBC (Bld) [#/Vol] 8.9 10*3/uL 4.4-11.0 [facility] Blood erythrocytes count (nu mber/volume)Ordered By: Dr. Wang on 12-19-2022 RBC (Bld) [#/Vol] 5.04 10*6/uL 4.6-6.2 [facility] Blood hemoglobin measurement (mass/volume)Ordered By: Dr. Wang on 12-19-2022 Hemoglobin (Bld) [Mass/Vol] 15.1 g/dL 13.0-16.5 [facility] Blood lymphocytes/100 leukoc ytesOrdered By: Dr. Wang on 12-19-2022 Lymphocytes/100 WBC (Bld) 25.5 % 19-41 [facility] Blood monocytes/100 leukocyt esOrdered By: Dr. Wang on 12-19-2022 Monocytes/100 WBC (Bld) 9.8 % 0-10 [facility] Blood platelet mean volumeOr dered By: Dr. Wang on 12-19-2022 Platelet mean volume (Bld) [Entitic vol] 8.6 fL 6.2-12.0 [facility] Determination of erythrocyte mean corpuscular volume (MCV)Ordered By: Dr. Wang on 12-19-2022 MCV (RBC) [Entitic vol] 87.1 fL 80-94 [facility] Direct bilirubinOrdered By: Dr. Wang on 12-19-2022 Bilirubin.direct [Mass/Vol] 0.11 mg/dL 0.00-0.30 [facility] Hematocrit Auto (Bld) [Volum e fraction]Ordered By: Dr. Wang on 12-19-2022 Hematocrit (Bld) [Volume fraction] 43.9 % 40-54 [facility] Laboratory - Chemistry and C hemistry - challengeOrdered By: Dr. Wang on 12-19-2022 ALP [Catalytic activity/Vol] 56 U/L 45-117 [facility] ALT [Catalytic activity/Vol] 34 U/L 16-61 [facility] CO2 [Moles/Vol] 27.0 mmol/L 21.0-32.0 [facility] Globulin (S) [Mass/Vol] 3.5 g/dL 2.2-4.2 [facility] Urea nitrogen/Creatinine [Mass ratio] 27.6 mg/mg 10-20 [facility] Laboratory - Hematology and Cell countsOrdered By: Dr. Wang on 12-19-2022 Erythrocyte distribution width (RBC) [Entitic vol] 38.5 fL 35.1-43.9 [facility] Erythrocyte distribution width (RBC) [Ratio] 12.1 % 11.6-14.6 [facility] Immature granulocytes/100 WBC (Bld) 0.600 % 0.0-0.9 [facility] Comment on above: IG% - Immature Granu locytes (promyelocytes, myelocytes and metamyelocytes) > 1% indicates that a LEFT SHIFT is Present. MCH (RBC) [Entitic mass] 30.0 pg 27.0-32.0 [facility] Nucleated RBC/100 WBC (Bld) [Ratio] 0 % 0-5 [facility] MCHC Auto (RBC) [Mass/Vol]Or dered By: Dr. Wang on 12-19-2022 MCHC (RBC) [Mass/Vol] 34.4 g/dL 32-36 [facility] No Panel InformationOrdered By: Dr. Wang on 12-19-2022 Estimated GFR (MDRD) Amer 117 mL/min >60 [facility] Comment on above: GFR Calc Estimated GFR (MDRD) Non-Af Amer 97 mL/min >60 [facility] Comment on above: Non- GFR Calc Hepatitis B Surface Antigen Non-Reactive Nonreactive [facility] Hepatitis C Antibody Non-Reactive Nonreactive [facility] Comment on above: Non Reactive: < 0.8 Equivocal: >/= 0.8 to < 1.0 Reactive: >/= 1.0The CDC recommends that a reactive/equivocal HCV antibody result be followed up by the HCV Nucleic Acid Amplificationtest (195583) Platelets bldOrdered By: Dr. Wang on 12-19-2022 Platelets (Bld) [#/Vol] 178 10*3/uL 150-450 [facility] Qualitative QuantiFERON-TB g old in tube testOrdered By: Dr. Wang on 12-19-2022 M. tuberculosis tuberculin stim IFN-g Ql (Bld) 0 IU/mL . [facility] Serum hepatitis B virus core antibody detectionOrdered By: Dr. Wang on 12-19-2022 HBV core Ab Ql (S) Negative Negative [facility] Comment on above: Performed at: [place] [id number] Director: Josef Reynolds PhD, Phone: [phone] Serum hepatitis B virus surf eric antibody IgG detectionOrdered By: Dr. Wang on 12-19-2022 HBV surface IgG Ql (S) Non-Reactive [facility] Comment on above: Non Reactive: Incons istent with immunity less than <10 mIU/mL Reactive: Consistent with immunity greater than or equal to 10 mIU/mL Serum or plasma albumin issa urement (mass/volume)Ordered By: Dr. Wang on 12-19-2022 Albumin [Mass/Vol] 4.2 g/dL 3.2-5.0 [facility] Serum or plasma calcium issa urement (mass/volume)Ordered By: Dr. Wang on 12-19-2022 Calcium [Mass/Vol] 8.8 mg/dL 8.5-10.1 [facility] Serum or plasma creatinine m easurement (mass/volume)Ordered By: Dr. Wang on 12-19-2022 Creatinine [Mass/Vol] 0.91 mg/dL 0.70-1.30 [facility] Comment on above: The validity of the calculated GFR & GFRAA in patients over 70 years has not been determined. Clinical correlation is essential. Serum or plasma urea nitroge n measurement (mass/volume)Ordered By: Dr. Wang on 12-19-2022 Urea nitrogen [Mass/Vol] 25 mg/dL 7-18 [facility] Thin prep Papanicolaou smear with manual screeningOrdered By: Dr. Wang on 12-19-2022 Thin prep Papanicolaou smear with manual screening 24 U/L 15-37 [facility] Thin prep Papanicolaou smear with manual screening 5 5-15 [facility] Thin prep Papanicolaou smear with manual screening Comment . [facility] Comment on above: QuantiFERON-TB Gold Plus is [...] smear with manual screening 0 IU/mL . [facility] Thin prep Papanicolaou smear with manual screening > 10.00 IU/mL . [facility] Thin prep Papanicolaou smear with manual screening Negative Negative [facility] Comment on above: No response to M [...] percentageon 2021 Chloride [Moles/Vol] 107 mmol/L 98-107 [facility] Work Phone: Cholesterol [Mass/Vol] 167 mg/dL <200 [facility] Work Phone: Comment on above: <200 mg/dL Desirable 200-240 mg/dL Borderline >240 mg/dL High Risk Glucose [Mass/Vol] 82 mg/dL 74-106 [facility] Work Phone: Potassium [Moles/Vol] 4.5 mmol/L 3.5-5.1 [facility] Work Phone: Sodium [Moles/Vol] 140 mmol/L 136-145 [facility] Work Phone: Triglyceride [Mass/Vol] 63 mg/dL <199 [facility] Work Phone: Comment on above: The drugs N-Acetylcy steine and Metamizole may falsely depress this assay.Serum Triglycerides Reference Interval Normal <150 mg/dL Borderline high 150 - 199 mg/dL High 200 - 499 mg/dL Very High > or = 500 mg/dL Laboratory - Chemistry and C hemistry - challengeon 04-19-2022 CO2 [Moles/Vol] 29.0 mmol/L 21.0-32.0 [facility] Work Phone: Urea nitrogen/Creatinine [Mass ratio] 24.8 mg/mg 10- [facility] Work Phone: No Panel Informationon 04-19 Estimated GFR (MDRD) Amer 109 mL/min >60 [facility] Work Phone: Comment on above: GFR Calc Estimated GFR (MDRD) Non-Af Amer 90 mL/min >60 [facility] Work Phone: Comment on above: Non- GFR Calc Serum or plasma calcium issa urement (mass/volume)on 04-19-2022 Calcium [Mass/Vol] 8.8 mg/dL 8.5-10.1 [facility] Work Phone: Serum or plasma cholesterol in HDL measurement (mass/volume)on 04-19-2022 Cholesterol in HDL [Mass/Vol] 46 mg/dL >40 [facility] Work Phone: Comment on above: The drugs N-Acetylcy steine and Metamizole may falsely depress this assay. Reference Range HDL <40 mg/dL Low HDL Cholesterol HDL >or= 60 mg/dL High HDL Cholesterol Serum or plasma cholesterol in VLDL measurement (mass/volume)on 04-19-2022 Cholesterol in VLDL [Mass/Vol] 13 mg/dL 5-40 [facility] Work Phone: Serum or plasma creatinine m easurement (mass/volume)on 04-19-2022 Creatinine [Mass/Vol] 0.97 mg/dL 0.70-1.30 [facility] Work Phone: Comment on above: The validity of the calculated GFR & GFRAA in patients over 70 years has not been determined. Clinical correlation is essential. Serum or plasma low density lipoprotein (LDL) cholesterol measurement (mass/volume)on 04-19-2022 Cholesterol in LDL [Mass/Vol] 108 mg/dL 0-130 [facility] Work Phone: Serum or plasma urea nitroge n measurement (mass/volume)on 04-19-2022 Urea nitrogen [Mass/Vol] 24 mg/dL 7-18 [facility] Work Phone: Thin prep Papanicolaou smear with manual screeningon 04-19-2022 Thin prep Papanicolaou smear with manual screening 4 5-15 [facility] Work Phone: CNOVon 11-18-2017 CNOV Office Visit (UCWSTR) RAY ALARCON ([id number]) 1980 MDate Time Provider Department11/18/17 9:30 AM SOFI BELL (IN STORE MARKETER) [facility] During your visit today, we recorded the [...] andcongestion: brands include Alban Med, Simply saline, Powell nasal spray, or eventhe generic store brand [...] were discussed in detail warranting prompt ER evaluation.Jane Iyer APRN.CNP 11/18/2017 9:43 AM AddendumASSESSMENT/PLAN:1. Acute pansinusitis, recurrence [...] andcongestion: brands include Alban Med, Simply saline, Powell nasal spray, or eventhe generic store brand [...] - GI UpsetDate Reviewed: 11/18/2017Reviewed by: Sofi Bell - Fully AssessedReason for Visit: Cough [28]Primary [...] congestion: brands include Alban Med, Simply saline, Powell nasal spray, or even the generic store [...] Status:Closed by SOFI BELL CNP on 11/18/17 Normal [facility] PROGRESSon 11-18-2017 PROGRESS HNO ID: [id number] thor: Sofi Caceres) FabiolakService: (none)Author Type: Nurse PractitionerType: Progress NotesFiled: [...] congestion: brands include Alban Med, Simply saline, Powell nasal spray,or even the generic store brand [...] in detail warranting prompt ER evaluation.Sofi Bell APRN.IN STORE MARKETER Normal [facility] Vital Signs Date Time Vital Sign Value Performing Clinician Faci arun 04-27-2025 16:10-0400 Body temperature 97.4 [degF] Dr. Angelo Velázquez MD Work Phone: [facility] 04-27-2025 16:10-0400 Diastolic blood pressure 93 mm[Hg] Dr. Angelo Velázquez MD Work Phone: [facility] 04-27-2025 16:10-0400 Heart rate 74 /min Dr. Angelo Velázquez MD Work Phone: [facility] 04-27-2025 16:10-0400 Respiratory rate 16 /min Dr. Angelo Velázquez MD Work Phone: [facility] 04-27-2025 16:10-0400 SaO2% (BldA) [Mass fraction] 99 % Dr. Angelo Velázquez MD Work Phone: 1(312)141-921360 [place] [address] 04-27-2025 16:10-0400 Systolic blood pressure 144 mm[Hg] Dr. Angelo Velázquez MD Work Phone: 3(646)689-993175 [place] [address] 04-27-2025 08:19-0400 Body height 175.[address] Angelo Velázquez MD Work Phone: 6(187)418-116075 [place] [address] 04-27-2025 08:19-0400 Body mass index (BMI) [Ratio] 37.7 kg/m2 Dr. Angelo Velázquez MD Work Phone: 6(525)143-339475 [place] [address] 04-27-2025 08:19-0400 Body weight 115.[address] Angelo Velázquez MD Work Phone: 8(692)826-168975 [place] [address] 03-23-2025 14:44-0400 Body height 177.[address] Angelo Velázquez MD Work Phone: 1(330)656-148875 [place] [address] 03-23-2025 14:44-0400 Body mass index (BMI) [Ratio] 36.7 kg/m2 Dr. Angelo Velázquez MD Work Phone: 3(103)413-579475 [place] [address] 03-23-2025 14:44-0400 Body weight 116.[address] Angelo Velázquez MD Work Phone: 7(580)270-658575 [place] [address] 03-23-2025 14:44-0400 Diastolic blood pressure 82 mm[Hg] Dr. Angelo Velázquez MD Work Phone: 4(172)668-169975 [place] [address] 03-23-2025 14:44-0400 Systolic blood pressure 136 mm[Hg] Dr. Angelo Velázquez MD Work Phone: 7(379)564-572275 [place] [address] 01-30-2025 13:17-0400 Body height 177.[address] Angelo Velázquez MD Work Phone: 1(746)384-845175 [place] [address] 01-30-2025 13:17-0400 Diastolic blood pressure 84 mm[Hg] Dr. Angelo Velázquez MD Work Phone: 4(816)561-731975 [place] [address] 01-30-2025 13:17-0400 Heart rate 70 /min Dr. Angelo Velázquez MD Work Phone: 3(587)180-707960 [place] [address] 01-30-2025 13:17-0400 Respiratory rate 17 /min Dr. Angelo Velázquez MD Work Phone: 8(067)405-048675 [place] [address] 01-30-2025 13:17-0400 SaO2% (BldA) [Mass fraction] 97 % Dr. Angelo Velázquez MD Work Phone: 0(964)010-318075 [place] [address] 01-30-2025 13:17-0400 Systolic blood pressure 124 mm[Hg] Dr. Angelo Velázquez MD Work Phone: 5(602)830-350175 [place] [address] 01-09-2025 09:40-0400 Body temperature 97.2 [degF] Dr. Angelo Velázquez MD Work Phone: 1(928)366-462275 [place] [address] 01-09-2025 09:40-0400 Diastolic blood pressure 80 mm[Hg] Dr. Angelo Velázquez MD Work Phone: 5(419)375-641975 [place] [address] 01-09-2025 09:40-0400 Heart rate 63 /min Dr. Angelo Velázquez MD Work Phone: 0(646)516-243475 [place] [address] 01-09-2025 09:40-0400 Respiratory rate 16 /min Dr. Angelo Velázquez MD Work Phone: 8(815)773-920575 [place] [address] 01-09-2025 09:40-0400 SaO2% (BldA) [Mass fraction] 98 % Dr. Angelo Velázquez MD Work Phone: 3(318)324-749375 [place] [address] 01-09-2025 09:40-0400 Systolic blood pressure 118 mm[Hg] Dr. Angelo Velázquez MD Work Phone: 4(495)001-738575 [place] [address] 01-09-2025 08:10-0400 Body height 177.[address] Angelo Velázquez MD Work Phone: 6(895)228-575575 [place] [address] 01-09-2025 08:10-0400 Body mass index (BMI) [Ratio] 35.4 kg/m2 Dr. Angelo Velázquez MD Work Phone: 4(088)762-456675 [place] [address] 01-09-2025 08:10-0400 Body weight 112.[address] Angelo Velázquez MD Work Phone: [facility] 12-22-2024 15:08-0400 Body height 175.[address] Angelo Velázquez MD Work Phone: 0(940)020-519175 [place] [address] 12-22-2024 15:08-0400 Body mass index (BMI) [Ratio] 37.5 kg/m2 Dr. Angelo Velázquez MD Work Phone: 4(175)350-179575 [place] [address] 12-22-2024 15:08-0400 Body temperature 97.2 [degF] Dr. Angelo Velázquez MD Work Phone: 8(182)364-749675 [place] [address] 12-22-2024 15:08-0400 Body weight 115.[address] Angelo Velázquez MD Work Phone: 3(286)294-820975 [place] [address] 12-22-2024 15:08-0400 Diastolic blood pressure 90 mm[Hg] Dr. Angelo Velázquez MD Work Phone: 6(898)931-974975 [place] [address] 12-22-2024 15:08-0400 Heart rate 73 /min Dr. Angelo Velázquez MD Work Phone: 9(873)793-472075 [place] [address] 12-22-2024 15:08-0400 Respiratory rate 18 /min Dr. Angelo Velázquez MD Work Phone: 6(786)295-956975 [place] [address] 12-22-2024 15:08-0400 SaO2% (BldA) [Mass fraction] 99 % Dr. Angelo Velázquez MD Work Phone: 3(301)568-189675 [place] [address] 12-22-2024 15:08-0400 Systolic blood pressure 134 mm[Hg] Dr. Angelo Velázquez MD Work Phone: 5(640)335-251838 [address] 11-29-2024 12:52-0400 Body temperature 98.6 [degF] Dr. Angelo Velázquez MD Work Phone: 2(125)711-053275 [place] [address] 11-29-2024 12:52-0400 Diastolic blood pressure 94 mm[Hg] Dr. Angelo Velázquez MD Work Phone: 3(858)122-243575 [place] [address] 11-29-2024 12:52-0400 Heart rate 72 /min Dr. Angelo Velázquez MD Work Phone: [facility] 11-29-2024 12:52-0400 Respiratory rate 16 /min Dr. Angelo Velázquez MD Work Phone: 4(458)527-547160 [place] [address] 11-29-2024 12:52-0400 SaO2% (BldA) [Mass fraction] 97 % Dr. Angelo Velázquez MD Work Phone: 3(546)369-552238 [address] 11-29-2024 12:52-0400 Systolic blood pressure 154 mm[Hg] Dr. Angelo Velázquez MD Work Phone: 7(293)212-772238 [address] 11-29-2024 10:51-0400 Body height 175.[address] Angelo Velázquez MD Work Phone: 6(672)782-850775 [place] [address] 11-29-2024 10:51-0400 Body mass index (BMI) [Ratio] 37 kg/m2 Dr. Angelo Velázquez MD Work Phone: 4(593)392-025775 [place] [address] 11-29-2024 10:51-0400 Body weight 113.[address] Angelo Velázquez MD Work Phone: 8(496)069-379275 [place] [address] 09-13-2024 11:03-0400 Body temperature 97.6 [degF] Dr. Angelo Velázquez MD Work Phone: 7(065)798-064975 [place] [address] 09-13-2024 11:03-0400 Diastolic blood pressure 80 mm[Hg] Dr. Angelo Velázquez MD Work Phone: 3(978)568-957275 [place] [address] 09-13-2024 11:03-0400 Heart rate 85 /min Dr. Angelo Velázquez MD Work Phone: 2(317)343-360675 [place] [address] 09-13-2024 11:03-0400 SaO2% (BldA) [Mass fraction] 97 % Dr. Angelo Velázquez MD Work Phone: 7(726)410-376175 [place] [address] 09-13-2024 11:03-0400 Systolic blood pressure 122 mm[Hg] Dr. Angelo Velázquez MD Work Phone: 9(819)056-859375 [place] [address] 04-20-2023 17:11-0400 Body height 175.[address] Angelo Velázquez Work Phone: [facility] 04-20-2023 17:11-0400 Body temperature 98.4 [degF] Dr. Angelo Velázquez Work Phone: [facility] 04-20-2023 17:11-0400 Diastolic blood pressure 86 mm[Hg] Dr. Angelo Velázquez Work Phone: 9(749)247-863475 [place] [address] 04-20-2023 17:11-0400 Heart rate 82 /min Dr. Angelo Velázquez Work Phone: 1(904)927-485075 [place] [address] 04-20-2023 17:11-0400 Respiratory rate 16 /min Dr. Angelo Velázquez Work Phone: 4(647)960-451975 [place] [address] 04-20-2023 17:11-0400 SaO2% (BldA) [Mass fraction] 98 % Dr. Angelo Velázquez Work Phone: 4(464)669-589775 [place] [address] 04-20-2023 17:11-0400 Systolic blood pressure 132 mm[Hg] Dr. Angelo Velázquez Work Phone: 6(991)972-139475 [place] [address] 04-13-2023 17:50-0400 Body height 175.[address] Angelo Velázquez Work Phone: 8(128)415-075275 [place] [address] 04-13-2023 17:50-0400 Body mass index (BMI) [Ratio] 34.9 kg/m2 Dr. Angelo Velázquez Work Phone: 9(558)159-653675 [place] [address] 04-13-2023 17:50-0400 Body temperature 98.3 [degF] Dr. Angelo Velázquez Work Phone: 7(688)956-239075 [place] [address] 04-13-2023 17:50-0400 Body weight 107.[address] Angelo Velázquez Work Phone: 6(311)827-636375 [place] [address] 04-13-2023 17:50-0400 Diastolic blood pressure 83 mm[Hg] Dr. Angelo Velázquez Work Phone: 6(075)115-280160 [place] [address] 04-13-2023 17:50-0400 Heart rate 74 /min Dr. Angelo Velázquez Work Phone: 1(082)239-615760 [place] [address] 04-13-2023 17:50-0400 Respiratory rate 17 /min Dr. Angelo Velázquez Work Phone: [facility] 04-13-2023 17:50-0400 SaO2% (BldA) [Mass fraction] 96 % Dr. Angelo Velázquez Work Phone: [facility] 04-13-2023 17:50-0400 Systolic blood pressure 150 mm[Hg] Dr. Angelo Velázquez Work Phone: [facility] Encounters Encounter Date Encounter Type Care Provider Facility Start: 05-11-2025 End: 05-11-2025 ambulatory Leti Julian [place] Start: 05-11-2025 End: 05-11-2025 ambulatory Gaetano SIDDIQUI [place] Start: 04-27-2025 ambulatory Héctor Guerin [place]ity[place] Start: 04-27-2025 End: 04-27-2025 ambulatory Héctor Laboywillmar Facility:[facility] Start: 04-16-2025 End: 04-16-[address] Leti Julian [place] -[facility] Work Phone: Start: 04-16-2025 End: 04-16-[address] Angelo Velázquez MD Work Phone: [facility] Start: 03-31-2025 End: 03-31-[address] Leti Julian DC -[facility] Work Phone: Start: 03-31-2025 End: 03-31-[address] Angelo Velázquez MD Work Phone: [facility] Start: 03-23-2025 End: 03-23-[address] Leti Julian [place] -[facility] Work Phone: Start: 03-23-2025 End: 03-23-[address] Angelo Velázquez MD Work Phone: [facility] Start: 01-30-2025 End: 01-30-[address] Héctor Chauhan MD -[facility] Work Phone: Start: 01-30-2025 End: 01-30-[address] Angelo Velázquez MD Work Phone: -[facility] Start: 01-09-2025 Non-patient / Non-visit Dr. Héctor Chauhan MD -[facility] Start: 01-09-2025 End: 01-09-2025 Admission to same day surgery center Dr. Héctor Chauhan MD -Endoscopy Work Phone: Start: 01-09-2025 End: 01-09-[address] Angelo Velázquez MD Work Phone: -Endoscopy Start: 01-01-2025 End: 01-01-[address] Angelo Velázquez MD Work Phone: -Ultrasound [facility] Start: 01-01-2025 End: 01-01-[address] Héctor Chauhan MD -Ultrasound [facility] Work Phone: Start: 01-01-2025 End: 01-01-2025 ambulatory Angelo Velázquez Facility:[facility] Start: 12-22-2024 End: 12-22-[address] Héctor Chauhan MD -[facility] Work Phone: Start: 12-22-2024 End: 12-22-[address] Angelo Velázquez MD Work Phone: [facility] Work Phone: Start: 11-29-2024 End: 11-29-2024 Emergency department patient visit Dr. Angelo Velázquez MD Work Phone: -Emergency Department Work Phone: Start: 09-13-2024 End: 09-13-2024 Patient encounter procedure Abdelrahman SIDDIQUI -[facility] Work Phone: Start: 09-13-2024 End: 09-13-2024 ambulatory Abdelrahman Thorne Facility:[facility] Start: 06-09-2024 End: 06-09-2024 ambulatory Burt SIDDIQUI Facility:[facility] Start: 05-01-2023 End: 05-01-[address] Angelo Velázquez Work Phone: [facility] Work Phone: Start: 05-01-2023 End: 05-01-[address] Angelo Velázquez Work Phone: [facility] Work Phone: Start: 04-20-2023 End: 04-20-[address] Angelo Velázquez Work Phone: [facility] Work Phone: Start: 04-13-2023 End: 04-13-[address] Aneglo Velázquez Work Phone: [facility] Work Phone: Start: 04-13-2023 End: 04-13-[address] Angelo Velázquez Work Phone: [facility] Work Phone: Start: 02-12-2023 End: 02-12-[address] [facility] Work [facility]: Start: 02-01-2023 End: 02-01-[address] [facility]áz[facility] Work [facility]: Start: 01-23-2023 End: 01-23-[address] Angelo Velázquez Work Phone: [facility] Work Phone: Start: 01-18-2023 End: 01-18-[address] Angelo Velázquez [facility] Work Phone: Start: 01-09-2023 End: 01-09-[address] Angelo Velázquez [facility] Work Phone: Start: 01-05-[address] Angelo Velázquez Work Phone: [facility] Work Phone: Start: 12-25-2022 End: 12-25-[address] Angelo Velázquez [facility] Work Phone: Start: 12-19-2022 End: 12-19-2022 ambulatory [facility] Work Phone: Start: 12-19-2022 End: 12-19-2022 [facility] Start: 04-19-2022 End: 04-19-2022 ambulatory [facility] Work Phone: Start: 04-19-2022 End: 04-19-2022 Patient encounter procedure [facility] Start: 11-18-2017 End: 11-20-2017 Ambulatory [facility] Procedures Date Procedure Procedure Detail Performing Clinician Start: 01-09-[address] Angleo lima MD Work Phone: Start: 01-01-[address] Angelo Velázquez MD Work Phone: Start: 11-29-2024 Urnls dip stick/tabl et reagent auto microscopy Dr. Angelo Velázquez MD Work Phone: Start: 11-29-[address] Angelo Veláqzuez MD Work Phone: Start: 11-29-2024 Computed tomography of abdomen and pelvis with intravenous contrast Dr. Angelo Velázquez MD Work Phone: Start: 04-13-2023 Diagnostic radiograp hy of finger Dr. Angelo Velázquez Work Phone: Plan of Treatment Date Care Activity Detail Author Start: 04-27-2025 Patient discharge [facility] Start: 04-27-2025 Laparoscopic cholecystectomy Robotic Cholecystectomy (Not Applicable) [facility] Start: 04-27-2025 Non-patient / Non-visit Non-patient / Non-visit -[facility] Start: 04-27-2025 End: 04-27-2025 Admission to same day surgery center [facility] Start: 03-31-2025 End: 03-31-2025 Patient encounter procedure Cervicogenic headache -[facility] Work Phone: Start: 01-09-2025 Colonoscopy DIAGNOSTIC COLONOSCOPY [facility] Start: 01-09-2025 Colonoscopy flx dx w/collj spec when pfrmd DIAGNOSTIC COLONOSCOPY [facility] Start: 01-09-2025 Patient discharge [facility] Start: 12-22-2024 Colonoscopy [facility] Start: 11-29-2024 [facility] Start: 12-25-2022 Patient referral [facility] Work Phone: Patient Education Abdominal Pain ED Diverticulosis [facility] Work Phone: Patient referral [facility] Work Phone: US Gallbladder [facility] Payers Date Payer Category Payer Private Health Insurance [id number] 2024 Self-pay [id number] 2024 Unknown [id number] Unknown DO NOT USE [facility] [employer] [id number] Unknown OB TRISTEN O [id number] Unknown [id number] Unknown [id number] 2.16.840.1.204076.3.579.2 .462 Unknown [id number] 2.16.840.1.658026.3.579.2 .462 Unknown [id number] 2.16.840.1.887382.3.579.2 .462 Unknown [id number] 2.16.840.1.397227.3.579.2 .462 Unknown [id number] 2.16.840.1.375774.3.579.2 .462 Unknown [id number] 2.16.840.1.926072.3.579.2 .462 Unknown [id number] 2.16.840.1.095895.3.579.2 .462 Unknown [id number] 2.16.840.1.285927.3.579.2 .462 Unknown [id number] 2.16.840.1.915639.3.579.2 .462 Unknown [id number] 2.16.840.1.596368.3.579.2 .462 Unknown [id number] 2.16.840.1.291409.3.579.2 .462 Unknown [id number] 2.16.840.1.243965.3.579.2 .462 Unknown [id number] 2.16.840.1.208070.3.579.2 .462 Unknown [id number] 2.16.840.1.472295.3.579.2 .462 Unknown [id number] 2.16.840.1.995826.3.579.2 .462 Social History Date Type Detail Facility Start: 07-29-2015 End: 04-20-2023 Tobacco smoking status ORIS Unknown if ever smoked [facility] Start: 1980 Sex Assigned At Male [facility] Start: 11-29-2024 Tobacco smoking stat us ORIS Never smoked tobacco (finding) [facility] Start: 01-07-2025 End: 04-13-2025 Tobacco smoking status NHIS Ex-smoker (finding) [facility] Sex Male [facility] Medical Equipment Procedure Code Equipment Code Equipment Original Text Equipment Identifier Dates Robot-assisted laparoscopic cholecystectomy without cholangiography CLIP,[facility] MED WECK FDA Start: 04-27-2025 Robot-assisted laparoscopic cholecystectomy without cholangiography CLIP,HEMOLOCK MED WECK FDA Start: 04-27-2025 Goals Date Patient Goal Desired Activity /State Mental Status Date Assessment Result Facility 04-27-2025 Cognitive function Voice/Name [facility] Work Phone: 01-09-2025 Cognitive function [facility] Work Phone: 01-09-2025 Cognitive function Patient Orien tation Person;Place;Time [facility] Work Phone: Clinical Notes 09-13-2024 to 04-27-2025 Note Date & Type Note Facility 04-27-2025 Note [facility] Medical Records Department [address] [place] [address] History Physical Exam 04/27/25 0903 MR#: [id number] Acct: [id number] Name: RAY ALARCON Rep #: [id number] : 1980 44 From: Héctor Chauhan MD PCP: Dr. Angelo Velázquez MD Status:[facility] Location: [place] [address] History and Physical Date of Admission: 04/27/25 Intake Vital Signs 01/10/2508:10 01/30/2513:17 Height 5 ft 10 in 5 ft 10 in BP 124/84 H Blood Pressure Location Rt brachial Position Sitting Respiration 17 Pulse 70 Pulse Source Monitor Pulse Oximetry (%) 97 Oxygen Delivery Method room air Intake Visit Reasons: DISCUSS LAP BRENDA Chief Complaint: discuss lap brenda Is patient in pain?: Yes (achiness right side) Allergies amoxicillin trihydrate (From Augmentin) Allergy (Verified 01/30/25 13:18) Diarrhea potassium clavulanate (From Augmentin) Allergy (Verified 01/30/25 13:18) Diarrhea Medications ???Medication ???Instructions ???Recorded ???Confirmed ???Type cholecalciferol (vitamin D3) 125 125 mcg PO DAILY 12/25/22 01/30/25 History mcg (5,000 unit) capsule loratadine 10 mg tablet (Allergy 10 mg PO DAILY 12/25/22 01/30/25 History Relief (loratadine)) multivitamin 1 tab PO DAILY 12/25/22 01/30/25 History roflumilast 500 mcg tablet 500 mcg PO QDAY 06/09/24 01/30/25 History PFSH Medical History Wears contact lenses History of GI bleed History of diverticulosis Former smoker Hemorrhoids Constipation Surgical History History of hand surgery Family History Other Diabetes Heart disease Social History Smoking Status: Never smoker alcohol intake: never HPI HPI HPI: Patient is a 44-year-old male here with right upper quadrant pain. He was seen by me last month and we performed a colonoscopy for the blood in his stool which was normal. He reports that he is not having any more blood in his stool. He reports he is still having right upper quadrant pain after greasy or fatty meals. He says that sometimes he feels cramping and fullness in that area. ROS General General: No weight change, appetite, [...] pain, No nausea or vomiting, No diarrhea, No constipation, No blood in stool, No acid reflux, Yes [...] (1) Right upper quadrant pain: Status: Acute Plan: The patient has been having right upper quadrant pain. I ordered an ultrasound when I last saw him and the ultrasound revealed sludge in the gallbladder. The patient appears symptomatic from this and reports pain after eating fatty meals. I discussed laparoscopic cholecystectomy. I specifically discussed robotic assisted laparoscopic cholecystectomy. I discussed the procedure in detail with the patient. I discussed the risks, benefits, and alternatives of the procedure. I discussed the risks including but not limited to bleeding, infection, injury to surrounding (more content not included)... [facility] 04-16-2025 Progress note [facility] 04-16-2025 Progress note Note Date/Time April 16, 2025 3:08pm [facility] [address] [place], [place] [id number] OFFICE VISIT Date of Service: 04/16/25 MR#: [id number] Acct: [id number] Name: RAY ALARCON Rep #: [id number] : 1980 Provider: PAULO Julian Age/Sex: 44/M [place] [facility] Status: Signed Intake Vital Signs 03/23/25 14:44 Height 5 ft 10 in Weight: 256 lb BMI 36.7 BP 136/82 H Intake Visit Reasons: BACK PAIN Chief Complaint: neck, upper and mid back Allergies amoxicillin trihydrate (From Augmentin) Allergy (Verified 04/16/25 14:38) Diarrhea potassium clavulanate (From Augmentin) Allergy (Verified 04/16/25 14:38) Diarrhea Medications ?Medication ?Instructions ?Recorded ?Confirmed ?Type cholecalciferol (vitamin D3) 125 125 mcg PO DAILY 12/0104/16/25 History mcg (5,000 unit) capsule loratadine 10 mg tablet (Allergy 10 mg PO DAILY 04/16/25 History Relief (loratadine)) multivitamin 1 tab PO DAILY 12/25/2204/01 History roflumilast 500 mcg tablet 500 mcg PO QDAY 06/09/24 History PFSH Medical History Wears contact lenses History of GI bleed History of diverticulosis Former smoker Hemorrhoids Constipation Surgical History History of colonoscopy History of hand surgery Family History Other Diabetes Heart disease Social History Smoking Status: Former smoker alcohol intake: never HPI BACK PAIN Chief Complaint: neck and mid back pain Visit Number: 3 Details: Ray is a 44 y/o male here to follow up on neck pain and persistent HAs. Pt. denies recent KRAMER's. He continues to experience neck stiffness and upper back stiffness that extends across his shoulder blades and traps. He states he has not had any HAs since his last visit. He denies injury, numbness, tingling or radiculopathy to his BUE. He treats pain with Excedrin migraine, hot showers, and stretching. Location: neck/upper back Duration: intermittent Aggravating or associated factors: ROM,morning Relieving factors: meds,hot shower,chiro Pain Quality: aching, dull and radiating Exam Musc General: Yes normal gait, joint tenderness and decreased range of motion; No normal posture or muscle weakness Cervical Spine: Yes loss of normal cervical lordosis, Yes cervical muscular tenderness (mild) bilateral diffuse , Yes cervical spasm bilateral diffuse trapezius and paracervical muscles and Yes misalignment misalignment: C2, C3, C6and C7 Thoracic/Lumber: Yes thoracic and lumbar spine normal to inspection, Yes paraspinal tenderness bilaterally in the upper thoracic and in the mid thoracic, Yes thoraco-lumbar spasm bilaterally (trap, levator) in the upper thoracic and in the mid thoracic and Yes misalignment T2, T3 and T4 Office Procedures Procedures - Chiropractic Procedures Manipulation: Cervical C6 and Thoracic T3 Manipulation: 1-2 regions Electronic Stimulation: Yes Electrical Stimulation: Cervical 15 mins (4) mA Therapy Performed by:: Atiya Steel Patient Response: positive Assessment and Plan Assessment and Plan (1) Segmental and somatic dysfunction of cervical region: Status: Acute (2) Segmental and somatic dysfunction of thoracic region: Status: Acute (3) Cervicogenic headache: Status: Acute Orders: Orders Chiropractic Treatments Today G44.86 - Cervicogenic headache, M99.01 - Segmental and somatic dysfunction of cervical region, M99.02 - Segmental and somatic dysfunction of thoracic region, M99.03 - Segmental and somatic dysfunction of lumbar region, M99.05 - Segmental and somatic dysfunction of pelvic region Plan Patient is showing positive improvement and his HAs have improved. He continues to get neck stiffness at times. He will follow up in 1 month and monitor patientfor symptom stabilization. Plan Details Goals & Barriers: Goals Improve ROM Decrease pain Decrease spasm Decrease HAs Follow Up: 1 Month Coding Level of Care Code No Charge Diagnoses Segmental and somatic dysfunction of cervical region M99.01 Segmental and somatic dysfunction of thoracic region M99.02 Cervicogenic headache G44.86 CPT Codes Procedures - Manipulation: 1-2 regions (32926) Procedures - Electronic Stimulation: Yes (96061) 04/16/25 1546 <Electronically signed by Leti Belle> Date _ Leti Rowe Signature: Date (if applicable) CC: ~ [facility] Work Phone: 1(915) 830-892009-22-2025 Progress [facility] [address] [place] [address] OFFICE VISIT Date of Service: 03/23/25 MR#: [id number] Acct: [id number] Name: RAY ALARCON Rep #: [id number] : 1980 Provider: PAULO Julian Age/Sex: 44/M [facility] [facility] Status: Signed Intake Vital Signs 01/30/25 13:17 03/09/25 09:39 03/23/25 14:44 Height 5 ft 10 in 5 ft 10 in 5 ft 10 in Weight: 256 lb BMI 36.7 BP 124/84 H 136/82 H Blood Pressure Location Rt brachial Position Sitting Respiration 17 Pulse 70 Pulse Source Monitor Pulse Oximetry (%) 97 Oxygen Delivery Method room air Intake Visit Reasons: REEVAL Chief Complaint: discuss lap brenda Allergies amoxicillin trihydrate (From Augmentin) Allergy (Verified 01/30/25 13:18) Diarrhea potassium clavulanate (From Augmentin) Allergy (Verified 01/30/25 13:18) Diarrhea PFSH Medical History Wears contact lenses History of GI bleed History of diverticulosis Former smoker Hemorrhoids Constipation Surgical History History of hand surgery Family History Other Diabetes Heart disease Social History Smoking Status: Former smoker alcohol intake: never HPI REEVAL Chief Complaint: neck stiffness, KRAMER's Visit Number: 1 Details: Ray is a 44 y/o male here for a re-evaluation for neck pain. Pt. reports he has been experiencing neck stiffness and more frequent KRAMER's. He states he feels like he has lost some of his ROM. He states his neck tension extends into his bilateral traps. He states the KRAMER's are right in the back of his neck and go up his head when they come on. He denies injury, numbness, tingling or radiculopathyto his BUE. He treats pain with Excedrin migraine, hot showers, and stretching. They are worse in the mornings and decrease as he gets loosenedup.No previous injury to neck/head. No nausea/vomiting. Location: neck Duration: intermittent Aggravating or associated factors: ROM, morning Relieving factors: meds, hot shower Pain Quality: aching, dull and radiating Exam Musc General: Yes normal gait, joint tenderness and decreased range of motion; No normal posture or muscle weakness Cervical Spine: Yes loss of normal cervical lordosis, Yes cervical muscular tenderness bilateral diffuse , Yes pain with cervical ROM with lateral flexion to right, with lateral flexion to left, withrotation to left and with extension, Yes cervical spasm bilateral diffuse trapezius and paracervical muscles and Yes misalignment misalignment: C2, C3, C6 and C7 Thoracic/Lumber: Yes thoracic and lumbar spine normal to inspection, No pain with thoraco-lumbar ROM, Yes paraspinal tenderness bilaterally in the upper thoracic and in the mid thoracic, Yes thoraco-lumbar spasm bilaterally (trap, levator) in the upper thoracic and in the mid thoracic and Yes misalignment T2, T3 and T4 Neuro General: patient alert, patient awake, patient oriented x3, normal light touch, pain and propioception and no focal motor deficits Cranial Nerves: CN's II-XI intact bilaterally Cognition: normal cognition Speech: speech normal Gait: normal gait Motor: muscle tone normal throughout Sensory Exam: no sensory deficits noted Ortho Test CERVICAL Compression pain: Negative Distraction pain: relief Curtis's pain: Negative Valsalvas: Negative Shoulder depression pain: Right (+bilaterally) Cervical Series: -VBI test THORACIC Kemps: Negative Abraham: Negative LUMBAR Office Procedures Procedures - Chiropractic Procedures Manipulation: Cervical C6 and Thoracic T3 Manipulation: 1-2 regions Electronic Stimulation: Yes Electrical Stimulation: Cervical 15 mins (9) mA Therapy Performed by:: Atiya Steel Patient Response: positive Assessment and Plan Assessment and Plan (1) Segmental and somatic dysfunction of cervical region: Status: Acute (2) Segmental and somatic dysfunction of thoracic region: Status: Acute (3) Cervicogenic headache: Status: Acute Orders: Orders Chiropractic Treatments 03/23/25 M99.03 - Segmental and somatic dysfunction of lumbar region, M99.05 - Segmental and somatic dysfunction of pelvic region Plan Patient was re-evaluated for complaints of recent HAs/neck pain. He was treated with gentle prone adjustment and well tolerated. Follow up in 1 week, monitor patient response and consider acute care plan. Plan Details Goals & Barriers: Goals Improve ROM Decrease pain Decrease spasm Decrease HAs Follow Up: 1 Week Coding Level of Care Code Off vis,est,level 2 Diagnoses Segmental and somatic dysfunction of cervical region M99.01 Segmental and somatic dysfunction of thoracic region M99.02 Cervicogenic headache G44.86 CPT Codes Procedures - Electronic Stimulation: Yes (03793) Procedures - Manipulation: 1-2 regions (63269) 03/24/25 0832 .C.> Date _ Leti Rowe Signature: Date (if applicable) CC: ~ [facility]09-22-2025 Progress note Author Leti Julian [facility] Note Date/Time March 23, 2025 3:14pm [facility] [address] [place] [address] OFFICE VISIT Date of Service: 03/23/25 MR#: [id number] Acct: [id number] Name: RAY ALARCON Rep #: [id number] : 1980 Provider: PAULO Julian Age/Sex: 44/M Location[place] [facility] Status: Signed Intake Vital Signs 01/30/25 13:17 03/09/25 09:39 03/23/25 14:44 Height 5 ft 10 in 5 ft 10 in 5 ft 10 in Weight: 256 lb BMI 36.7 BP 124/84 H 136/82 H Blood Pressure Location Rt brachial Position Sitting Respiration 17 Pulse 70 Pulse Source Monitor Pulse Oximetry (%) 97 Oxygen Delivery Method room air Intake Visit Reasons: REEVAL Chief Complaint: discuss lap brenda Allergies amoxicillin trihydrate (From Augmentin) Allergy (Verified 01/30/25 13:18) Diarrhea potassium clavulanate (From Augmentin) Allergy (Verified 01/30/25 13:18) Diarrhea [facility] Medical History Wears contact lenses History of GI bleed History of diverticulosis Former smoker Hemorrhoids Constipation Surgical History History of hand surgery Family History Other Diabetes Heart disease Social History Smoking Status: Former smoker alcohol intake: never HPI REEVAL Chief Complaint: neck stiffness, KRAMER's Visit Number: 1 Details: Ray is a 44 y/o male here for a re-evaluation for neck pain. Pt. reports he has been experiencing neck stiffness and more frequent KRAMER's. He states he feels like he has lost some of his ROM. He states his neck tension extends into his bilateral traps. He states the KRAMER's are right in the back of his neck and go up his head when they come on. He denies injury, numbness, tingling or radiculopathy to his BUE. He treats pain with Excedrin migraine, hot showers, and stretching. They are worse in the mornings and decrease as he gets loosenedup.No previous injury to neck/head. No nausea/vomiting. Location: neck Duration: intermittent Aggravating or associated factors: ROM, morning Relieving factors: meds, hot shower Pain Quality: aching, dull and radiating Exam Musc General: Yes normal gait, joint tenderness and decreased range of motion; No normal posture or muscle weakness Cervical Spine: Yes loss of normal cervical lordosis, Yes cervical muscular tenderness bilateral diffuse , Yes pain with cervical ROM with lateral flexion to right, with lateral flexion to left, with rotation to left and with extension, Yes cervical spasm bilateral diffuse trapezius and paracervical muscles and Yes misalignment misalignment: C2, C3, C6 and C7 Thoracic/Lumber: Yes thoracic and lumbar spine normal to inspection, No pain with thoraco-lumbar ROM, Yes paraspinal tenderness bilaterally in the upper thoracic and in the mid thoracic, Yes thoraco-lumbar spasm bilaterally (trap, levator) in the upper thoracic and in the mid thoracic and Yes misalignment T2, T3 and T4 Neuro General: patient alert, patient awake, patient oriented x3, normal light touch, pain and propioception and no focal motor deficits Cranial Nerves: CN's II-XI intact bilaterally Cognition: normal cognition Speech: speech normal Gait: normal gait Motor: muscle tone normal throughout Sensory Exam: no sensory deficits noted Ortho Test CERVICAL Compression pain: Negative Distraction pain: relief Curtis's pain: Negative Valsalvas: Negative Shoulder depression pain: Right (+bilaterally) Cervical Series: -VBI test THORACIC Kemps: Negative Abraham: Negative LUMBAR Office Procedures Procedures - Chiropractic Procedures Manipulation: Cervical C6 and Thoracic T3 Manipulation: 1-2 regions Electronic Stimulation: Yes Electrical Stimulation: Cervical 15 mins (9) mA Therapy Performed by:: Atiya Steel Patient Response: positive Assessment and Plan Assessment and Plan (1) Segmental and somatic dysfunction of cervical region: Status: Acute (2) Segmental and somatic dysfunction of thoracic region: Status: Acute (3) Cervicogenic headache: Status: Acute Orders: Orders Chiropractic Treatments 03/23/25 M99.03 - Segmental and somatic dysfunction of lumbar region, M99.05 - Segmental and somatic dysfunction of pelvic region Plan Patient was re-evaluated for complaints of recent HAs/neck pain. He was treated with gentle prone adjustment and well tolerated. Follow up in 1 week, monitor patient response and consider acute care plan. Plan Details Goals & Barriers: Goals Improve ROM Decrease pain Decrease spasm Decrease HAs Follow Up: 1 Week Coding Level of Care Code Off vis,est,level 2 Diagnoses Segmental and somatic dysfunction of cervical region M99.01 Segmental and somatic dysfunction of thoracic region M99.02 Cervicogenic headache G44.86 CPT Codes Procedures - Electronic Stimulation: Yes (47599) Procedures - Manipulation: 1-2 regions (89627) 03/24/25 0832 <Electronically signed by Leti Belle> Date _ Leti Julian D.C. Cosigner Signature: Date (if applicable) CC: ~ [facility] Work Phone: 1(323) 265-992008-01-2025 Evaluation note* Diagnosis Onset Date Resolution Status Admit Date Right upper quadrant pain acute January 30, 2025 1:09pm Cervicogenic headache acute Sep tember 2024 2:31pm Segmental and somatic dysfunction of cervical region acute S eptember 2024 2:31pm Segmental and somatic dysfunction of thoracic region acute S eptember 2024 2:31pm Cervicogenic headache acute Sep tember 2024 3:20pm Segmental and somatic dysfunction of cervical region acute S eptember 2024 3:20pm Segmental and somatic dysfunction of thoracic region acute S eptember 2024 3:20pm Cervicogenic headache acute Oct katt 2024 2:29pm Segmental and somatic dysfunction of cervical region acute O ctober 2024 2:29pm Segmental and somatic dysfunction of thoracic region acute O ctober 2024 2:29pm [facility] Work Phone: 1(166) 894-615807-11-2025 Consult note [facility] Medical Records Department [address] [place] [address] Anesthesia Postop Eval I 01/09/25924 MR#: [id number] Acct: [id number] Name: RAY ALARCON Rep #:[id number] : 1980 44 From: Erasmo Mcdowell PCP: Dr. Angelo Velázquez MD Status:REG S DC Y Race: C Location: [place] [address] Anesthesia: Postop Eval I Current Vital Signs Temperature: 97.4 F Pulse Rate: 75 Blood Pressure: 121/80 Respiratory Rate: 16 Pulse Ox: 97 Oxygen Delivery Method: Room Air Assessment Airway patent: Yes Spontaneous unlabored respirations: Yes Mental status: Asleep nausea: No Vomiting: No Anesthesia Complication: No Fluid Hydration Crystalloid volume administer (ml): 500 Total IV fluid infused: 500 Progress Note Anesthesia document: Postop Eval 1 completed: Yes 01/09/25925 > Date _ Erasmo Rowe Signature: Date CC: ~ Signed [facility]07-11-2025 Procedure note [facility] Medical Records Department [address] [place] [address] Colonoscopy Report MR#: [id number] Acct: [id number] Name: RAY ALARCON Rep #:[id number] : 1980 44 From: Héctor jacobo MD PCP: Dr. Angelo Velázquez MD Status:REG S DC Patient Name: Ray Alarcon Procedure Date: 01/09/2025 8:51 AM Date of : 1980 Age: 44 Procedure: Colonoscopy Indications: Rectal bleeding Providers: Héctor Chauhan MD Referring MD: Angelo Velázquez MD Medicines: Propofol per Anesthesia Patient Profile: This is a 44 year old male. Refer to note in patient chart for documentation of history and physical. Last Colonoscopy: none. The patient's first colonoscopy is today. Complications: No immediate complications. Procedure: Pre-Anesthesia Assessment: - Prior to the procedure, a History and Physical was performed, and patient medications and allergies were reviewed. The patient's tolerance of previous anesthesia was also reviewed. The risks and benefits of the procedure and the sedation options and risks were discussed with the patient. All questions were answered, and informed consent was obtained. Prior Anticoagulants: The patient has taken no anticoagulant or antiplatelet agents. After reviewing the risks and benefits, the patient was deemed in satisfactory condition to undergo the procedure. After I obtained informed consent, the scope was passed under direct vision. Throughout the procedure, the patient's blood pressure, pulse, and oxygen saturations were monitored continuously. The Colonoscope was introduced through the anus and advanced to the cecum, identified by appendiceal orifice and ileocecal valve. The colonoscopy was performed without difficulty. The patient tolerated the procedure well. The quality of the bowel preparation was good. The ileocecal valve, appendiceal orifice, and rectum were photographed. Scope In: 9:03:08 AM Scope Withdrawal Time 0 hours 6 minutes 24 seconds Scope Out: 9:13:58 AM Total Procedure Duration Time 0 hours 10 minutes 50 seconds Findings: The entire examined colon appeared normal on direct and retroflexion views. Impression: - The entire examined colon is normal on direct and retroflexion views. - No specimens collected. Recommendation: - Discharge patient to home. - Resume previous diet. - Continue present medications. - Repeat colonoscopy in 10 years for screening purposes. Procedure Code(s): --- Professional --- 90270, Colonoscopy, flexible; diagnostic, including collection of specimen(s) by brushing or washing, when performed (separate procedure) Diagnosis Code(s): --- Professional --- K62.5, Hemorrhage of anus and rectum CPT copyright 2021 [employer] [place] [employer]. All rights reserved. The codes documented in this report are preliminary and upon breast trimmer review may be revised to meet current compliance requirements. Héctor Chauhan MD 01/09/2025 9:16:44 AM This report has been signed electronically. Number of Addenda: 0 Note Initiated On: 01/09/2025 8:51 AM 01/09/25 0916 Date _ Héctor Chauhan MD Cosigner Signature: Date (if indicated) CC: Dr. Héctor Chauhan MD; Dr. Angelo Velázquez MD ~ Date Dictated: 01/09/25 08 Date Transcribed: Patent Chemist: AC Signed [facility]07-11-2025 Procedure note [facility] Medical Records Department [facility] [place] [address] Operative Report - CC Letter MR#: [id number] Acct: [id number] Name: RAY ALARCON Rep #:[id number] : 1980 44 From: Héctor jacobo MD PCP: Dr. Angelo Velázquez MD Status:REG S DC 01/09/2025 Angelo Velázquez MD [address] [place] [address] Re : Colonoscopy procedure for Ray Alarcon Dear Dr. Velázquez This procedure was performed on Thursday, January 09, 2025. My impressions and recommendations are as follows: Impressions : - The entire examined colon is normal on direct and retroflexion views. - No specimens collected. Recommendations : - Discharge patient to home. - Resume previous diet. - Continue present medications. - Repeat colonoscopy in 10 years for screening purposes. My findings are described in the full procedure note, which is enclosed. If I can be of further assistance, please feel free to contact me at Doctor phone number(s): , Work: . Sincerely, Héctor Chauhan MD 01/09/2025 9:16:44 AM This report has been signed electronically. 01/09/25915 Date _ Héctor Chauhan MD Cosigner Signature: Date (if indicated) CC: Dr. Héctor Chauhan MD; Dr. Angelo Velázquez MD ~ Date Dictated: 01/09/25850 Date Transcribed: Patent Chemist: AC Signed [facility]07-11-2025 History and physical note [facility] Medical Records Department [address] [place] [address] History & Physical Exam 01/09/25 0847 MR#: [id number] Acct: [id number] Name: RAY ALARCON Rep #:[id number] : 1980 44 From: Héctor jacobo MD PCP: Dr. Angelo Velázquez MD Status:REG S DC Location: [facility]16-1 History and Physical Date of Admission: 01/09/25 Intake Vital Signs 11/29/2509:51 12/22/2514:08 Height 5 ft 9 in 5 ft [...] trihydrate (From Augmentin) Allergy (Verified 12/22/24 15:09) Diarrheapotassium clavulanate (From Augmentin) Allergy (Verified 12/22/24 15:09) Diarrhea Medications ?Medication ?Instructions ?Recorded ?Confirmed ?Type Saccharomyces boulardii 250 mg 250 mg PO DAILY 12/25/22 12/22/24 Histor y capsule (Digest Probiotic (S.boulardii)) cholecalciferol (vitamin D3) 125 125 mcg PO DAILY 12/25/22 12/22/24 Histo ry mcg (5,000 unit) capsule loratadine 10 mg tablet (Allergy 10 mg PO DAILY 12/25/22 12/22/24 History Relief (loratadine)) multivitamin 1 tab PO DAILY 12/25/22 12/22/24 History roflumilast 500 mcg tablet 500 mcg PO QDAY 06/09/24 12/22/24 Histor y dicyclomine 20 mg tablet 20 mg PO BID 12/22/24 12/22/24 History PFSH Medical History (Updated 12/22/24 [...] attack, heart stent, palpitations, shortness of breath withexertion or chest pain Psych Psychiatric: No depression, anxiety or hearing voices Resp Respiratory: No shortness of breath, No sleep apnea, No cough, No COPD, No asthma, No emphysema andNo wheezing Gastro Gastrointestinal: Yes abdominal pain, No [...] General: cooperative Orientation: alert and oriented x3 HENSC Head: normal to inspection Neck Neck: normal [...] proceed with procedure. Héctor Chauhan MD Pager: [facility] [address] [facility] [place] [address] Office: I have examined the patient and the H&P has been reviewed. There are no clinicalchanges since date of exam. 01/09/25846 Cosigner Signature (if applicable): CC: Dr. Héctor Chauhan MD; Dr. Angelo Velázquez MD~ Signed [facility]07-11-2025 [facility] Medical Records Department [address] [place] [address] History Physical Exam 01/09/25 0847 MR#: [id number] Acct: [id number] Name: RAY ALARCON Rep #: [id number] : 1980 44 From: Héctor Chauhan MD PCP: Dr. Angelo Velázquez MD Status:[facility] Location: [place] [address] History and Physical Date of Admission: 01/09/25 Intake Vital Signs 11/29/2509:51 12/22/2514:08 Height 5 ft 9 in 5 ft [...] trihydrate (From Augmentin) Allergy (Verified 12/22/24 15:09) Diarrheapotassium clavulanate (From Augmentin) Allergy (Verified 12/22/24 15:09) Diarrhea Medications ???Medication ???Instructions ???Recorded ???Confirmed ???Type Saccharomyces boulardii 250 mg 250 mg PO DAILY 12/25/22 12/22/24 History capsule (Digest Probiotic (S.boulardii)) cholecalciferol (vitamin D3) 125 125 mcg PO DAILY 12/25/22 12/22/24 History mcg (5,000 unit) capsule loratadine 10 mg tablet (Allergy 10 mg PO DAILY 12/25/22 12/22/24 History Relief (loratadine)) multivitamin 1 tab PO DAILY 12/25/22 12/22/24 History roflumilast 500 mcg tablet 500 mcg PO QDAY 06/09/24 12/22/24 History dicyclomine 20 mg tablet 20 mg PO BID 12/22/24 12/22/24 History PFSH Medical History (Updated 12/22/24 [...] detail to the patient. I explained the ris (more content not included)...[facility]07-11-2025 Consult note [facility] Medical Records Department [address] [place] [address] Pre-Anesthesia Evaluation 01/09/25 0830 MR#: [id number] Acct: [id number] Name: RAY ALARCON Rep #:[id number] : 1980 44 From: Juan Pablo Purdy MD PCP: Dr. Angelo Velázquez MD Status:REG S DC Y Race: C Location: [place] [address] ASA Classification* ASA Classification ASA Classification: 2 Assessment & Plan Anesthesia* Anesthesia Assessment Anesthesia Assessment: Discussed sedation and/or anesthesia options, risks, benefits, and alternatives with patient/parents/legal guardian/POA. Questions invited. The patient/parents/legal guardian/POA seems to understand and agrees to proceedwith anesthesia plan. Reviewed the physical assessment, medical history, allergy history and patient home medications list prior to surgery/procedure/anesthetic and documented any changes. Performed airway and anesthesia risk assessments. Anesthesia Type Anesthesia Type: MAC Anesthesia Focused Assessment* Temperature: 98.1 F Pulse Rate: 78 Blood Pressure: 139/91 Respiratory Rate: 16 Pulse Ox: 100 Airway Assessment Mouth opens: >3 cm Mallampati Score: II Labs Anesthesia Preop lab: CBC WBC 9.0 K/mm3 (4.4-11.0) 11/29/24 11:20 11/29/24 RBC 5.07 M/mm3 (4.6-6.2) 11/29/24 11:20 11/29/24 Hgb 15.3 g/dL (13.0-16.5) 11/29/24 11:20 11/29/24 Hct 43.6 % (40-54) 11/29/24 11:20 11/29/24 Plt Count 150 K/mm3 (150-450) 11/29/24 11:20 11/29/24 CHEMISTRY Potassium 3.8 mmol/L (3.3-5.1) 11/29/24 11:20 11/29/24 Sodium 138 mmol/L (133-145) 11/29/24 11:20 11/29/24 BUN 13 mg/dL (4-19) 11/29/24 11:20 11/29/24 Creatinine 0.92 mg/dL (0.70-1.20) 11/29/24 11:20 11/29/24 Glucose 82 mg/dL (70-99) 11/29/24 11:20 11/29/24 TSH 2.50 uIU/mL (0.358-3.74) 04/05/21 06:23 COAG Pre-Assessment Diagnosis/Proposed Procedure Planned Operative Procedure(s): COLONOSCOPY Anesthesia History Anesthesia History - adobe layer: Anesthesia History - adobe layer Hx Hospitalization No 01/07/25 16:14 Any Problems With Anesthesia No 01/07/25 16:14 Cholinesterase deficiency No 01/07/25 16:14 You/Your Family Experience No 01/07/25 16:14 fever (hyperthermia) with Relationship Recent Exposure to Contagious No 01/09/25 08:10 Disease Does patient have nerve No 01/07/25 16:14 stimulator Patient instructed to have device shut off --Does patient have Pacemaker No 01/09/25 08:10 or ICD? When Was Last Pacemaker Check QUESTION #4 FULL TEXT: You/Your Family Experience fever (hyperthermia) with Anesthesia Last Oral Intake Last Oral intake: Last Oral Intake NPO since 04:00 01/09/25 08:10 Meds taken in AM with sips of No 01/09/25 08:10 water? Meds patient instructed to take am of surgery PONV PONV - adobe layer: PONV - adobe layer Female No 01/07/25 16:14 HX of Motion Sickness No 01/07/25 16:14 HX of N/V After Surgery No 01/07/25 16:14 Non-Smoker Yes 01/07/25 16:14 Duration of Surgery greater No 01/07/25 16:14 than 60 minutes Number of Risk Factors 1 01/07/25 16:14 PONV Score Low Risk 01/07/25 16:14 Height & Weight Height & Weight: Anesthesia: Height & Weight Height 5 ft 10 in 01/09/25 08:10 Weight: 112.037 kg 01/09/25 08:10 Body Mass Index (BMI) 35.4 01/09/25 08:10 Respiratory Assessment Respiratory Assessment - adobe layer: Respiratory Tract Infection Hx - adobe layer Hx Respiratory Tract Infection No 01/07/25 16:14 STOP Sleep Apnea STOP Sleep Apnea - adobe layer: STOP Sleep Apnea - adobe layer Hx Hypertension No 01/07/25 16:14 Hx Sleep Apnea No 01/07/25 16:14 CPAP BIPAP Do you snore loudly (louder No 01/07/25 16:14 than talking or can be heard Do you often feel tired/ No 01/07/25 16:14 fatigued/ sleepy during daytime? Has anyone observed you stop No 01/07/25 16:14 breathing during sleep? STOP Results Negative 01/07/25 16:14 QUESTION #5 FULL TEXT : Do you snore loudly (louder than talking or can be heard through closeddoors)? 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 Specify any problems Hx of Preganancy in last 3 N/A 01/07/25 16:14 Months Nurse Filling Out Transfusion MGRIFFITH 01/07/25 16:14 & Questions: Date: 01/07/25 01/07/25 16:14 Time: 16:16 01/07/25 16:14 Patient unable to answer at this time (ie. confused, unrespo /Reproduction History /Reproductive History - adobe layer: /Reproductive Hx- adobe layer Hx Now Gestational Age (in weeks): EDC: Hx Hx Para Hx Section SAB Active Medications Active Medications: Current Medications Generic Name Dose Route Start Last Admin Trade Name Freq PRN Reason Stop Dose Admin Lactated Ringer's 1,000 mls @ 15 mls/hr 01/09/25 08:00 01/09/25 08:15 IV 15 mls/hr .Q48H JOSÉ Administration PFSH Medical History Wears contact lenses History of GI bleed History of diverticulosis Former smoker Hemorrhoids Constipation Home Medications ?Medication ?Instructions ?Recorded ?Last Taken ?Type cholecalciferol (vitamin D3) 125 125 mcg PO DAILY 12/01 12/22 Unknown History mcg (5,000 unit) capsule loratadine 10 mg tablet (Allergy 10 mg PO DAILY Unknown History Relief (loratadine)) multivitamin 1 tab PO DAILY 12/25/22 Unkn own History roflumilast 500 mcg tablet 500 mcg PO QDAY 06/09/24 Un known History dicyclomine 20 mg tablet 20 mg PO 4X/DAY 12/22/24 Unk nown History Allergy/AdvReac Type Severity Reaction Status Date / Time amoxicillin trihydrate (From Allergy Diarrhea Verified 01/09/25 08:06 Augmentin) potassium clavulanate (From Allergy Diarrhea Verified 01/09/25 08:06 Augmentin) Family History Other Diabetes Heart disease Surgical History History of hand surgery Social History Smoking Status: Never smoker alcohol intake: never Review of Systems (Anesthesia) ROS Narrative System reviewed and no additional complaints, except as documented. 01/09/25 0830 > Date _ Juan Pablo Purdy MD Cosigner Signature: Date CC: ~ Signed [facility]07-03-2025 Radiology Diagnostic study note [facility] Imaging Services [address] [place] [address] [id number] Abdomen Limited MR#: [id number] Acct: [id number] Name: RAY ALARCON Rep #: [id number] : 1980 M 44 From: Vishal Aranda MD PCP: Dr. Angelo Velázquez MD Status: REG C KAYLEEN Study:Abdomen Limited Date of Exam: 09/23 Exam# [id number] Ordering Dr: Héctor Brewer MD PROCEDURE: ABDOMEN [...] kidney is measured at 17 x 16 x16 mm. Color Doppler evaluation does not demonstrate [...] sonographic Neely's sign was elicited. Reading Location: [place] [address] CC: Dr. Héctor Chauhan MD; Dr. Angelo Velázquez MD ~ Patent Chemist: Signed [facility]06-23-2025 Evaluation note* Diagnosis Onset Date Resolution Status Admit Date Blood in the stool acute December 012024 2:52pm Right upper quadrant pain acute December 22, 2024 2:52pm [facility] Work Phone: [phone] Evaluation note* Diagnosis Onset Date Resolution Status Admit Date Blood in the stool acute December 012024 2:52pm Right upper quadrant pain acute December 22, 2024 2:52pm Right upper quadrant pain acute January 30, 2025 1:09pm Cervicogenic headache acute Sep tember 2024 2:31pm Segmental and somatic dysfunction of cervical region acute S eptember 2024 2:31pm Segmental and somatic dysfunction of thoracic region acute S eptember 2024 2:31pm Cervicogenic headache acute Sep tember 2024 3:20pm Segmental and somatic dysfunction of cervical region acute S eptember 2024 3:20pm Segmental and somatic dysfunction of lumbar region acute Sep tember 2024 3:20pm Segmental and somatic dysfunction of pelvic region acute Sep tember 2024 3:20pm Segmental and somatic dysfunction of thoracic region acute S eptember 2024 3:20pm [facility] Work Phone: 1(315) 185-602706-23-2025 [facility] [address] [place], [place] [address] OFFICE VISIT Date of Service: 12/22/24 MR#: [id number] Acct: [id number] Name: RAY ALARCON Rep #: [id number] : 1980 Provider: Dr. Juan F Chauhan MD Age/Sex: 44/M Location: [facility] Status: Signed Intake Vital Signs 11/29/24 [...] cough, No COPD, No asthma, No emphysema andNo wheezing Gastro Gastrointestinal: Yes abdominal pain, No [...] proceed with procedure. Héctor Chauhan MD Pager: [facility] [address] [address] Office: Plan Details Goals & Barriers: Goals Improve ROM Decrease pain Decrease spasm Coding Level of Care Code Off vis,new,level 3 Diagnoses Right upper quadrant pain R10.11 Blood in the stool K92.1 12/22/24 1518 gema HER> Date _ Héctor Chauhan MD Cosigner Signature: Date (if applicable) CC: ~ [facility]06-23-2025 Progress note Author Héctor Chauhan [facility] Note Date/Time December 22, 2024 3:[address] [place] [address] OFFICE VISIT Date of Service: 12/22/24 MR#: [id number] Acct: [id number] Name: RAY ALARCON Rep #: [id number] : 1980 Provider: Dr. Juan F Chauhan MD Age/Sex: 44/M Location: [facility] Status: Signed Intake Vital Signs 11/29/24 [...] General: cooperative Orientation: alert and oriented x3 [facility] Head: normal to inspection Neck Neck: normal [...] proceed with procedure. Héctor Chauhan MD Pager: [facility] [address] [place] [address], [address] [place] [address] Office: Plan Details Goals & Barriers: Goals Improve ROM Decrease pain Decrease spasm Coding Level of Care Code Off vis,new,level 3 Diagnoses Right upper quadrant pain R10.11 Blood in the stool K92.1 12/22/24 1512 <Electronically signed by Héctor ribeiro MD> Date _ Héctor Chauhan MD Cosigner Signature: Date (if applicable) CC: ~ [facility] Work Phone: 1([phone]) 136-889605-31-2025 Radiology Diagnostic study note [facility] Imaging Services [address] [place] [address] Abdomen/Pelvis W IV Cont ONLY MR#: [id number] Acct: [id number] Name: RAY ALARCON Rep #: [id number] : 1980 M 44 From: Evonne Thomas MD PCP: Dr. Angelo Velázquez MD Status: REG E R Study:Abdomen/Pelvis W IV Cont ONLY Date of E xam: 11/29/24 Exam# [id number] Ordering Dr: Katarzyna Elias PROCEDURE: ABDOMEN/PELVIS W [...] Colonic diverticulosis without acute diverticulitis. Reading Location: [id number] CC: Dr. Angelo Velázquez MD; CHEN Munoz ~ Patent Chemist: Signed [facility]03-15-2025 Evaluation note* Diagnosis Onset Date Resolution Status Admit Date Allergic rhinitis acute August 302024 11:01am [facility] Work Phone: 1(500) 741-362203-15-2025 Evaluation note* Diagnosis Onset Date Resolution Status Admit Date Allergic rhinitis acute August 302024 11:01am Blood in the stool acute December 012024 2:52pm Right upper quadrant pain acute December 22, 2024 2:52pm [facility] Work Phone: Consult note Author Juan Pablo Purdy [facility] Note Date/Time January 09, 2025 8:30 am [facility] Medical Records Department [address] [place] [address] Pre-Anesthesia Evaluation 01/09/25829 MR#: [id number] Acct: [id number] Name: RAY ALARCON Rep #:[id number] : 1980 44 From: Juan Pablo Purdy MD PCP: Dr. Angelo Velázquez MD Status:REG S DC Y Race: C Location: [place] [address] ASA Classification* ASA Classification ASA Classification: 2 Assessment & Plan Anesthesia* Anesthesia Assessment Anesthesia Assessment: Discussed sedation and/or anesthesia options, risks, benefits, and alternatives with patient/parents/legal guardian/POA. Questions invited. The patient/parents/legal guardian/POA seems to understand and agrees to proceedwith anesthesia plan. Reviewed the physical assessment, medical history, allergy history and patient home medications list prior to surgery/procedure/anesthetic and documented any changes. Performed airway and anesthesia risk assessments. Anesthesia Type Anesthesia Type: MAC Anesthesia Focused Assessment* Temperature: 98.1 F Pulse Rate: 78 Blood Pressure: 139/91 Respiratory Rate: 16 Pulse Ox: 100 Airway Assessment Mouth opens: >3 cm Mallampati Score: II Labs Anesthesia Preop lab: CBC WBC 9.0 K/mm3 (4.4-11.0) 11/29/24 11:20 11/29/24 RBC 5.07 M/mm3 (4.6-6.2) 11/29/24 11:20 11/29/24 Hgb 15.3 g/dL (13.0-16.5) 11/29/24 11:20 11/29/24 Hct 43.6 % (40-54) 11/29/24 11:20 11/29/24 Plt Count 150 K/mm3 (150-450) 11/29/24 11:20 11/29/24 CHEMISTRY Potassium 3.8 mmol/L (3.3-5.1) 11/29/24 11:20 11/29/24 Sodium 138 mmol/L (133-145) 11/29/24 11:20 11/29/24 BUN 13 mg/dL (4-19) 11/29/24 11:20 11/29/24 Creatinine 0.92 mg/dL (0.70-1.20) 11/29/24 11:20 11/29/24 Glucose 82 mg/dL (70-99) 11/29/24 11:20 11/29/24 TSH 2.50 uIU/mL (0.358-3.74) 04/05/21 06:23 COAG Pre-Assessment Diagnosis/Proposed Procedure Planned Operative Procedure(s): COLONOSCOPY Anesthesia History Anesthesia History - adobe layer: Anesthesia History - adobe layer Hx Hospitalization No 01/07/25 16:14 Any Problems With Anesthesia No 01/07/25 16:14 Cholinesterase deficiency No 01/07/25 16:14 You/Your Family Experience No 01/07/25 16:14 fever (hyperthermia) with Relationship Recent Exposure to Contagious No 01/09/25 08:10 Disease Does patient have nerve No 01/07/25 16:14 stimulator Patient instructed to have device shut off --Does patient have Pacemaker No 01/09/25 08:10 or ICD? When Was Last Pacemaker Check QUESTION #4 FULL TEXT: You/Your Family Experience fever (hyperthermia) with Anesthesia Last Oral Intake Last Oral intake: Last Oral Intake NPO since 04:00 01/09/25 08:10 Meds taken in AM with sips of No 01/09/25 08:10 water? Meds patient instructed to take am of surgery PONV PONV - adobe layer: PONV - adobe layer Female No 01/07/25 16:14 HX of Motion Sickness No 01/07/25 16:14 HX of N/V After Surgery No 01/07/25 16:14 Non-Smoker Yes 01/07/25 16:14 Duration of Surgery greater No 01/07/25 16:14 than 60 minutes Number of Risk Factors 1 01/07/25 16:14 PONV Score Low Risk 01/07/25 16:14 Height & Weight Height & Weight: Anesthesia: Height & Weight Height 5 ft 10 in 01/09/25 08:10 Weight: 112.037 kg 01/09/25 08:10 Body Mass Index (BMI) 35.4 01/09/25 08:10 Respiratory Assessment Respiratory Assessment - adobe layer: Respiratory Tract Infection Hx - adobe layer Hx Respiratory Tract Infection No 01/07/25 16:14 STOP Sleep Apnea STOP Sleep Apnea - adobe layer: STOP Sleep Apnea - adobe layer Hx Hypertension No 01/07/25 16:14 Hx Sleep Apnea No 01/07/25 16:14 CPAP BIPAP Do you snore loudly (louder No 01/07/25 16:14 than talking or can be heard Do you often feel tired/ No 01/07/25 16:14 fatigued/ sleepy during daytime? Has anyone observed you stop No 01/07/25 16:14 breathing during sleep? STOP Results Negative 01/07/25 16:14 QUESTION #5 FULL TEXT : Do you snore loudly (louder than talking or can be heard through closed doors)? 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 Specify any problems Hx of Preganancy in last 3 N/A 01/07/25 16:14 Months Nurse Filling Out Transfusion MGRIFFITH 01/07/25 16:14 & Questions: Date: 01/07/25 01/07/25 16:14 Time: 16:16 01/07/25 16:14 Patient unable to answer at this time (ie. confused, unrespo /Reproduction History /Reproductive History - adobe layer: /Reproductive Hx- adobe layer Hx Now Gestational Age (in weeks): EDC: Hx Hx Para Hx Section SAB Active Medications Active Medications: Current Medications Generic Name Dose Route Start Last Admin Trade Name Freq PRN Reason Stop Dose Admin Lactated Ringer's 1,000 mls @ 15 mls/hr 01/09/25 08:00 01/09/25 08:15 IV 15 mls/hr .Q48H JOSÉ Administration PFSH Medical History Wears contact lenses History of GI bleed History of diverticulosis Former smoker Hemorrhoids Constipation Home Medications ?Medication ?Instructions ?Recorded ?Last Taken ?Type cholecalciferol (vitamin D3) 125 125 mcg PO DAILY 12/01 12/22 Unknown History mcg (5,000 unit) capsule loratadine 10 mg tablet (Allergy 10 mg PO DAILY Unknown History Relief (loratadine)) multivitamin 1 tab PO DAILY 12/25/22 Unkn own History roflumilast 500 mcg tablet 500 mcg PO QDAY 06/09/24 Un known History dicyclomine 20 mg tablet 20 mg PO 4X/DAY 12/22/24 Unk nown History Allergy/AdvReac Type Severity Reaction Status Date / Time amoxicillin trihydrate (From Allergy Diarrhea Verified 01/09/25 08:06 Augmentin) potassium clavulanate (From Allergy Diarrhea Verified 01/09/25 08:06 Augmentin) Family History Other Diabetes Heart disease Surgical History History of hand surgery Social History Smoking Status: Never smoker alcohol intake: never Review of Systems (Anesthesia) ROS Narrative System reviewed and no additional complaints, except as documented. 01/09/25 0830 <Electronically signed by Juan Pablo Purdy MD > Date _ Juan Pablo Sauligner Signature: Date CC: ~ Signed [facility] Work Phone: Consult note Author Erasmo Mcdowell [facility] Note Date/Time January 09, 2025 9:26 am [facility] Medical Records Department [address] [place] [address] Anesthesia Postop Eval I 01/09/25924 MR#: [id number] Acct: [id number] Name: RAY ALARCON Rep #:[id number] : 1980 44 From: Erasmo Mcdowell PCP: Dr. Angelo Velázquez MD Status:REG S DC Y Race: C Location: [place] [address] Anesthesia: Postop Eval I Current Vital Signs Temperature: 97.4 F Pulse Rate: 75 Blood Pressure: 121/80 Respiratory Rate: 16 Pulse Ox: 97 Oxygen Delivery Method: Room Air Assessment Airway patent: Yes Spontaneous unlabored respirations: Yes Mental status: Asleep nausea: No Vomiting: No Anesthesia Complication: No Fluid Hydration Crystalloid volume administer (ml): 500 Total IV fluid infused: 500 Progress Note Anesthesia document: Postop Eval 1 completed: Yes 01/09/25925 <Electronically signed by Erasmo Mcdowell > Date _ Erasmo Rowe Signature: Date CC: ~ Signed [facility] Work Phone: Evaluation noteNo assessment information available [facility] Work Phone: Evaluation note* Diagnosis Onset Date [...] acute Puncture wound of left thumb acute [facility] Work Phone: Evaluation note* Diagnosis Onset Date [...] acute Puncture wound of left thumb acute [facility] Work Phone: History and physical note Author Héctor Chauhan [facility] Note Date/Time January 09, 2025 8:47 am [facility] Medical Records Department [address] [place] [address] History & Physical Exam 01/09/25 0847 MR#: [id number] Acct: [id number] Name: RAY ALARCON Rep #:[id number] : 1980 44 From: Héctor jacobo MD PCP: Dr. Angelo Velázquez MD Status:REG S DC Location: [place] [address] History and Physical Date of Admission: 01/09/25 Intake Vital Signs 11/29/2509:51 12/22/2514:08 Height 5 ft 9 in 5 ft [...] trihydrate (From Augmentin) Allergy (Verified 12/22/24 15:09) Diarrheapotassium clavulanate (From Augmentin) Allergy (Verified 12/22/24 15:09) Diarrhea Medications ?Medication ?Instructions ?Recorded ?Confirmed ?Type Saccharomyces boulardii 250 mg 250 mg PO DAILY 12/25/22 12/22/24 Histor y capsule (Digest Probiotic (S.boulardii)) cholecalciferol (vitamin D3) 125 125 mcg PO DAILY 12/25/22 12/22/24 Histo ry mcg (5,000 unit) capsule loratadine 10 mg tablet (Allergy 10 mg PO DAILY 12/25/22 12/22/24 History Relief (loratadine)) multivitamin 1 tab PO DAILY 12/25/22 12/22/24 History roflumilast 500 mcg tablet 500 mcg PO QDAY 06/09/24 12/22/24 Histor y dicyclomine 20 mg tablet 20 mg PO BID 12/22/24 12/22/24 History PFSH Medical History (Updated 12/22/24 [...] attack, heart stent, palpitations, shortness of breath withexertion or chest pain Psych Psychiatric: No depression, [...] proceed with procedure. Héctor Chauhan MD Pager: [facility] [address] [place] [address], [address] [place] [address] Office: I have examined the patient and the H&P has been reviewed. There are no clinicalchanges since date of exam. 01/09/25 0847 <Electronically signed by Héctor Chauhan MD> Cosigner Signature (if applicable): CC: Dr. Héctor Chauhan MD; Dr. Angelo Velázquez MD~ Signed [facility] Work Phone: Hospital Discharge instructions Additional Instructions [...] significantly please come back to the ER. [facility] Work Phone: Reason for referral (narrative)No reason for referral information [facility] Work Phone: Summary Purpose Family History No Family History Records Found Relationship Condition Age at Onset Recorded Date/T baldemar Not Specified Diabetes mellitus Unknown Cardiac disease Unknown Advance Directives No Advanced Directives Records Found Advance Directive Response Recorded Date/ Time Living Will No July 29 3:17pm Power of Supervisor [employer] No July 29, 2015 3:17pm Advance Directive Response Recorded Date/ Time Living Will No July 29 2:17pm Power of Supervisor [employer] No July 29, 2015 2:17pm Advance Directive Response Recorded Date/ Time Do you have a Healthcare Power of Supervisor [employer]? No November 29, 2024 11:27am Advance Directive Response Recorded Date/ Time Do you have a Healthcare Power of Supervisor [employer]? No January 07, 2025 4:14pm Do you have a Healthcare Power of Supervisor [employer]? No November 29, 2024 11:27am Advance Directive Response Recorded Date/ Time Do you have a Healthcare Power of Supervisor [employer]? No January 07, 2025 4:14pm Advance Directive Response Recorded Date/ Time Do you have a Healthcare Power of Supervisor [employer]? No January 07, 2025 4:14pm Do you have a Healthcare Power of Supervisor [employer]? No April 13, 2025 9:12am Chief Complaint and Reason for Visit Chief [...] RUQ PAIN January 01, 2025 7:26a m Chief Complaint Admit Date ABD PAIN November 29, 2024 10:50 am ABD PAIN/ RECTAL BLEED December 22, 2024 2 :52pm RUQ PAIN January 01, 2025 7:26a m DISCUSS LAP BRENDA January 30, 2025 1:0 9pm Reason for Visit Admit Date Blood in the stool December 22, 2024 2:52 pm Right upper quadrant pain December 22 2:52pm Chief Complaint Admit Date ABD PAIN/ RECTAL BLEED December 22, 2024 2 :52pm RUQ PAIN January 01, 2025 7:26a m DISCUSS LAP BRENDA January 30, 2025 1:0 9pm REEVAL March 23, 2025 2:31pm BACK PAIN March 31, 2025 3:20pm Reason for Visit Admit Date Blood in the stool December 22, 2024 2:52 pm Right upper quadrant pain December 22 2:52pm Right upper quadrant pain January 30 1:09pm Cervicogenic headache March 23 2:31pm Segmental and somatic dysfunction of cer vical region March 23, 2025 2:31pm Segmental and somatic dysfunction of tho racic region March 23, 2025 2:31pm Cervicogenic headache March 31 3:20pm Segmental and somatic dysfunction of cer vical region March 31, 2025 3:20pm Segmental and somatic dysfunction of lum bar region March 31, 2025 3:20pm Segmental and somatic dysfunction of pel shyanne region March 31, 2025 3:20pm Segmental and somatic dysfunction of tho racic region March 31, 2025 3:20pm Chief Complaint Admit Date RUQ PAIN January 01, 2025 7:26a m DISCUSS LAP BRENDA January 30, 2025 1:0 9pm REEVAL March 23, 2025 2:31pm BACK PAIN March 31, 2025 3:20pm BACK PAIN April 16, 2025 2 :29pm Robotic Cholecystectomy April 27 7:49am Robotic Cholecystectomy April 27 9:03am Reason for Visit Admit Date Right upper quadrant pain January 30 1:09pm Cervicogenic headache March 23 2:31pm Segmental and somatic dysfunction of cer vical region March 23, 2025 2:31pm Segmental and somatic dysfunction of tho racic region March 23, 2025 2:31pm Cervicogenic headache March 31 3:20pm Segmental and somatic dysfunction of cer vical region March 31, 2025 3:20pm Segmental and somatic dysfunction of tho racic region March 31, 2025 3:20pm Cervicogenic headache April 16, 2025 2:29pm Segmental and somatic dysfunction of cer vical region April 16, 2025 2:29pm Segmental and somatic dysfunction of tho racic region April 16, 2025 2:29pm Additional Source Comments (unrecognized sect ion and content) No Status Records FoundNo Status Records Found INFORMATION SOURCE (unrecogn ized section and content) DATE CREATED AUTHOR 12/19/2017 [facility] DATE CREATED AUTHOR AUTHOR'S DARIAN SEE 05/12/2025 [facility] Goals (unrecognized section and content) Goals [...] Klaus Wang MD Attending Provider, Referring P [email or web address] Active Team Status: Inactive Member Role Status [...] Inactive Member Role Status Dates Dr. Angelo Velzáquez MD Primary Care Provider Active Start: November [...] January 01, 2025 End: January 01, 2025 Team Status: Inactive Member Role/Relationship Status Dates Dr. Angelo Velázquez MD Primary Care Provider Active Start: January 09, 2025 End: January 09, 2025 Dr. Angelo Velázquez MD Referring Provider Active Start: January 09, 2025 End: January 09, 2025 Dr. Héctor Chauhan MD Attending Provider Active Start: January 09, 2025 End: January 09, 2025 Team Status: Active Member Role/Relationship Status Dates Dr. Angelo Velázquez MD Primary Care Provider Active Start: January 09, 2025 Dr. Angelo Velázquez MD Referring Provider Active Start: January 09, 2025 Dr. Héctor Chauhan MD Attending Provider Active Start: January 09, 2025 Dr. Héctor Chauhan MD Other Provider Active Start: January 09, 2025 Team Status: Inactive Member Role/Relationship Status Dates [...] January 01, 2025 End: January 01, 2025 Team Status: Inactive Member Role/Relationship Status Dates Dr. Angelo Velázquez MD Primary Care Provider Active Start: January 09, 2025 End: January 09, 2025 Dr. Angelo Velázquez MD Referring Provider Active Start: January 09, 2025 End: January 09, 2025 Dr. Héctor Chauhan MD Attending Provider Active Start: January 09, 2025 End: January 09, 2025 Team Status: Active Member Role/Relationship Status Dates Dr. Angelo Velázquez MD Primary Care Provider Active Start: January 09, 2025 Dr. Angelo Velázquez MD Referring Provider Active Start: January 09, 2025 Dr. Héctor Chauhan MD Attending Provider Active Start: January 09, 2025 Dr. Héctor Chauhan MD Other Provider Active Start: January 09, 2025 Team Status: Inactive Member Role/Relationship Status Dates Dr. Angelo Velázquez MD Primary Care Provider Active Start: January 30, 2025 End: January 30, 2025 Dr. Angelo Velázquez MD Referring Provider Active Start: January 30, 2025 End: January 30, 2025 Dr. Héctor Chauhan MD Attending Provider Active Start: January 30, 2025 End: January 30, 2025 Team Status: Active Member Role/Relationship Status Dates Dr. Angelo Velázquez MD Primary care physician Active Team Status: Inactive Member Role/Relationship Status Dates Dr. Angelo Velázquez MD Primary care physician Active Start: December 22, 2024 End: December 22, 2024 Dr. Angelo Velázquez MD Referring Provider Active Start: December 22, 2024 End: December 22, 2024 Dr. Héctor Chauhan MD Attending physician Active Start: December 22, 2024 End: December 22, 2024 Team Status: Inactive Member Role/Relationship Status Dates Dr. Angelo Velázquez MD Primary care physician Active Start: January 01, 2025 End: January 01, 2025 Dr. Angelo Velázquez MD Referring Provider Active Start: January 01, 2025 End: January 01, 2025 Dr. Héctor Chauhan MD Attending physician Active Start: January 01, 2025 End: January 01, 2025 Team Status: Inactive Member Role/Relationship Status Dates Dr. Angelo Velázquez MD Primary care physician Active Start: January 09, 2025 End: January 09, 2025 Dr. Angelo Velázquez MD Referring Provider Active Start: January 09, 2025 End: January 09, 2025 Dr. Héctor Chauhan MD Attending physician Active Start: January 09, 2025 End: January 09, 2025 Team Status: Active Member Role/Relationship Status Dates Dr. Angelo Velázquez MD Primary care physician Active Start: January 09, 2025 Dr. Angelo Velázquez MD Referring Provider Active Start: January 09, 2025 Dr. Héctor Chauhan MD Attending physician Active Start: January 09, 2025 Dr. Héctor Chauhan MD Nurse Practitioner Active Start: January 09, 2025 Team Status: Inactive Member Role/Relationship Status Dates Dr. Angelo Velázquez MD Primary care physician Active Start: January 30, 2025 End: January 30, 2025 Dr. Angelo Velázquez MD Referring Provider Active Start: January 30, 2025 End: January 30, 2025 Dr. Héctor Chauhan MD Attending physician Active Start: January 30, 2025 End: January 30, 2025 Team Status: Inactive Member Role/Relationship Status Dates Dr. Angelo Velázquez MD Primary care physician Active Start: March 23, 2025 End: March 23, 2025 Dr. Angelo Velázquez MD Referring Provider Active Start: March 23, 2025 End: March 23, 2025 Dr. Leti Julian DC Attending physician Active Start: March 23, 2025 End: March 23, 2025 Team Status: Inactive Member Role/Relationship Status Dates Dr. Angelo Velázquez MD Primary care physician Active Start: March 31, 2025 End: March 31, 2025 Dr. Angelo Velázquez MD Referring Provider Active Start: March 31, 2025 End: March 31, 2025 Dr. Leti Julian DC Attending physician Active Start: March 31, 2025 End: March 31, 2025 Team Status: Inactive Member Role/Relationship Status Dates Dr. Angelo Velázquez MD Primary care physician Active Start: January 01, 2025 End: January 01, 2025 Dr. Angelo Velázquez MD Referring Provider Active Start: January 01, 2025 End: January 01, 2025 Dr. Héctor Chauhan MD Attending physician Active Start: January 01, 2025 End: January 01, 2025 Team Status: Inactive Member Role/Relationship Status Dates Dr. Angelo Velázquez MD Primary care physician Active Start: January 09, 2025 End: January 09, 2025 Dr. Angelo Velázquez MD Referring Provider Active Start: January 09, 2025 End: January 09, 2025 Dr. Héctor Chauhan MD Attending physician Active Start: January 09, 2025 End: January 09, 2025 Team Status: Active Member Role/Relationship Status Dates Dr. Angelo Velázquez MD Primary care physician Active Start: January 09, 2025 Dr. Angelo Velázquez MD Referring Provider Active Start: January 09, 2025 Dr. Héctor Chauhan MD Attending physician Active Start: January 09, 2025 Dr. Héctor Chauhan MD Nurse Practitioner Active Start: January 09, 2025 Team Status: Inactive Member Role/Relationship Status Dates Dr. Angelo Velázquez MD Primary care physician Active Start: January 30, 2025 End: January 30, 2025 Dr. Angelo Velázquez MD Referring Provider Active Start: January 30, 2025 End: January 30, 2025 Dr. Héctor Chauhan MD Attending physician Active Start: January 30, 2025 End: January 30, 2025 Team Status: Inactive Member Role/Relationship Status Dates Dr. Angelo Velázquez MD Primary care physician Active Start: March 23, 2025 End: March 23, 2025 Dr. Angelo Velázquez MD Referring Provider Active Start: March 23, 2025 End: March 23, 2025 Dr. Leti Julian DC Attending physician Active Start: March 23, 2025 End: March 23, 2025 Team Status: Inactive Member Role/Relationship Status Dates Dr. Angelo Velázquez MD Primary care physician Active Start: March 31, 2025 End: March 31, 2025 Dr. Angelo Velázquez MD Referring Provider Active Start: March 31, 2025 End: March 31, 2025 Dr. Leti Julian DC Attending physician Active Start: March 31, 2025 End: March 31, 2025 Team Status: Inactive Member Role/Relationship Status Dates Dr. Angelo Velázquez MD Primary care physician Active Start: April 16, 2025 End: April 16, 2025 Dr. Angelo Velázquez MD Referring Provider Active Start: April 16, 2025 End: April 16, 2025 Dr. Leti Julian DC Attending physician Active Start: April 16, 2025 End: April 16, 2025 Team Status: Inactive Member Role/Relationship Status Dates Dr. Angelo Velázquez MD Primary care physician Active Start: April 27, 2025 End: April 27, 2025 Dr. Héctor Chauhan MD Attending physician Active Start: April 27, 2025 End: April 27, 2025 Dr. Héctor Chauhan MD Referring Provider Active Start: April 27, 2025 End: April 27, 2025 Team Status: Active Member Role/Relationship Status Dates Dr. Angelo Velázquez MD Primary care physician Active Start: April 27, 2025 Dr. Héctor Chauhan MD Attending physician Active Start: April 27, 2025 Dr. Héctor Chauhan MD Referring Provider Active Start: April 27, 2025 Dr. Héctor Chauhan MD Nurse Practitioner Active Start: April 27, 2025 FOR RECORDS PERTAINING TO PATIENTS WHO [...] BE BASED ON THE PRIMARY CLINICAL RECORDS. [facility] [employer] provides no warranty or guarantee of the accuracy or completeness of information in this document.
[2025-05-19 07:49] LABS: AST(SGOT) 31 U/L (<=37); Alanine Aminotransfer ALT/SGPT 42 U/L (<=46); Albumin, Serum 4.3 g/dL (3.5-5.0); Alkaline Phosphatase 63 U/L (40-129); Anion Gap 10 (5-15); BUN 16 mg/dL (4-19); BUN/Creat Ratio 17.2 RATIO (10-20); Calcium,Total 9.1 mg/dL (7.6-11.0); Carbon Dioxide 24.8 mmol/L (21.0-32.0); Chloride 105 mmol/L (98-108); Cholesterol 186 mg/dL (<=200); Globulin 2.6 g/dL (2.2-4.2); Glucose 88 mg/dL (70-99); Low Density Lipoprotein Calc. 128 mg/dL; Potassium 4.1 mmol/L (3.3-5.1); Triglycerides 52 mg/dL; Very Low Density Lipoprotein 10 mg/dL (5-40); cholesterol:hdl ratio screen 3.89
== END | disposition home or self-care (01) ==
LOC: LAB 06:09
PROVIDERS: PCP Family Medicine; Referring Provider Family Medicine; Visit Provider Family Medicine
DX: Z00.00 Encounter for general adult medical examination without abnormal findings (principal)
CPT/HCPCS: 36415; 80053; 80061